=== PATIENT | male | born 1930 | race Caucasian/White ===

== ENCOUNTER 2017-01-03 13:05 | Emergency (ER) | payer OTHER ==
[~2017-01-03] VITALS: Ht 162.6 cm; Wt 76.0 kg
[~2017-01-03 13:05] MED LIST: AMLO2.5T2 PO; ASPCH81X PO; BRL90 PO; FINA5TAB4 PO; FRRS300 PO; LEVO75TA PO; LPT40 PO; METO50TA7 PO; NITR0.4S UT; OMEP20TA PO
[2017-01-03 13:22] VITALS: BP 101/73; TEMP 36.8; Ht 162.6 cm; Wt 76.0 kg
[2017-01-03] MEDS ORDERED: CMD5 PO (13:55)
[2017-01-03] MEDS ORDERED: WARF5TAB7 PO (13:55)
[2017-01-03] MEDS ORDERED: OXYCODONE HCL IR 5 MG TAB (IMMEDIATE RELEASE) PO STA (14:20)
--- NOTE | 2017-01-03 14:35 | DIAGNOSTIC IMAGING REPORT ---
RIGHT HIP 2 VIEWS HISTORY: Right hip pain. COMPARISON: None. FINDINGS: No acute fracture or dislocation within the right hip. The visualized pelvic bones are intact. Severe cartilage space narrowing with [id number] articulation, subchondral sclerosis, and marginal osteophytes within the right hip. This is consistent with severe osteoarthritis. There is slight flattening of the superior femoral head likely due to long-standing degenerative change. Vascular calcifications are noted. No radiopaque foreign bodies. IMPRESSION: Severe osteoarthritis of the right hip. No fracture or dislocation. Electronically signed by: Chase Cottrell M.D. 01/03/2017 2:33 PM Dictated Date/Time: 01/03/2017 2:32 PM
--- NOTE | 2017-01-03 14:56 | EMERGENCY ROOM VISIT NOTE ---
ED Visit Note First contact with patient: 13:48 Staff note: I have reviewed the Patients chart and have discussed this case with my PA. I generally agree with the ED note and findings.
[2017-01-03] MEDS ORDERED: OXYC1TAB3 PO (14:58)
[2017-01-03 15:07] VITALS: PULSE 81; O2SAT 95
--- NOTE | 2017-01-03 16:24 | EMERGENCY ROOM VISIT NOTE ---
History First contact with patient: 13:48 Chief Complaint: HIP PAIN Stated Complaint: PAIN IN RIGHT HIP History of Present Illness The patient is a 86 year old male who presents to the Emergency Room with complaints of increasing right hip pain for the past 3 days. The patient denies any recent injury to the hip. He does report a history of osteoarthritis , status post left primary hip [place] [address] Sorensen. He denies any pain extending into the back or thigh. His pain is worsened with weightbearing. He rates his discomfort a 6 out of 10. Review of Systems 10 system review was performed and was negative except for pertinent positives and negatives as indicated in history of present illness Past Medical/Surgical History Medical Problems: (1) Anemia (2) Benign hypertension (3) Chronic kidney disease stage 3 (4) Coronary artery disease (5) Deep venous thrombosis (6) Dyslipidemia (7) Heart failure (8) History of - cerebrovascular accident (9) Hypothyroidism (10) Old myocardial infarction (11) Post percutaneous transluminal coronary angioplasty (12) STEMI (ST elevation myocardial infarction) (13) Vitamin D deficiency Family History Omitted secondary to advanced age Social History Smoking Status: Former Smoker Alcohol Use: none Marital Status: Housing Status: lives with significant other Occupation Status: retired Current/Historical Medications Scheduled Amlodipine Besylate (Norvasc), 2.5 MG PO DAILY Aspirin (Aspirin Chewable), 81 MG PO DAILY Atorvastatin (Atorvastatin Calcium), 1 TAB PO DAILY Ferrous Sulfate (Ferrous Sulfate), 325 MG PO DAILY Finasteride (Proscar), 5 MG PO DAILY Levothyroxine Sodium (Synthroid), 75 MCG PO DAILY Metoprolol Succ (Toprol Xl) (Toprol-Xl), 1 TAB PO DAILY Omeprazole (Omeprazole), 20 MG PO DAILY Warfarin Sod (Coumadin), 1.5 TAB PO 2XWK Warfarin Sod (Jantoven), 1 TAB PO 5XWK Scheduled PRN Nitroglycerin (Nitrostat), 0.4 MG UT UD PRN for Chest Pain Oxycodone Ir (Roxicodone Ir), 1-2 TAB PO Q4H PRN for Pain Allergies Coded Allergies: Clopidogrel (Verified Allergy, Mild, RASH, 04/11/14) Sulfa Antibiotics (Verified Allergy, Mild, RASH, 10/09/15) Sulfamethoxazole (Verified Allergy, Mild, RASH, 04/11/14) Trimethoprim (Verified Allergy, Mild, RASH, 04/11/14) Niacin (Verified Allergy, Unknown, UNKNOWN, 06/14/13) Physical Exam Vital Signs Date Time Temp Pulse Resp B/P Pulse Ox O2 Delivery O2 Flow Rate FiO2 01/03/17 15:07 81 18 95 Room Air 01/03/17 13:22 36.8 87 20 101/73 94 Room Air Physical Exam CONSTITUTIONAL: Healthy and well nourished. Alert and oriented X 3 with positive affect. Patient appears in mild discomfort from pain. HEENT: Normocephalic, atraumatic. Pupils equal, round and reactive. NECK: Full active range of motion without discomfort. RESPIRATORY: Clear to auscultation bilaterally with no wheezing, crackles, rhonchi or stridor. CARDIOVASCULAR: Regular rate and rhythm with no murmurs, rubs or gallops. GASTROINTESTINAL: Bowel sounds present in all quadrants. Soft and nontender to palpation. MUSCULOSKELETAL: Examination of the right hip shows extremely limited range of motion with logroll. He has worsening pain with internal rotation. Focal tenderness to palpation over the greater trochanteric region, SI joint or sciatic notch. Negative straight leg raise. Ankle plantar/dorsiflexion strength is 5 out of 5 and symmetric bilaterally. Pedal pulses are intact. INTEGUMENTARY: No rash or other significant dermatologic conditions noted. NEUROLOGIC: Right lower extremity is sensory intact. Medical Decision & Procedures ER Provider Diagnostic Interpretation: My interpretation of right hip x-ray shows severe osteoarthritis. No fracture or dislocation noted. Radiologist report is as follows: RIGHT HIP 2 VIEWS HISTORY: Right hip pain. COMPARISON: None. FINDINGS: No acute fracture or dislocation within the right hip. The visualized pelvic bones are intact. Severe cartilage space narrowing with [id number] articulation, subchondral sclerosis, and marginal osteophytes within the right hip. This is consistent with severe osteoarthritis. There is slight flattening of the superior femoral head likely due to long-standing degenerative change. Vascular calcifications are noted. No radiopaque foreign bodies. IMPRESSION: Severe osteoarthritis of the right hip. No fracture or dislocation. Medications Administered Medications (Trade) Dose Ordered Sig/Natalie Route Start Time Stop Time Status Last Admin Dose Admin Oxycodone HCl (Roxicodone Immediate Rel Tab) 5 mg NOW STAT PO 01/03/17 14:20 01/03/17 14:21 DC 01/03/17 14:31 5 MG ED Course Patient history and physical exam were performed. Nurse's notes were reviewed. Vital signs were reviewed and normal. The patient initially refused any analgesics. After returning from x-ray, he then requested something for pain, and was administered OxyIR 5 mg. X-rays of the right hip confirms severe osteoarthritic changes. X-rays were reviewed with the patient. The patient was encouraged to alternate ibuprofen and Tylenol as needed for pain. The patient was provided a prescription for OxyIR as needed for worse pain. Patient was educated regarding drowsy side effects of this medication, as well as increased risk for constipation. He was encouraged to follow-up with his PCP and/or Dr. Sorensen for further reevaluation and management. The patient was happy with plan of care, voiced understanding of all discharge instructions , and rated his pain a 4 out of 10 at the time of discharge. The patient was also seen and examined by Dr. Dooley, ED attending physician, who agrees with workup and plan of care. Medical Decision Impression Primary Impression: Osteoarthritis of right hip Departure Information Dispostion Home / Self-Care Prescriptions Oxycodone Ir (Roxicodone Ir) 5 Mg Tab 1-2 TAB PO Q4H Y for Pain, #24 TAB For Initial Treatment Prov: Sedrick Gomez PA 01/03/17 Referrals Marcelo Soernsen M.D. Forms HOME CARE DOCUMENTATION FORM, IMPORTANT VISIT INFORMATION Patient Instructions Osteoarthritis Common Sites, My [facility] Additional Instructions Limit activities until symptoms improve. Tylenol 1009 g every 6-8 hours. OxyIR if needed for worse pain. Remember that OxyIR can make you drowsy and constipated. Follow-up with your family doctor or Dr. Sorensen for further reevaluation and management. Problem Qualifiers Primary Impression: Osteoarthritis of right hip Osteoarthritis type: primary Qualified Codes: M16.11 - Unilateral primary osteoarthritis, right hip
== END 2017-01-03 15:08 | disposition home or self-care (01) ==
LOC: C.EDB 13:07 → C.EDD 15:08
DX: M16.11 Unilateral primary osteoarthritis, right hip (principal); Z96.642 Presence of left artificial hip joint; D64.9 Anemia, unspecified; I12.9 Hypertensive chronic kidney disease with stage 1 through stage 4 chronic kidney disease, or unspecified chronic kidney disease; N18.3 Chronic kidney disease, stage 3 (moderate); I25.10 Atherosclerotic heart disease of native coronary artery without angina pectoris; Z86.718 Personal history of other venous thrombosis and embolism; E78.5 Hyperlipidemia, unspecified; Z86.73 Personal history of transient ischemic attack (TIA), and cerebral infarction without residual deficits; E03.9 Hypothyroidism, unspecified; I25.2 Old myocardial infarction; Z98.61 Coronary angioplasty status; Z87.891 Personal history of nicotine dependence; Z79.82 Long term (current) use of aspirin; Z79.899 Other long term (current) drug therapy; Z79.01 Long term (current) use of anticoagulants

== ENCOUNTER 2017-08-08 08:40 | Emergency (ER) | payer OTHER ==
[~2017-08-08] VITALS: Ht 162.6 cm; Wt 75.0 kg
[~2017-08-08 08:40] MED LIST changes: -BRL90 PO; +CMD5 PO; +WARF5TAB7 PO
[2017-08-08 08:45] VITALS: TEMP 37; Ht 162.6 cm; Wt 75.0 kg
[2017-08-08] MEDS ORDERED: CALC0.2510 PO (09:22)
[2017-08-08] MEDS ORDERED: TRAM-10 PO (09:22)
[2017-08-08] MEDS ORDERED: WARF5TAB90 PO ×2 (09:22)
[2017-08-08] MEDS ORDERED: TAMS0.4C38 PO (09:22)
[2017-08-08] MEDS ORDERED: KPH PO (09:22)
--- NOTE | 2017-08-08 09:34 | EMERGENCY ROOM VISIT NOTE ---
History Report prepared by Juwan: Angela Jones Under the Supervision of: Dr. Berny Aparicio M.D. First contact with patient: 09:12 Chief Complaint: URINARY SYMPTOMS Stated Complaint: LOOSE STOOLS, NAUSEA X 2 WEEKS Nursing Triage Summary: Pt states "I can't empty my urine very well" x 2 weeks. Pt states pt has been incontinent of stool as well. Urology appt on Friday. History of Present Illness The patient is an 87 year old male who presents to the Emergency Room with complaints of persistent urinary retention over the past two to three weeks. The patient describes his pain as a 7/10 in severity. He states that he is having dysuria and pain in his groin. His states that 2 weeks ago he began losing control of his bowels and is currently having loose, green, and soft stool. The patient denies any numbness or weakness in legs, groin, or buttocks. He also denies any shortness of breath or back pain. The patient's states he had an CO in 1994 noting that he had a catheterization through his groin. The patient states that he has had chronic pain in his groin since then. The patient states that his primary care physician referred him to see a urologist, which he is due to see in the upcoming week. He denies any known prostate issues. The patient reports small dribbles when he urinates. He states that he is on Coumadin. The patient denies any fever, chest pain, shortness of breath, or back pain. Source of History: patient, spouse/significant other () Onset: two to three weeks Position: other (global) Quality: other (urinary retention) Timing: other (persistent) Associated Symptoms: No fevers, No chest pain, No SOB, No back pain Review of Systems See HPI for pertinent positives & negatives. A total of 10 systems reviewed and were otherwise negative. 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 (11) Post percutaneous transluminal coronary angioplasty (12) STEMI (ST elevation myocardial infarction) (13) Vitamin D deficiency Old medical records were reviewed. Nurse's notes were reviewed and I agree with. Family History Omitted secondary to advanced age Social History Smoking Status: Former Smoker Alcohol Use: none Marital Status: Housing Status: lives with significant other Occupation Status: retired Current/Historical Medications Scheduled Amlodipine Besylate (Norvasc), 2.5 MG PO DAILY Aspirin (Aspirin Chewable), 81 MG PO DAILY Atorvastatin (Atorvastatin Calcium), 1 TAB PO DAILY Calcitriol (Rocaltrol Cap), 0.25 MCG PO MWF Ferrous Sulfate (Ferrous Sulfate), 325 MG PO DAILY Finasteride (Proscar), 5 MG PO DAILY Levothyroxine Sodium (Synthroid), 75 MCG PO DAILY Metoprolol Succ (Toprol Xl) (Toprol-Xl), 1 TAB PO DAILY Omeprazole (Omeprazole), 20 MG PO DAILY Potassium Phosphate Monobasic (K-Phos), 1 TAB PO DAILY Tamsulosin Hcl (Flomax), 0.4 MG PO DAILY Warfarin Sodium (Coumadin), 5 MG PO 5XWK Warfarin Sodium (Coumadin), 7.5 MG PO 2XWK Scheduled PRN Nitroglycerin (Nitrostat), 0.4 MG UT UD PRN for Chest Pain Tramadol (Ultram), 50 MG PO BID PRN for Pain Allergies Coded Allergies: Clopidogrel (Verified Allergy, Mild, RASH, 08/08/17) Sulfa Antibiotics (Verified Allergy, Mild, RASH, 08/08/17) Sulfamethoxazole (Verified Allergy, Mild, RASH, 08/08/17) Trimethoprim (Verified Allergy, Mild, RASH, 08/08/17) Niacin (Verified Allergy, Unknown, UNKNOWN, 08/08/17) Physical Exam Vital Signs Date Time Temp Pulse Resp B/P (MAP) Pulse Ox O2 Delivery O2 Flow Rate FiO2 08/08/17 12:26 76 20 145/86 95 08/08/17 11:14 63 20 148/80 93 Room Air 08/08/17 08:45 37.0 83 17 158/91 92 Room Air Physical Exam General: Non-ill appearing older male in no acute distress. HEENT: Normal cephalic atraumatic. Pupils are equal round and reactive to light. Extraocular movements are intact. Oropharynx is pink with moist mucous membranes. No swelling of the mouth lips or tongue. Neck: Supple with a midline trachea. No meningeal signs or stiffness, no JVD or bruits. No Stridor. Chest: Clear to auscultation bilaterally. No wheezes or rhonchi. No increased work of breathing. Heart: regular rate and rhythm. Abdomen: Soft nontender, distended bladder with no tenderness to palpation without rebound guarding or rigidity. Rectal: Normal tone, brown stool, guaiac negative. Extremities: No cyanosis clubbing or edema. No calf tenderness or assymetry Spine/Back. Non tender to palpation. No CVA tenderness Skin: Good turgor without rashes. Neurologic exam: Cranial nerves two through 12 are intact. Motor and sensation are intact and symmetrical throughout. No numbness in buttocks. Medical Decision & Procedures Laboratory Results 08/08/17 09:41 Red Blood Count 4.98, Mean Corpuscular Volume 96.8, Mean Corpuscular Hemoglobin 32.3, Mean Corpuscular Hemoglobin Concent 33.4, Mean Platelet Volume 9.7, Neutrophils (%) (Auto) 76.6, Lymphocytes (%) (Auto) 10.1, Monocytes (%) (Auto) 11.0, Eosinophils (%) (Auto) 1.5, Basophils (%) (Auto) 0.4, Neutrophils # (Auto ) 7.04, Lymphocytes # (Auto) 0.93, Monocytes # (Auto) 1.01, Eosinophils # (Auto ) 0.14, Basophils # (Auto) 0.04 08/08/17 09:41 Test 08/08/17 09:41 08/08/17 09:48 White Blood Count 9.20 K/uL (4.8-10.8) Red Blood Count 4.98 M/uL (4.7-6.1) Hemoglobin 16.1 g/dL (14.0-18.0) Hematocrit 48.2 % (42-52) Mean Corpuscular Volume 96.8 fL (80-100) Mean Corpuscular Hemoglobin 32.3 pg (25-34) Mean Corpuscular Hemoglobin Concent 33.4 g/dl (32-36) Platelet Count 153 K/uL (130-400) Mean Platelet Volume 9.7 fL (7.4-10.4) Neutrophils (%) (Auto) 76.6 % Lymphocytes (%) (Auto) 10.1 % Monocytes (%) (Auto) 11.0 % Eosinophils (%) (Auto) 1.5 % Basophils (%) (Auto) 0.4 % Neutrophils # (Auto) 7.04 K/uL (1.4-6.5) Lymphocytes # (Auto) 0.93 K/uL (1.2-3.4) Monocytes # (Auto) 1.01 K/uL (0.11-0.59) Eosinophils # (Auto) 0.14 K/uL (0-0.5) Basophils # (Auto) 0.04 K/uL (0-0.2) RDW Standard Deviation 49.1 fL (36.4-46.3) RDW Coefficient of Variation 13.9 % (11.5-14.5) Immature Granulocyte % (Auto) 0.4 % Immature Granulocyte # (Auto) 0.04 K/uL (0.00-0.02) Prothrombin Time 36.2 SECONDS (9.0-12.0) Prothromb Time International Ratio 3.2 (0.9-1.1) Activated Partial Thromboplast Time 37.9 SECONDS (21.0-31.0) Partial Thromboplastin Ratio 1.5 Anion Gap 4.0 mmol/L (3-11) Est Creatinine Clear Calc Drug Dose 31.3 ml/min Estimated GFR () 44.9 Estimated GFR (Non- 38.7 BUN/Creatinine Ratio 16.1 (10-20) Calcium Level 9.0 mg/dl (8.5-10.1) Urine Color YELLOW Urine Appearance CLEAR (CLEAR) Urine pH 6.0 (4.5-7.5) Urine Specific [place] 1.014 (1.000-1.030) Urine Protein TRACE (NEG) Urine Glucose (UA) NEG (NEG) Urine Ketones NEG (NEG) Urine Occult Blood 3+ (NEG) Urine Nitrite NEG (NEG) Urine Bilirubin NEG (NEG) Urine Urobilinogen NEG (NEG) Urine Leukocyte Esterase TRACE (NEG) Urine WBC (Auto) 5-10 /hpf (0-5) Urine RBC (Auto) >30 /hpf (0-4) Urine Hyaline Casts (Auto) 1-5 /lpf (0-5) Urine Epithelial Cells (Auto) 20-30 /lpf (0-5) Urine Bacteria (Auto) NEG (NEG) Laboratory studies as stated above per my review. ED Course 0914: Past medical records reviewed. The patient was evaluated in room A4B, and a complete history and physical examination were performed. 1027: I reevaluated the patient and he is resting more comfortably since the catheter was placed. I additionally did a rectal exam at this time. See physical exam for further detail. 1138: I discussed the patients case with Dr. Beatty, Urology. She states that the patient should have the catheter kept in and then she will see the patient on Friday. 1143: I reevaluated the patient and he is doing well. I discussed all the exam findings with him and I discussed the treatment plan. He verbalized complete understanding and agreement. He is ready to go home. Medical Decision Differentials include, but are not limited to; urinary retention, prostate disorder, UTI, renal failure, spinal process This patient comes in as described above. he's had some ongoing urinary retention for several months and it has gotten worse today. He apparently does have prostate problems and has been on finasteride and Flomax. On exam, he has no neurologic deficits. he has normal rectal tone and no evidence to suggest cauda equina syndrome. His urinalysis does not suggest acute infection. He has not nothing to suggest acute renal insufficiency. he does have a creatinine of 1.7 which is about baseline. No acute electrolyte or metabolic abnormalities. Bladder scan showed greater than 500 mL a Sales catheter was easily placed the patient tolerated this well the urine was yellow but did have some blood-tinged component at times. No clots. His INR is 3.2. I did discuss the case with Dr. Beatty and she agrees with the plan to leave the Sales in. She does not wish to have an antibiotic. She will follow-up with him on Friday where he can keep his appointment. He should return of the weekend if any problems with catheter, fever or chills, any new problems concerns. They're happy with plan and discharged to home. Medication Reconcilliation Current Medication List: was personally reviewed by me Blood Pressure Screening Patient's blood pressure: Elevated blood pressure Blood pressure disposition: Referred to PCP Consults Time Called: 1041 Consulting Physician: Dr. Beatty, Urology Returned Call: [phone] I discussed the patients case with Dr. Beatty, Urology. She states that the patient should have the catheter kept in and then she will see the patient on Friday. Impression Primary Impression: Urinary retention Scribe Attestation The scribe's documentation has been prepared under my direction and personally reviewed by me in its entirety. I confirm that the note above accurately reflects all work, treatment, procedures, and medical decision making performed by me. Departure Information Dispostion Home / Self-Care Referrals No Doctor, Assigned (PCP) Forms HOME CARE DOCUMENTATION FORM, IMPORTANT VISIT INFORMATION Patient Instructions My [facility] Additional Instructions Rest. Drink plenty of fluids. Keep catheter in Return if fever, problems with catheter, any new problems or concerns Keep your appointment on Friday with Dr. Beatty Ensure that you are taking your Flomax and finasteride
[2017-08-08 09:56] LABS: BASO % 0.4 %; BASO ABS # 0.04 K/uL (0-0.2); COMPLETE YES; EOS % 1.5 %; HEMATOCRIT 48.2 % (42-52); IG% 0.4 %; LYMPH % 10.1 %; LYMPH ABS # 0.93 K/uL (1.2-3.4); MEAN CELL VOLUME 96.8 fL (80-100); MEAN CORPUSCULAR HEMOGLOBIN 32.3 pg (25-34); MEAN CORPUSCULAR HGB CONC 33.4 g/dl (32-36); MEAN PLATELET VOLUME 9.7 fL (7.4-10.4); NEUT % 76.6 %; PLATELET COUNT 153 K/uL (130-400); RED BLOOD COUNT 4.98 M/uL (4.7-6.1)
[2017-08-08 10:05] LABS: URINE APPEARANCE CLEAR (CLEAR); URINE BILIRUBIN NEG (NEG); URINE COLOR YELLOW; URINE EPITHELIAL CELL AUTO 20-30 /lpf (0-5); URINE NITRITE NEG (NEG); URINE SPECIFIC GRAVITY 1.014 (1.000-1.030); UROBILINOGEN NEG (NEG)
[2017-08-08 10:05] LABS: INR 3.2 (0.9-1.1); PARTIAL THROMBOPLASTIN RATIO 1.5; PROTHROMBIN TIME (PATIENT) 36.2 SECONDS (9.0-12.0)
[2017-08-08 10:09] LABS: MANUAL MICROSCOPIC REQUIRED? NO; REVIEW REQ? NO
[2017-08-08 10:17] LABS: BUN/CREATININE RATIO 16.1 (10-20); CREATININE 1.6 mg/dl (0.60-1.40); POTASSIUM 3.9 mmol/L (3.5-5.1)
[2017-08-08 12:26] VITALS: BP 145/86; PULSE 76; O2SAT 95
== END 2017-08-08 12:28 | disposition home or self-care (01) ==
LOC: C.EDB 08:41 → C.EDA 12:28
DX: R33.9 Retention of urine, unspecified (principal); I25.2 Old myocardial infarction; G89.29 Other chronic pain; Z79.01 Long term (current) use of anticoagulants; D64.9 Anemia, unspecified; I12.9 Hypertensive chronic kidney disease with stage 1 through stage 4 chronic kidney disease, or unspecified chronic kidney disease; N18.3 Chronic kidney disease, stage 3 (moderate); I25.10 Atherosclerotic heart disease of native coronary artery without angina pectoris; Z86.718 Personal history of other venous thrombosis and embolism; E78.5 Hyperlipidemia, unspecified; Z86.73 Personal history of transient ischemic attack (TIA), and cerebral infarction without residual deficits; E03.9 Hypothyroidism, unspecified; Z98.61 Coronary angioplasty status; Z87.891 Personal history of nicotine dependence; Z79.82 Long term (current) use of aspirin; Z79.899 Other long term (current) drug therapy

== ENCOUNTER 2017-08-09 23:11 | Emergency (ER) | payer OTHER ==
[~2017-08-09] VITALS: Ht 162.6 cm; Wt 72.7 kg
[~2017-08-09 23:11] MED LIST changes: +CALC0.2510 PO; -CMD5 PO; +KPH PO; +TAMS0.4C38 PO; +TRAM-10 PO; -WARF5TAB7 PO; +WARF5TAB90 PO
[2017-08-09 23:20] VITALS: TEMP 36.6; Ht 162.6 cm; Wt 72.7 kg
[2017-08-10 00:07] LABS: PROTHROMBIN TIME (PATIENT) 49.4 SECONDS (9.0-12.0)
[2017-08-10 00:09] LABS: INR 4.3 (0.9-1.1)
[2017-08-10 03:19] VITALS: BP 153/89; PULSE 87; O2SAT 92
--- NOTE | 2017-08-10 03:41 | EMERGENCY ROOM VISIT NOTE ---
History Report prepared by Juwan: Rose Mary Hodges Under the Supervision of: Dr. Macie Santiago D.O. First contact with patient: 23:24 Chief Complaint: URINARY SYMPTOMS Stated Complaint: BLOOD IN URINE Nursing Triage Summary: pt noticed blood in castellanos cath tonight History of Present Illness The patient is an 87 year old male who presents to the Emergency Room with complaints of persistent hematuria starting this evening. The patient was seen in the ED yesterday for 2-3 months of difficulty urinating. He had a catheter placed and he was discharged home. He was not having any blood until he was going to bed tonight. He feels well otherwise. He denies any abdominal pain, fever, nausea, vomiting, or chills. He is on Coumadin. He has a history of CAD, CVA, and blood clots. His INR yesterday was 3.2. His INR before yesterday was normal. He was not started on antibiotics yesterday. He has an appointment with urology in 3 days. Source of History: patient, family Onset: this evening Position: other (global) Quality: other (hematuria) Timing: other (persistent) Associated Symptoms: No fevers, No chills, No nausea, No vomiting, No abdominal pain Review of Systems See HPI for pertinent positives & negatives. A total of 10 systems reviewed and were otherwise negative. 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 (11) Post percutaneous transluminal coronary angioplasty (12) STEMI (ST elevation myocardial infarction) (13) Vitamin D deficiency Family History Omitted secondary to advanced age Social History Smoking Status: Never Smoker Alcohol Use: none Marital Status: Housing Status: lives with significant other Occupation Status: retired Current/Historical Medications Scheduled Amlodipine Besylate (Norvasc), 2.5 MG PO DAILY Aspirin (Aspirin Chewable), 81 MG PO DAILY Atorvastatin (Atorvastatin Calcium), 1 TAB PO DAILY Calcitriol (Rocaltrol Cap), 0.25 MCG PO MWF Ferrous Sulfate (Ferrous Sulfate), 325 MG PO DAILY Finasteride (Proscar), 5 MG PO DAILY Levothyroxine Sodium (Synthroid), 75 MCG PO DAILY Metoprolol Succ (Toprol Xl) (Toprol-Xl), 1 TAB PO DAILY Omeprazole (Omeprazole), 20 MG PO DAILY Potassium Phosphate Monobasic (K-Phos), 1 TAB PO DAILY Tamsulosin Hcl (Flomax), 0.4 MG PO DAILY Warfarin Sodium (Coumadin), 5 MG PO 5XWK Warfarin Sodium (Coumadin), 7.5 MG PO 2XWK Scheduled PRN Nitroglycerin (Nitrostat), 0.4 MG UT UD PRN for Chest Pain Tramadol (Ultram), 50 MG PO BID PRN for Pain Allergies Coded Allergies: Clopidogrel (Verified Allergy, Mild, RASH, 08/09/17) Sulfa Antibiotics (Verified Allergy, Mild, RASH, 08/09/17) Sulfamethoxazole (Verified Allergy, Mild, RASH, 08/09/17) Trimethoprim (Verified Allergy, Mild, RASH, 08/09/17) Niacin (Verified Allergy, Unknown, UNKNOWN, 08/09/17) Physical Exam Vital Signs Date Time Temp Pulse Resp B/P (MAP) Pulse Ox O2 Delivery O2 Flow Rate FiO2 08/10/17 03:19 87 18 153/89 92 Room Air 08/10/17 02:50 71 17 129/86 91 Room Air 08/10/17 01:21 68 18 137/78 93 Room Air 08/09/17 23:20 36.6 75 18 128/84 93 Room Air Physical Exam HEENT: Head - normocephalic and atraumatic Pupils are equal, round, and reactive to light. Extraocular eye muscles are intact, and sclera are anicteric. Nose - moist nasal mucosa without discharge. Mouth - moist buccal mucosa. Oropharynx is nonerythematous and there is no tonsillar exudate or edema noted. Neck: Supple; no JVD, nuchal rigidity, cervical lymphadenopathy. Heart: Regular rate and rhythm. There is a normal S1 and S2 with no murmurs, clicks, or gallops appreciated. Lungs: Clear to auscultation bilaterally with no wheezes, rales, or rhonchi. Abdomen: Soft, completely nontender, nondistended, with good bowel sounds. There are no palpable pulsatile masses or hepatosplenomegaly. There is no guarding, rigidity, or rebound noted. Extremities: No evidence of cyanosis, clubbing, or edema. There are easily palpable peripheral pulses. Skin: warm and dry with good turgor and no rashes. Medical Decision & Procedures Laboratory Results Test 08/09/17 23:45 Prothrombin Time 49.4 SECONDS (9.0-12.0) Prothromb Time International Ratio 4.3 (0.9-1.1) Laboratory results per my review. ED Course 2331: The patient was evaluated in room B2. A complete history and physical examination were performed. Nursing notes and previous electronic medical records were reviewed. Labs were drawn as above. 2337: Urine cultures from yesterday were reviewed. They show enterococcus with sensitivities to follow. Nursing staff have irrigated the patient's Castellanos catheter to the point that the urine was clear to pink tinged. 0127: I reevaluated the patient. His urine is pink tinged so far. He has been able to drink clear liquids without difficulty. 0209: I reevaluated the patient. He has not had any more urine out. 0310: I reevaluated the patient. His urine is now very light pink. The daylight charge nurse will call with the results of the urine sensitivities and call in antibiotics. I discussed findings and results with him. He verbalized agreement of the treatment plan. He was discharged home. Medical Decision The patient is an 87 year old male who presents to the ED with hematuria. Differential diagnosis includes supratherapeutic INR, cystitis. Labs: INR 4.3 This is an 87-year-old male patient with an indwelling Castellanos catheter from yesterday that now has hematuria. The urine was irrigated till it was clear and now pink tinged. The patient's INR has increased from 3.2-4.3. This most likely is contributing to the hematuria. However, the patient does have enterococcus in his urine and we are awaiting sensitivities. He is most likely suffering from a urinary tract infection and will require oral antibiotics. The charge nurse will follow-up with the patient later today with results of the urine culture and antibiotic selection. The patient has an appointment scheduled with urology on Friday which is 3 days from now. He was told to return to the emergency department if the bleeding became heavier in the urine. The patient was asked to avoid taking his Coumadin dose today or tomorrow and start back to usual dose on Friday. He will need to have the INR rechecked this week. Medication Reconcilliation Current Medication List: was personally reviewed by me Blood Pressure Screening Patient's blood pressure: Elevated blood pressure Blood pressure disposition: Elevated BP felt to be situational Impression Primary Impression: Hematuria Additional Impression: Supratherapeutic INR Scribe Attestation The scribe's documentation has been prepared under my direction and personally reviewed by me in its entirety. I confirm that the note above accurately reflects all work, treatment, procedures, and medical decision making performed by me. Departure Information Dispostion Home / Self-Care Referrals Venkat Gilman D.O. (PCP) Forms HOME CARE DOCUMENTATION FORM, IMPORTANT VISIT INFORMATION Patient Instructions My [facility] Additional Instructions No Coumadin on Friday Restart normal dose on Friday night Return to the ER if catheter becomes blocked or urine has a larger amount of blood. Otherwise, keep your appointment with Urology on . You will be contacted tomorrow about infection and taking an antibiotic. Problem Qualifiers
== END 2017-08-10 03:27 | disposition home or self-care (01) ==
LOC: C.EDB 23:12
DX: R31.9 Hematuria, unspecified (principal); R79.1 Abnormal coagulation profile; I12.9 Hypertensive chronic kidney disease with stage 1 through stage 4 chronic kidney disease, or unspecified chronic kidney disease; N18.3 Chronic kidney disease, stage 3 (moderate); I25.10 Atherosclerotic heart disease of native coronary artery without angina pectoris; E03.9 Hypothyroidism, unspecified; I25.2 Old myocardial infarction; Z86.718 Personal history of other venous thrombosis and embolism; Z79.01 Long term (current) use of anticoagulants; Z79.82 Long term (current) use of aspirin

== ENCOUNTER 2017-08-11 15:33 | Emergency (ER) | payer OTHER ==
[~2017-08-11] VITALS: Ht 162.6 cm; Wt 73.0 kg
[2017-08-11 15:35] VITALS: TEMP 37; Ht 162.6 cm; Wt 73.0 kg
--- NOTE | 2017-08-11 16:29 | EMERGENCY ROOM VISIT NOTE ---
History First contact with patient: 15:40 Chief Complaint: CATHETER REPLACEMENT Stated Complaint: BLOOD CLOT CATHETER History of Present Illness The patient is a 87 year old male who presents to the Emergency Room with complaints of hematuria in his catheter bag after a fall this morning Fall this morning as he was transitioning from bed to wheelchair. He "crumpled" to the ground and had to call a neighbor lady to help him into the wheelchair. He reports no pain, no LOC, no head trauma/ no headache/back pain, abdo pain A few hours after the fall, noticed his urine output in bag had darkened in color. and also notices a clot near where the catheter meets the bag. He does not report any discomfort with the catheter. Has not taken warfarin for 2 days after recent hospitalization Was in ED 3 days ago with decreased urine output; castellanos was placed at that visit. The following day, patient returned to ED due to large amount of blood in the bag. INR was found to be 4.3 at that visit, thus warfarin was held. Patient is due for follow up with Urology, dr. quispe, tomorrow. Review of Systems Constitutional: + weakness, No fever, No chills, No sweats, No weight loss, No fatigue, No problem reported ENT: + hearing loss, No unusual epistaxis, No nasal symptoms, No sore throat , No tinnitus, No dental problems, No trouble swallowing, No problem reported Respiratory: No cough, No sputum, No wheezing, No shortness of breath, No dyspnea on exertion, No dyspnea at rest, No hemoptysis, No problem reported Cardiovascular: No chest pain, No orthopnea, No PND, No edema, No claudication, No palpitations, No problem reported Abdomen: No pain, No nausea, No vomiting, No diarrhea, No constipation, No GI bleeding, No problem reported Genitourinary - Male: + hematuria Neurologic: + weakness, No memory loss, No paralysis, No numbness/tingling, No vertigo, No balance problems, No problem reported Past Medical/Surgical History Medical Problems: (1) Anemia (2) Benign hypertension (3) Chronic kidney disease stage 3 (4) Coronary artery disease (5) Deep venous thrombosis (6) Dyslipidemia (7) Heart failure (8) History of - cerebrovascular accident (9) Hypothyroidism (10) Old myocardial infarction (11) Post percutaneous transluminal coronary angioplasty (12) STEMI (ST elevation myocardial infarction) (13) Vitamin D deficiency Family History Omitted secondary to advanced age Social History Smoking Status: Former Smoker Alcohol Use: none Marital Status: Housing Status: lives with significant other Occupation Status: retired Current/Historical Medications Scheduled Amlodipine Besylate (Norvasc), 2.5 MG PO DAILY Aspirin (Aspirin Chewable), 81 MG PO DAILY Atorvastatin (Atorvastatin Calcium), 1 TAB PO DAILY Calcitriol (Rocaltrol Cap), 0.25 MCG PO MWF Ferrous Sulfate (Ferrous Sulfate), 325 MG PO DAILY Finasteride (Proscar), 5 MG PO DAILY Levothyroxine Sodium (Synthroid), 75 MCG PO DAILY Metoprolol Succ (Toprol Xl) (Toprol-Xl), 1 TAB PO DAILY Omeprazole (Omeprazole), 20 MG PO DAILY Potassium Phosphate Monobasic (K-Phos), 1 TAB PO DAILY Tamsulosin Hcl (Flomax), 0.4 MG PO DAILY Warfarin Sodium (Coumadin), 5 MG PO 5XWK Warfarin Sodium (Coumadin), 7.5 MG PO 2XWK Scheduled PRN Nitroglycerin (Nitrostat), 0.4 MG UT UD PRN for Chest Pain Tramadol (Ultram), 50 MG PO BID PRN for Pain Physical Exam Vital Signs Date Time Temp Pulse Resp B/P (MAP) Pulse Ox O2 Delivery O2 Flow Rate FiO2 08/11/17 17:43 76 18 138/87 90 Room Air 08/11/17 15:35 37.0 71 20 133/100 91 Room Air Physical Exam General Appearance: WD/WN, no apparent distress Head: normocephalic, atraumatic Eyes: normal inspection, PERRL ENT: + pertinent finding (hard of hearing) Neck: supple, no JVD Respiratory/Chest: chest non-tender, lungs clear, normal breath sounds, no respiratory distress, no accessory muscle use Cardiovascular: regular rate, rhythm, no edema, no gallop, no JVD, no murmur , normal peripheral pulses Abdomen / GI: normal bowel sounds, non tender, soft Genitourinary - Male: normal male genitalia, + pertinent finding (castellanos in situ, some streaks of blood and small clots within castellanos bag.) Back: normal inspection Extremities: normal inspection, no calf tenderness, no pedal edema, normal range of motion, non-tender, pelvis stable Neurologic/Psych: no motor/sensory deficits, alert, normal mood/affect, oriented x 3 Medical Decision & Procedures Laboratory Results Test 08/11/17 16:11 ED Course 1545: full history and physical obtained. 1600: ordered prp, CBC, PT/INR, and irrigation of castellanos catheter. Medical Decision Prior records/ancillary studies reviewed. Triage Nursing notes reviewed. Additional history obtained from the patient's . The patient's history was concerning for possible genitourinary bleeding. Differential diagnosis: Etiologies such as hematuria, cystitis, UTI, clot in castellanos catheter, as well as others were entertained. Physical exam: As above. The patients vital signs were stable. ER treatment provided: Flushing of castellanos catheter, replacement of castellanos catheter Diagnostics interpreted by me: The labs were still pending at this time; please refer to Dr. Barrera's note for assessment Impression Primary Impression: Complication of catheter Departure Information Referrals Venkat Gilman DTamikoOTamiko (PCP) Patient Instructions My [facility] Resident Tracking Resident Involvement: Resident Care Provided Care Provided: Adult ED Problem Qualifiers Primary Impression: Complication of catheter Encounter type: subsequent encounter Qualified Codes: T85.9XXD - Unspecified complication of internal prosthetic device, implant and graft, subsequent encounter
[2017-08-11 18:25] LABS: BASO % 0.3 %; BASO ABS # 0.03 K/uL (0-0.2); COMPLETE YES; EOS % 1.6 %; HEMATOCRIT 43.8 % (42-52); IG% 0.6 %; LYMPH % 10.3 %; LYMPH ABS # 1.11 K/uL (1.2-3.4); MEAN CELL VOLUME 95.8 fL (80-100); MEAN CORPUSCULAR HEMOGLOBIN 33.5 pg (25-34); MEAN CORPUSCULAR HGB CONC 34.9 g/dl (32-36); MEAN PLATELET VOLUME 10.2 fL (7.4-10.4); MONO % 14.5 %; NEUT % 72.7 %; PLATELET COUNT 142 K/uL (130-400); RED BLOOD COUNT 4.57 M/uL (4.7-6.1); WHITE BLOOD COUNT 10.81 K/uL (4.8-10.8)
--- NOTE | 2017-08-11 18:26 | DIAGNOSTIC IMAGING REPORT ---
CHEST ONE VIEW PORTABLE CLINICAL HISTORY: cough dyspnea COMPARISON STUDY: 118 1016 FINDINGS: The bones soft tissues and hemidiaphragms are normal. The cardiomediastinal silhouette is normal. The lungs are clear. The pulmonary vasculature is normal. IMPRESSION: Negative chest. The above report was generated using voice recognition software. It may contain grammatical, syntax or spelling errors. Electronically signed by: Mikey Mantilla M.D. 08/11/2017 6:25 PM Dictated Date/Time: 08/11/2017 6:24 PM
[2017-08-11 18:34] LABS: INR 2.7 (0.9-1.1)
[2017-08-11 18:42] LABS: BUN/CREATININE RATIO 18.1 (10-20); CALCIUM 8.8 mg/dl (8.5-10.1); CREATININE 1.78 mg/dl (0.60-1.40); POTASSIUM 4.5 mmol/L (3.5-5.1)
[2017-08-11 19:05] VITALS: BP 128/80; PULSE 74; O2SAT 93
--- NOTE | 2017-08-11 19:53 | EMERGENCY ROOM VISIT NOTE ---
History Report prepared by Juwan: Evelyn Salazar Under the Supervision of: Dr. Chester Barrera M.D. First contact with patient: 15:43 Chief Complaint: CATHETER REPLACEMENT Stated Complaint: BLOOD CLOT CATHETER History of Present Illness The patient is a 87 year old male who presents to the Emergency Room with complaints of a blood clot in his catheter happening shortly prior to arrival. The patient states that this is his third visit in the last 4 days, and that he had a Sales catheter placed on the . The patient states that he fell this morning but did not lose his consciousness. His states that she noticed darker urine where the Sales meets the bag. Pt denies LOC, headache, fevers, chills, diaphoresis, visual changes, neck pain, chest pain, breathing difficulties, nausea, vomiting, abdominal pain, back pain, melena, hematochezia , numbness, weakness, lymphadenopathy, rash, or other complaints. Source of History: patient, spouse/significant other ( ) Onset: shortly prior to arrival Position: other (bladder) Quality: other (blood in catheter) Timing: constant Associated Symptoms: No fevers Review of Systems See HPI for pertinent positives and negatives. A total of ten systems were reviewed and were otherwise negative. 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 (11) Post percutaneous transluminal coronary angioplasty (12) STEMI (ST elevation myocardial infarction) (13) Vitamin D deficiency Family History Omitted secondary to advanced age Social History Smoking Status: Former Smoker Alcohol Use: none Marital Status: Housing Status: lives with significant other Occupation Status: retired Current/Historical Medications Scheduled Amlodipine Besylate (Norvasc), 2.5 MG PO DAILY Aspirin (Aspirin Chewable), 81 MG PO DAILY Atorvastatin (Atorvastatin Calcium), 1 TAB PO DAILY Calcitriol (Rocaltrol Cap), 0.25 MCG PO MWF Ferrous Sulfate (Ferrous Sulfate), 325 MG PO DAILY Finasteride (Proscar), 5 MG PO DAILY Levothyroxine Sodium (Synthroid), 75 MCG PO DAILY Metoprolol Succ (Toprol Xl) (Toprol-Xl), 1 TAB PO DAILY Omeprazole (Omeprazole), 20 MG PO DAILY Potassium Phosphate Monobasic (K-Phos), 1 TAB PO DAILY Tamsulosin Hcl (Flomax), 0.4 MG PO DAILY Warfarin Sodium (Coumadin), 5 MG PO 5XWK Warfarin Sodium (Coumadin), 7.5 MG PO 2XWK Scheduled PRN Nitroglycerin (Nitrostat), 0.4 MG UT UD PRN for Chest Pain Tramadol (Ultram), 50 MG PO BID PRN for Pain Allergies Coded Allergies: Clopidogrel (Verified Allergy, Mild, RASH, 08/11/17) Sulfa Antibiotics (Verified Allergy, Mild, RASH, 08/11/17) Sulfamethoxazole (Verified Allergy, Mild, RASH, 08/11/17) Trimethoprim (Verified Allergy, Mild, RASH, 08/11/17) Niacin (Verified Allergy, Unknown, UNKNOWN, 08/11/17) Physical Exam Vital Signs Date Time Temp Pulse Resp B/P (MAP) Pulse Ox O2 Delivery O2 Flow Rate FiO2 08/11/17 19:05 74 18 128/80 93 Room Air 08/11/17 17:43 76 18 138/87 90 Room Air 08/11/17 15:35 37.0 71 20 133/100 91 Room Air Physical Exam GENERAL: Awake, alert, well-appearing, in no distress HENT: Normocephalic, atraumatic. Oropharynx unremarkable. EYES: Normal conjunctiva. Sclera non-icteric. NECK: Supple. No nuchal rigidity. FROM. No JVD. RESPIRATORY: Clear to auscultation. CARDIAC: Regular rate, normal rhythm. Extremities warm and well perfused. Pulses equal. ABDOMEN: Soft, non-distended. No tenderness to palpation. No rebound or guarding. No masses. RECTAL: Deferred. MUSCULOSKELETAL: Chest examination reveals no tenderness. The back is symmetrical on inspection without obvious abnormality. No joint edema. LOWER EXTREMITIES: Calves are equal size bilaterally and non-tender. Trace lower extremity edema. No discoloration. : Sales catheter in place. Blood-tinged urine in bag. NEURO: Normal sensorium. No sensory or motor deficits noted. SKIN: No rash or jaundice noted. Medical Decision & Procedures ER Provider Diagnostic Interpretation: Radiology results as stated below per my review and radiologist interpretation: CHEST ONE VIEW PORTABLE CLINICAL HISTORY: cough dyspnea COMPARISON STUDY: 118 1016 FINDINGS: The bones soft tissues and hemidiaphragms are normal. The cardiomediastinal silhouette is normal. The lungs are clear. The pulmonary vasculature is normal. IMPRESSION: Negative chest. The above report was generated using voice recognition software. It may contain grammatical, syntax or spelling errors. Electronically signed by: Mikey Mantilla M.D. 08/11/2017 6:25 PM Dictated Date/Time: 08/11/2017 6:24 PM Laboratory Results 08/11/17 17:56 Red Blood Count 4.57, Mean Corpuscular Volume 95.8, Mean Corpuscular Hemoglobin 33.5, Mean Corpuscular Hemoglobin Concent 34.9, Mean Platelet Volume 10.2, Neutrophils (%) (Auto) 72.7, Lymphocytes (%) (Auto) 10.3, Monocytes (%) (Auto) 14.5, Eosinophils (%) (Auto) 1.6, Basophils (%) (Auto) 0.3, Neutrophils # (Auto ) 7.87, Lymphocytes # (Auto) 1.11, Monocytes # (Auto) 1.57, Eosinophils # (Auto ) 0.17, Basophils # (Auto) 0.03 08/11/17 17:56 Test 08/11/17 17:56 White Blood Count 10.81 K/uL (4.8-10.8) Red Blood Count 4.57 M/uL (4.7-6.1) Hemoglobin 15.3 g/dL (14.0-18.0) Hematocrit 43.8 % (42-52) Mean Corpuscular Volume 95.8 fL (80-100) Mean Corpuscular Hemoglobin 33.5 pg (25-34) Mean Corpuscular Hemoglobin Concent 34.9 g/dl (32-36) Platelet Count 142 K/uL (130-400) Mean Platelet Volume 10.2 fL (7.4-10.4) Neutrophils (%) (Auto) 72.7 % Lymphocytes (%) (Auto) 10.3 % Monocytes (%) (Auto) 14.5 % Eosinophils (%) (Auto) 1.6 % Basophils (%) (Auto) 0.3 % Neutrophils # (Auto) 7.87 K/uL (1.4-6.5) Lymphocytes # (Auto) 1.11 K/uL (1.2-3.4) Monocytes # (Auto) 1.57 K/uL (0.11-0.59) Eosinophils # (Auto) 0.17 K/uL (0-0.5) Basophils # (Auto) 0.03 K/uL (0-0.2) RDW Standard Deviation 48.1 fL (36.4-46.3) RDW Coefficient of Variation 13.8 % (11.5-14.5) Immature Granulocyte % (Auto) 0.6 % Immature Granulocyte # (Auto) 0.06 K/uL (0.00-0.02) Prothrombin Time 30.0 SECONDS (9.0-12.0) Prothromb Time International Ratio 2.7 (0.9-1.1) Anion Gap 8.0 mmol/L (3-11) Est Creatinine Clear Calc Drug Dose 27.8 ml/min Estimated GFR () 39.4 Estimated GFR (Non- 34.0 BUN/Creatinine Ratio 18.1 (10-20) Calcium Level 8.8 mg/dl (8.5-10.1) Laboratory results reviewed by ma ED Course 161: The patient was evaluated in room B10. A complete history and physical exam was performed. 1929: I checked on the patient and he feels fine and would like to go home. 1934: I reevaluated the patient. Discussed results and discharge instructions: He verbalized understanding and agreement. The patient is ready for discharge. Medical Decision Triage Nursing notes reviewed. The patient's presentation and history were concerning for hematuria and Sales catheter placement. Etiologies such as UTI, catheter malfunction, cystitis, renal colic, infections , as well as others were entertained. The patient had some mild hematuria. He did not suffer any injury from his fall. His INR was checked and it was now at the upper end of therapeutic. He is on Augmentin. He is currently holding his Coumadin and I suspect that his INR may increase again and antibiotic use. This will need to be rechecked closely. The patient does have a follow-up with urology tomorrow. His CBC did show a slight leukocytosis but no significant anemia. His chest x-ray did not show anything significant either. The patient did have somewhat of a cough. He was reassessed and was doing very well. Nursing changed his Sales catheter and he was blowing clearly. No issues noted. Catheter care was outlined. He was given a large bag for use at night and a leg bag for during the day. If he has any problems at all he will be back to emergency department for reevaluation. His prior records were reviewed and he does have a villalpando sensitive enterococcus which should be easily treated with the Augmentin. The patient was seen and examined with Dr. Natasha King, resident physician. We discussed the case and treatments ordered, reviewed the results, and determine the disposition. Please refer to the resident's note for additional details. I have been directly involved with the management and disposition as well as independently evaluated the patient as documented in this note. By the evaluation outlined above other emergent etiologies such as those listed in the differential, as well as others, were deemed relatively unlikely. The patient was educated about the findings as listed above. All questions were answered and the patient was pleased with the treatment. Return instructions were outlined and the patient was discharged in stable condition. The patient was referred to urology for follow-up for a recheck of the current condition. Medication Reconcilliation Current Medication List: was personally reviewed by me Blood Pressure Screening Patient's blood pressure: Normal blood pressure Impression Primary Impression: Hematuria Additional Impressions: UTI (urinary tract infection) Complication of Sales catheter Scribe Attestation The scribe's documentation has been prepared under my direction and personally reviewed by me in its entirety. I confirm that the note above accurately reflects all work, treatment, procedures, and medical decision making performed by me. Departure Information Dispostion Home / Self-Care Referrals Venkat Gilman D.O. (PCP) Lauren Beatty MD Forms HOME CARE DOCUMENTATION FORM, IMPORTANT VISIT INFORMATION Patient Instructions My [facility] Additional Instructions Continue Augmentin. Acetaminophen(Tylenol) may be used for fever or pain. Use 1000mg every six hours as needed. Avoid using more than 3000mg in a 24 hour period. Continue current medications. Care for the catheter as discussed. Do not pull on the catheter. Use the leg bag during the day and the large bag at night when you are sleeping. Drain the bag frequently. Do not let it fill completely. Return to the emergency department for fevers, abdominal pain, catheter problems , or as needed. Followup with Dr. Beatty tomorrow as scheduled. Problem Qualifiers
== END 2017-08-11 19:35 | disposition home or self-care (01) ==
LOC: C.EDB 15:34
DX: T83.098A Other mechanical complication of other urinary catheter, initial encounter (principal); Y84.6 Urinary catheterization as the cause of abnormal reaction of the patient, or of later complication, without mention of misadventure at the time of the procedure; D64.9 Anemia, unspecified; I12.9 Hypertensive chronic kidney disease with stage 1 through stage 4 chronic kidney disease, or unspecified chronic kidney disease; N18.3 Chronic kidney disease, stage 3 (moderate); I25.10 Atherosclerotic heart disease of native coronary artery without angina pectoris; Z86.718 Personal history of other venous thrombosis and embolism; E78.5 Hyperlipidemia, unspecified; Z86.73 Personal history of transient ischemic attack (TIA), and cerebral infarction without residual deficits; E03.9 Hypothyroidism, unspecified; I25.2 Old myocardial infarction; Z95.5 Presence of coronary angioplasty implant and graft; E55.9 Vitamin D deficiency, unspecified; Z87.891 Personal history of nicotine dependence; Z79.82 Long term (current) use of aspirin; Z79.899 Other long term (current) drug therapy; Z79.01 Long term (current) use of anticoagulants

== ENCOUNTER 2017-10-09 13:38 | Observation (INO) | payer OTHER ==
[~2017-10-09] VITALS: Ht 162.6 cm; Wt 70.7 kg
--- NOTE | 2017-10-09 14:19 | DIAGNOSTIC IMAGING REPORT ---
CHEST ONE VIEW PORTABLE CLINICAL HISTORY: Cough and low O2 sats cough. Dyspnea. COMPARISON STUDY: 08/11/2017 FINDINGS: Mild stable cardia megaly. Minimal atelectasis left base. Lungs otherwise appear clear. IMPRESSION: Mild cardia megaly. Minimal atelectasis left base. The above report was generated using voice recognition software. It may contain grammatical, syntax or spelling errors. Electronically signed by: Mikey Mantilla M.D. 10/09/2017 2:18 PM Dictated Date/Time: 10/09/2017 2:17 PM
[2017-10-09] MEDS ORDERED: ALBUT/IPRATROP 3MG/0.5MG NEB 3 ML VIAL INH ONE (14:27)
--- NOTE | 2017-10-09 14:27 | EMERGENCY ROOM VISIT NOTE ---
History First contact with patient: 13:57 Chief Complaint: COUGH Stated Complaint: COUGH/LOW SPO 2 Nursing Triage Summary: Pt presents via ALS litter from [facility] for eval of prod cough of white/yellow sputum x 1 week and hypoxia with a sat of 90% RA. Pt has an indwelling castellanos that he states was placed approx 1 mo ago. Pt also reports sore throat. Denies cp, fever/chills or body aches. History of Present Illness 87M with a PMHX MIs x 5 s/p multiple stents, hypothyroidism, BPH 2/2 prostate cancer with indwelling castellanos, HLD, HTN who was sent from PCP's office ([facility] ) for Pneumonia seen on X-ray and O2 saturations hovering around 90%. Patient and are the chief historians. Per patient he has been coughing for 3 days, it's a wet productive cough with yellow sputum. No hematemesis. He does not currently smoke. Nobody smokes in the home. Patient served in the but has never been diagnosed with TB. Nobody else in the home is sick. He denies having any fevers, nigh sweats, chills. He has never been diagnosed with asthma. He does not use any inhalers. He does have a 10 pack year smoking history from age [age] (~50years ago). Patient does not have oxygen at home and has never needed oxygen at home. No ear pain, no throat pain, the only other issue he has today is that his castellanos is almost full and he has chronic bilateral heel pain that predates his cough by months if not years. No calf pain. Patient is resting comfortably at bedside. Review of Systems See HPI for pertinent positives and negatives. A total of ten systems were reviewed and were otherwise negative. Past Medical/Surgical History Medical Problems: (1) Anemia (2) Benign hypertension (3) Chronic kidney disease stage 3 (4) Coronary artery disease (5) Deep venous thrombosis (6) Dyslipidemia (7) Heart failure (8) History of - cerebrovascular accident (9) Hypothyroidism (10) Old myocardial infarction (11) Post percutaneous transluminal coronary angioplasty (12) STEMI (ST elevation myocardial infarction) (13) Vitamin D deficiency Family History Omitted secondary to advanced age Social History Smoking Status: Former Smoker Alcohol Use: none Marital Status: Housing Status: lives with significant other Occupation Status: retired Current/Historical Medications Scheduled Amlodipine Besylate (Norvasc), 2.5 MG PO DAILY Aspirin (Aspirin Chewable), 81 MG PO DAILY Atorvastatin (Lipitor), 1 TAB PO DAILY Calcitriol (Rocaltrol Cap), 0.25 MCG PO MWF Ferrous Sulfate (Ferrous Sulfate), 325 MG PO DAILY Finasteride (Proscar), 5 MG PO DAILY Levothyroxine Sodium (Synthroid), 75 MCG PO DAILY Metoprolol Succ (Toprol Xl) (Toprol-Xl), 1 TAB PO DAILY Omeprazole (Omeprazole), 20 MG PO DAILY Potassium Phosphate Monobasic (K-Phos), 1 TAB PO DAILY Tamsulosin Hcl (Flomax), 0.4 MG PO DAILY Warfarin Sodium (Coumadin), 5 MG PO 5XWK Warfarin Sodium (Coumadin), 7.5 MG PO 2XWK Scheduled PRN Nitroglycerin (Nitrostat), 0.4 MG UT UD PRN for Chest Pain Tramadol (Ultram), 50 MG PO BID PRN for Pain Physical Exam Vital Signs Date Time Temp Pulse Resp B/P (MAP) Pulse Ox O2 Delivery O2 Flow Rate FiO2 10/09/17 15:42 36.8 81 18 141/77 92 Nasal Cannula 2.0 10/09/17 13:56 95 10/09/17 13:50 90 Room Air 10/09/17 13:50 94 Nasal Cannula 2.0 10/09/17 13:50 37.1 100 20 169/92 90 Room Air 10/09/17 13:50 94 Nasal Cannula 2.0 Physical Exam Gen: No acute distress. Pt is wearing oxygen. Pt is intermittent wet cough. HEENT: Head - normocephalic and atraumatic. Pupils are equal, round, and reactive to light. Extraocular eye muscles are intact and sclera are anicteric. Ears - bilaterally patent canals with noninjected tympanic membranes and no evidence of hemotympanum. Nose - moist nasal mucosa without discharge. Mouth - moist buccal mucosa. Oropharynx is nonerythematous and there is no tonsillar exudate or edema noted. Neck: Supple; no JVD, nuchal rigidity, cervical lymphadenopathy, or auscultated bruits. Heart: Regular rate and rhythm. There is a normal S1 and S2 with no murmurs, clicks, or gallops appreciated. Lungs: Course lung sounds in all echols, expiratory wheezing bilaterally posteriorly. No calf pain bilaterally. Chest non tender to palpation. Abdomen: Soft, completely nontender, nondistended, with good bowel sounds. There are no palpable pulsatile masses or hepatosplenomegaly. There is no guarding, rigidity, or rebound noted. Indwelling castellanos cathetor in place. Extremities: No evidence of cyanosis, clubbing, or edema. There are easily palpable peripheral pulses. Neuro:The patient is awake and alert, oriented to day, time, and place. Muscle strength is 5/5 in all 4 extremities. The patient has equal residential treatment counselor strength and equal pedal push and pull. There are no cerebellar signs. Medical Decision & Procedures Laboratory Results 10/09/17 14:50 10/09/17 14:50 Test 10/09/17 14:50 10/09/17 15:00 Red Blood Count 4.34 M/uL (4.7-6.1) Mean Corpuscular Volume 96.5 fL (80-100) Mean Corpuscular Hemoglobin 32.3 pg (25-34) Mean Corpuscular Hemoglobin Concent 33.4 g/dl (32-36) RDW Standard Deviation 50.8 fL (36.4-46.3) RDW Coefficient of Variation 14.3 % (11.5-14.5) Mean Platelet Volume 10.2 fL (7.4-10.4) Activated Partial Thromboplast Time 39.0 SECONDS (21.0-31.0) Partial Thromboplastin Ratio 1.5 Anion Gap 6.0 mmol/L (3-11) Est Creatinine Clear Calc Drug Dose 36.7 ml/min Estimated GFR () 47.7 Estimated GFR (Non- 41.2 BUN/Creatinine Ratio 18.4 (10-20) Calcium Level 9.2 mg/dl (8.5-10.1) Magnesium Level 1.9 mg/dl (1.8-2.4) Total Bilirubin 0.5 mg/dl (0.2-1) Aspartate Amino Transf (AST/SGOT) 32 U/L (15-37) Alanine Aminotransferase (ALT/SGPT) 28 U/L (12-78) Alkaline Phosphatase 104 U/L (45-117) Total Protein 7.8 gm/dl (6.4-8.2) Albumin 3.2 gm/dl (3.4-5.0) Globulin 4.6 gm/dl (2.5-4.0) Albumin/Globulin Ratio 0.7 (0.9-2) Lactic Acid Level 0.9 mmol/L (0.4-2.0) Medications Administered Medications (Trade) Dose Ordered Sig/Natalie Route Start Time Stop Time Status Last Admin Dose Admin Cefepime HCl 1000 mg/Dextrose 111 ml @ 200 mls/hr ONE IV 10/09/17 14:30 10/16/17 14:29 10/09/17 15:49 200 MLS/HR Albuterol/ Ipratropium (Duoneb) 3 ml ONE STAT INH 10/09/17 15:21 10/09/17 15:26 DC 10/09/17 15:39 3 ML Medical Decision The patient's care and disposition was discussed with Dr. Ellis, Attending ED Physician. This is a 87F with Cough. Differential diagnosis include pneumonia, bronchitis , PE, VT, CHF, pleuritis, atelectasis, infectious etiology among others were considered. Triage Nursing notes were reviewed. ED Course included an extensive history and physical exam, labs, Xray. 2:00 - X-ray Ordered 2:10 - Saw and spoke to patient and at bedside. 2:15 - Discussed with Attending. 2:28 - Orders (Labs, Imaging, Duonebs, Abx - Cefepime 1g) Placed 4:18 - Ordered Solumedrol IV. 4:22 - Talked with Marco Dupree (sp?) for admission. Xray - Possible pneumonia on the LLL CBC, INR, BMP, Mg, Lactate significant for a WBC of 11,000 and an INR of 1.5. Creatinine is at baseline of 1.5. Flu Swab - Pending Trops - Neg EKG - sinus with rate of 85bpm with frequent PVCs, normal axis. Patient has a new oxygen requirement and significant wheezing and rales on exam. We are admitting to the [facility] for further evaluation and treatment of pneumonia. The pt was informed about the findings as listed above. All questions were answered. Impression Primary Impression: Upper respiratory infection Departure Information Dispostion Admitted as an inpatient Condition FAIR Referrals Venkat Gilman D.O. (PCP) Patient Instructions My [facility] Resident Involvement: Resident Care Provided Care Provided: Adult ED
[2017-10-09] MEDS ORDERED: CEFEPIME IV 1,000 MG in DEXTROSE 5% 100ML 100 ML IV SCH (14:30)
--- NOTE | 2017-10-09 15:06 | EMERGENCY ROOM VISIT NOTE ---
History Report prepared by Juwan: Jama Meyers Under the Supervision of: Dr. Tomas Ellis M.D. First contact with patient: 13:56 Chief Complaint: COUGH Stated Complaint: COUGH/LOW SPO 2 Nursing Triage Summary: Pt presents via ALS litter from [facility] for eval of prod cough of white/yellow sputum x 1 week and hypoxia with a sat of 90% RA. Pt has an indwelling castellanos that he states was placed approx 1 mo ago. Pt also reports sore throat. Denies cp, fever/chills or body aches. History of Present Illness The patient is a 87 year old male who presents to the Emergency Room with complaints of a persistent yellow productive cough for the past 3 days. The patient was seen at his PCP, and he was diagnosed with a possible pneumonia on X -ray, and he was hypoxic at 85%. The patient reports that he is not usually on oxygen at home. He denies any fever, chest pain, sore throat, vomiting, diarrhea , and ear pain. He is currently complaining of being short of breath which is improved on oxygen, and he notes that he is constipated. The patient notes that his grand daughter was sick with pneumonia, and he was around her two weeks ago. The patient states that he has a history of pneumonia. He states that he does not normally use an inhaler or nebulizer at home. Source of History: patient Onset: three days ago Position: other (global) Quality: other (cough) Timing: other (persistent) Associated Symptoms: No fevers, No sorethroat, No chest pain, No vomiting, No diarrhea Review of Systems See HPI for pertinent positives & negatives. A total of 10 systems reviewed and were otherwise negative. 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 (11) Post percutaneous transluminal coronary angioplasty (12) STEMI (ST elevation myocardial infarction) (13) Vitamin D deficiency Family History Omitted secondary to advanced age Social History Smoking Status: Former Smoker Alcohol Use: none Marital Status: Housing Status: lives with significant other Occupation Status: retired Current/Historical Medications Scheduled Amlodipine Besylate (Norvasc), 2.5 MG PO DAILY Aspirin (Aspirin Chewable), 81 MG PO DAILY Atorvastatin (Lipitor), 1 TAB PO DAILY Calcitriol (Rocaltrol Cap), 0.25 MCG PO MWF Ferrous Sulfate (Ferrous Sulfate), 325 MG PO DAILY Finasteride (Proscar), 5 MG PO DAILY Levothyroxine Sodium (Synthroid), 1 TAB PO DAILY Metoprolol Succ (Toprol Xl) (Toprol-Xl), 1 TAB PO DAILY Omeprazole (Omeprazole), 20 MG PO DAILY Potassium Phosphate Monobasic (K-Phos), 1 TAB PO DAILY Tamsulosin Hcl (Flomax), 0.4 MG PO DAILY Warfarin Sodium (Coumadin), 5 MG PO 5XWK Warfarin Sodium (Coumadin), 7.5 MG PO 2XWK Scheduled PRN Nitroglycerin (Nitrostat), 0.4 MG UT UD PRN for Chest Pain Tramadol (Ultram), 50 MG PO BID PRN for Pain Allergies Coded Allergies: Clopidogrel (Verified Allergy, Mild, RASH, 10/09/17) Sulfa Antibiotics (Verified Allergy, Mild, RASH, 10/09/17) Sulfamethoxazole (Verified Allergy, Mild, RASH, 10/09/17) Trimethoprim (Verified Allergy, Mild, RASH, 10/09/17) Niacin (Verified Allergy, Unknown, UNKNOWN, 10/09/17) Physical Exam Vital Signs Date Time Temp Pulse Resp B/P (MAP) Pulse Ox O2 Delivery O2 Flow Rate FiO2 10/09/17 16:47 37.7 85 18 132/72 92 Room Air 10/09/17 15:42 36.8 81 18 141/77 92 Nasal Cannula 2.0 10/09/17 13:56 95 10/09/17 13:50 90 Room Air 10/09/17 13:50 94 Nasal Cannula 2.0 10/09/17 13:50 37.1 100 20 169/92 90 Room Air 10/09/17 13:50 94 Nasal Cannula 2.0 Physical Exam GENERAL: Patient is in no acute distress. HEENT: No acute trauma, normocephalic atraumatic, mucous membranes moist, no nasal congestion, no scleral icterus. NECK: No stridor, no adenopathy, no meningismus, trachea is midline. LUNGS: Wheezing bilaterally. Occasional scattered crackles. Breath sounds equal. Breath sounds diminished bilaterally. Moist cough noted. HEART: Slightly irregular. No murmur. Regular rate. ABDOMEN: Soft, nontender, bowel sounds positive, no hernias, no peritonitis. EXTREMITIES: No cyanosis or edema, full range of motion of all the joints without pain or difficulty, no signs for acute trauma. NEUROLOGIC: Oriented x 3, no acute motor or sensory deficits, no focal weakness. SKIN: No rash, no jaundice, no diaphoresis. Medical Decision & Procedures ER Provider Diagnostic Interpretation: Radiology results as stated below per my review and radiologist interpretation: CHEST ONE VIEW PORTABLE CLINICAL HISTORY: Cough and low O2 sats cough. Dyspnea. COMPARISON STUDY: 08/11/2017 FINDINGS: Mild stable cardia megaly. Minimal atelectasis left base. Lungs otherwise appear clear. IMPRESSION: Mild cardia megaly. Minimal atelectasis left base. The above report was generated using voice recognition software. It may contain grammatical, syntax or spelling errors. Electronically signed by: Mikey Mantilla M.D. 10/09/2017 2:18 PM Dictated Date/Time: 10/09/2017 2:17 PM Laboratory Results 10/09/17 14:50 10/09/17 14:50 Test 10/09/17 14:50 10/09/17 15:00 Red Blood Count 4.34 M/uL (4.7-6.1) Mean Corpuscular Volume 96.5 fL (80-100) Mean Corpuscular Hemoglobin 32.3 pg (25-34) Mean Corpuscular Hemoglobin Concent 33.4 g/dl (32-36) RDW Standard Deviation 50.8 fL (36.4-46.3) RDW Coefficient of Variation 14.3 % (11.5-14.5) Mean Platelet Volume 10.2 fL (7.4-10.4) Activated Partial Thromboplast Time 39.0 SECONDS (21.0-31.0) Partial Thromboplastin Ratio 1.5 Anion Gap 6.0 mmol/L (3-11) Est Creatinine Clear Calc Drug Dose 36.7 ml/min Estimated GFR () 47.7 Estimated GFR (Non- 41.2 BUN/Creatinine Ratio 18.4 (10-20) Calcium Level 9.2 mg/dl (8.5-10.1) Magnesium Level 1.9 mg/dl (1.8-2.4) Total Bilirubin 0.5 mg/dl (0.2-1) Aspartate Amino Transf (AST/SGOT) 32 U/L (15-37) Alanine Aminotransferase (ALT/SGPT) 28 U/L (12-78) Alkaline Phosphatase 104 U/L (45-117) Total Protein 7.8 gm/dl (6.4-8.2) Albumin 3.2 gm/dl (3.4-5.0) Globulin 4.6 gm/dl (2.5-4.0) Albumin/Globulin Ratio 0.7 (0.9-2) Lactic Acid Level 0.9 mmol/L (0.4-2.0) Laboratory results reviewed by me. Medications Administered Medications (Trade) Dose Ordered Sig/Natalie Route Start Time Stop Time Status Last Admin Dose Admin Cefepime HCl 1000 mg/Dextrose 111 ml @ 200 mls/hr ONE IV 10/09/17 14:30 10/16/17 14:29 10/09/17 15:49 200 MLS/HR Albuterol/ Ipratropium (Duoneb) 3 ml ONE STAT INH 10/09/17 15:21 10/09/17 15:26 DC 10/09/17 15:39 3 ML Methylprednisolone Sodium Succinate 60 mg/Syringe 0.96 ml @ 1.5 mls/min ONE ONCE IV 10/09/17 16:30 10/09/17 16:31 DC 10/09/17 16:47 1.5 MLS/MIN ECG Indication: SOB/dyspnea, other (cough) Rate (beats per minute): 85 Rhythm: sinus rhythm Findings: PVC, ST depression (Lateral), T-wave inversion (Lateral) Comparison ECG Date: 10/09/15 Change: Lateral T wave inversions are more pronounced and PVC's are now present ED Course 1356: The patient was evaluated by the resident. 1430: Cefepime HCl 1000mg/ Dextrose 111ml @ 200mls/hr IV 1450: The patient was evaluated in room A9. A complete history and physical exam was performed. 1521: DuoNeb 3ml INH 1619: Discussed the patient's case with Lois Lara. The patient will be evaluated for further management. 1630: Methylprednisone Sodium Succinate 60mg 0.96ml @ 1.5mls/min IV Medical Decision Differential diagnoses considered include influenza or flu like illness, pneumonia, bronchitis, anemia, electrolyte imbalance, dysrhythmia, and PE. There is a mild leukocytosis, this is consistent with infection. No concerning anemia. Renal panel testing shows some renal insufficiency, this is baseline for the patient. No hepatitis. INR is elevated but subtherapeutic for someone using Coumadin. EKG shows a sinus rhythm, no acute ischemia. Cardiac enzyme testing times one is not consistent with acute cardiac injury. Chest x-ray does show some atelectasis versus a small infiltrate. No CHF or pneumothorax. Blood cultures are pending. Lactic acid level is not elevated making sepsis less likely. Influenza testing is pending. The patient was given a DuoNeb, IV cefepime and IV Solu-Medrol. He is currently resting comfortably. The patient has an acute bronchitis if not an early pneumonia. This has led to some bronchospasm and hypoxia. Given the hypoxia and his presentation, admission/observation is warranted. I spoke to the patient and the case maker. The on-call hospitalist was consulted. Medication Reconcilliation Current Medication List: was personally reviewed by me Blood Pressure Screening Patient's blood pressure: Elevated blood pressure Monitored by the hospitalist. Consults Time Called: 1615 Consulting Physician: Lois Lara Returned Call: [phone] Discussed the patient's case with Lois Lara. The patient will be evaluated for further management. Impression Primary Impression: Hypoxia Additional Impression: Pneumonia Scribe Attestation The scribe's documentation has been prepared under my direction and personally reviewed by me in its entirety. I confirm that the note above accurately reflects all work, treatment, procedures, and medical decision making performed by me. Departure Information Dispostion Being Evaluated By Hospitalist Referrals Venkat Gilman D.O. (PCP) Patient Instructions My [facility] Problem Qualifiers
[2017-10-09] MEDS ORDERED: ALBUT/IPRATROP 3MG/0.5MG NEB 3 ML VIAL INH STA (15:21)
[2017-10-09 15:24] LABS: HEMATOCRIT 41.9 % (42-52); MEAN CELL VOLUME 96.5 fL (80-100); MEAN CORPUSCULAR HEMOGLOBIN 32.3 pg (25-34); MEAN CORPUSCULAR HGB CONC 33.4 g/dl (32-36); MEAN PLATELET VOLUME 10.2 fL (7.4-10.4); PLATELET COUNT 136 K/uL (130-400); RED CELL DISTRIBUTION WIDTH CV 14.3 % (11.5-14.5); RED CELL DISTRIBUTION WIDTH SD 50.8 fL (36.4-46.3); WHITE BLOOD COUNT 11.04 K/uL (4.8-10.8)
[2017-10-09 15:46] LABS: ALBUMIN 3.2 gm/dl (3.4-5.0); CALCIUM 9.2 mg/dl (8.5-10.1); CREATININE 1.52 mg/dl (0.60-1.40); POTASSIUM 4.4 mmol/L (3.5-5.1)
[2017-10-09 15:49] LABS: TOTAL PROTEIN 7.8 gm/dl (6.4-8.2)
[2017-10-09] MEDS ORDERED: ALBUT/IPRATROP 3MG/0.5MG NEB 3 ML VIAL INH SCH (16:00)
[2017-10-09] MEDS ORDERED: METHYLPREDNISOLONE IV 60 MG in SYRINGE 0 ML IV ONE (16:30)
[2017-10-09] MEDS ORDERED: LEVO88TA PO ×2 (17:29)
[2017-10-09] MEDS ORDERED: NITROGLYCERIN 0.4 MG SL PER TAB CHARGE UT PRN (17:45)
[2017-10-09] MEDS ORDERED: TRAMADOL HCL 50 MG TAB PO PRN (17:45)
[2017-10-09] MEDS ORDERED: ACETAMINOPHEN 325 MG TAB PO PRN (17:45)
[2017-10-09] MEDS ORDERED: ALUMINUM/MAGNESIUM/SIMETH (MAALOX MAX) 30 ML UDC PO PRN (17:45)
--- NOTE | 2017-10-09 18:17 | History and Physical ---
History & Physical Date & Time of Service: Oct 09, 2017 at 17:51 Chief Complaint: Cough/Low Spo 2 Primary Care Physician: Venkat Gilman D.O. History of Present Illness Source: patient, family, clinic records, hospital records This is an 87 year old male with a PMH of CAD s/p stent x7, b/l carotid artery endarterectomy, hx. 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 of CVA with residual R sided weakness - presents with cough , sputum production. Denies shortness of breath, chest pain, denies fevers/ chills. Was seen in the office today due to the worsening cough; sent to the ER to r/o pneumonia and further work-up. On admission, cough persisted; but again, denied most other symptoms. Currently on oxygen for symptomatic relief, but saturating well on O2. Baseline status: - indwelling catheter - uses wheelchair, transitions from wheelchair to sofa, etc. - mild underlying dementia/memory issues as per - performs most of his ADLs on his own - well nutritional status Past Medical/Surgical History Medical Problems: (1) Anemia Status: Chronic (2) Benign hypertension Status: Chronic (3) Chronic kidney disease stage 3 Status: Chronic (4) Coronary artery disease Status: Chronic (5) Deep venous thrombosis Status: Resolved (6) Dyslipidemia Status: Chronic (7) Heart failure Status: Chronic (8) History of - cerebrovascular accident Status: Resolved (9) Hypothyroidism Status: Chronic (10) Old myocardial infarction Status: Resolved (11) Post percutaneous transluminal coronary angioplasty Status: Resolved (12) Vitamin D deficiency Status: Chronic Family History Omitted secondary to advanced age Social History Smoking Status: Former Smoker Marital Status: Housing status: lives with family Occupational Status: retired Immunizations History of Influenza Vaccine: Unknown Influenza Vaccine Date: Jun 07, 2014 History of Tetanus Vaccine?: Yes Tetanus Immunization Date: January 26, 2013 History of Pneumococcal: Unknown Pneumococcal Date: Apr 11, 2015 History of Hepatitis B Vaccine: No Multi-Drug Resistant Organisms History of MDRO: No Allergies Coded Allergies: Clopidogrel (Verified Allergy, Mild, RASH, 10/09/17) Sulfa Antibiotics (Verified Allergy, Mild, RASH, 10/09/17) Sulfamethoxazole (Verified Allergy, Mild, RASH, 10/09/17) Trimethoprim (Verified Allergy, Mild, RASH, 10/09/17) Niacin (Verified Allergy, Unknown, UNKNOWN, 10/09/17) Home Medications Scheduled Amlodipine Besylate (Norvasc), 2.5 MG PO DAILY Aspirin (Aspirin Chewable), 81 MG PO DAILY Atorvastatin (Lipitor), 1 TAB PO DAILY Calcitriol (Rocaltrol Cap), 0.25 MCG PO MWF Ferrous Sulfate (Ferrous Sulfate), 325 MG PO DAILY Finasteride (Proscar), 5 MG PO DAILY Levothyroxine Sodium (Synthroid), 1 TAB PO DAILY Metoprolol Succ (Toprol Xl) (Toprol-Xl), 1 TAB PO DAILY Omeprazole (Omeprazole), 20 MG PO DAILY Potassium Phosphate Monobasic (K-Phos), 1 TAB PO DAILY Tamsulosin Hcl (Flomax), 0.4 MG PO DAILY Warfarin Sodium (Coumadin), 5 MG PO 5XWK Warfarin Sodium (Coumadin), 7.5 MG PO 2XWK Scheduled PRN Nitroglycerin (Nitrostat), 0.4 MG UT UD PRN for Chest Pain Tramadol (Ultram), 50 MG PO BID PRN for Pain Review of Systems Constitutional: No fever, No chills, No weakness, No fatigue Respiratory: + cough, + sputum, + wheezing, No shortness of breath, No dyspnea on exertion, No dyspnea at rest, No hemoptysis Cardiovascular: No chest pain, No orthopnea, No PND, No edema, No claudication , No palpitations Abdomen: No pain, No nausea, No vomiting, No diarrhea, No constipation Musculoskeletal: No joint pain, No muscle pain, No swelling Genitourinary - Male: + urinary retention, + problem reported, No hematuria Neurologic: + memory loss, + balance problems, No paralysis, No weakness, No numbness/tingling, No vertigo Psychiatric: No depression symptoms, No anxiety, No insomnia Endocrine: No fatigue, No excessive urination Hematologic / Lymphatic: No abnormal bleeding/bruising Integumentary: No rash Allergic / Immunologic: No environmental allergies, No seasonal allergies Physical Exam Vital Signs Date Time Temp Pulse Resp B/P (MAP) Pulse Ox O2 Delivery O2 Flow Rate FiO2 10/09/17 16:47 37.7 85 18 132/72 92 Room Air 10/09/17 15:42 36.8 81 18 141/77 92 Nasal Cannula 2.0 10/09/17 13:56 95 10/09/17 13:50 90 Room Air 10/09/17 13:50 94 Nasal Cannula 2.0 10/09/17 13:50 37.1 100 20 169/92 90 Room Air 10/09/17 13:50 94 Nasal Cannula 2.0 General Appearance: no apparent distress Head: normocephalic, atraumatic Eyes: normal inspection ENT: hearing grossly normal Neck: supple, + pertinent finding (post-surgical scars noted b/l) Respiratory/Chest: no respiratory distress, no accessory muscle use, + decreased breath sounds, + wheezing (end expiratory wheezing diffusely) Cardiovascular: regular rate, rhythm, no edema, no murmur Abdomen/GI: normal bowel sounds, non tender, soft, + hernia (ventral hernia, reducible, non-tender) Genitourinary - Male: + pertinent finding (indwelling catheter, bag attaached to R LE) Extremities/Musculoskelatal: normal inspection, no calf tenderness, normal capillary refill, no pedal edema, normal range of motion Neurologic/Psych: dredge hand II-XII nml as tested, no motor/sensory deficits, alert, normal mood/affect, oriented x 3 Lymphatic: no adenopathy Diagnostics Laboratory Results Results Past 24 Hours Test 10/09/17 14:50 10/09/17 15:00 10/09/17 17:06 10/09/17 17:32 Range/Units White Blood Count 11.04 4.8-10.8 K/uL Red Blood Count 4.34 4.7-6.1 M/uL Hemoglobin 14.0 14.0-18.0 g/dL Hematocrit 41.9 42-52 % Mean Corpuscular Volume 96.5 80-100 fL Mean Corpuscular Hemoglobin 32.3 25-34 pg Mean Corpuscular Hemoglobin Concent 33.4 32-36 g/dl RDW Standard Deviation 50.8 36.4-46.3 fL RDW Coefficient of Variation 14.3 11.5-14.5 % Platelet Count 136 130-400 K/uL Mean Platelet Volume 10.2 7.4-10.4 fL Activated Partial Thromboplast Time 39.0 21.0-31.0 SECONDS Partial Thromboplastin Ratio 1.5 Sodium Level 140 136-145 mmol/L Potassium Level 4.4 3.5-5.1 mmol/L Chloride Level 105 98-107 mmol/L Carbon Dioxide Level 28 21-32 mmol/L Anion Gap 6.0 3-11 mmol/L Blood Urea Nitrogen 28 7-18 mg/dl Creatinine 1.52 0.60-1.40 mg/dl Est Creatinine Clear Calc Drug Dose 36.7 ml/min Estimated GFR () 47.7 Estimated GFR (Non- 41.2 BUN/Creatinine Ratio 18.4 10-20 Random Glucose 98 70-99 mg/dl Calcium Level 9.2 8.5-10.1 mg/dl Magnesium Level 1.9 1.8-2.4 mg/dl Total Bilirubin 0.5 0.2-1 mg/dl Aspartate Amino Transf (AST/SGOT) 32 15-37 U/L Alanine Aminotransferase (ALT/SGPT) 28 12-78 U/L Alkaline Phosphatase 104 45-117 U/L Total Protein 7.8 6.4-8.2 gm/dl Albumin 3.2 3.4-5.0 gm/dl Globulin 4.6 2.5-4.0 gm/dl Albumin/Globulin Ratio 0.7 0.9-2 Lactic Acid Level 0.9 0.4-2.0 mmol/L Microbiology Results 10/09/17 Blood Culture, Received Pending 10/09/17 Blood Culture, Received Pending Diagnostic Radiology CHEST ONE VIEW PORTABLE CLINICAL HISTORY: Cough and low O2 sats cough. Dyspnea. COMPARISON STUDY: 08/11/2017 FINDINGS: Mild stable cardia megaly. Minimal atelectasis left base. Lungs otherwise appear clear. IMPRESSION: Mild cardia megaly. Minimal atelectasis left base. EKG Sinus rhythm with frequent Premature ventricular complexes ST & T wave abnormality, consider lateral ischemia Prolonged QT Impression Assessment and Plan This is an 87 year old male with a PMH of CAD s/p stent x7, b/l carotid artery endarterectomy, hx. 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 of CVA with residual R sided weakness - presents with cough , sputum production. Complicated Bronchitis patient with a bad cough, sputum production CXR does not appear to show a pneumonia no significant white count, afebrile, normal lactic acid +wheezing diffusely will start Solu-medrol 40mg q12 added Azithromycin check procalcitonin Tessalon Perles for cough Chest PT will observe overnight and discharge home if feeling better check rapid flu Chronic Systolic CHF check an updated echo and BNP continue current cardiac regimen CAD has had multiple stents, up to 7 continue aspirin, continue b-preeti, statin Chronic Indwelling Catheter accidentally pulled on catheter earlier this week and then reinserted the cath will check UA/urine culture Hx. of R LE DVT on Coumadin check an INR takes 5mg daily, except 7.5mg on Friday and Friday Hypothyroidism takes Synthroid 88mcg DVT ppx Coumadin DNR VTE Prophylaxis VTE Risk Assessment Done? Y/N: Yes Risk Level: High
[2017-10-09 18:22] LABS: INR 3.7 (0.9-1.1)
[2017-10-09] MEDS ORDERED: AZITHROMYCIN 250 MG TAB PO ONE (18:40)
[2017-10-09 20:00] VITALS: O2SAT 92
[2017-10-09 20:01] VITALS: BP 126/78; PULSE 64; TEMP 37; BMI 22.4
[2017-10-09] MEDS ORDERED: IV FLUIDS COMPLETED PRN (20:30)
[2017-10-09] MEDS: LEVALBUTEROL 0.63MG/3 ML NEB INH SCH (21:00)
[2017-10-09] MEDS: BENZONATATE 100MG CAP PO SCH (21:00)
[2017-10-09 23:10] VITALS: BP 134/72; PULSE 84; TEMP 36.7; O2SAT 94
[2017-10-10] VITALS (9 sets, daily range): BP systolic 92–147; BP diastolic 58–80; PULSE 73–82; TEMP 36.4–36.8; O2SAT 90–94; Ht 162.6 cm; Wt 70.7 kg
[2017-10-10] MEDS: LEVALBUTEROL 0.63MG/3 ML NEB INH SCH ×4 (01:45→20:52)
[2017-10-10 01:53] LABS: INFLUENZA A PCR Neg for Influ A (NEG); INFLUENZA B PCR Neg for Influ B (NEG)
[2017-10-10] MEDS: METHYLPREDNISOLONE IV 40 MG in SYRINGE 0 ML IV SCH ×2 (04:06→15:29)
[2017-10-10] MEDS: LEVOTHYROXINE 88 MCG TAB PO SCH (04:09)
[2017-10-10 07:41] LABS: HEMOGLOBIN 14.1 g/dL (14.0-18.0); MEAN CELL VOLUME 95.6 fL (80-100); MEAN CORPUSCULAR HEMOGLOBIN 32.9 pg (25-34); MEAN CORPUSCULAR HGB CONC 34.4 g/dl (32-36); MEAN PLATELET VOLUME 9.7 fL (7.4-10.4); PLATELET COUNT 131 K/uL (130-400); RED CELL DISTRIBUTION WIDTH SD 48.6 fL (36.4-46.3); WHITE BLOOD COUNT 10.09 K/uL (4.8-10.8)
[2017-10-10] MEDS: PANTOprazole SOD 40 MG TAB PO SCH (07:59)
[2017-10-10] MEDS: CALCITRIOL 0.25 MCG CAP PO SCH (08:00)
[2017-10-10] MEDS: FERROUS SULFATE 325 MG TAB PO SCH (08:00)
[2017-10-10] MEDS: AMLODIPINE BESYLATE 5 MG TAB PO SCH (08:00)
[2017-10-10] MEDS: METOPROLOL SUCC 50MG EXT REL TAB PO SCH (08:00)
[2017-10-10] MEDS: ATORVASTATIN 40 MG TAB PO SCH (08:00)
[2017-10-10] MEDS: TAMSULOSIN HCL 0.4 MG CAP PO SCH (08:00)
[2017-10-10] MEDS: FINASTERIDE 5 MG TAB PO SCH (08:00)
[2017-10-10] MEDS: ASPIRIN 81 MG ECTAB PO SCH (08:00)
[2017-10-10] MEDS: BENZONATATE 100MG CAP PO SCH ×3 (08:01→20:53)
[2017-10-10 08:09] LABS: CALCIUM 8.9 mg/dl (8.5-10.1); CREATININE 1.72 mg/dl (0.60-1.40); PHOSPHORUS 2.9 mg/dl (2.5-4.9); POTASSIUM 4.4 mmol/L (3.5-5.1)
--- NOTE | 2017-10-10 08:46 | ECHOCARDIOGRAM REPORT ---
*NOTICE TO RECEIVING REPUBLICAN AGENCY This information is strictly Confidential and protected under [place] law. [place] law prohibits you from making any further disclosure of this information unless further disclosure is expressly permitted by the written consent of the person to whom it pertains or is authorized by law. A general authorization for the release of medical or other information is not sufficient for this purpose. Hospital accepts no responsibility if the information is made available to any other person, INCLUDING THE PATIENT. Interpretation Summary * Name: JEANNE BENNETT Study Date: 10/10/2017 06:29 AM BP: 147/76 mmHg * Patient Location: .[id number]\S\2 HR: 80 * : 1930 (M/d/yyyy) Gender: Male Height: 70 in * Age: 87 yrs Ethnicity: CA Weight: 181 lb * Ordering Physician: Marva Martinez * Referring Physician: Jazmin GOMEZ * Performed By: Dasha Cabrera RDCS * * Reason For Study: CHF * BSA: 2.0 m2 * -- Conclusions -- * No change compared to previous study of 06/15/13. * Normal LV chamber size and wall thickness. * Mildly reduced LV systolic function, EF 45-50% * There is moderate to severe inferior wall hypokinesis. * There is moderate posterior wall hypokinesis. * Grade I diastolic dysfunction. * Aortic valve sclerosis mild, without significant aortic valvular stenosis. * Mild mitral regurgitation * Mild tricuspid regurgitation. * Mild left atrial enlargement. Procedure Details * A complete two-dimensional transthoracic echocardiogram was performed (2D, M-mode, Doppler and color flow Doppler). Left Ventricle * The left ventricle is normal in size. * There is moderate concentric left ventricular hypertrophy. * Ejection Fraction = 40-45%. * Left ventricular systolic function is mildly reduced. * There is moderate to severe inferior wall hypokinesis. * There is moderate posterior wall hypokinesis. Right Ventricle * The right ventricular cavity size is normal (basal dimension <4.2 cm in right ventricular apical 4-chamber view). * The right ventricular systolic function is normal as assessed by tricuspid annular plane systolic excursion (TAPSE) (normal >1.5 cm). Atria * The left atrium is mildly dilated. * Right atrial size is normal. * No ASD detected; PFO is not assessed. Mitral Valve * The mitral valve anatomy is normal. * There is no mitral valve stenosis. * There is mild mitral regurgitation. Tricuspid Valve * The tricuspid valve anatomy is normal. * There is no tricuspid stenosis. * There is mild tricuspid regurgitation. Aortic Valve * The aortic valve is trileaflet. * Aortic valve sclerosis mild, without significant aortic valvular stenosis. * There is no significant aortic regurgitation. Pulmonic Valve * The pulmonary valve is not well seen, but the Doppler examination is normal without significant regurgitation or stenosis. Great Vessels * The aortic root is normal size. Pericardium/Pleural * There is no pericardial effusion. Left Ventricular Diastolic Function * Grade I diastolic dysfunction, (abnormal relaxation pattern). MMode 2D Measurements and Calculations IVSd 0.84 cm IVSs 1.7 cm LVIDd 5.7 cm LVIDs 4.5 cm LVPWd 1.0 cm LVPWs 1.5 cm IVS/LVPW 0.81 FS 20.6 % EDV(Teich) 160.0 ml ESV(Teich) 93.7 ml EF(Teich) 41.4 % EDV(cubed) 185.1 ml ESV(cubed) 92.8 ml EF(cubed) 49.9 % % IVS thick 99.4 % % LVPW thick 44.8 % LV mass(C)d 210.0 grams LV mass(C)dI 105.0 grams/m\S\2 LV mass(C)s 306.5 grams LV mass(C)sI 153.2 grams/m\S\2 SV(Teich) 66.2 ml SI(Teich) 33.1 ml/m\S\2 SV(cubed) 92.3 ml SI(cubed) 46.1 ml/m\S\2 Ao root diam 3.4 cm Ao root area 8.8 cm\S\2 LA dimension 3.1 cm LA/Ao 0.93 LVAd ap4 34.7 cm\S\2 LVLd ap4 8.3 cm EDV(MOD-sp4) 120.4 ml EDV(sp4-el) 122.8 ml LVAs ap4 23.2 cm\S\2 LVLs ap4 6.7 cm ESV(MOD-sp4) 69.6 ml ESV(sp4-el) 68.0 ml EF(MOD-sp4) 42.2 % EF(sp4-el) 44.6 % LVAd ap2 32.4 cm\S\2 LVLd ap2 8.9 cm EDV(MOD-sp2) 101.1 ml EDV(sp2-el) 99.4 ml LVAs ap2 21.9 cm\S\2 LVLs ap2 7.8 cm ESV(MOD-sp2) 54.0 ml ESV(sp2-el) 52.0 ml EF(MOD-sp2) 46.6 % EF(sp2-el) 47.7 % LVLd %diff 6.7 % EDV(MOD-bp) 113.5 ml LVLs %diff 14.4 % ESV(MOD-bp) 64.3 ml EF(MOD-bp) 43.4 % SV(MOD-sp4) 50.9 ml SI(MOD-sp4) 25.4 ml/m\S\2 SV(MOD-sp2) 47.1 ml SI(MOD-sp2) 23.5 ml/m\S\2 SV(MOD-bp) 49.3 ml SI(MOD-bp) 24.6 ml/m\S\2 SV(sp4-el) 54.7 ml SI(sp4-el) 27.4 ml/m\S\2 SV(sp2-el) 47.4 ml SI(sp2-el) 23.7 ml/m\S\2 Doppler Measurements and Calculations MV E max beverley 82.0 cm/sec MV A max beverley 118.6 cm/sec MV E/A 0.69 MV dec time 0.24 sec Ao V2 max 131.6 cm/sec Ao max PG 6.9 mmHg Ao max PG (full) 5.7 mmHg LV V1 max PG 1.2 mmHg LV V1 max 55.1 cm/sec TR max bevreley 329.8 cm/sec
[2017-10-10] MEDS ORDERED: AZITHROMYCIN 250 MG TAB PO SCH (09:00)
[2017-10-10] MEDS ORDERED: WARFARIN SOD 7.5 MG TAB PO SCH (16:00)
--- NOTE | 2017-10-10 18:46 | Progress Note ---
Subjective Date of Service: Oct 10, 2017. Subjective Pt evaluation today including: conversation w/ patient, physical exam, lab review, review of studies, review of inpatient medication list Saw/examined the patient in room 262 He is off of oxygen and feeling better +cough persists no chest pain/palpitations Problem List Medical Problems: (1) Acute SC, inferoposterior wall Status: Acute (2) Complication of catheter Status: Acute (3) Complication of Sales catheter Status: Acute (4) Heart block Status: Acute (5) Hematuria Status: Acute (6) Hematuria Status: Acute (7) Hypoxia Status: Acute (8) Osteoarthritis of right hip Status: Acute (9) Pneumonia Status: Acute (10) Supratherapeutic INR Status: Acute (11) Upper respiratory infection Status: Acute (12) Urinary retention Status: Acute (13) UTI (urinary tract infection) Status: Acute Review of Systems Respiratory: + cough, + sputum, No wheezing, No shortness of breath, No dyspnea on exertion, No dyspnea at rest, No hemoptysis Cardiac: No chest pain Medications Current Inpatient Medications Medications (Trade) Dose Ordered Sig/Natalie Route Start Time Stop Time Status Last Admin Dose Admin Methylprednisolone Sodium Succinate 40 mg/Syringe 0.64 ml @ 1.5 mls/min Q12@0400,1600 IV 10/10/17 04:00 11/09/17 03:59 10/10/17 15:29 1.5 MLS/MIN Benzonatate (Tessalon Perles Cap) 100 mg TID PO 10/09/17 21:00 11/08/17 20:59 10/10/17 13:44 100 MG Levalbuterol (Xopenex 0.63 Mg/ 3 Ml Neb) 0.63 mg Q6R INH 10/09/17 21:00 11/08/17 20:59 10/10/17 14:29 0.63 MG Amlodipine Besylate (Norvasc Tab) 2.5 mg DAILY PO 10/10/17 09:00 11/09/17 08:59 10/10/17 08:00 2.5 MG Aspirin (Ecotrin Tab) 81 mg DAILY PO 10/10/17 09:00 11/09/17 08:59 10/10/17 08:00 81 MG Atorvastatin Calcium (Lipitor Tab) 40 mg DAILY PO 10/10/17 09:00 11/09/17 08:59 10/10/17 08:00 40 MG Calcitriol (Rocaltrol Cap) 0.25 mcg DAILY PO 10/10/17 09:00 11/09/17 08:59 10/10/17 08:00 0.25 MCG Ferrous Sulfate (Feosol Tab) 325 mg DAILY PO 10/10/17 09:00 11/09/17 08:59 10/10/17 08:00 325 MG Finasteride (Proscar Tab) 5 mg DAILY PO 10/10/17 09:00 11/09/17 08:59 10/10/17 08:00 5 MG Levothyroxine Sodium (Synthroid Tab) 88 mcg DAILYBB PO 10/10/17 06:30 11/09/17 06:29 10/10/17 04:09 88 MCG Metoprolol Succinate (Toprol Xl Tab) 50 mg DAILY PO 10/10/17 09:00 11/09/17 08:59 10/10/17 08:00 50 MG Nitroglycerin (Nitrostat Tab) 0.4 mg UD PRN UT 10/09/17 17:45 11/08/17 17:44 Tamsulosin HCl (Flomax Cap) 0.4 mg DAILY PO 10/10/17 09:00 11/09/17 08:59 10/10/17 08:00 0.4 MG Tramadol HCl (Ultram Tab) 50 mg BID PRN PO 10/09/17 17:45 11/08/17 17:44 Pantoprazole Sodium (Protonix Tab) 40 mg QAM PO 10/10/17 09:00 11/09/17 08:59 10/10/17 07:59 40 MG Acetaminophen (Tylenol Tab) 650 mg Q4H PRN PO 10/09/17 17:45 11/08/17 17:44 Al Hydrox/Mg Hydrox/Simethicone (Maalox Max Susp) 15 ml Q4H PRN PO 10/09/17 17:45 11/08/17 17:44 Miscellaneous (Iv Fluids Completed) 1 ea PRN PRN N/A 10/09/17 20:30 10/09/18 20:29 Doxycycline Hyclate (Vibramycin Cap) 100 mg BID PO 10/10/17 21:00 10/20/17 20:59 Objective Vital Signs Date Time Temp Pulse Resp B/P (MAP) Pulse Ox O2 Delivery O2 Flow Rate FiO2 10/10/17 16:00 Room Air 10/10/17 15:52 36.8 81 16 92/58 (69) 93 Room Air 10/10/17 14:29 79 16 91 Room Air 2.0 10/10/17 10:14 94 Room Air 10/10/17 08:00 Nasal Cannula 2.0 10/10/17 07:29 36.5 80 18 147/76 (99) 91 Nasal Cannula 2.0 10/10/17 07:25 74 16 91 Room Air 2.0 10/10/17 01:46 73 16 93 Room Air 2.0 10/10/17 00:25 92 Nasal Cannula 2.0 10/09/17 23:10 36.7 84 16 134/72 (92) 94 Nasal Cannula 2.0 10/09/17 20:01 37.0 64 20 126/78 Nasal Cannula 2.0 10/09/17 20:00 92 Nasal Cannula 2.0 Physical Exam General Appearance: no apparent distress Respiratory/Chest: no respiratory distress, no accessory muscle use, + rhonchi Cardiovascular: regular rate, rhythm, no edema, no murmur Laboratory Results Last 24 Hours Test 10/09/17 20:00 10/09/17 23:03 10/10/17 00:05 10/10/17 07:29 Urine Color DK YELLOW Urine Appearance TURBID Urine pH 5.0 Urine Specific Caroline 1.023 Urine Protein 2+ Urine Glucose (UA) NEG Urine Ketones TRACE Urine Occult Blood 3+ Urine Nitrite POS Urine Bilirubin NEG Urine Urobilinogen NEG Urine Leukocyte Esterase MODERATE Urine WBC (Auto) >30 /hpf Urine RBC (Auto) >30 /hpf Urine Hyaline Casts (Auto) 0 /lpf Urine Epithelial Cells (Auto) 20-30 /lpf Urine Bacteria (Auto) 4+ Urine Crystals AMORPHOUS SEDIMENT Urine Pathogenic Casts /lpf Urine Yeast (Auto) Troponin I 0.031 ng/ml 0.021 ng/ml Influenza Type A (RT-PCR) Neg for Influ A Influenza Type B (RT-PCR) Neg for Influ B White Blood Count 10.09 K/uL Red Blood Count 4.29 M/uL Hemoglobin 14.1 g/dL Hematocrit 41.0 % Mean Corpuscular Volume 95.6 fL Mean Corpuscular Hemoglobin 32.9 pg Mean Corpuscular Hemoglobin Concent 34.4 g/dl RDW Standard Deviation 48.6 fL RDW Coefficient of Variation 14.0 % Platelet Count 131 K/uL Mean Platelet Volume 9.7 fL Sodium Level 139 mmol/L Potassium Level 4.4 mmol/L Chloride Level 104 mmol/L Carbon Dioxide Level 26 mmol/L Anion Gap 9.0 mmol/L Blood Urea Nitrogen 31 mg/dl Creatinine 1.72 mg/dl Est Creatinine Clear Calc Drug Dose 31.4 ml/min Estimated GFR () 41.1 Estimated GFR (Non- 35.5 BUN/Creatinine Ratio 18.1 Random Glucose 164 mg/dl Calcium Level 8.9 mg/dl Phosphorus Level 2.9 mg/dl Magnesium Level 1.9 mg/dl Assessment and Plan This is an 87 year old male with a PMH of CAD s/p stent x7, b/l carotid artery endarterectomy, hx. 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 of CVA with residual R sided weakness - presents with cough , sputum production. Complicated Bronchitis 10/10 patient feeling better weaned off of O2 will continue solu-medrol for tonight tessalon perles for cough will add doxycycline 10/09 patient with a bad cough, sputum production CXR does not appear to show a pneumonia no significant white count, afebrile, normal lactic acid +wheezing diffusely will start Solu-medrol 40mg q12 added Azithromycin check procalcitonin Tessalon Perles for cough Chest PT will observe overnight and discharge home if feeling better check rapid flu UTI in the setting of Chronic Indwelling Catheter added doxycycline urine culture pending Chronic Systolic CHF check an updated echo and BNP continue current cardiac regimen CAD has had multiple stents, up to 7 continue aspirin, continue b-preeti, statin Hx. of R LE DVT on Coumadin check an INR takes 5mg daily, except 7.5mg on Friday and Friday Hypothyroidism takes Synthroid 88mcg DVT ppx Coumadin DNR
[2017-10-10] MEDS: DOXYCYCLINE HYCLATE 100 MG CAP PO SCH (20:53)
[2017-10-11] VITALS (7 sets, daily range): BP systolic 139; BP diastolic 79; PULSE 82–105; TEMP 37; O2SAT 90–96
[2017-10-11] MEDS ORDERED: GUAIFENESIN SUGAR FREE 100 MG/5 ML UDC PO PRN (00:30)
[2017-10-11] MEDS: LEVALBUTEROL 0.63MG/3 ML NEB INH SCH ×3 (01:47→14:09)
[2017-10-11] MEDS: METHYLPREDNISOLONE IV 40 MG in SYRINGE 0 ML IV SCH (04:19)
[2017-10-11] MEDS: LEVOTHYROXINE 88 MCG TAB PO SCH (06:14)
[2017-10-11] MEDS: TAMSULOSIN HCL 0.4 MG CAP PO SCH (08:37)
[2017-10-11] MEDS: FERROUS SULFATE 325 MG TAB PO SCH (08:37)
[2017-10-11] MEDS: ASPIRIN 81 MG ECTAB PO SCH (08:37)
[2017-10-11] MEDS: ATORVASTATIN 40 MG TAB PO SCH (08:38)
[2017-10-11] MEDS: AMLODIPINE BESYLATE 5 MG TAB PO SCH (08:45)
[2017-10-11] MEDS: FINASTERIDE 5 MG TAB PO SCH (08:50)
[2017-10-11] MEDS: PANTOprazole SOD 40 MG TAB PO SCH (08:50)
[2017-10-11] MEDS: CALCITRIOL 0.25 MCG CAP PO SCH (08:50)
[2017-10-11] MEDS: BENZONATATE 100MG CAP PO SCH ×2 (08:51→14:17)
[2017-10-11] MEDS: METOPROLOL SUCC 50MG EXT REL TAB PO SCH (08:51)
[2017-10-11] MEDS: DOXYCYCLINE HYCLATE 100 MG CAP PO SCH (08:51)
--- NOTE | 2017-10-11 12:39 | Progress Note ---
Subjective Date of Service: Oct 11, 2017. Subjective Pt evaluation today including: conversation w/ patient, physical exam, lab review, review of studies, review of inpatient medication list Saw/examined the patient in room 262 He has a cough, occasional coughing fits he is off of oxygen and saturating well Denies shortness of breath or chest pain Denies fevers/chills Problem List Medical Problems: (1) Acute ID, inferoposterior wall Status: Acute (2) Complication of catheter Status: Acute (3) Complication of Sales catheter Status: Acute (4) Heart block Status: Acute (5) Hematuria Status: Acute (6) Hematuria Status: Acute (7) Hypoxia Status: Acute (8) Osteoarthritis of right hip Status: Acute (9) Pneumonia Status: Acute (10) Supratherapeutic INR Status: Acute (11) Upper respiratory infection Status: Acute (12) Urinary retention Status: Acute (13) UTI (urinary tract infection) Status: Acute Review of Systems Constitutional: No fever, No chills Respiratory: + cough, + sputum, No wheezing, No shortness of breath, No dyspnea on exertion, No dyspnea at rest, No hemoptysis Cardiac: No chest pain, No edema, No palpitations Medications Current Inpatient Medications Medications (Trade) Dose Ordered Sig/Natalie Route Start Time Stop Time Status Last Admin Dose Admin Methylprednisolone Sodium Succinate 40 mg/Syringe 0.64 ml @ 1.5 mls/min Q12@0400,1600 IV 10/10/17 04:00 11/09/17 03:59 10/11/17 04:19 1.5 MLS/MIN Benzonatate (Tessalon Perles Cap) 100 mg TID PO 10/09/17 21:00 11/08/17 20:59 10/11/17 08:51 100 MG Levalbuterol (Xopenex 0.63 Mg/ 3 Ml Neb) 0.63 mg Q6R INH 10/09/17 21:00 11/08/17 20:59 10/11/17 07:18 0.63 MG Amlodipine Besylate (Norvasc Tab) 2.5 mg DAILY PO 10/10/17 09:00 11/09/17 08:59 10/11/17 08:45 2.5 MG Aspirin (Ecotrin Tab) 81 mg DAILY PO 10/10/17 09:00 11/09/17 08:59 10/11/17 08:37 81 MG Atorvastatin Calcium (Lipitor Tab) 40 mg DAILY PO 10/10/17 09:00 11/09/17 08:59 10/11/17 08:38 40 MG Calcitriol (Rocaltrol Cap) 0.25 mcg DAILY PO 10/10/17 09:00 11/09/17 08:59 10/11/17 08:50 0.25 MCG Ferrous Sulfate (Feosol Tab) 325 mg DAILY PO 10/10/17 09:00 11/09/17 08:59 10/11/17 08:37 325 MG Finasteride (Proscar Tab) 5 mg DAILY PO 10/10/17 09:00 11/09/17 08:59 10/11/17 08:50 5 MG Levothyroxine Sodium (Synthroid Tab) 88 mcg DAILYBB PO 10/10/17 06:30 11/09/17 06:29 10/11/17 06:14 88 MCG Metoprolol Succinate (Toprol Xl Tab) 50 mg DAILY PO 10/10/17 09:00 11/09/17 08:59 10/11/17 08:51 50 MG Nitroglycerin (Nitrostat Tab) 0.4 mg UD PRN UT 10/09/17 17:45 11/08/17 17:44 Tamsulosin HCl (Flomax Cap) 0.4 mg DAILY PO 10/10/17 09:00 11/09/17 08:59 10/11/17 08:37 0.4 MG Tramadol HCl (Ultram Tab) 50 mg BID PRN PO 10/09/17 17:45 11/08/17 17:44 Pantoprazole Sodium (Protonix Tab) 40 mg QAM PO 10/10/17 09:00 11/09/17 08:59 10/11/17 08:50 40 MG Acetaminophen (Tylenol Tab) 650 mg Q4H PRN PO 10/09/17 17:45 11/08/17 17:44 Al Hydrox/Mg Hydrox/Simethicone (Maalox Max Susp) 15 ml Q4H PRN PO 10/09/17 17:45 11/08/17 17:44 Miscellaneous (Iv Fluids Completed) 1 ea PRN PRN N/A 10/09/17 20:30 10/09/18 20:29 Doxycycline Hyclate (Vibramycin Cap) 100 mg BID PO 10/10/17 21:00 10/20/17 20:59 10/11/17 08:51 100 MG Guaifenesin (Robitussin Sugar Free Syrup) 100 mg Q6H PRN PO 10/11/17 00:30 11/10/17 00:29 10/11/17 01:08 100 MG Objective Vital Signs Date Time Temp Pulse Resp B/P (MAP) Pulse Ox O2 Delivery O2 Flow Rate FiO2 10/11/17 08:00 92 Room Air 10/11/17 07:38 37.0 105 20 139/79 (99) 92 Nasal Cannula 2.0 10/11/17 07:18 88 16 94 Nasal Cannula 2.0 10/11/17 01:48 88 16 93 Nasal Cannula 2.0 10/11/17 00:00 90 Nasal Cannula 2.0 10/10/17 23:22 36.4 78 20 119/80 (93) 92 Room Air 10/10/17 20:55 82 16 90 Room Air 10/10/17 19:59 Room Air 10/10/17 16:00 Room Air 10/10/17 15:52 36.8 81 16 92/58 (69) 93 Room Air 10/10/17 14:29 79 16 91 Room Air 2.0 Physical Exam General Appearance: no apparent distress Respiratory/Chest: no respiratory distress, no accessory muscle use, + decreased breath sounds Cardiovascular: regular rate, rhythm, no murmur Extremities: normal inspection, + pertinent finding (trace edema b/l LE) Neurologic/Psychiatric: no motor/sensory deficits, alert, normal mood/affect Assessment and Plan This is an 87 year old male with a PMH of CAD s/p stent x7, b/l carotid artery endarterectomy, hx. 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 of CVA with residual R sided weakness - presents with cough , sputum production. Complicated Bronchitis 10/11 doing well today can stop IV Solu-medrol switch to prednisone 40mg x 3 days Hycodan syrup PRN for cough unlikely infectious - but will add doxycycline to cover for UTI as well as possible bacterial bronchitis 10/10 patient feeling better weaned off of O2 will continue solu-medrol for tonight tessalon perles for cough will add doxycycline 10/09 patient with a bad cough, sputum production CXR does not appear to show a pneumonia no significant white count, afebrile, normal lactic acid +wheezing diffusely will start Solu-medrol 40mg q12 added Azithromycin check procalcitonin Tessalon Perles for cough Chest PT will observe overnight and discharge home if feeling better check rapid flu UTI in the setting of Chronic Indwelling Catheter added doxycycline urine culture pending Chronic Systolic CHF echo - mildly reduced LVEF continue current cardiac regimen CAD has had multiple stents, up to 7 continue aspirin, continue b-preeti, statin Hx. of R LE DVT on Coumadin check an INR takes 5mg daily, except 7.5mg on Friday and Friday Hypothyroidism takes Synthroid 88mcg DVT ppx Coumadin DNR
[2017-10-11] MEDS ORDERED: PRED20TA PO ×2 (12:48)
[2017-10-11] MEDS ORDERED: DXY100 PO ×2 (12:48)
[2017-10-11] MEDS ORDERED: HYDR5SYP11 PO ×2 (12:48)
[2017-10-11] MEDS ORDERED: XPNINS INH ×2 (12:48)
[2017-10-11] MEDS ORDERED: NEBMAC ×2 (12:48)
--- NOTE | 2017-10-11 13:01 | Discharge Instructions ---
Discharge Instructions Date of Service Oct 11, 2017. Admission Reason for Admission: Hypoxia, Upper Respiratory Infection Discharge Discharge Diagnosis / Problem: Bronchitis, Urinary Tract Infection Discharge Goals Goal(s): Decrease discomfort, Improve function, Diagnostic testing, Therapeutic intervention Activity Recommendations Activity Limitations: resume your previous activity . Instructions / Follow-Up Instructions / Follow-Up Please follow-up with Dr. Gilman on October 15 at 11:05AM * You will be discharged with three days of prednisone (steroids) * You will be discharged with doxycycline (antibiotic) - take this for twice a day for one week for the urinary tract infection * You will be discharged with Hycodan (syrup for cough) - only take this as needed if you have severe cough * I will prescribe a nebulizer machine and medication for the nebulizer - use this up to 4 times daily if you get short of breath * Have your INR rechecked next week at the Coumadin clinic Current Hospital Diet Patient's current hospital diet: AHA Diet (Heart Healthy) Discharge Diet Recommended Diet: AHA Diet (Heart Healthy) Pending Studies Studies pending at discharge: no Medical Emergencies . Who to Call and When: Medical Emergencies: If at any time you feel your situation is an emergency, please call 911 immediately. . Non-Emergent Contact Non-Emergency issues call your: Primary Care Provider . . "Provider Documentation" section prepared by Marva Martinez. . VTE Core Measure Inpt VTE Proph given/why not?: Warfarin (Coumadin)
--- NOTE | 2017-10-11 13:03 | Discharge Summary ---
Discharge Summary Date of Service Oct 11, 2017. Discharge Summary Admission Date: Oct 09, 2017 at 17:55 Discharge Date: Oct 11, 2017 Discharge Disposition: Home with services Principal Diagnosis: Acute, Complicated Bronchitis Urinary Tract Infection - Chronic Indwelling Catheter Chronic Systolic CHF CAD Long-term anticoagulation R LE DVT Medication Reconciliation New Medications: Hydrocodone W/ Homatropine (Hycodan 5/1.5MG 5 Ml) 1 Syp Syp 5 ML PO Q6H PRN for Cough for 9 Days, #180 ML Nebulizer Machine (Home Use) (Nebulizer Machine (Home Use) ) Mis EA N/A UD, #1 Prednisone (Prednisone) 20 Mg Tab 1 TAB PO DAILY for 3 Days, #3 TAB Doxycycline Hyclate (Doxycycline Hyclate) 100 Mg Cap 100 MG PO BID for 7 Days, #14 CAP Levalbuterol (Levalbuterol HCl) 0.63 Mg/3 Ml Nebu 0.63 MG INH Q6R for 30 Days, #360 ML Continued Medications: Amlodipine Besylate (Norvasc) 2.5 Mg Tab 2.5 MG PO DAILY, TAB Aspirin (Aspirin Chewable) 81 Mg Chew 81 MG PO DAILY, TAB Atorvastatin (Lipitor) 40 Mg Tab 1 TAB PO DAILY Calcitriol (Rocaltrol Cap) 0.25 Mcg Cap 0.25 MCG PO MWF, CAP Ferrous Sulfate (Ferrous Sulfate) 325 Mg Tab 325 MG PO DAILY Finasteride (Proscar) 5 Mg Tab 5 MG PO DAILY, TAB Levothyroxine Sodium (Synthroid) 88 Mcg Tab 1 TAB PO DAILY for 30 Days, #30 TAB 5 Refills Metoprolol Succ (Toprol Xl) (Toprol-Xl) 50 Mg Tabcr 1 TAB PO DAILY, TAB Nitroglycerin (Nitrostat) 0.4 Mg Sub 0.4 MG UT UD PRN for Chest Pain, BTL PLACE ONE TABLET UNDER THE TONGUE EVERY 5 MINUTES IF NEEDED FOR CHEST PAIN. MAXIMUM OF 3 DOSES. Omeprazole (Omeprazole) 20 Mg Tab 20 MG PO DAILY Potassium Phosphate Monobasic (K-Phos) 500 Mg Tab 1 TAB PO DAILY Tamsulosin Hcl (Flomax) 0.4 Mg Cap 0.4 MG PO DAILY, CAP Tramadol (Ultram) 50 Mg Tab 50 MG PO BID PRN for Pain, TAB Warfarin Sodium (Coumadin) 5 Mg Tab 5 MG PO 5XWK, TAB Warfarin Sodium (Coumadin) 5 Mg Tab 7.5 MG PO 2XWK, TAB Admission Information HPI (per Admitting provider): This is an 87 year old male with a PMH of CAD s/p stent x7, b/l carotid artery endarterectomy, hx. 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 of CVA with residual R sided weakness - presents with cough , sputum production. Denies shortness of breath, chest pain, denies fevers/ chills. Was seen in the office today due to the worsening cough; sent to the ER to r/o pneumonia and further work-up. On admission, cough persisted; but again, denied most other symptoms. Currently on oxygen for symptomatic relief, but saturating well on O2. Baseline status: - indwelling catheter - uses wheelchair, transitions from wheelchair to sofa, etc. - mild underlying dementia/memory issues as per - performs most of his ADLs on his own - well nutritional status Physical Exam (per Admitting): General Appearance: no apparent distress Head: normocephalic, atraumatic Eyes: normal inspection ENT: hearing grossly normal Neck: supple, + pertinent finding (post-surgical scars noted b/l) Respiratory/Chest: no respiratory distress, no accessory muscle use, + decreased breath sounds, + wheezing (end expiratory wheezing diffusely) Cardiovascular: regular rate, rhythm, no edema, no murmur Abdomen/GI: normal bowel sounds, non tender, soft, + hernia (ventral hernia , reducible, non-tender) Genitourinary - Male: + pertinent finding (indwelling catheter, bag attaached to R LE) Extremities/Musculoskelatal: normal inspection, no calf tenderness, normal capillary refill, no pedal edema, normal range of motion 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 of CVA with residual R sided weakness - presents with cough , sputum production. Complicated Bronchitis 10/11 doing well today can stop IV Solu-medrol switch to prednisone 40mg x 3 days Hycodan syrup PRN for cough unlikely infectious - but will add doxycycline to cover for UTI as well as possible bacterial bronchitis 10/10 patient feeling better weaned off of O2 will continue solu-medrol for tonight tessalon perles for cough will add doxycycline 10/09 patient with a bad cough, sputum production CXR does not appear to show a pneumonia no significant white count, afebrile, normal lactic acid +wheezing diffusely will start Solu-medrol 40mg q12 added Azithromycin check procalcitonin Tessalon Perles for cough Chest PT will observe overnight and discharge home if feeling better check rapid flu UTI in the setting of Chronic Indwelling Catheter added doxycycline urine culture pending Chronic Systolic CHF echo - mildly reduced LVEF continue current cardiac regimen CAD has had multiple stents, up to 7 continue aspirin, continue b-preeti, statin Hx. of R LE DVT on Coumadin check an INR takes 5mg daily, except 7.5mg on Friday and Friday Hypothyroidism takes Synthroid 88mcg DVT ppx Coumadin DNR Total time spent on discharge = 40 minutes This includes examination of the patient, discharge planning, medication reconciliation, and communication with other providers. Discharge Instructions Please follow-up with Dr. Gilman on October 15 at 11:05AM * You will be discharged with three days of prednisone (steroids) * You will be discharged with doxycycline (antibiotic) - take this for twice a day for one week for the urinary tract infection * You will be discharged with Hycodan (syrup for cough) - only take this as needed if you have severe cough * I will prescribe a nebulizer machine and medication for the nebulizer - use this up to 4 times daily if you get short of breath * Have your INR rechecked next week at the Coumadin clinic
[2017-10-11] MEDS ORDERED: WARFARIN SOD 5 MG TAB PO SCH (16:00)
== END 2017-10-11 15:00 | disposition home health service (06) ==
LOC: C.EDA 13:38 → EDBD 13:38 → C.MS2W 17:55 → EDBEDREQ 17:58
PROVIDERS: ADMIT Family Medicine; ATTEND Family Medicine
DX: J20.9 Acute bronchitis, unspecified (principal); N39.0 Urinary tract infection, site not specified; I50.22 Chronic systolic (congestive) heart failure; M16.11 Unilateral primary osteoarthritis, right hip; I25.10 Atherosclerotic heart disease of native coronary artery without angina pectoris; I11.0 Hypertensive heart disease with heart failure; E03.9 Hypothyroidism, unspecified; N18.3 Chronic kidney disease, stage 3 (moderate); I25.2 Old myocardial infarction; Z85.46 Personal history of malignant neoplasm of prostate; Z86.73 Personal history of transient ischemic attack (TIA), and cerebral infarction without residual deficits; Z86.718 Personal history of other venous thrombosis and embolism; Z79.899 Other long term (current) drug therapy; Z79.01 Long term (current) use of anticoagulants; Z79.82 Long term (current) use of aspirin

== ENCOUNTER 2017-10-11 17:56 | Emergency (ER) | payer OTHER ==
[~2017-10-11] VITALS: Ht 162.6 cm; Wt 70.0 kg
[~2017-10-11 17:56] MED LIST changes: +DXY100 PO; +HYDR5SYP11 PO; +LEVO88TA PO; +NEBMAC; +PRED20TA PO; +XPNINS INH
[2017-10-11 18:16] VITALS: TEMP 36.8; Ht 162.6 cm; Wt 70.0 kg
--- NOTE | 2017-10-11 18:38 | EMERGENCY ROOM VISIT NOTE ---
History Report prepared by Juwan: Angela Jones Under the Supervision of: Dr. Lisha Hernandez M.D. First contact with patient: 18:19 Chief Complaint: CATHETER REPLACEMENT Stated Complaint: LEAKY CATHETER History of Present Illness The patient is a 87 year old male who presents to the Emergency Room with complaints of a persistent leaking catheter that began about a week ago. The patients states that the patient had the catheter inserted because he was unable to urinate, secondary to his prostate cancer. She notes that he was recently seen in the Emergency Department for bronchitis and a bladder infection. She states that a few nights ago, the patient woke up with blood coming from his penis, noting he is currently taking Coumadin. The patient denies any abdominal pain. The patient is currently taking doxycycline for a urinary tract infection. Source of History: patient, spouse/significant other () Onset: about a week ago Position: other (penis) Timing: other (persistent) Review of Systems See HPI for pertinent positives & negatives. A total of 10 systems reviewed and were otherwise negative. 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 (11) Post percutaneous transluminal coronary angioplasty (12) STEMI (ST elevation myocardial infarction) (13) Vitamin D deficiency Family History Omitted secondary to advanced age Social History Smoking Status: Unknown if Ever Smoked Alcohol Use: none Marital Status: Housing Status: lives with significant other Occupation Status: retired Current/Historical Medications Scheduled Amlodipine Besylate (Norvasc), 2.5 MG PO DAILY Aspirin (Aspirin Chewable), 81 MG PO DAILY Atorvastatin (Lipitor), 1 TAB PO DAILY Calcitriol (Rocaltrol Cap), 0.25 MCG PO MWF Doxycycline Hyclate (Doxycycline Hyclate), 100 MG PO BID Ferrous Sulfate (Ferrous Sulfate), 325 MG PO DAILY Finasteride (Proscar), 5 MG PO DAILY Levalbuterol (Levalbuterol HCl), 0.63 MG INH Q6R Levothyroxine Sodium (Synthroid), 1 TAB PO DAILY Metoprolol Succ (Toprol Xl) (Toprol-Xl), 1 TAB PO DAILY Omeprazole (Omeprazole), 20 MG PO DAILY Potassium Phosphate Monobasic (K-Phos), 1 TAB PO DAILY Prednisone (Prednisone), 1 TAB PO DAILY Tamsulosin Hcl (Flomax), 0.4 MG PO DAILY Warfarin Sodium (Coumadin), 5 MG PO 5XWK Warfarin Sodium (Coumadin), 7.5 MG PO 2XWK Scheduled PRN Hydrocodone W/ Homatropine (Hycodan 5/1.5MG 5 Ml), 5 ML PO Q6H PRN for Cough Nitroglycerin (Nitrostat), 0.4 MG UT UD PRN for Chest Pain Tramadol (Ultram), 50 MG PO BID PRN for Pain Durable Medical Equipment Nebulizer Machine (Home Use) (Nebulizer Machine (Home Use) ), EA N/A UD Allergies Coded Allergies: Clopidogrel (Verified Allergy, Mild, RASH, 10/09/17) Sulfa Antibiotics (Verified Allergy, Mild, RASH, 10/09/17) Sulfamethoxazole (Verified Allergy, Mild, RASH, 10/09/17) Trimethoprim (Verified Allergy, Mild, RASH, 10/09/17) Niacin (Verified Allergy, Unknown, UNKNOWN, 10/09/17) Physical Exam Vital Signs Date Time Temp Pulse Resp B/P (MAP) Pulse Ox O2 Delivery O2 Flow Rate FiO2 10/11/17 19:15 104 20 143/86 91 Room Air 10/11/17 18:16 36.8 71 20 150/87 99 Room Air Physical Exam Vital signs reviewed. General: Elderly, well-appearing, in no significant distress. Abdomen: Soft, nontender, nondistended, positive bowel sounds. Genitourinary: Circumcised, Castellanos catheter in place, no urine in bag Musculoskeletal: Atraumatic, no peripheral edema. Neurologic: Patient awake alert and oriented x 3 Skin: Warm, dry, no rash Medical Decision & Procedures Medications Administered Medications (Trade) Dose Ordered Sig/Natalie Route Start Time Stop Time Status Last Admin Dose Admin Levalbuterol (Xopenex Hfa Inhaler) 2 puffs NOW STAT INH 10/11/17 20:02 10/11/17 20:03 DC 10/11/17 20:15 2 PUFFS ED Course 181: Past medical records reviewed. The patient was evaluated in room D3. A complete history and physical examination was performed. 1937: Upon reevaluation, the patient appeared to have improvement of his symptoms. I discussed findings with him. The patient verbalized agreement of the treatment plan. He was discharged home. Medical Decision This patient was evaluated and appeared to be in no significant distress. Patient's Castellanos catheter was irrigated without success. Castellanos catheter was replaced by nursing staff without difficulty. Patient had significant relief of his discomfort. The patient is concerned because he was discharged several hours ago and advised to use a nebulizer of Xopenex every 6 hours. It is the weekend and he is not able to obtain the nebulizer machine. He was given a Xopenex inhaler to be used until he is able to obtain the nebulizer machine. He 'll follow-up with his PCP and neurologist as scheduled and return to the ER for worsening of symptoms or any medical concerns. Medication Reconcilliation Current Medication List: was personally reviewed by me Blood Pressure Screening Patient's blood pressure: Normal blood pressure Impression Primary Impression: Obstructed Castellanos catheter Scribe Attestation The scribe's documentation has been prepared under my direction and personally reviewed by me in its entirety. I confirm that the note above accurately reflects all work, treatment, procedures, and medical decision making performed by me. Departure Information Dispostion Home / Self-Care Referrals Venkat Gilman D.O. (PCP) Forms HOME CARE DOCUMENTATION FORM, IMPORTANT VISIT INFORMATION Patient Instructions My [facility] Additional Instructions Diagnosis: Castellanos catheter obstruction Continue castellanos catheter care as directed. Follow up with Dr Beatty as scheduled in 2 weeks. Drink plenty of water. Return to the ED for worsening of symptoms or any medical concerns.
[2017-10-11 19:15] VITALS: BP 143/86; PULSE 104; O2SAT 91
[2017-10-11] MEDS ORDERED: LEValbuterol HFA 15GM INHALER INH STA (20:02)
== END 2017-10-11 19:40 | disposition home or self-care (01) ==
LOC: C.EDB 17:57 → C.EDD 19:40
DX: T83.098A Other mechanical complication of other urinary catheter, initial encounter (principal); Y84.6 Urinary catheterization as the cause of abnormal reaction of the patient, or of later complication, without mention of misadventure at the time of the procedure; N39.0 Urinary tract infection, site not specified; E03.9 Hypothyroidism, unspecified; N18.3 Chronic kidney disease, stage 3 (moderate); I25.2 Old myocardial infarction; Z85.46 Personal history of malignant neoplasm of prostate; Z86.73 Personal history of transient ischemic attack (TIA), and cerebral infarction without residual deficits; Z79.899 Other long term (current) drug therapy; Z79.01 Long term (current) use of anticoagulants; Z79.82 Long term (current) use of aspirin

== ENCOUNTER 2019-02-15 09:48 | Inpatient (IN) ==
--- OUTSIDE RECORDS SUMMARY | 2019-02-15 09:51 | External Medical Summary | Continuity of Care Document ---
:1930 Author Name Mac Linda Address Unavailable Unavailable , Care Team Providers Name Role Phone Gini Laureano M.D. Unavailable [email or web address], [email or web address] Unavailable Unavailable Problems Active medical history not documented Allergies and Adverse Reactions Allergy history not documented Medications Medications not documented Procedures Procedures not documented Immunizations Immunizations not documented Plan of Treatment Planned Observations Planned Goals not documented Results No Known Results Results not documented
[2019-02-15 10:22] LABS: Basophils # (auto) 0.03 K/uL (0-0.2); Basophils % (auto) 0.4 %; Eosinophils % (auto) 1.4 %; Hematocrit (blood only) 35.5 % (42-52); Hemoglobin 11.6 g/dL (14.0-18.0); Immature Granulocytes # (auto) 0.02 K/uL (0.00-0.02); Immature Granulocytes % (auto) 0.3 %; Lymphocytes # (auto) 0.99 K/uL (1.2-3.4); Lymphocytes % (auto) 13.7 %; Mean Corpuscular Hgb Conc 32.7 g/dL (32-36); Mean Corpuscular Volume 95.4 fL (80-100); Mean Platelet Volume 9.8 fL (7.4-10.4); Monocytes # (auto) 1.07 K/uL (0.11-0.59); Monocytes % (auto) 14.8 %; Neutrophils # (auto) 5.02 K/uL (1.4-6.5); Neutrophils % (auto) 69.4 %; Platelet Count 181 K/uL (130-400); RDW Coefficient of Variation 15.2 % (11.5-14.5); RDW Standard Deviation 52.9 fL (36.4-46.3); Red Blood Count 3.72 M/uL (4.7-6.1); White Blood Count 7.23 K/uL (4.8-10.8)
--- NOTE | 2019-02-15 10:27 | XRay Report ---
XR chest 1V portable CLINICAL HISTORY: Chest Pain dyspnea COMPARISON STUDY: 10/09/2017 FINDINGS: Increase in cardiac size. Increased pulmonary vasculature. Trace pleural fluid both lung ba ses. IMPRESSION: Congestive heart failure The above report was generated using voice recognition software. It may contain grammatical, syntax or spelling errors. Electronically signed by: Mikey Mantilla M.D. 02/15/2019 10:26 AM
[2019-02-15 10:41] LABS: Prothrombin Time 41.5 Seconds (9.0-12.0)
[2019-02-15] MEDS ORDERED: ALBUT/IPRATROP 3MG/0.5MG NEB 3 ML VIAL NEB STA (10:46)
[2019-02-15] MEDS ORDERED: DEXAMETHASONE **PF** INJ 10 MG/ML VIAL IV ONE (10:46)
[2019-02-15 10:47] LABS: Alanine Aminotransferase 15 U/L (12-78); Albumin Level 2.9 gm/dl (3.4-5.0); Aspartate Aminotransferase 19 U/L (15-37); BUN Creatinine Ratio 15.5 (10-20); Blood Urea Nitrogen 28 mg/dl (7-18); Calcium 8.8 mg/dl (8.5-10.1); Carbon Dioxide 24 mmol/L (21-32); Chloride 99 mmol/L (98-107); Est GFR (African American) 38.1; Est GFR (Non-African American) 32.9; Glucose 185 mg/dl (70-99); Magnesium 1.8 mg/dl (1.8-2.4); Potassium 4.1 mmol/L (3.5-5.1); Sodium 133 mmol/L (136-145)
[2019-02-15 10:53] LABS: Albumin Globulin Ratio 0.5 (0.9-2); Alkaline Phosphatase 87 U/L (45-117); Bilirubin,Total 0.6 mg/dl (0.2-1); Globulin 5.5 gm/dl (2.5-4.0); NT Pro B Type Natriuretic Pept 14367 pg/ml (0-1800); Phosphorus 3.2 mg/dl (2.5-4.9); Total Protein 8.4 gm/dl (6.4-8.2); Troponin I 0.019 ng/ml (0-0.045)
[2019-02-15 11:13] LABS: INR 4.5 (0.9-1.1)
[2019-02-15 11:16] LABS: Base Excess VBG -4.5 mEq/L; Oxygen Saturation VBG 60.6 %; pH VBG 7.33 (7.36-7.41)
--- NOTE | 2019-02-15 12:01 | Emergency Department Note ---
Entered by Giselle Rosario acting as a scribe for History of Present Illness General Chief complaint: Respiratory Problems Stated complaint: DIFFICULTY BREATHING- DX W/PNEUMONIA Time Seen by Provider: 02/15/19 10:13 Source: patient Mode of arrival: ambulatory Limitations: no limitations History of Present Illness Onset (ago): day(s) 4 Location: chest Pain Consistency: + other (worsening) Quality: + other (pneumonia) Associated symptoms: + shortness of breath; no fever/chills and no nausea/ vomiting The patient is an 88 year old male with a history of stroke, blood clots, pneum onia, STEMI, carotid endarterectomy, and head injury who presents to the ED with complaints of worsening respiratory problems that onset 4 days ago. The patient states that he was diagnosed with pneumonia 4 days ago and was prescribed doxycycline. The patient complains of shortness of breath. The patient denies chest pain, fever, chills, nausea, and vomiting. He states that he is not on oxygen at home. Home Medications Home Medications Medication Instructions Recorded Confirmed Type amlodipine 2.5 mg PO DAILY 02/15/19 02/15/19 History aspirin [Aspirin Low Dose] 81 mg PO DAILY 02/15/19 02/15/19 History atorvastatin 40 mg PO DAILY 02/15/19 02/15/19 History calcitriol 0.25 mcg PO 3XWK 02/15/19 02/15/19 History doxycycline hyclate 100 mg PO BID 02/15/19 02/15/19 History ferrous sulfate 325 mg PO DAILY 02/15/19 02/15/19 History finasteride 5 mg PO DAILY 02/15/19 02/15/19 History levothyroxine 88 mcg PO DAILY 02/15/19 02/15/19 History metoprolol succinate 50 mg PO DAILY 02/15/19 02/15/19 History nitroglycerin 0.4 mg SUBLINGUAL DIRECTED 02/15/19 02/15/19 History omeprazole 20 mg PO DAILY 02/15/19 02/15/19 History tramadol 50 mg PO BID 02/15/19 02/15/19 History warfarin 5 mg PO PM 02/15/19 02/15/19 History warfarin 7.5 mg PO .MON AND FRI 02/15/19 02/15/19 History Allergies Allergy/AdvReac Type Severity Reaction Status Date / Time clopidogrel Allergy Intermediate RASH Verified 02/15/19 14:44 Sulfa (Sulfonamide Allergy Intermediate RASH Verified 02/15/19 14:46 Antibiotics) sulfamethoxazole Allergy Intermediate RASH Verified 02/15/19 14:46 trimethoprim Allergy Mild RASH Verified 02/15/19 10:43 niacin Allergy Unknown UNKNOWN Verified 02/15/19 10:43 Past Med/Surg History Medical History History of stroke Hx of blood clots Head injury (Acute) Osteoarthritis of right hip (Acute) STEMI (ST elevation myocardial infarction) Scalp laceration (Acute) No pertinent family history Surgical History S/P carotid endarterectomy (Acute 08/25/13) Family History Other No pertinent family history Social History Preferred Language: Slovak Communication Ability: Effective Visual Impairment: No Limitations Hearing Ability: Normal Keypuncher Required: No Beliefs That Will Affect Care: None Current Living Situation: Spouse Other Information That Helps Us Care for You: No Feels Safe at Home: Yes Safety Concerns: Feels Safe At This Time Smoking Status: Former smoker Do You Dip or Chew Tobacco: No Second Hand Exposure: No Tobacco Cessation Education Requested by Patient: No Hx Alcohol Use: No Hx Substance Use: No Review of Systems See HPI for pertinent positives & negatives. and A total of 10 systems reviewed and were otherwise negative Physical Exam Vital Signs Vital Signs - 24 hr 02/15/19 09:53 02/15/19 10:02 02/15/19 10:04 Temperature 36.4 C L Temperature Source Oral Sepsis Recent Fever Within 48 Hours No Sepsis New/Unexplained Change in Mental Status No Sepsis Action Taken by Nursing No Action Required Pulse Rate 75 101 H 97 H Pulse Rate from SpO2 Sensor 100 H 97 H Respiratory Rate 22 22 32 H Respiratory Effort / Characteristics Respiratory Depth Normal Respiratory Pattern Blood Pressure 152/78 H 163/111 H Blood Pressure Mean 102 128 Pulse Oximetry 95 85 L 91 Oxygen Delivery Method Room Air Oxygen Flow Rate 2 02/15/19 10:05 02/15/19 10:30 02/15/19 10:35 Temperature Temperature Source Sepsis Recent Fever Within 48 Hours Sepsis New/Unexplained Change in Mental Status Sepsis Action Taken by Nursing Pulse Rate 87 Pulse Rate from SpO2 Sensor 89 Respiratory Rate 19 Respiratory Effort / Characteristics Non-Labored Spontaneous Respiratory Depth Respiratory Pattern Regular Blood Pressure Blood Pressure Mean Pulse Oximetry 95 95 Oxygen Delivery Method Room Air Nasal Cannula Nasal Cannula Oxygen Flow Rate 4 4 02/15/19 10:45 02/15/19 11:00 02/15/19 11:01 Temperature Temperature Source Sepsis Recent Fever Within 48 Hours Sepsis New/Unexplained Change in Mental Status Sepsis Action Taken by Nursing Pulse Rate 89 87 89 Pulse Rate from SpO2 Sensor 93 H 81 96 H Respiratory Rate 38 H 19 27 H Respiratory Effort / Characteristics Respiratory Depth Respiratory Pattern Blood Pressure 155/95 H 141/102 H Blood Pressure Mean 115 115 Pulse Oximetry 93 95 Oxygen Delivery Method Nasal Cannula Nasal Cannula Oxygen Flow Rate 4 4 02/15/19 11:30 02/15/19 11:31 02/15/19 11:32 Temperature Temperature Source Sepsis Recent Fever Within 48 Hours Sepsis New/Unexplained Change in Mental Status Sepsis Action Taken by Nursing Pulse Rate 90 81 80 Pulse Rate from SpO2 Sensor 94 H 85 83 Respiratory Rate 17 17 17 Respiratory Effort / Characteristics Respiratory Depth Respiratory Pattern Blood Pressure 134/91 Blood Pressure Mean 105 Pulse Oximetry 95 95 Oxygen Delivery Method Nasal Cannula Nasal Cannula Oxygen Flow Rate 4 4 02/15/19 12:00 02/15/19 12:01 02/15/19 12:30 Temperature Temperature Source Sepsis Recent Fever Within 48 Hours Sepsis New/Unexplained Change in Mental Status Sepsis Action Taken by Nursing Pulse Rate 83 85 85 Pulse Rate from SpO2 Sensor 84 86 85 Respiratory Rate 19 18 18 Respiratory Effort / Characteristics Respiratory Depth Respiratory Pattern Blood Pressure 135/91 Blood Pressure Mean 105 Pulse Oximetry 95 95 Oxygen Delivery Method Oxygen Flow Rate 02/15/19 12:31 02/15/19 12:32 02/15/19 12:58 Temperature Temperature Source Sepsis Recent Fever Within 48 Hours Sepsis New/Unexplained Change in Mental Status Sepsis Action Taken by Nursing Pulse Rate 86 85 Pulse Rate from SpO2 Sensor 89 88 Respiratory Rate 21 18 Respiratory Effort / Characteristics Non-Labored Spontaneous SOB on Exertion Respiratory Depth Normal Respiratory Pattern Regular Blood Pressure 147/92 H Blood Pressure Mean 110 Pulse Oximetry 95 94 Oxygen Delivery Method Nasal Cannula Oxygen Flow Rate 4 02/15/19 13:00 02/15/19 13:01 Temperature Temperature Source Sepsis Recent Fever Within 48 Hours Sepsis New/Unexplained Change in Mental Status Sepsis Action Taken by Nursing Pulse Rate 86 88 Pulse Rate from SpO2 Sensor 89 93 H Respiratory Rate 20 22 Respiratory Effort / Characteristics Respiratory Depth Respiratory Pattern Blood Pressure 137/110 H Blood Pressure Mean 119 Pulse Oximetry 94 94 Oxygen Delivery Method Oxygen Flow Rate GENERAL: Awake, alert, fatigued-appearing, in no distress HENT: Normocephalic, atraumatic. Oropharynx unremarkable. EYES: Normal conjunctiva. Sclera non-icteric. NECK: Supple. No nuchal rigidity. FROM. Mild JVD. RESPIRATORY: Mildly dyspneic. Scattered wheezes and rhonchi. CARDIAC: Regular rate, normal rhythm. Extremities warm and well perfused. Pulses equal. ABDOMEN: Soft, non-distended. No tenderness to palpation. No rebound or guarding . No masses. RECTAL: Deferred. MUSCULOSKELETAL: Chest examination reveals no tenderness. The back is symmetrical on inspection without obvious abnormality. There is no CVA tenderness to palpation. No joint edema. LOWER EXTREMITIES: Calves are equal size bilaterally and non-tender. No edema. No discoloration. NEURO: Normal sensorium. No sensory or motor deficits noted. SKIN: No rash or jaundice noted. Course 1033: Past medical records reviewed. The patient was evaluated in room C09. A complete history and physical examination was performed. 1226: I reviewed the patient's case with Dr. Diallo Lara. He will evaluate the patient for further management. Consultations Consultation #1: 1226: I reviewed the patient's case with Dr. Diallo Lara. He will evaluate the patient for further management. Administered Medications Discontinued Medications Albuterol (Duoneb) 3 ml NEB NOW STA Stop: 02/15/19 10:47 Last Admin: 02/15/19 11:01 Dose: 3 ml Documented by: [id number] Dexamethasone Sodium Phosphate (Decadron Pf) 10 mg IV NOW ONE Stop: 02/15/19 10:47 Last Admin: 02/15/19 11:01 Dose: 10 mg Documented by: [id number] Furosemide (Lasix) Confirm Administered Dose 40 mg IV .STK-MED ONE Stop: 02/15/19 12:28 Last Admin: 02/15/19 12:28 Dose: 20 mg Documented by: [id number] Furosemide (Lasix) Confirm Administered Dose 40 mg IV .STK-MED ONE Stop: 02/15/19 13:32 Last Admin: 02/15/19 13:32 Dose: 20 mg Documented by: [id number] Furosemide 20 mg/ Syringe 2 mls @ 4 mls/min IV NOW STA Stop: 02/15/19 12:23 Last Admin: 02/15/19 12:28 Dose: Not Given Documented by: [id number] Furosemide 20 mg/ Syringe 2 mls @ 4 mls/min IV ONE STA Stop: 02/15/19 13:17 Last Admin: 02/15/19 13:32 Dose: Not Given Documented by: [id number] Perflutren Lipid Microsphere (Definity) 2 ml IV ONCE ONE Stop: 02/15/19 15:33 Last Admin: 02/15/19 15:33 Dose: 2 ml Documented by: [id number] Medical Decision Making Differential Diagnosis Differential diagnoses Pneumonia, bronchitis, COPD/Asthma exacerbation, pneumothorax, pulmonary embolism, congestive heart failure, acute coronary syndrome as well as other etiologies were entertained. Medical Records Attestation: I reviewed the patient's medical records. Home Medications Current Medication List: was personally reviewed by me Laboratory Data Attestation: I reviewed the patient's lab results. Result diagrams: 02/15/19 10:13 02/15/19 10:13 Lab Results 02/15/19 02/15/19 02/15/19 Range/Units 10:13 10:13 10:13 WBC 7.23 (4.8-10.8) K/uL RBC 3.72 L (4.7-6.1) M/uL Hgb 11.6 L (14.0-18.0) g/dL Hct 35.5 L (42-52) % MCV 95.4 (80-100) fL MCH 31.2 (25-34) pg MCHC 32.7 (32-36) g/dL RDW Std Deviation 52.9 H (36.4-46.3) fL RDW Coeff of Tyrel 15.2 H (11.5-14.5) % Plt Count 181 (130-400) K/uL MPV 9.8 (7.4-10.4) fL Immature Gran % (Auto) 0.3 % Neut % (Auto) 69.4 % Lymph % (Auto) 13.7 % Falls % (Auto) 14.8 % Eos % (Auto) 1.4 % Baso % (Auto) 0.4 % Immature Gran # (Auto) 0.02 (0.00-0.02) K/uL Neut # (Auto) 5.02 (1.4-6.5) K/uL Lymph # (Auto) 0.99 L (1.2-3.4) K/uL Falls # (Auto) 1.07 H (0.11-0.59) K/uL Eos # (Auto) 0.10 (0-0.5) K/uL Baso # (Auto) 0.03 (0-0.2) K/uL PT 41.5 H (9.0-12.0) Seconds INR 4.5 H (0.9-1.1) VBG pH (7.36-7.41) VBG pCO2 (38-50) mmHg VBG pO2 mmHg VBG HCO3 mmol/L VBG O2 Saturation % VBG Base Excess mEq/L Barometric Pressure mm/Hg Sodium 133 L (136-145) mmol/L Potassium 4.1 (3.5-5.1) mmol/L Chloride 99 (98-107) mmol/L Carbon Dioxide 24 (21-32) mmol/L Anion Gap 10.0 (3-11) BUN 28 H (7-18) mg/dl Creatinine 1.82 H (0.6-1.4) mg/dl Est Cr Clr Drug Dosing Not Reportable Est GFR ( Amer) 38.1 Est GFR (Non-Af Amer) 32.9 BUN/Creatinine Ratio 15.5 (10-20) Glucose 185 H (70-99) mg/dl Calcium 8.8 (8.5-10.1) mg/dl Phosphorus 3.2 (2.5-4.9) mg/dl Magnesium 1.8 (1.8-2.4) mg/dl Total Bilirubin 0.6 (0.2-1) mg/dl AST 19 (15-37) U/L ALT 15 (12-78) U/L Alkaline Phosphatase 87 (45-117) U/L Troponin I 0.019 (0-0.045) ng/ml NT-Pro-B Natriuret Pep 78393 H (0-1800) pg/ml Total Protein 8.4 H (6.4-8.2) gm/dl Albumin 2.9 L (3.4-5.0) gm/dl Globulin 5.5 H (2.5-4.0) gm/dl Albumin/Globulin Ratio 0.5 L (0.9-2) Lipase 110 (73-393) U/L 02/15/19 Range/Units 10:58 WBC (4.8-10.8) K/uL RBC (4.7-6.1) M/uL Hgb (14.0-18.0) g/dL Hct (42-52) % MCV (80-100) fL MCH (25-34) pg MCHC (32-36) g/dL RDW Std Deviation (36.4-46.3) fL RDW Coeff of Tyrel (11.5-14.5) % Plt Count (130-400) K/uL MPV (7.4-10.4) fL Immature Gran % (Auto) % Neut % (Auto) % Lymph % (Auto) % Falls % (Auto) % Eos % (Auto) % Baso % (Auto) % Immature Gran # (Auto) (0.00-0.02) K/uL Neut # (Auto) (1.4-6.5) K/uL Lymph # (Auto) (1.2-3.4) K/uL Falls # (Auto) (0.11-0.59) K/uL Eos # (Auto) (0-0.5) K/uL Baso # (Auto) (0-0.2) K/uL PT (9.0-12.0) Seconds INR (0.9-1.1) VBG pH 7.33 L (7.36-7.41) VBG pCO2 42 (38-50) mmHg VBG pO2 34 mmHg VBG HCO3 21 mmol/L VBG O2 Saturation 60.6 % VBG Base Excess -4.5 mEq/L Barometric Pressure 732.2 mm/Hg Sodium (136-145) mmol/L Potassium (3.5-5.1) mmol/L Chloride (98-107) mmol/L Carbon Dioxide (21-32) mmol/L Anion Gap (3-11) BUN (7-18) mg/dl Creatinine (0.6-1.4) mg/dl Est Cr Clr Drug Dosing Est GFR ( Amer) Est GFR (Non-Af Amer) BUN/Creatinine Ratio (10-20) Glucose (70-99) mg/dl Calcium (8.5-10.1) mg/dl Phosphorus (2.5-4.9) mg/dl Magnesium (1.8-2.4) mg/dl Total Bilirubin (0.2-1) mg/dl AST (15-37) U/L ALT (12-78) U/L Alkaline Phosphatase (45-117) U/L Troponin I (0-0.045) ng/ml NT-Pro-B Natriuret Pep (0-1800) pg/ml Total Protein (6.4-8.2) gm/dl Albumin (3.4-5.0) gm/dl Globulin (2.5-4.0) gm/dl Albumin/Globulin Ratio (0.9-2) Lipase (73-393) U/L Imaging Data Radiologist's Impression: Radiology results as stated below per my review and the radiologist's interpretation: XR chest 1V portable CLINICAL HISTORY: Chest Pain dyspnea COMPARISON STUDY: 10/09/2017 FINDINGS: Increase in cardiac size. Increased pulmonary vasculature. Trace pleural fluid both lung bases. IMPRESSION: Congestive heart failure The above report was generated using voice recognition software. It may contain grammatical, syntax or spelling errors. Electronically signed by: Mikey Mantilla M.D. 02/15/2019 10:26 AM Dictated: 02/15/19 1026 Transcribed: 02/15/19 1026 ECG Data Attestation: I personally reviewed and interpreted this ECG as follows: Indication: SOB/dyspnea Rate (beats per minute): 93 Rhythm: other (atrial ectopic rhythm) Findings: + LBBB; no acute ischemic change (no overt acute ischemia) Blood Pressure Blood Pressure Findings: Normal blood pressure MDM Narrative The patient is a pleasant 88 y/o gentleman with a pmhx of CAD s/p stent x7, CHF with EF 40-45% (09/2017), b/l carotid artery endarterectomy, hx. 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 of CVA with residual R sided weakness who presents to the emergency department with worsening cough, congestion, sob after being started on doxycycline by pcp for pna per HPI. On arrival the patient is fatigued and mild dyspneic appearing but in NAD, AFVSS. EKG demonstrates likely atrial ectop ic rhythm with LBBB (EKG in [facility] EMR shows incomplete LBBB on 08/04/2018). CXR with venous congestion and trace pleural effusions. WBC and platelets wnl. H/H 11.6/35.5 without recent values for comparison. Troponin 0.019 wnl. BNP 14K without prior values for comparison. Limited bedside echo demonstrates minimally variable IVF with respirations suggesting volume overload, EF appears more in th e severe range with MAPSE < 6mm. Lungs with mild bilateral pleural effusions as well as scattered B-lines. Patient ordered for 20mg IV lasix. Case d/w Dr. Landrum, [facility] hospitalist, who will evaluate the patient for admission. Impression & Plan CHF exacerbation, Hypoxia Discharge Plan Visit Data *Final* Discharge Date/Time: 02/15/19 13:45 Chief Complaint: Respiratory Problems Stated Complaint: DIFFICULTY BREATHING- DX W/PNEUMONIA ED Provider: Alhaji Albrecht Discharge Problem: CHF exacerbation, Hypoxia Patient Disposition: Admitted As Inpatient Discharge Instructions Interventions: ED Discharge Assessment Last Done: 02/15/19 13:45 Discharge Problem: CHF exacerbation Qualifiers: Heart failure type: unspecified Qualified Code(s): I50.9 - Heart failure, unspecified The scribe's documentation has been prepared under my direction and personally reviewed by me in its entirety. I confirm that the note above accurately reflects all work, treatment, procedures, and medical decision making performed by me.
[2019-02-15] MEDS ORDERED: FUROSEMIDE 20 MG in SYRINGE 0 ML IV STA ×2 (12:22→13:16)
[2019-02-15] MEDS ORDERED: FUROSEMIDE 40 MG/4 ML VIAL IV ONE ×2 (12:27→13:31)
[2019-02-15] MEDS ORDERED: POLYETHYLENE (MIRALAX) 17 GM PACK PO PRN (14:18)
[2019-02-15] MEDS ORDERED: NITROGLYCERIN SL 0.4 MG/TAB TAB SL PRN (14:18)
[2019-02-15] MEDS ORDERED: NITROGLYCERIN SL 0.4 MG/TAB TAB SL SCH (14:18)
[2019-02-15] MEDS ORDERED: ACETAMINOPHEN 325 MG TAB PO PRN (14:18)
[2019-02-15] MEDS ORDERED: ONDANSETRON INJ 2 MG/ML 2 ML VIAL IV PRN (14:18)
[2019-02-15] MEDS ORDERED: PERFLUTREN LIPID MICROSPHERE (DEFINITY) IV ONE (15:32)
[2019-02-15] MEDS ORDERED: METOPROLOL TARTRATE 1 MG/ML VIAL IV PRN (16:51)
[2019-02-15] MEDS ORDERED: Nursing to Pharmacy Communication ONE (19:12)
[2019-02-15] MEDS: LEVOTHYROXINE SODIUM 88 MCG TABLET PO SCH (21:02)
[2019-02-15] MEDS: FUROSEMIDE 40 MG in SYRINGE 0 ML IV SCH (21:02)
[2019-02-15] MEDS: DOXYCYCLINE HYCLATE 100 MG CAP PO SCH (21:02)
[2019-02-15] MEDS: ATORVASTATIN 40 MG TAB PO SCH (21:03)
--- NOTE | 2019-02-15 21:48 | History and Physical Report ---
DATE OF ADMISSION: 02/15/2019 CHIEF COMPLAINT: Shortness of breath. HISTORY OF PRESENT ILLNESS: This 88-year-old male with past medical history significant for CVA with right-sided weakness, can walk only short distance,mostly wheelchair bound, lives with his and daughter, history of hypothyroidism, hyperlipidemia, hyperparathyroidism, CAD, paroxysmal atrial fibrillation, CHF systolic and diastolic with EF of 45%, hypertension, history of retinal vein occlusion with macular edema of the left eye, chronic kidney disease stage III, prostate cancer with metastasis to bone and urinary retention with chronic Sales since t last 1 year and gets Lupron shots every month with change of Sales, hemiplegia following CVA, senile cataracts, anemia, CAD status post stent, status post carotid endarterectomy,, history of DVTs, blind in right eye, presents with shortness of breath. The patient's says that he is having cough for some time now, but last he started wheezing. The took him to the PCP. When chest x-ray was done which showed possible left lung base infiltrate not excluded, so the patient was started on doxycycline, but symptoms did not improve, got progressive worse. Today morning he complained that he could not breathe and was brought to the ER. In the ER he was hypoxic at 85% on room air. He was staturating fine on oxygen 4 liters .Was given a dose of IV Lasix 20 mg in the Er. Currently he is doing okay. Denies any chest pain, no nausea, no vomiting. He has constipation and he takes stool softener and gets diarrhea. Denies any headache, vision is okay from the left eye. No earaches, no sore throat, no difficulty swallowing, but he did not eat much today. Cough with whitish phlegm and bowel movements with some black stools but on iron pills. His urinary Sales catheter bag fills daily but today not much. He has swelling in his legs but as the days goes it reduces. He is not taking any water pills. Currently resting comfortably and hemodynamically stable. ALLERGIES: SULFA ANTIBIOTICS, NIACIN, PLAVIX. PAST MEDICAL HISTORY: As mentioned above. PAST SURGICAL HISTORY: Bladder irrigation, colonoscopy, coronary angiography with stent placement, EGDs, injection of the eyes, cataract surgery, repair of inguinal hernia, right carotid endarterectomy and left carotid endarterectomy, total hip replacement and prosthesis. MEDICATIONS: The patient is on doxycycline 100 mg p.o. b.i.d.;omeprazole 1 capsule 20 mg daily; nitroglycerin 0.4 mg sublingual p.r.n.; Proscar 5 mg p.o. daily; atorvastatin 40 mg p.o. daily; Coumadin 7.5 mg Mondays and Fridays and 5 mg all other days; amlodipine 2.5 mg p.o. daily; Toprol-XL 50 mg p.o. daily; levothyroxine 88 mcg p.o. daily; tramadol 50 mg; calcitriol 0.5 mg 1 cap some 3 times weekly Friday, Wednesdays and Fridays;tramadol 50 mg p.o. b.i.d. p.r.n.; ferrous sulfate 325 mg p.o. b.i.d.; aspirin 81 mg p.o. daily. FAMILY HISTORY: Significant for brother had lung cancer, heart disorder, hypertension. Father had heart attack and skin cancer. Mother has pacemaker. SOCIAL HISTORY: and lives with his . Quit smoking in 1959. No alcohol use or drug use. REVIEW OF SYMPTOMS: As per HPI. Rest of review of symptoms negative. PHYSICAL EXAMINATION: GENERAL: The patient is old and frail, not in acute distress. VITAL SIGNS: Temperature 36.4, pulse 86, respiratory rate 21, blood pressure 147/92, oxygen 80% room air currently 93% on 4 liters. HEENT: No pallor, no icterus, blind in right eye, left eye reactive to light. NECK: No JVD, no neck masses, no carotid bruits. CARDIOVASCULAR: S1, S2 heard, regular rhythm. No murmur, no gallop. RESPIRATORY SYSTEM: Normal AP diameter. No accessory muscle use. Bilateral wheezing heard with some crackles. ABDOMEN: Soft, bowel sounds present. Nontender. No distention. CENTRAL NERVOUS SYSTEM: Cranial nerves II through XII intact. RIght-Sided weakness present. EXTREMITIES: Lower extremity edema seen. LABORATORIES: WBC 7.3, hemoglobin 11.6, hematocrit 35.5, platelets 181. Sodium 133, potassium 4.1, chloride 99, bicarbonate 24, BUN 28, creatinine 1.8, serum glucose 185, calcium 8.8, phosphorus 3.2, magnesium 1.8, total bilirubin 0.6, AST 19, ALT 15, alkaline phosphatase 87. Troponin I 0.019. BNP of 14,000. Lipase 110. Chest x-ray: Congestive heart failure. EKG: Sinus rhythm with frequent PVCs, PACs with a rate of 93, incomplete left bundle branch block. ASSESSMENT AND PLAN: This is a 88-year-old male who presents with sob and found to have CHF, 1. Congestive heart failure, probably systolic and diastolic congestive heart failure. Previous EKG showed ejection fraction of 45%, echocardiogram in the Emergency Room showed reduced ejection fraction . Will follow full echocardiogram. Received IV Lasix 20 mg in the Emergency Room will give extra 20mg now. We will place him on IV Lasix,40 b.i.d. Will Daily weights, I's and O's. Closely monitor in tele floor. Cardiology consult The patient seems noncompliant with salt intake, needs counselling 2. History of coronary artery disease status post stent, currently stable. Continue home medication of Toprol-XL, statin, aspirin. 3. History of paroxysmal atrial fibrillation, rate controlled on Toprol-XL and Coumadin. INR is supratherapeutic at 4.5. We will hold Coumadin. Follow PT/INR. 4. History of cerebrovascular accident with right-sided weakness, mostly wheelchair bound. Continue his Coumadin and aspirin and statin. PT and OT when stable. 5. History of prostate cancer with urinary retention. Follow up with Urology. Gets Lupron shot every month on chronic Sales catheter and Proscar, which we will continue. 6. History of hyperlipidemia, on statin, which we will continue. 7. History of hypertension, on Toprol-XL and amlodipine. We will monitor blood pressure and getting Lasix. 8. History of iron deficiency anemia, on ferrous sulfate. 9. History of chronic kidney disease, stage III. baseline cr 1.7 . will follow labs. 10. Hypothyroidism. Continue Synthroid. 11. History of bilateral carotid endarterectomy, statin and aspirin. 12.History of deep venous thrombosis, on Coumadin and INR supratherapeutic. 13. hyperglycemia. Follow hba1c levels. 14. Deep venous thrombosis prophylaxis: INR 4.7. Close monitor on tele floor. Disposition. Admit to tele floor. pt/ot prior to discharge. social service to help with discharge planning. Code status Level 1 full code as per my discussion with the patient's family for now. MTDD
[2019-02-16 05:35] LABS: Basophils # (auto) 0.01 K/uL (0-0.2); Basophils % (auto) 0.1 %; Immature Granulocytes # (auto) 0.02 K/uL (0.00-0.02); Immature Granulocytes % (auto) 0.3 %; Lymphocytes # (auto) 0.94 K/uL (1.2-3.4); Lymphocytes % (auto) 11.9 %; Mean Corpuscular Hgb Conc 35.3 g/dL (32-36); Mean Corpuscular Volume 91.9 fL (80-100); Mean Platelet Volume 9.1 fL (7.4-10.4); Monocytes # (auto) 0.96 K/uL (0.11-0.59); Monocytes % (auto) 12.2 %; Neutrophils # (auto) 5.94 K/uL (1.4-6.5); Neutrophils % (auto) 75.5 %; Platelet Count 185 K/uL (130-400); RDW Coefficient of Variation 14.7 % (11.5-14.5); RDW Standard Deviation 49.6 fL (36.4-46.3); White Blood Count 7.87 K/uL (4.8-10.8)
[2019-02-16 05:53] LABS: Prothrombin Time 38.2 Seconds (9.0-12.0)
[2019-02-16 05:57] LABS: INR 4.1 (0.9-1.1)
[2019-02-16 06:14] LABS: BUN Creatinine Ratio 19.3 (10-20); Calcium 8.6 mg/dl (8.5-10.1); Creatinine Clr Calc Pharmacy 28.1 ml/min; Est GFR (African American) 38.4; Est GFR (Non-African American) 33.1; Magnesium 1.9 mg/dl (1.8-2.4); Potassium 3.9 mmol/L (3.5-5.1)
[2019-02-16 06:22] LABS: Estimated Average Glucose 134 mg/dl; Hemoglobin A1C 6.3 % (4.5-5.6)
[2019-02-16] MEDS ORDERED: LEVOTHYROXINE SODIUM 88 MCG TABLET PO SCH (06:30)
[2019-02-16] MEDS: DOXYCYCLINE HYCLATE 100 MG CAP PO SCH ×2 (08:55→21:14)
[2019-02-16] MEDS: FUROSEMIDE 40 MG in SYRINGE 0 ML IV SCH ×2 (08:56→21:14)
[2019-02-16] MEDS: FINASTERIDE 5 MG TAB PO SCH (08:56)
[2019-02-16] MEDS: METOPROLOL SUCC 50MG EXT REL TAB PO SCH (08:56)
[2019-02-16] MEDS: FERROUS SULFATE 325 MG TAB PO SCH (08:56)
[2019-02-16] MEDS: ASPIRIN 81 MG ECTAB PO SCH (08:56)
[2019-02-16] MEDS: AMLODIPINE BESYLATE 5 MG TAB PO SCH (08:56)
[2019-02-16] MEDS: PANTOprazole 40 MG TAB PO SCH (08:56)
[2019-02-16] MEDS ORDERED: ATORVASTATIN 40 MG TAB PO SCH (09:00)
[2019-02-16] MEDS ORDERED: AMLODIPINE BESYLATE 5 MG TAB PO SCH (09:00)
--- NOTE | 2019-02-16 10:03 | Cardiology Consultation ---
Date of Consultation February 16, 2019 Assessment & Plan (1) CHF exacerbation: Patient's symptoms and clinical exam have improved with diuretics. I would continue them through today. (2) Ischemic cardiomyopathy: The most recent echocardiogram indicates an estimated left ventricular ejection fraction of around 25%. He has a left bundle branch block on his EKG. (3) PAF (paroxysmal atrial fibrillation): The patient is currently in a sinus mechanism. 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 Patient is receiving hormone treatment. History of Present Illness Attending Physician: Devonte Lynn MD History of Present Illness This is an 88-year-old male patient who has an extensive and long history of arteriosclerotic vascular disease and ischemic cardiomyopathy. He is also being treated for metastatic prostate cancer. Patient states that over the past 1 to 2 weeks he has had progressive shortness of breath and eventually came to the emergency department where he was diagnosed with congestive heart failure. He has been given diuretics overnight with a marked improvement in his symptoms. He denies chest pain. He was originally seen approximately a week ago by his primary care physician who obtained a chest x-ray that suggested infiltrates. Patient was started on oral antibiotics but when he did not improve he returned. Allergies Allergy/AdvReac Type Severity Reaction Status Date / Time clopidogrel Allergy Intermediate RASH Verified 02/15/19 14:44 Sulfa (Sulfonamide Allergy Intermediate RASH Verified 02/15/19 14:46 Antibiotics) sulfamethoxazole Allergy Intermediate RASH Verified 02/15/19 14:46 trimethoprim Allergy Mild RASH Verified 02/15/19 10:43 niacin Allergy Unknown UNKNOWN Verified 02/15/19 10:43 Home Medications Home Medications Medication Instructions Recorded Confirmed Type amlodipine 2.5 mg PO DAILY 02/15/19 02/15/19 History aspirin [Aspirin Low Dose] 81 mg PO DAILY 02/15/19 02/15/19 History atorvastatin 40 mg PO DAILY 02/15/19 02/15/19 History calcitriol 0.25 mcg PO 3XWK 02/15/19 02/15/19 History doxycycline hyclate 100 mg PO BID 02/15/19 02/15/19 History ferrous sulfate 325 mg PO DAILY 02/15/19 02/15/19 History finasteride 5 mg PO DAILY 02/15/19 02/15/19 History levothyroxine 88 mcg PO DAILY 02/15/19 02/15/19 History metoprolol succinate 50 mg PO DAILY 02/15/19 02/15/19 History nitroglycerin 0.4 mg SUBLINGUAL DIRECTED 02/15/19 02/15/19 History omeprazole 20 mg PO DAILY 02/15/19 02/15/19 History tramadol 50 mg PO BID 02/15/19 02/15/19 History warfarin 5 mg PO PM 02/15/19 02/15/19 History warfarin 7.5 mg PO .MON AND Fri02/15/19 02/15/19 History Patient History Medical History History of stroke Hx of blood clots Head injury (Acute) Osteoarthritis of right hip (Acute) STEMI (ST elevation myocardial infarction) Scalp laceration (Acute) No pertinent family history Surgical History S/P carotid endarterectomy (Acute 08/25/13) Family History Other No pertinent family history Social History Preferred Language: Bel[place]ian Communication Ability: Effective Visual Impairment: No Limitations Hearing Ability: Normal 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 Physical Exam Physical Exam: General: no acute distress and stated age Head: normocephalic, no masses, lesions, tenderness or abnormalities Eyes: conjunctiva are pink and non-injected, sclera clear Neck: supple, no adenopathy, no bruits, normal jugular venous pulse, no hepatojugular reflux Chest: normal shape and normal respiratory effort Lungs: clear to auscultation and percussion Cardiac Exam: - regular rate & rhythm, no murmurs gallops or rubs - normal S1, normal S2 Pulses: 2(+) throughout Abdomen: abdomen soft, non-tender, no abnormal masses and no hepatosplenomegaly Musculoskeletal: no gait disturbance, no joint inflammation, no deforming arthritis Extremities: no edema and no cyanosis Neuro: grossly normal exam Results & Data Vital Signs (Past 12 Hours) Vital Signs Temp Pulse Resp BP Pulse Ox 02/16/19 07:06 36.5 C 89 26 H 174/97 H 94 02/16/19 03:39 36.5 C 88 16 153/103 H 98 02/15/19 23:19 36.6 C 79 16 160/82 H 94 Laboratory Results Laboratory Results - last 24 hr 02/15/19 02/15/19 02/15/19 10:13 10:13 10:13 WBC 7.23 RBC 3.72 L Hgb 11.6 L Hct 35.5 L MCV 95.4 MCH 31.2 MCHC 32.7 RDW Std Deviation 52.9 H RDW Coeff of Tyrel 15.2 H Plt Count 181 MPV 9.8 Immature Gran % (Auto) 0.3 Neut % (Auto) 69.4 Lymph % (Auto) 13.7 [facility] % (Auto) 14.8 Eos % (Auto) 1.4 Baso % (Auto) 0.4 Immature Gran # (Auto) 0.02 Neut # (Auto) 5.02 Lymph # (Auto) 0.[address] [place] # (Auto) 1.07 H Eos # (Auto) 0.10 Baso # (Auto) 0.03 PT 41.5 H INR 4.5 H VBG pH VBG pCO2 VBG pO2 VBG HCO3 VBG O2 Saturation VBG Base Excess Barometric Pressure Sodium 133 L Potassium 4.1 Chloride 99 Carbon Dioxide 24 Anion Gap 10.0 BUN 28 H Creatinine 1.82 H Est Cr Clr Drug Dosing Not Reportable Est GFR ( Amer) 38.1 Est GFR (Non-Af Amer) 32.9 BUN/Creatinine Ratio 15.5 Glucose 185 H Estimat Average Glucose Hemoglobin A1c Calcium 8.8 Phosphorus 3.2 Magnesium 1.8 Total Bilirubin 0.6 AST 19 ALT 15 Alkaline Phosphatase 87 Troponin I 0.019 NT-Pro-B Natriuret Pep 51695 H Total Protein 8.4 H Albumin 2.9 L Globulin 5.5 H Albumin/Globulin Ratio 0.5 L Lipase 110 02/15/19 02/15/19 02/15/19 10:58 15:59 22:29 WBC RBC Hgb Hct MCV MCH MCHC RDW Std Deviation RDW Coeff of Tyrel Plt Count MPV Immature Gran % (Auto) Neut % (Auto) Lymph % (Auto) [facility] % (Auto) Eos % (Auto) Baso % (Auto) Immature Gran # (Auto) Neut # (Auto) Lymph # (Auto) [facility] [place] # (Auto) Eos # (Auto) Baso # (Auto) PT INR VBG pH 7.33 L VBG pCO2 42 VBG pO2 34 VBG HCO3 21 VBG O2 Saturation 60.6 VBG Base Excess -4.5 Barometric Pressure 732.2 Sodium Potassium Chloride Carbon Dioxide Anion Gap BUN Creatinine Est Cr Clr Drug Dosing Est GFR ( Amer) Est GFR (Non-Af Amer) BUN/Creatinine Ratio Glucose Estimat Average Glucose Hemoglobin A1c Calcium Phosphorus Magnesium Total Bilirubin AST ALT Alkaline Phosphatase Troponin I 0.019 0.025 NT-Pro-B Natriuret Pep Total Protein Albumin Globulin Albumin/Globulin Ratio Lipase 02/16/19 02/16/19 02/16/19 05:15 05:15 05:15 WBC 7.87 RBC 3.70 L Hgb 12.0 L Hct 34.0 L MCV 91.9 MCH 32.4 MCHC 35.3 RDW Std Deviation 49.6 H RDW Coeff of Tyrel 14.7 H Plt Count 185 MPV 9.1 Immature Gran % (Auto) 0.3 Neut % (Auto) 75.5 Lymph % (Auto) 11.9 [facility] % (Auto) 12.2 Eos % (Auto) 0.0 Baso % (Auto) 0.1 Immature Gran # (Auto) 0.02 Neut # (Auto) 5.94 Lymph # (Auto) 0.[address] [place] # (Auto) 0.96 H Eos # (Auto) 0.00 Baso # (Auto) 0.01 PT 38.2 H INR 4.1 H VBG pH VBG pCO2 VBG pO2 VBG HCO3 VBG O2 Saturation VBG Base Excess Barometric Pressure Sodium Potassium Chloride Carbon Dioxide Anion Gap BUN Creatinine Est Cr Clr Drug Dosing Est GFR ( Amer) Est GFR (Non-Af Amer) BUN/Creatinine Ratio Glucose Estimat Average Glucose 134 Hemoglobin A1c 6.3 H Calcium Phosphorus Magnesium Total Bilirubin AST ALT Alkaline Phosphatase Troponin I NT-Pro-B Natriuret Pep Total Protein Albumin Globulin Albumin/Globulin Ratio Lipase 02/16/19 05:15 WBC RBC Hgb Hct MCV MCH MCHC RDW Std Deviation RDW Coeff of Tyrel Plt Count MPV Immature Gran % (Auto) Neut % (Auto) Lymph % (Auto) [facility] [place] [facility] % (Auto) Eos % (Auto) Baso % (Auto) Immature Gran # (Auto) Neut # (Auto) Lymph # (Auto) [facility] [place] [facility] # (Auto) Eos # (Auto) Baso # (Auto) PT INR VBG pH VBG pCO2 VBG pO2 VBG HCO3 VBG O2 Saturation VBG Base Excess Barometric Pressure Sodium 133 L Potassium 3.9 Chloride 97 L Carbon Dioxide 29 Anion Gap 7.0 BUN 35 H Creatinine 1.81 H Est Cr Clr Drug Dosing 28.1 Est GFR ( Amer) 38.4 Est GFR (Non-Af Amer) 33.1 BUN/Creatinine Ratio 19.3 Glucose 128 H Estimat Average Glucose Hemoglobin A1c Calcium 8.6 Phosphorus Magnesium 1.9 Total Bilirubin AST ALT Alkaline Phosphatase Troponin I NT-Pro-B Natriuret Pep Total Protein Albumin Globulin Albumin/Globulin Ratio Lipase Medications Administered Current Inpatient Medications Acetaminophen (Tylenol) 650 mg PO Q4H PRN PRN Reason: Pain or Fever Stop: 03/17/19 14:17 Amlodipine Besylate (Norvasc) 5 mg PO DAILY [facility] Stop: 03/18/19 08:59 Last Admin: 02/16/19 08:56 Dose: 5 mg Documented by: Aspirin (Ecotrin Ectab) 81 mg PO DAILY [facility] Stop: 03/18/19 08:59 Last Admin: 02/16/19 08:56 Dose: 81 mg Documented by: Atorvastatin Calcium (Lipitor) 40 mg PO HS [facility] Stop: 03/18/19 08:59 Last Admin: 02/15/19 21:03 Dose: 40 mg Documented by: Calcitriol (Racaltrol) 0.25 mcg PO MoWeFr@0900 [facility] Stop: 03/19/19 08:59 Doxycycline Hyclate (Vibramycin) 100 mg PO BID [facility] Stop: 02/22/19 20:59 Last Admin: 02/16/19 08:55 Dose: 100 mg Documented by: Ferrous Sulfate (Feosol) 325 mg PO DAILY [facility] Stop: 03/18/19 08:59 Last Admin: 02/16/19 08:56 Dose: 325 mg Documented by: Finasteride (Proscar) 5 mg PO DAILY [facility] Stop: 03/18/19 08:59 Last Admin: 02/16/19 08:56 Dose: 5 mg Documented by: Furosemide 40 mg/ Syringe 4 mls @ 4 mls/min IV BID [facility] Stop: 03/17/19 20:59 Last Admin: 02/16/19 08:56 Dose: 4 mls/min Documented by: Levothyroxine Sodium (Synthroid) 88 mcg PO HS [facility] Stop: 03/18/19 06:29 Last Admin: 02/15/19 21:02 Dose: 88 mcg Documented by: Metoprolol Succinate (Toprol Xl) 50 mg PO DAILY [facility] Stop: 03/18/19 08:59 Last Admin: 02/16/19 08:56 Dose: 50 mg Documented by: Metoprolol Tartrate (Lopressor) 2.5 mg IV Q6 PRN PRN Reason: Hypertension Stop: 03/17/19 17:59 Last Admin: 02/15/19 18:13 Dose: 2.5 mg Documented by: Nitroglycerin (Nitrostat) 0.4 mg SL UD PRN PRN Reason: Chest Pain Stop: 03/17/19 14:17 Ondansetron HCl (Zofran) 4 mg IV Q6H PRN PRN Reason: Nausea Stop: 03/17/19 14:17 Pantoprazole Sodium (Protonix) 40 mg PO DAILY [facility]; Protocol Stop: 03/18/19 08:59 Last Admin: 02/16/19 08:56 Dose: 40 mg Documented by: Polyethylene Glycol (Miralax Powder Packet) 17 gm PO DAILY PRN PRN Reason: Constipation Stop: 03/17/19 14:17 (1) CHF exacerbation Heart failure type: unspecified Qualified Code(s): I50.9 - Heart failure, unspecified
--- NOTE | 2019-02-16 17:39 | Hospitalist Progress Note ---
Date of Service February 16, 2019 Assessment & Plan (1) CHF exacerbation: Patient is an 88 Yr male who presents with SOB and was found to have CHF Exacerbation Acute Chronic Systolic CHF Exacerbation LBBB Severe Mitral Regurgitation Pulmonary HTN EF: 25-30% Continue IV Lasix Monitor I/Os, daily weight, electrolytes Appreciate Cardiology Input Supplemental Oxygen PRN H/O CAD S/p stent Continue Aspirin, Metoprolol, statin No MARTIN/ARBs due to CKD H/O P.Afib Currently in Sinus Continue Metoprolol INR supratherapeutic: 4.1 Coumadin held Monitor INR H/O CVA Right sided weakness Mostly Wheelchair bound Continue Aspirin, statin H/O Prostate cancer Chronic urinary retention Follows with Urology On Lupron every month Chronic Sales catheter Continue Proscar Hyperlipidemia Continue statin HTN: Continue amlodipine, Metoprolol Iron deficiency anemia on ferrous sulfate CKD III: Baseline Cr 1.7 Monitor renal function while on IV diuretics Avoid nephro toxic agents as able Hypothyroidism Continue levothyroxine PAD H/O B/L carotid endarterectomy On statin, aspirin H/O DVT: On Coumadin Prediabetes: Hb A1C:6.3 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 DVT Px: Supratherapeutic INR Coumadin on hold Code Status: Full Code Disposition: PT/OT prior to discharge Subjective Patient is seen and examined at bedside States SOB is much improved today Denies any chest pain, nausea, dizziness, abdominal pain Offers no other complaints Discussed with cardiology today No family at bedside Review of Systems Review of Systems: All systems reviewed & are unremarkable except as noted in HPI & below Physical Exam Physical Exam: Physical Exam: Vitals signs as noted above General Appearance:Moderately built and nourished, no apparent distress Head: normocephalic, Atraumatic, +decreased Hearing Eyes: normal inspection, EOMI, +R eye blindness Neck: supple, Trachea midline Respiratory/Chest: Normal breath sounds, CTA Cardiovascular: Irregularly irregular, , + murmur Abdomen/GI:Soft, Non tender, Bowel sounds present Extremities/Musculoskelatal:normal inspection, no edema Neurologic/Psych:AAOX3, grossly no focal neurological deficits Skin: normal color, warm Results & Data Vital Signs (Past 12 Hours) Vital Signs Temp Pulse Pulse Pulse Resp BP BP 02/16/19 16:00 78 02/16/19 15:10 36.4 C L 79 18 122/74 02/16/19 12:36 36.5 C 90 18 124/82 02/16/19 11:10 36.5 C 90 20 124/82 02/16/19 08:00 68 02/16/19 07:06 36.5 C 89 26 H 174/97 H Pulse Ox 02/16/19 16:00 02/16/19 15:10 98 02/16/19 12:36 94 02/16/19 11:10 94 02/16/19 08:00 02/16/19 07:06 94 Laboratory Results Short CBC 02/16/19 Range/Units 05:15 WBC 7.87 (4.8-10.8) K/uL Hgb 12.0 L (14.0-18.0) g/dL Hct 34.0 L (42-52) % Plt Count 185 (130-400) K/uL BMP 02/16/19 05:15 Sodium 133 L Potassium 3.9 Chloride 97 L Carbon Dioxide 29 BUN 35 H Creatinine 1.81 H Glucose 128 H Calcium 8.6 Cardiac Enzymes 02/15/19 Range/Units 22:29 Troponin I 0.025 (0-0.045) ng/ml (1) CHF exacerbation Heart failure type: unspecified Qualified Code(s): I50.9 - Heart failure, unspecified
[2019-02-16] MEDS: ATORVASTATIN 40 MG TAB PO SCH (21:14)
[2019-02-16] MEDS: LEVOTHYROXINE SODIUM 88 MCG TABLET PO SCH (21:14)
[2019-02-17 06:59] LABS: Hematocrit (blood only) 34.9 % (42-52); Hemoglobin 12.2 g/dL (14.0-18.0); Mean Corpuscular Volume 91.4 fL (80-100); Mean Platelet Volume 9.5 fL (7.4-10.4); Platelet Count 195 K/uL (130-400); Red Blood Count 3.82 M/uL (4.7-6.1); White Blood Count 8.95 K/uL (4.8-10.8)
[2019-02-17 07:11] LABS: INR 3.4 (0.9-1.1); Prothrombin Time 31.6 Seconds (9.0-12.0)
[2019-02-17 07:31] LABS: BUN Creatinine Ratio 21.2 (10-20); Calcium 9.3 mg/dl (8.5-10.1); Creatinine Clr Calc Pharmacy 26.7 ml/min; Est GFR (African American) 36.4; Est GFR (Non-African American) 31.4; Potassium 3.5 mmol/L (3.5-5.1)
[2019-02-17] MEDS: METOPROLOL SUCC 50MG EXT REL TAB PO SCH (08:06)
[2019-02-17] MEDS: FINASTERIDE 5 MG TAB PO SCH (08:06)
[2019-02-17] MEDS: PANTOprazole 40 MG TAB PO SCH (08:06)
[2019-02-17] MEDS: AMLODIPINE BESYLATE 5 MG TAB PO SCH (08:06)
[2019-02-17] MEDS: ASPIRIN 81 MG ECTAB PO SCH (08:06)
[2019-02-17] MEDS: CALCITRIOL 0.25 MCG CAPSULE PO SCH (08:07)
[2019-02-17] MEDS: FERROUS SULFATE 325 MG TAB PO SCH (08:07)
[2019-02-17] MEDS: FUROSEMIDE 40 MG in SYRINGE 0 ML IV SCH (08:07)
[2019-02-17] MEDS: DOXYCYCLINE HYCLATE 100 MG CAP PO SCH ×2 (08:07→20:47)
--- NOTE | 2019-02-17 09:37 | Cardiology Progress Note ---
Date of Service February 17, 2019 Assessment & Plan (1) CHF exacerbation: CHF is now improved and I believe that we may decrease his diuretics. He would benefit from some physical therapy and movement. (2) Ischemic cardiomyopathy: Patient's most recent estimated left ventricular ejection fraction is around 25%. This is a chronic condition which the patient has had for many years. (3) PAF (paroxysmal atrial fibrillation): Currently in sinus rhythm. 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 Subjective The patient had an uneventful night. He is breathing better but does still have a cough that is productive. No fever or chills. Review of Systems Review of Systems: All systems reviewed & are unremarkable except as noted in HPI & below No additional information Physical Exam Physical Exam: General: no acute distress and stated age Head: normocephalic, no masses, lesions, tenderness or abnormalities Eyes: conjunctiva are pink and non-injected, sclera clear Neck: supple, no adenopathy, no bruits, normal jugular venous pulse, no hepatojugular reflux Chest: normal shape and normal respiratory effort Lungs: clear to auscultation and percussion Cardiac Exam: - regular rate & rhythm, no murmurs gallops or rubs - normal S1, normal S2 Pulses: 2(+) throughout Abdomen: abdomen soft, non-tender, no abnormal masses and no hepatosplenomegaly Musculoskeletal: no gait disturbance, no joint inflammation, no deforming arthritis Extremities: no edema and no cyanosis Neuro: grossly normal exam Results & Data Vital Signs (Past 12 Hours) Vital Signs Temp Pulse Resp BP Pulse Ox 02/17/19 07:06 36.7 C 84 18 130/93 97 02/17/19 03:35 36.9 C 79 16 144/69 H 98 02/16/19 23:59 36.5 C 76 16 133/84 96 Laboratory Results Laboratory Results - last 24 hr 02/17/19 02/17/19 02/17/19 06:32 06:32 06:32 WBC 8.95 RBC 3.82 L Hgb 12.2 L Hct 34.9 L MCV 91.4 MCH 31.9 MCHC 35.0 RDW Std Deviation 50.0 H RDW Coeff of Tyrel 15.0 H Plt Count 195 MPV 9.5 PT 31.6 H INR 3.4 H Sodium 138 Potassium 3.5 Chloride 99 Carbon Dioxide 31 Anion Gap 7.0 BUN 40 H Creatinine 1.89 H Est Cr Clr Drug Dosing 26.7 Est GFR ( Amer) 36.4 Est GFR (Non-Af Amer) 31.4 BUN/Creatinine Ratio 21.2 H Glucose 93 Calcium 9.3 Medications Administered Current Inpatient Medications Acetaminophen (Tylenol) 650 mg PO Q4H PRN PRN Reason: Pain or Fever Stop: 03/17/19 14:17 Amlodipine Besylate (Norvasc) 5 mg PO DAILY [facility] Stop: 03/18/19 08:59 Last Admin: 02/17/19 08:06 Dose: 5 mg Documented by: Aspirin (Ecotrin Ectab) 81 mg PO DAILY [facility] Stop: 03/18/19 08:59 Last Admin: 02/17/19 08:06 Dose: 81 mg Documented by: Atorvastatin Calcium (Lipitor) 40 mg PO HS [facility] Stop: 03/18/19 08:59 Last Admin: 02/16/19 21:14 Dose: 40 mg Documented by: Calcitriol (Racaltrol) 0.25 mcg PO MoWeFr@0900 [facility] Stop: 03/19/19 08:59 Last Admin: 02/17/19 08:07 Dose: 0.25 mcg Documented by: Doxycycline Hyclate (Vibramycin) 100 mg PO BID [facility] Stop: 02/22/19 20:59 Last Admin: 02/17/19 08:07 Dose: 100 mg Documented by: Ferrous Sulfate (Feosol) 325 mg PO DAILY [facility] Stop: 03/18/19 08:59 Last Admin: 02/17/19 08:07 Dose: 325 mg Documented by: Finasteride (Proscar) 5 mg PO DAILY [facility] Stop: 03/18/19 08:59 Last Admin: 02/17/19 08:06 Dose: 5 mg Documented by: Furosemide (Lasix) 40 mg PO [id number] [facility] Stop: 03/19/19 16:59 Levothyroxine Sodium (Synthroid) 88 mcg PO HS [facility] Stop: 03/18/19 06:29 Last Admin: 02/16/19 21:14 Dose: 88 mcg Documented by: Metoprolol Succinate (Toprol Xl) 50 mg PO DAILY [facility] Stop: 03/18/19 08:59 Last Admin: 02/17/19 08:06 Dose: 50 mg Documented by: Metoprolol Tartrate (Lopressor) 2.5 mg IV Q6 PRN PRN Reason: Hypertension Stop: 03/17/19 17:59 Last Admin: 02/15/19 18:13 Dose: 2.5 mg Documented by: Nitroglycerin (Nitrostat) 0.4 mg SL UD PRN PRN Reason: Chest Pain Stop: 03/17/19 14:17 Ondansetron HCl (Zofran) 4 mg IV Q6H PRN PRN Reason: Nausea Stop: 03/17/19 14:17 Pantoprazole Sodium (Protonix) 40 mg PO DAILY [facility]; Protocol Stop: 03/18/19 08:59 Last Admin: 02/17/19 08:06 Dose: 40 mg Documented by: Polyethylene Glycol (Miralax Powder Packet) 17 gm PO DAILY PRN PRN Reason: Constipation Stop: 03/17/19 14:17 (1) CHF exacerbation Heart failure type: unspecified Qualified Code(s): I50.9 - Heart failure, unspecified
[2019-02-17] MEDS: DOCUSATE SODIUM 100 MG CAP PO SCH ×2 (12:43→20:47)
[2019-02-17] MEDS: FUROSEMIDE 40 MG TAB PO SCH (17:18)
--- NOTE | 2019-02-17 17:26 | Hospitalist Progress Note ---
Date of Service February 17, 2019 Assessment & Plan (1) CHF exacerbation: Patient is an 88 Yr male who presents with SOB and was found to have CHF Exacerbation Acute Chronic Systolic CHF Exacerbation LBBB Severe Mitral Regurgitation Pulmonary HTN EF: 25-30% Continue IV Lasix>>Transitioned to PO lasix 40mg BID Monitor I/Os, daily weight, electrolytes Appreciate Cardiology Input Supplemental Oxygen PRN H/O CAD S/p stent Continue Aspirin, Metoprolol, statin No MARTIN/ARBs due to CKD H/O P.Afib Currently in Sinus Continue Metoprolol INR supratherapeutic: 4.1>>3.4 Coumadin held Monitor INR H/O CVA Right sided weakness Mostly Wheelchair bound Continue Aspirin, statin H/O Prostate cancer Chronic urinary retention Follows with Urology On Lupron every month Chronic Sales catheter Continue Proscar Hyperlipidemia Continue statin HTN: Continue amlodipine, Metoprolol Iron deficiency anemia on ferrous sulfate CKD III: Baseline Cr 1.7 Monitor renal function while on IV diuretics Avoid nephro toxic agents as able Hypothyroidism Continue levothyroxine PAD H/O B/L carotid endarterectomy On statin, aspirin H/O DVT: On Coumadin Prediabetes: Hb A1C:6.3 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 DVT Px: Supratherapeutic INR Coumadin on hold Code Status: Full Code Disposition: PT/OT prior to discharge Subjective Patient is seen and examined at bedside Less dyspnea Has productive cough Denies any chest pain, nausea, dizziness, abdominal pain No other complaints Discussed with cardiology today No family at bedside Transitioned to PO diuretics Review of Systems Review of Systems: All systems reviewed & are unremarkable except as noted in HPI & below Physical Exam Physical Exam: Physical Exam: Vitals signs as noted above General Appearance:Moderately built and nourished, no apparent distress Head: normocephalic, Atraumatic, +decreased Hearing Eyes: normal inspection, EOMI, +R eye blindness Neck: supple, Trachea midline Respiratory/Chest: Normal breath sounds, CTA Cardiovascular: Irregularly irregular, , + murmur Abdomen/GI:Soft, Non tender, Bowel sounds present Extremities/Musculoskelatal:normal inspection, no edema Neurologic/Psych:AAOX3, grossly no focal neurological deficits Skin: normal color, warm Results & Data Vital Signs (Past 12 Hours) Vital Signs Temp Pulse Pulse Pulse Resp BP BP 02/17/19 14:57 36.5 C 55 L 19 108/71 05/29/19 13:58 02/17/19 10:41 36.5 C 80 19 117/70 02/17/19 08:00 78 02/17/19 07:06 36.7 C 84 18 130/93 Pulse Ox 02/17/19 14:57 96 02/17/19 13:58 93 02/17/19 10:41 96 02/17/19 08:00 02/17/19 07:06 97 Laboratory Results Short CBC 02/17/19 Range/Units 06:32 WBC 8.95 (4.8-10.8) K/uL Hgb 12.2 L (14.0-18.0) g/dL Hct 34.9 L (42-52) % Plt Count 195 (130-400) K/uL BMP 02/17/19 06:32 Sodium 138 Potassium 3.5 Chloride 99 Carbon Dioxide 31 BUN 40 H Creatinine 1.89 H Glucose 93 Calcium 9.3 (1) CHF exacerbation Heart failure type: unspecified Qualified Code(s): I50.9 - Heart failure, unspecified
[2019-02-17] MEDS: LEVOTHYROXINE SODIUM 88 MCG TABLET PO SCH (20:46)
[2019-02-17] MEDS: ATORVASTATIN 40 MG TAB PO SCH (20:47)
[2019-02-18 07:44] LABS: INR 2.1 (0.9-1.1); Prothrombin Time 20.2 Seconds (9.0-12.0)
[2019-02-18] MEDS: DOCUSATE SODIUM 100 MG CAP PO SCH ×2 (07:54→19:46)
[2019-02-18] MEDS: DOXYCYCLINE HYCLATE 100 MG CAP PO SCH ×2 (07:54→19:45)
[2019-02-18] MEDS: PANTOprazole 40 MG TAB PO SCH (07:54)
[2019-02-18] MEDS: METOPROLOL SUCC 50MG EXT REL TAB PO SCH (07:54)
[2019-02-18] MEDS: AMLODIPINE BESYLATE 5 MG TAB PO SCH (07:55)
[2019-02-18] MEDS: ASPIRIN 81 MG ECTAB PO SCH (07:55)
[2019-02-18] MEDS: FERROUS SULFATE 325 MG TAB PO SCH ×2 (07:55→14:32)
[2019-02-18] MEDS: FUROSEMIDE 40 MG TAB PO SCH (07:55)
[2019-02-18] MEDS: FINASTERIDE 5 MG TAB PO SCH (07:55)
[2019-02-18 08:01] LABS: Calcium 8.8 mg/dl (8.5-10.1); Est GFR (African American) 32.3; Est GFR (Non-African American) 27.8; Potassium 3.5 mmol/L (3.5-5.1)
--- NOTE | 2019-02-18 09:04 | Cardiology Progress Note ---
Date of Service February 18, 2019 Assessment & Plan (1) CHF exacerbation: I believe the patient is euvolemic and a dry weight. His creatinine is starting to rise. I will hold his diuretics this morning. Sales catheter will be discontinued today. (2) Ischemic cardiomyopathy: Patient's most recent estimated left ventricular ejection fraction is around 25%. This is a chronic condition which the patient has had for many years. (3) PAF (paroxysmal atrial fibrillation): Currently in sinus rhythm. 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 (5) Aspiration into airway: Believe the patient may be chronically aspirating and I have asked speech therapy to see him today. Subjective The patient is sitting in the chair comfortably. He states he still is coughing and having trouble coughing things up especially after he eats. I think this patient may be chronically aspirating and will need a speech eval. His creatinine has started to rise. I changed his diuretics over to oral medications yesterday but this morning I will hold them. I believe the patient is at his dry weight. Review of Systems Review of Systems: All systems reviewed & are unremarkable except as noted in HPI & below Nothing additional to add Physical Exam Physical Exam: General: no acute distress and stated age Head: normocephalic, no masses, lesions, tenderness or abnormalities Eyes: conjunctiva are pink and non-injected, sclera clear Neck: supple, no adenopathy, no bruits, normal jugular venous pulse, no hepatojugular reflux Chest: normal shape and normal respiratory effort Lungs: clear to auscultation and percussion Cardiac Exam: - regular rate & rhythm, no murmurs gallops or rubs - normal S1, normal S2 Pulses: 2(+) throughout Abdomen: abdomen soft, non-tender, no abnormal masses and no hepatosplenomegaly Musculoskeletal: no gait disturbance, no joint inflammation, no deforming arthritis Extremities: no edema and no cyanosis Neuro: grossly normal exam Results & Data Vital Signs (Past 12 Hours) Vital Signs Temp Pulse Pulse Pulse Resp BP BP 02/18/19 07:43 36.8 C 88 20 140/80 02/18/19 04:10 36.6 C 81 16 145/80 H 02/18/19 01:00 76 02/17/19 23:17 36.3 C L 76 18 129/78 Pulse Ox 02/18/19 07:43 93 02/18/19 04:10 99 02/18/19 01:00 02/17/19 23:17 100 Laboratory Results Laboratory Results - last 24 hr 02/18/19 02/18/19 07:12 07:12 PT 20.2 H INR 2.1 H Sodium 138 Potassium 3.5 Chloride 101 Carbon Dioxide 34 H Anion Gap 3.0 BUN 54 H Creatinine 2.09 H Est Cr Clr Drug Dosing 24.0 Est GFR ( Amer) 32.3 Est GFR (Non-Af Amer) 27.8 BUN/Creatinine Ratio 26.0 H Glucose 103 H Calcium 8.8 Medications Administered Current Inpatient Medications Acetaminophen (Tylenol) 650 mg PO Q4H PRN PRN Reason: Pain or Fever Stop: 03/17/19 14:17 Amlodipine Besylate (Norvasc) 5 mg PO DAILY [facility] Stop: 03/18/19 08:59 Last Admin: 02/18/19 07:55 Dose: 5 mg Documented by: Aspirin (Ecotrin Ectab) 81 mg PO DAILY [facility] Stop: 03/18/19 08:59 Last Admin: 02/18/19 07:55 Dose: 81 mg Documented by: Atorvastatin Calcium (Lipitor) 40 mg PO HS [facility] Stop: 03/18/19 08:59 Last Admin: 02/17/19 20:47 Dose: 40 mg Documented by: Calcitriol (Racaltrol) 0.25 mcg PO MoWeFr@0900 [facility] Stop: 03/19/19 08:59 Last Admin: 02/17/19 08:07 Dose: 0.25 mcg Documented by: Docusate Sodium (Colace) 100 mg PO BID [facility] Stop: 03/19/19 09:44 Last Admin: 02/18/19 07:54 Dose: 100 mg Documented by: Doxycycline Hyclate (Vibramycin) 100 mg PO BID [facility] Stop: 02/22/19 20:59 Last Admin: 02/18/19 07:54 Dose: 100 mg Documented by: Ferrous Sulfate (Feosol) 325 mg PO DAILY [facility] Stop: 03/18/19 08:59 Last Admin: 02/18/19 07:55 Dose: 325 mg Documented by: Finasteride (Proscar) 5 mg PO DAILY [facility] Stop: 03/18/19 08:59 Last Admin: 02/18/19 07:55 Dose: 5 mg Documented by: Furosemide (Lasix) 40 mg PO BID17 [facility] Stop: 03/19/19 16:59 Last Admin: 02/18/19 07:55 Dose: 40 mg Documented by: Levothyroxine Sodium (Synthroid) 88 mcg PO HS [facility] Stop: 03/18/19 06:29 Last Admin: 02/17/19 20:46 Dose: 88 mcg Documented by: Metoprolol Succinate (Toprol Xl) 50 mg PO DAILY [facility] Stop: 03/18/19 08:59 Last Admin: 02/18/19 07:54 Dose: 50 mg Documented by: Metoprolol Tartrate (Lopressor) 2.5 mg IV Q6 PRN PRN Reason: Hypertension Stop: 03/17/19 17:59 Last Admin: 02/15/19 18:13 Dose: 2.5 mg Documented by: Nitroglycerin (Nitrostat) 0.4 mg SL UD PRN PRN Reason: Chest Pain Stop: 03/17/19 14:17 Ondansetron HCl (Zofran) 4 mg IV Q6H PRN PRN Reason: Nausea Stop: 03/17/19 14:17 Pantoprazole Sodium (Protonix) 40 mg PO DAILY [facility]; Protocol Stop: 03/18/19 08:59 Last Admin: 02/18/19 07:54 Dose: 40 mg Documented by: Polyethylene Glycol (Miralax Powder Packet) 17 gm PO DAILY PRN PRN Reason: Constipation Stop: 03/17/19 14:17 (1) CHF exacerbation Heart failure type: unspecified Qualified Code(s): I50.9 - Heart failure, unspecified
[2019-02-18] MEDS ORDERED: MAGNESIUM HYDROXIDE SUSP 30 ML UDC PO SCH (10:00)
--- NOTE | 2019-02-18 16:27 | Hospitalist Progress Note ---
Date of Service February 18, 2019 Assessment & Plan (1) CHF exacerbation: Patient is an 88 Yr male who presents with SOB and was found to have CHF Exacerbation Acute Chronic Systolic CHF Exacerbation LBBB Severe Mitral Regurgitation Pulmonary HTN EF: 25-30% Continue IV Lasix>>Transitioned to PO lasix 40mg BID--Currently held due to DERRICK Monitor I/Os, daily weight, electrolytes Appreciate Cardiology Input Supplemental Oxygen PRN Saturating Low 90s on room air May need 2 step prior to discharge Constipation Continue home regimen Encourage to ambulate Possible Chronic Aspiration Speech therapy eval requested Aspiration precautions H/O CAD S/p stent Continue Aspirin, Metoprolol, statin No MARTIN/ARBs due to CKD H/O P.Afib Currently in Sinus Continue Metoprolol INR supratherapeutic: 4.1>>3.4>>2.1 Resume Coumadin at reduced dose Monitor INR H/O CVA Right sided weakness Mostly Wheelchair bound Continue Aspirin, statin H/O Prostate cancer Chronic urinary retention Follows with Urology On Lupron every month Chronic Sales catheter Continue Proscar Hyperlipidemia Continue statin HTN: Continue amlodipine, Metoprolol Iron deficiency anemia on ferrous sulfate DERRICK on CKD III: Baseline Cr 1.7>>>2.09 Diuretics held Monitor renal function Avoid nephro toxic agents as able Hypothyroidism Continue levothyroxine PAD H/O B/L carotid endarterectomy On statin, aspirin H/O DVT: On Coumadin Prediabetes: Hb A1C:6.3 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 Px: Coumadin Code Status: Full Code Disposition: PT/OT prior to discharge Subjective Patient is seen and examined at bedside Reports constipation Less cough Denies any chest pain, nausea, SOB, dizziness, abdominal pain No other complaints Family at bedside Diuretics held due to worsening renal function Review of Systems Review of Systems: All systems reviewed & are unremarkable except as noted in HPI & below Physical Exam Physical Exam: Physical Exam: Vitals signs as noted above General Appearance:Moderately built and nourished, no apparent distress Head: normocephalic, Atraumatic, +decreased Hearing Eyes: normal inspection, EOMI, +R eye blindness Neck: supple, Trachea midline Respiratory/Chest: Normal breath sounds, Right basal crackles Cardiovascular: Irregularly irregular, , + murmur Abdomen/GI:Soft, Non tender, Bowel sounds present Extremities/Musculoskelatal:normal inspection, no edema Neurologic/Psych:AAOX3, grossly no focal neurological deficits Skin: normal color, warm Results & Data Vital Signs (Past 12 Hours) Vital Signs Temp Pulse Pulse Resp BP Pulse Ox 02/18/19 15:43 36.8 C 55 L 20 114/66 93 02/18/19 11:28 36.4 C L 83 16 95/60 L 92 02/18/19 08:00 81 02/18/19 07:43 36.8 C 88 20 140/80 93 Laboratory Results BMP 02/18/19 07:12 Sodium 138 Potassium 3.5 Chloride 101 Carbon Dioxide 34 H BUN 54 H Creatinine 2.09 H Glucose 103 H Calcium 8.8 (1) CHF exacerbation Heart failure type: unspecified Qualified Code(s): I50.9 - Heart failure, unspecified
[2019-02-18] MEDS ORDERED: POLYETHYLENE (MIRALAX) 17 GM PACK PO ONE (17:00)
[2019-02-18] MEDS: WARFARIN SOD 4 MG TAB PO SCH (17:31)
[2019-02-18] MEDS: LEVOTHYROXINE SODIUM 88 MCG TABLET PO SCH (19:46)
[2019-02-18] MEDS: ATORVASTATIN 40 MG TAB PO SCH (19:46)
[2019-02-19 07:26] LABS: INR 1.7 (0.9-1.1); Prothrombin Time 17.1 Seconds (9.0-12.0)
[2019-02-19] MEDS: PANTOprazole 40 MG TAB PO SCH (07:49)
[2019-02-19] MEDS: METOPROLOL SUCC 50MG EXT REL TAB PO SCH (07:49)
[2019-02-19] MEDS: DOXYCYCLINE HYCLATE 100 MG CAP PO SCH ×2 (07:49→20:31)
[2019-02-19] MEDS: DOCUSATE SODIUM 100 MG CAP PO SCH ×2 (07:49→20:32)
[2019-02-19] MEDS: FINASTERIDE 5 MG TAB PO SCH (07:50)
[2019-02-19] MEDS: CALCITRIOL 0.25 MCG CAPSULE PO SCH (07:51)
[2019-02-19] MEDS: AMLODIPINE BESYLATE 5 MG TAB PO SCH (07:51)
[2019-02-19] MEDS: ASPIRIN 81 MG ECTAB PO SCH (07:52)
[2019-02-19 07:53] LABS: BUN Creatinine Ratio 24.5 (10-20); Creatinine Clr Calc Pharmacy 24.7 ml/min; Est GFR (African American) 33.2; Est GFR (Non-African American) 28.7
--- NOTE | 2019-02-19 09:13 | Cardiology Progress Note ---
Date of Service February 19, 2019 Assessment & Plan (1) CHF exacerbation: The patient's creatinine has leveled off. He will need to be returned home with a daily diuretic. I will restart Lasix 40 mg daily beginning tomorrow February 20. (2) Ischemic cardiomyopathy: Patient's most recent estimated left ventricular ejection fraction is around 25%. This is a chronic condition which the patient has had for many years. (3) PAF (paroxysmal atrial fibrillation): Currently in sinus rhythm. 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 (5) Aspiration into airway: Speech therapy working with the patient. Subjective Patient with uneventful night. His daughter was in the room today and all questions were answered. He is being seen by speech therapy for recommendations regarding chronic aspiration. It should be noted that he has had a chronic Sales in place for approximately 2 years due to obstruction from prostatic carcinoma. Review of Systems Review of Systems: All systems reviewed & are unremarkable except as noted in HPI & below Nothing additional. Physical Exam Physical Exam: General: no acute distress and stated age Head: normocephalic, no masses, lesions, tenderness or abnormalities Eyes: conjunctiva are pink and non-injected, sclera clear Neck: supple, no adenopathy, no bruits, normal jugular venous pulse, no hepatojugular reflux Chest: normal shape and normal respiratory effort Lungs: clear to auscultation and percussion Cardiac Exam: - regular rate & rhythm, no murmurs gallops or rubs - normal S1, normal S2 Pulses: 2(+) throughout Abdomen: abdomen soft, non-tender, no abnormal masses and no hepatosplenomegaly Musculoskeletal: no gait disturbance, no joint inflammation, no deforming arthritis Extremities: no edema and no cyanosis Neuro: grossly normal exam Results & Data Vital Signs (Past 12 Hours) Vital Signs Temp Pulse Pulse Resp BP Pulse Ox 02/19/19 08:04 36.9 C 87 20 137/80 95 02/19/19 04:54 36.7 C 92 H 22 155/73 H 93 02/18/19 23:37 75 02/18/19 23:20 36.5 C 84 17 130/73 92 Laboratory Results Laboratory Results - last 24 hr 02/19/19 02/19/19 07:01 07:01 PT 17.1 H INR 1.7 H Sodium 139 Potassium 4.0 Chloride 102 Carbon Dioxide 32 Anion Gap 5.0 BUN 50 H Creatinine 2.04 H Est Cr Clr Drug Dosing 24.7 Est GFR ( Amer) 33.2 Est GFR (Non-Af Amer) 28.7 BUN/Creatinine Ratio 24.5 H Glucose 101 H Calcium 9.0 Medications Administered Current Inpatient Medications Acetaminophen (Tylenol) 650 mg PO Q4H PRN PRN Reason: Pain or Fever Stop: 03/17/19 14:17 Amlodipine Besylate (Norvasc) 5 mg PO DAILY [facility] Stop: 03/18/19 08:59 Last Admin: 02/19/19 07:51 Dose: 5 mg Documented by: Aspirin (Ecotrin Ectab) 81 mg PO DAILY [facility] Stop: 03/18/19 08:59 Last Admin: 02/19/19 07:52 Dose: 81 mg Documented by: Atorvastatin Calcium (Lipitor) 40 mg PO [facility] Stop: 03/18/19 08:59 Last Admin: 02/18/19 19:46 Dose: 40 mg Documented by: Calcitriol (Racaltrol) 0.25 mcg PO MoWeFr@0900 [facility] Stop: 03/19/19 08:59 Last Admin: 02/19/19 07:51 Dose: 0.25 mcg Documented by: Docusate Sodium (Colace) 100 mg PO BID [facility] Stop: 03/19/19 09:44 Last Admin: 02/19/19 07:49 Dose: 100 mg Documented by: Doxycycline Hyclate (Vibramycin) 100 mg PO BID [facility] Stop: 02/22/19 20:59 Last Admin: 02/19/19 07:49 Dose: 100 mg Documented by: Ferrous Sulfate (Feosol) 325 mg PO DAILY@1200 [facility]; Protocol Stop: 03/18/19 08:59 Last Admin: 02/18/19 14:32 Dose: 325 mg Documented by: Finasteride (Proscar) 5 mg PO DAILY [facility] Stop: 03/18/19 08:59 Last Admin: 02/19/19 07:50 Dose: 5 mg Documented by: Furosemide (Lasix) 40 mg PO QAM [facility] Stop: 03/22/19 08:59 Levothyroxine Sodium (Synthroid) 88 mcg PO [facility] Stop: 03/18/19 06:29 Last Admin: 02/18/19 19:46 Dose: 88 mcg Documented by: Metoprolol Succinate (Toprol Xl) 50 mg PO DAILY [facility] Stop: 03/18/19 08:59 Last Admin: 02/19/19 07:49 Dose: 50 mg Documented by: Metoprolol Tartrate (Lopressor) 2.5 mg IV Q6 PRN PRN Reason: Hypertension Stop: 03/17/19 17:59 Last Admin: 02/15/19 18:13 Dose: 2.5 mg Documented by: Nitroglycerin (Nitrostat) 0.4 mg SL UD PRN PRN Reason: Chest Pain Stop: 03/17/19 14:17 Ondansetron HCl (Zofran) 4 mg IV Q6H PRN PRN Reason: Nausea Stop: 03/17/19 14:17 Pantoprazole Sodium (Protonix) 40 mg PO DAILY [facility]; Protocol Stop: 03/18/19 08:59 Last Admin: 02/19/19 07:49 Dose: 40 mg Documented by: Polyethylene Glycol (Miralax Powder Packet) 17 gm PO DAILY PRN PRN Reason: Constipation Stop: 03/17/19 14:17 Warfarin Sodium (Coumadin) 4 mg PO DAILY@1600 [facility] Stop: 03/20/19 15:59 Last Admin: 02/18/19 17:31 Dose: 4 mg Documented by: (1) CHF exacerbation Heart failure type: unspecified Qualified Code(s): I50.9 - Heart failure, unspecified
--- NOTE | 2019-02-19 11:33 | Hospitalist Progress Note ---
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 Echo 02/16 demonstrated LVEF 25-30%. Received IV diuretics with improvement, but creatinine elmer and diuretics held. No MARTIN or ARB due to renal disease. Continue metoprolol succinate. (2) Coronary artery disease: No anginal symptoms. Continue aspirin, metoprolol, amlodipine, statin. (3) PAF (paroxysmal atrial fibrillation): Currently in NSR with PVC's. Continue metoprolol and warfarin. (4) Cerebrovascular disease: Continue aspirin and statin. (5) Hypertension: Continue metoprolol and warfarin. (6) Prostate cancer: Management per Urology. 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 Chronic Sales cath. (8) DVT prophylaxis: Receiving warfarin. (9) Discharge planning issues: Anticipated discharge to home. Internal Medicine follow-up with Dr. Gilamn. Subjective Recheck for CHF and other problems. Patient seen in their room around 11:00. visiting. Feels better. Less SOB. Still feels weak. No chest pain. Telemetry data reviewed- NSR with PAC's and PVC's. Review of Systems: Constitutional- no fever. Cardiac- as noted above. Pulmonary- no cough or SOB. GI- no nausea, vomiting, diarrhea, melena. - chronic Sales cath. Otherwise, as noted above. Physical Exam Constitutional: no acute distress Respiratory: no respiratory distress Auscultation: lungs clear to auscultation bilaterally Cardiovascular: Rate/Rhythm: regular rate and regular rhythm (with ectopy) Heart Sounds: no gallop Vessels: no JVD Extremities: + edema (trace pretibial); no calf tenderness Gastrointestinal (Abdomen): Inspection/Auscultation: normal bowel sounds Percussion/Palpation: abdomen soft; abdomen nontender Skin: no rashes, warm and dry Psychiatric: Orientation: alert Genitourinary: + bladder abnormality (Sales cath) Results & Data Vital Signs (Past 12 Hours) Vital Signs Temp Pulse Pulse Resp BP Pulse Ox 02/19/19 11:01 36.8 C 79 18 102/52 L 98 02/19/19 08:04 36.9 C 87 20 137/80 95 02/19/19 08:00 86 02/19/19 04:54 36.7 C 92 H 22 155/73 H 93 02/18/19 23:37 75 Laboratory Results BMP 02/19/19 07:01 Sodium 139 Potassium 4.0 Chloride 102 Carbon Dioxide 32 BUN 50 H Creatinine 2.04 H Glucose 101 H Calcium 9.0 (1) CHF exacerbation Heart failure type: unspecified Qualified Code(s): I50.9 - Heart failure, unspecified
[2019-02-19] MEDS: FERROUS SULFATE 325 MG TAB PO SCH (12:18)
[2019-02-19] MEDS: WARFARIN SOD 4 MG TAB PO SCH (15:56)
[2019-02-19] MEDS: ATORVASTATIN 40 MG TAB PO SCH (20:32)
[2019-02-19] MEDS: LEVOTHYROXINE SODIUM 88 MCG TABLET PO SCH (20:32)
[2019-02-20 07:41] LABS: INR 1.8 (0.9-1.1); Prothrombin Time 17.9 Seconds (9.0-12.0)
[2019-02-20] MEDS: DOCUSATE SODIUM 100 MG CAP PO SCH (07:55)
[2019-02-20] MEDS: METOPROLOL SUCC 50MG EXT REL TAB PO SCH (07:55)
[2019-02-20] MEDS: PANTOprazole 40 MG TAB PO SCH (07:55)
[2019-02-20] MEDS: AMLODIPINE BESYLATE 5 MG TAB PO SCH (07:56)
[2019-02-20] MEDS: DOXYCYCLINE HYCLATE 100 MG CAP PO SCH (07:56)
[2019-02-20] MEDS: FINASTERIDE 5 MG TAB PO SCH (07:56)
[2019-02-20] MEDS: ASPIRIN 81 MG ECTAB PO SCH (07:57)
[2019-02-20 08:12] LABS: BUN Creatinine Ratio 25.3 (10-20); Calcium 9.2 mg/dl (8.5-10.1); Creatinine Clr Calc Pharmacy 26.7 ml/min; Est GFR (African American) 36.7; Est GFR (Non-African American) 31.6; Potassium 3.8 mmol/L (3.5-5.1)
[2019-02-20] MEDS ORDERED: FUROSEMIDE 40 MG TAB PO SCH (09:00)
--- NOTE | 2019-02-20 09:55 | Cardiology Progress Note ---
Date of Service February 20, 2019 Assessment & Plan (1) Ischemic cardiomyopathy: Patient is currently optimally medically managed. Diuretics restarted today. I believe the patient could be discharged to outpatient follow-up per the hospitalist. (2) PAF (paroxysmal atrial fibrillation): (3) Aspiration into airway: Family has been instructed on diet changes for chronic aspiration. Subjective Tolerating diet and not coughing after eating. No new cardiac complaints. Review of Systems Review of Systems: All systems reviewed & are unremarkable except as noted in HPI & below No additional information. Physical Exam Physical Exam: General: no acute distress and stated age Head: normocephalic, no masses, lesions, tenderness or abnormalities Eyes: conjunctiva are pink and non-injected, sclera clear Neck: supple, no adenopathy, no bruits, normal jugular venous pulse, no hepatojugular reflux Chest: normal shape and normal respiratory effort Lungs: clear to auscultation and percussion Cardiac Exam: - irregular rate & rhythm, no murmurs gallops or rubs - normal S1, normal S2 Pulses: 2(+) throughout Abdomen: abdomen soft, non-tender, no abnormal masses and no hepatosplenomegaly Musculoskeletal: no gait disturbance, no joint inflammation, no deforming arthritis Extremities: no edema and no cyanosis Neuro: grossly normal exam Results & Data Vital Signs (Past 12 Hours) Vital Signs Temp Pulse Pulse Resp BP Pulse Ox 02/20/19 07:54 36.6 C 90 20 149/99 H 97 02/20/19 04:11 36.8 C 86 18 139/79 95 02/20/19 00:13 36.5 C 79 82 18 128/81 95 Laboratory Results Laboratory Results - last 24 hr 02/20/19 02/20/19 07:06 07:06 PT 17.9 H INR 1.8 H Sodium 140 Potassium 3.8 Chloride 103 Carbon Dioxide 31 Anion Gap 6.0 BUN 48 H Creatinine 1.88 H Est Cr Clr Drug Dosing 26.7 Est GFR ( Amer) 36.7 Est GFR (Non-Af Amer) 31.6 BUN/Creatinine Ratio 25.3 H Glucose 101 H Calcium 9.2 Medications Administered Current Inpatient Medications Acetaminophen (Tylenol) 650 mg PO Q4H PRN PRN Reason: Pain or Fever Stop: 03/17/19 14:17 Amlodipine Besylate (Norvasc) 5 mg PO DAILY [facility] Stop: 03/18/19 08:59 Last Admin: 02/20/19 07:56 Dose: 5 mg Documented by: Aspirin (Ecotrin Ectab) 81 mg PO DAILY [facility] Stop: 03/18/19 08:59 Last Admin: 02/20/19 07:57 Dose: 81 mg Documented by: Atorvastatin Calcium (Lipitor) 40 mg PO [facility] Stop: 03/18/19 08:59 Last Admin: 02/19/19 20:32 Dose: 40 mg Documented by: Calcitriol (Racaltrol) 0.25 mcg PO MoWeFr@0900 [facility] Stop: 03/19/19 08:59 Last Admin: 02/19/19 07:51 Dose: 0.25 mcg Documented by: Docusate Sodium (Colace) 100 mg PO BID [facility] Stop: 03/19/19 09:44 Last Admin: 02/20/19 07:55 Dose: 100 mg Documented by: Doxycycline Hyclate (Vibramycin) 100 mg PO BID [facility] Stop: 02/22/19 20:59 Last Admin: 02/20/19 07:56 Dose: 100 mg Documented by: Ferrous Sulfate (Feosol) 325 mg PO DAILY@1200 [facility]; Protocol Stop: 03/18/19 08:59 Last Admin: 02/19/19 12:18 Dose: 325 mg Documented by: Finasteride (Proscar) 5 mg PO DAILY [facility] Stop: 03/18/19 08:59 Last Admin: 02/20/19 07:56 Dose: 5 mg Documented by: [facility] ([facility]) [facility]: 03/22/19 08:59 Last Admin: 02/19/19 10:39 Dose: 40 mg Documented by: Levothyroxine Sodium (Synthroid) 88 mcg PO [facility] Stop: 03/18/19 06:29 Last Admin: 02/19/19 20:32 Dose: 88 mcg Documented by: Metoprolol Succinate (Toprol Xl) 50 mg PO DAILY [facility] Stop: 03/18/19 08:59 Last Admin: 02/20/19 07:55 Dose: 50 mg Documented by: Metoprolol Tartrate (Lopressor) 2.5 mg IV Q6 PRN PRN Reason: Hypertension Stop: 03/17/19 17:59 Last Admin: 02/15/19 18:13 Dose: 2.5 mg Documented by: Nitroglycerin (Nitrostat) 0.4 mg SL UD PRN PRN Reason: Chest Pain Stop: 03/17/19 14:17 Ondansetron HCl (Zofran) 4 mg IV Q6H PRN PRN Reason: Nausea Stop: 03/17/19 14:17 Pantoprazole Sodium (Protonix) 40 mg PO DAILY [facility]; Protocol Stop: 03/18/19 08:59 Last Admin: 02/20/19 07:55 Dose: 40 mg Documented by: Polyethylene Glycol (Miralax Powder Packet) 17 gm PO DAILY PRN PRN Reason: Constipation Stop: 03/17/19 14:17 Warfarin Sodium (Coumadin) 4 mg PO DAILY@1600 [facility] Stop: 03/20/19 15:59 Last Admin: 02/19/19 15:56 Dose: 4 mg Documented by:
[2019-02-20] MEDS: FERROUS SULFATE 325 MG TAB PO SCH (11:27)
--- NOTE | 2019-02-20 12:24 | Hospitalist Progress Note ---
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 Echo 02/16 demonstrated LVEF 25-30%. Received IV diuretics with improvement, but creatinine elmer and diuretics held. No MARTIN or ARB due to renal disease. Continue metoprolol succinate. Discharged on furosemide 40 mg p.o. daily with potassium chloride 10 mEq twice daily. CHF instructions given. Recheck basic metabolic profile in clinic. Outpatient follow-up with CHF clinic. (2) Coronary artery disease: No anginal symptoms. Continue aspirin, metoprolol, amlodipine, statin. (3) PAF (paroxysmal atrial fibrillation): Currently in NSR with PVC's. Continue metoprolol and warfarin. Outpatient warfarin dose was recently decreased due to antibiotic therapy. INR was 4.5 on date of admission (02/15). Warfarin was held and then restarted at a dose of 4 mg daily on 02/19. He received 4 mg on 02/19 and 02/20. INR day of discharge 1.8. Discharge on 5 mg daily. Recheck INR in clinic at time of post-discharge visit. (4) Cerebrovascular disease: Continue aspirin and statin. (5) Hypertension: Continue metoprolol and warfarin. (6) Prostate cancer: Management per Urology. 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 Chronic Sales cath. (8) DVT prophylaxis: Receiving warfarin. (9) Discharge planning issues: Discharge to home. Internal Medicine follow-up with Dr. Gilman. Cardiology follow-up with Dr. Diego and CHF clinic. Subjective Recheck for CHF and other problems. Patient seen in their room around 13:00. and daughter visiting. Doing well. No chest pain or shortness of breath. Remains in normal sinus rhythm with PVC's. Review of Systems: Constitutional- no fever. Cardiac- as noted above. Pulmonary- no cough or SOB. GI- no nausea, vomiting, diarrhea, melena. - chronic Sales cath. Otherwise, as noted above. Physical Exam Constitutional: no acute distress Respiratory: no respiratory distress Auscultation: lungs clear to auscultation bilaterally Cardiovascular: Rate/Rhythm: regular rate and regular rhythm (with ectopy) Heart Sounds: no gallop Vessels: no JVD Extremities: + edema (trace pretibial); no calf tenderness Gastrointestinal (Abdomen): Inspection/Auscultation: normal bowel sounds Percussion/Palpation: abdomen soft; abdomen nontender Skin: no rashes, warm and dry Psychiatric: Orientation: alert Genitourinary: + bladder abnormality (Sales cath) Results & Data Vital Signs (Past 12 Hours) Vital Signs Temp Pulse Pulse Resp BP BP Pulse Ox 02/20/19 10:53 36.8 C 64 18 106/57 L 94 02/20/19 07:54 36.6 C 90 20 149/99 H 97 02/20/19 04:11 36.8 C 86 18 139/79 95 (1) CHF exacerbation Heart failure type: unspecified Qualified Code(s): I50.9 - Heart failure, unspecified
--- NOTE | 2019-02-21 11:07 | Discharge Summary ---
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 The patient's says that he is having cough for some time now, but last he started wheezing. The took him to the PCP. When chest x-ray was done which showed possible left lung base infiltrate not excluded, so the patient was started on doxycycline, but symptoms did not improve, got progressive worse. Today morning he complained that he could not breathe and was brought to the ER. In the ER he was hypoxic at 85% on room air. He was staturating fine on oxygen 4 liters .Was given a dose of IV Lasix 20 mg in the Er. Currently he is doing okay. Denies any chest pain, no nausea, no vomiting. He has constipation and he takes stool softener and gets diarrhea. Denies any headache, vision is okay from the left eye. No earaches, no sore throat, no difficulty swallowing, but he did not eat much today. Cough with whitish phlegm and bowel movements with some black stools but on iron pills. His urinary Sales catheter bag fills daily but today not much. He has swelling in his legs but as the days goes it reduces. He is not taking any water pills. Currently resting comfortably and hemodynamically stable. Admission Exam Per Admitting Provider GENERAL: The patient is old and frail, not in acute distress. VITAL SIGNS: Temperature 36.4, pulse 86, respiratory rate 21, blood pressure 147/92, oxygen 80% room air currently 93% on 4 liters. HEENT: No pallor, no icterus, blind in right eye, left eye reactive to light. NECK: No JVD, no neck masses, no carotid bruits. CARDIOVASCULAR: S1, S2 heard, regular rhythm. No murmur, no gallop. RESPIRATORY SYSTEM: Normal AP diameter. No accessory muscle use. Bilateral wheezing heard with some crackles. ABDOMEN: Soft, bowel sounds present. Nontender. No distention. CENTRAL NERVOUS SYSTEM: Cranial nerves II through XII intact. RIght-Sided weakness present. EXTREMITIES: Lower extremity edema seen. Principal Diagnosis acute on chronic left ventricular systolic and diastolic heart failure dysphagia Discharge Data Allergies Allergy/AdvReac Type Severity Reaction Status Date / Time clopidogrel Allergy Intermediate RASH Verified 02/15/19 14:44 Sulfa (Sulfonamide Allergy Intermediate RASH Verified 02/15/19 14:46 Antibiotics) sulfamethoxazole Allergy Intermediate RASH Verified 02/15/19 14:46 trimethoprim Allergy Mild RASH Verified 02/15/19 10:43 niacin Allergy Unknown UNKNOWN Verified 02/15/19 10:43 Consultations 02/15/19 12:23 ED Decision to Admit Stat 02/15/19 14:18 Consult Cardiology Routine Consult Case Management - Discharge Planning Routine Hospital Course (1) CHF exacerbation: Acute on chronic mixed left ventricular diastolic and systolic heart failure. Echo 02/16 demonstrated LVEF 25-30%. Received IV diuretics with improvement, but creatinine elmer and diuretics held. No MARTIN or ARB due to renal disease. Continue metoprolol succinate. Discharged on furosemide 40 mg p.o. daily with potassium chloride 10 mEq twice daily. CHF instructions given. Recheck basic metabolic profile in clinic. Outpatient follow-up with CHF clinic. (2) Coronary artery disease: No anginal symptoms. Continue aspirin, metoprolol, amlodipine, statin. (3) PAF (paroxysmal atrial fibrillation): Currently in NSR with PVC's. Continue metoprolol and warfarin. Outpatient warfarin dose was recently decreased due to antibiotic therapy. INR was 4.5 on date of admission (02/15). Warfarin was held and then restarted at a dose of 4 mg daily on 02/19. He received 4 mg on 02/18 and 02/19. INR day of discharge 1.8. Discharge on 5 mg daily. Recheck INR in clinic at time of post-discharge visit. (4) Cerebrovascular disease: Continue aspirin and statin. (5) Hypertension: Continue metoprolol and warfarin. (6) Prostate cancer: Management per Urology. 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 Chronic Sales cath. (8) Dysphagia: History of stroke with concerns about aspiration. Had outpatient video fluoroscopy done in November, but did not follow-up with DEVELOPMENT PROFESSIONAL as recommended. Seen by DEVELOPMENT PROFESSIONAL. Patient and family given instructions on diet and safe swallowing stategies. (9) DVT prophylaxis: Receiving warfarin. (10) Discharge planning issues: Discharge to home. Internal Medicine follow-up with Dr. Gilman. Cardiology follow-up with Dr. Diego and CHF clinic. Total Time Total Time Spent Total Time Spent (In Minutes): 45 Discharge Plan Discharge Items Patient Disposition: Home - Home Health Services Reason For Visit: trouble breathing Discharge Diagnosis: congestive heart failure (fluid in lungs) Condition: Good Discharge Goals: Improve disease control Activity: As commented below Activity Comment: light activity as tolerated Non-emergency contact: Primary Care Provider, Hospitalist and Casino Dealer Call non-emergency contact if: you have any medication questions and your symptoms worsen Follow-up/Referrals: Colin Diego DO [Casino Dealer] - (Office will contact you with next appointment.) Venkat Gilman DO [Primary Care Provider] - (02/24/2019 10:00 AM Pushpa Mosqueda MD (covering for Dr. Gilman) General Internal Medicine [facility]) Diet: Heart Healthy Diet Comment: as instructed by Speech Therapy Addtl Provider Instructions: Furosemide (Lasix) is a water pill to get rid of excess fluid. Take 1 pill daily in the morning. It can lower your potassium. Take potassium chloride, 1 pill twice a day. Continue warfarin (Coumadin) dose of 5 mg each evening until otherwise instructed. Please ask Dr. Han to check labwork when you see her on 02/22. (basic metabolic profile and INR) Seek medical attention if you have: * temperature above 101 * chest pain or trouble breathing * abdominal pain, nausea, vomiting * diarrhea, dark stools or bloody stools * any unanswered questions or concerns Call [phone] if symptoms are severe. Call if you have any questions or problems. My cell # is [phone]. You can also reach a [facility] hospitalist on duty at [facility] 24 hours a day by calling [phone]. INSTRUCTIONS FOR CONGESTIVE HEART FAILURE: Call 911 and go to the Emergency Room if: * You have tightness or pain in your chest that does not go away with rest or Nitroglycerin * You are very short of breath even with rest Call your doctor if any of the following symptoms or problems start or get worse: * Shortness of breath or difficulty breathing * Wake up at night short of breath * Chest pain * Cough * Swelling of your hands, fee, or legs * More fatigued or tired with your normal activity * Palpitations - sudden fast heart beats WEIGHT * Weigh yourself every morning after using the bathroom. * Use the same scale. * Wear the same amount of clothing. * Write your weight down on your chart. * Call your doctor if you gain more than 2-3 pounds in 1-2 days. MEDICATIONS * Use this discharge instruction sheet for instructions. * Take your medications at the time your doctor ordered. * Do not skip a dose of your medicines. * If you miss a dose of medicine, take as soon as possible, but DO NOT DOUBLE A DOSE. * Read your medicine information when you get home. * Know all of the side effects of your medicine. * Call your doctor's office if you have any side effects. * Be sure all of your doctors know what medicine and herbs you take (including cold, flu, and herbal medicine). * Pain Medicine: If you do not get relief from your pain, please call your doctor for help. Take the following with you to your follow-up doctor appointments: * Weight Chart * Medication List * List of questions Do not drink excessive alcohol, beer or wine. Prescriptions: New furosemide 40 mg tablet 40 mg PO DAILY Qty: 30 RF: 5 potassium chloride 10 mEq tablet extended release 10 meq PO BID Qty: 60 RF: 5 Continued atorvastatin 40 mg tablet 40 mg PO DAILY RF: 0 metoprolol succinate 50 mg Tablet Extended Release 24 Hr 50 mg PO DAILY RF: 0 amlodipine 2.5 mg Tablet 2.5 mg PO DAILY RF: 0 aspirin [Aspirin Low Dose] 81 mg Tablet,Delayed Release (Dr/Ec) 81 mg PO DAILY RF: 0 tramadol 50 mg Tablet 50 mg PO BID RF: 0 levothyroxine 88 mcg Tablet 88 mcg PO DAILY RF: 0 ferrous sulfate 325 mg (65 mg iron) Tablet 325 mg PO DAILY RF: 0 warfarin 5 mg tablet 5 mg PO PM RF: 0 nitroglycerin 0.4 mg Tablet, Sublingual 0.4 mg sublingual DIRECTED RF: 0 omeprazole 20 mg capsule,delayed release(DR/EC) 20 mg PO DAILY RF: 0 calcitriol 0.25 mcg capsule 0.25 mcg PO 3XWK RF: 0 finasteride 5 mg tablet 5 mg PO DAILY RF: 0 Discontinued doxycycline hyclate 100 mg capsule 100 mg PO BID RF: 0 Stand-Alone Forms: [facility]/Other Patient Handouts: Prediabetes Discharge Orders: Discharge Order (Routine); Ordered 02/20/19 Ordered By: Chester Mejia Admission Data Admit Date/Time: 02/15/19 13:16 Attending Provider: Chester Mejia Admit Provider: Dilan Landrum Primary Care Provider: Venkat Gilman Other Providers: Dilan Landrum ; Elvin Castañeda ; Mike Caba ; Ty Hoff ; Colin Diego ; Dion Rodriguez ; Mikey Recio ; Vicky Colby ; Bee Parker ; Devonte Lynn Service: Telemetry Other Interventions: Discharge Summary Assessment (RN) Last Done: 02/20/19 12:28 DC Date/Time DO NOT enter until pt leaves facility: 02/20/19 13:35
== END 2019-02-20 13:35 | disposition home health service (06) | DRG 291 ==
LOC: ED 09:48 → 2S 13:16 → SUATTDRO 13:16 → 2S 13:45

== ENCOUNTER 2019-11-12 09:07 | Inpatient (IN) ==
[2019-11-12] MEDS ORDERED: FUROSEMIDE 40 MG/4 ML VIAL IV STA ×2 (09:33→09:56)
[2019-11-12] MEDS ORDERED: LEVALBUTEROL HCL 1.25 MG/3 ML NEB NEB STA (09:56)
[2019-11-12 10:13] LABS: Basophils # (auto) 0.01 K/uL (0-0.2); Basophils % (auto) 0.1 %; Hematocrit (blood only) 37.8 % (42-52); Hemoglobin 12.7 g/dL (14.0-18.0); Immature Granulocytes # (auto) 0.04 K/uL (0.00-0.02); Immature Granulocytes % (auto) 0.2 %; Lymphocytes # (auto) 0.65 K/uL (1.2-3.4); Lymphocytes % (auto) 3.9 %; Mean Corpuscular Hemoglobin 32.3 pg (25-34); Mean Corpuscular Hgb Conc 33.6 g/dL (32-36); Mean Corpuscular Volume 96.2 fL (80-100); Monocytes # (auto) 1.48 K/uL (0.11-0.59); Neutrophils # (auto) 14.33 K/uL (1.4-6.5); Neutrophils % (auto) 86.8 %; Platelet Count 139 K/uL (130-400); RDW Coefficient of Variation 14.4 % (11.5-14.5); RDW Standard Deviation 50.3 fL (36.4-46.3); Red Blood Count 3.93 M/uL (4.7-6.1); White Blood Count 16.51 K/uL (4.8-10.8)
--- NOTE | 2019-11-12 10:29 | XRay Report ---
XR chest 1V portable CLINICAL HISTORY: 89 years-old Male presenting with Chest Pain. TECHNIQUE: Portable upright AP view of the chest was obtained. COMPARISON: 07/15/2019. FINDINGS: Atherosclerosis of the aortic arch. Cardiac silhouette enlarged. Extensive mid to basilar predominant opacities. Underlying right pleural effusion not excluded. No pneumothorax. Osseous structures jazlyn l. Upper abdomen normal. IMPRESSION: 1. Extensive mid to basilar predominant bilateral pulmonary infiltrates. This could represent modera te pulmonary edema or aspiration/aspiration pneumonitis. Underlying infection not excluded though les s likely. It would be unlikely for this appearance to be explained by atelectasis. 2. Possible right pleural effusion. 3. Cardiomegaly. ACT 112: Negative or not required by law. Electronically signed by: Michael Parikh M.D. 11/12/2019 10:28 AM
[2019-11-12 10:30] LABS: Alanine Aminotransferase 16 U/L (12-78); Albumin Level 2.7 gm/dl (3.4-5.0); Aspartate Aminotransferase 17 U/L (15-37); BUN Creatinine Ratio 24.2 (10-20); Blood Urea Nitrogen 41 mg/dl (7-18); Calcium 8.7 mg/dl (8.5-10.1); Carbon Dioxide 24 mmol/L (21-32); Chloride 108 mmol/L (98-107); Creatinine Clr Calc Pharmacy 28.5 ml/min; Est GFR (African American) 41.4; Est GFR (Non-African American) 35.7; Glucose 136 mg/dl (70-99); Lipase 44 U/L (73-393); Potassium 4.4 mmol/L (3.5-5.1); Sodium 139 mmol/L (136-145)
[2019-11-12 10:35] LABS: Albumin Globulin Ratio 0.6 (0.9-2); Alkaline Phosphatase 95 U/L (45-117); Bilirubin,Total 0.6 mg/dl (0.2-1); Creatine Kinase 52 U/L (39-308); Creatine Kinase MB < 1.0 ng/ml (0.5-3.6); Globulin 4.6 gm/dl (2.5-4.0); NT Pro B Type Natriuretic Pept 10327 pg/ml (0-1800); Total Protein 7.3 gm/dl (6.4-8.2); Troponin I 0.043 ng/ml (0-0.045)
[2019-11-12 10:37] LABS: Partial Thromboplastin Ratio 1.5; Partial Thromboplastin Time 41.6 Seconds (21.0-31.0); Prothrombin Time 50.5 Seconds (9.0-12.0)
[2019-11-12 10:42] LABS: INR 5.6 (0.9-1.1)
[2019-11-12] MEDS ORDERED: LEVOFLOXACIN/D5W 750 MG/150 ML BAG IV STA (10:44)
[2019-11-12] MEDS ORDERED: PIPERACILLIN/TAZOBACTAM 4.5 GM/120 ML BAG IV ONE (10:44)
[2019-11-12] MEDS ORDERED: PIPERACILL/TAZOBAC CONSULT ACTIVE PRN (10:44)
[2019-11-12 12:52] LABS: Influenza A virus by PCR Neg for Influ A (Neg); Influenza B virus by PCR Neg for Influ B (Neg)
--- NOTE | 2019-11-12 13:10 | History & Physical Report ---
Date of Service November 12, 2019 Assessment & Plan (1) Acute respiratory failure with hypoxia: -Admit to [facility] with telemetry -Patient presenting from home with reports of increasing cough, shortness of breath, generalized weakness. Was seen by PCP on 11/08 and placed on doxycycline and prednisone for a suspected bronchitis. Patient's had much difficulty getting him out of bed this morning, EMS was called and patient was brought to the ED for further evaluation. -In the ED, patient was found to be hypoxic on room air at 88%, saturating well on 6 L of oxygen via oxygen mask -CXR suggest pneumonia (? Aspiration) versus CHF -WBC 16.5K (noted patient was on a course of steroids as an outpatient), procalcitonin mildly elevated 0.89, proBNP 10,000 (previously 14,000) -In the ED, patient received Lasix 40 mg IV, nebulizer treatment, IV Levaquin, IV Zosyn -After arrival to floor, patient developed some increasing shortness of breath and tachycardia. EKG shows sinus tachycardia with PVCs. Patient had diuresed approximately 1.5 L, symptoms possibly due to overdiuresis. IV fluids were started and patient's heart rate subsequently improved. Lactic acid was checked and found to be mildly elevated at 2.3 - ? Due to hypoxia vs. possible sepsis -S/p IV Levaquin and Zosyn in the ED, will continue with IV Zosyn for now -Given wheezing on exam and no improvement with p.o. steroids as an outpatient, will start Solu-Medrol 40 mg every 12 hours -Pulmonary toilet with nebs, incentive spirometer, flutter valve -Speech consult for concerns of aspiration (2) Supratherapeutic INR: (3) PAF (paroxysmal atrial fibrillation): -Rate controlled on metoprolol, will continue -Anticoagulated on Coumadin, INR 5.6; no signs of bleeding, hold Coumadin (4) Ischemic cardiomyopathy: -Possible acute on chronic systolic CHF as above -Echo 03/2019: EF 20-24% -Typically managed on furosemide 20 mg daily -Diuresis as above -Patient has declined AICD placement -Cardiology consult, input appreciated (5) Coronary artery disease: -No reports of chest pain -Continue aspirin, statin, beta-preeti (6) Urinary retention: -With chronic Castellanos (7) History of stroke: -Continue aspirin and statin (8) CKD (chronic kidney disease), stage III: - baseline creat runs in the high ones - creat noted to be 1.6 today - continue to monitor, avoid nephrotoxic agents when able (9) DVT prophylaxis: -Anticoagulated on Coumadin with supratherapeutic INR History of Present Illness Chief Complaint: Shortness of breath, weakness Primary Care Provider: Venkat Gilman DO 89-year-old male who presents the ED for evaluation of shortness of breath and weakness. Patient was seen by his PCP on 11/08 for cough and shortness of breath. He was diagnosed with a complicated bronchitis and placed on doxycycline, prednisone, nebulizer treatments. Patient symptoms have been progressively getting worse despite these therapies. This morning, patient was very weak and was unable to get out of bed. He was also incontinent of diarrhea, which is not usual for him. Patient has had a moist, nonproductive cough with wheezing. Reports exertional shortness of breath. Does not wear oxygen at home. Patient does weigh himself on a routine basis and reports his weights have been stable. No worsening lower extremity edema. Patient did try to sleep up on some additional pillows last evening. Patient had 1 emesis in the ambulance in route to the ED however attributes this to motion sickness. Other episodes of nausea, vomiting, abdominal pain. No bright red bleeding per rectum or dark tarry stools. Patient denies chest pain palpitations. No reported fevers or chills. No lightheadedness, dizziness, diaphoresis, syncopal events. Patient has a chronic Castellanos catheter in place which is been draining clear yellow urine. In the ED, patient was found to be hypoxic on room air at 88%. He is currently saturating well on a 6 L oxygen mask. Labs show WBC 16.5K, proBNP 10,000 327, pro calcitonin 0.89. Influenza testing negative. C. difficile testing negative. CXR shows bibasilar infiltrates. Patient was given Lasix 40 mg IV, nebulizer treatment, IV Levaquin, IV Zosyn. Allergies Allergy/AdvReac Type Severity Reaction Status Date / Time clopidogrel Allergy Intermediate RASH Verified 11/12/19 11:26 Sulfa (Sulfonamide Allergy Intermediate RASH Verified 11/12/19 11:26 Antibiotics) sulfamethoxazole Allergy Intermediate RASH Verified 02/21/20 11:26 trimethoprim Allergy Mild RASH Verified 11/12/19 11:26 niacin Allergy Unknown UNKNOWN Verified 11/12/19 11:26 Home Medications Home Medications Medication Instructions Recorded Confirmed Type amlodipine 2.5 mg PO DAILY 02/15/19 11/12/19 History aspirin [Aspirin Low Dose] 81 mg PO QAM 02/15/19 11/12/19 History atorvastatin 40 mg PO DAILY 02/15/19 11/12/19 History calcitriol 0.25 mcg PO 3XWK 02/15/19 11/12/19 History ferrous sulfate 325 mg PO QAM 02/15/19 11/12/19 History finasteride 5 mg PO QAM 02/15/19 11/12/19 History levothyroxine 88 mcg PO DAILYBB 02/15/19 11/12/19 History metoprolol succinate 50 mg PO DAILY 02/15/19 11/12/19 History nitroglycerin 0.4 mg SUBLINGUAL DIRECTED PRN 02/15/19 11/12/19 History omeprazole 20 mg PO DAILY 02/15/19 11/12/19 History tramadol 50 mg PO BID PRN 02/15/19 11/12/19 History warfarin 5 mg PO PM 02/15/19 11/12/19 History cholecalciferol (vitamin D3) 1,000 unit PO DAILY 11/12/19 11/12/19 History [Vitamin D3] docusate sodium [Colace] 100 mg PO BID 11/12/19 11/12/19 History doxycycline hyclate 100 mg PO BID 11/12/19 11/12/19 History furosemide 20 mg PO DAILY 11/12/19 11/12/19 History ipratropium-albuterol 3 ml INHALATION QID PRN 11/12/19 11/12/19 History potassium chloride 10 meq PO QAM 11/12/19 11/12/19 History prednisone 40 mg PO DAILY 11/12/19 11/12/19 History senna 8.6 mg PO DAILY PRN 11/12/19 11/12/19 History Past Med/Surg History Medical History (Updated 11/12/19 @ 18:13 by LASHELL Lorenzo) Chronic anticoagulation CKD (chronic kidney disease), stage III Coronary artery disease (Chronic) per outpt cardio note: Long standing coronary artery disease with myocardial infarction times six, 1994, 1995, 1996, 2002, 2011, May 2013, and 09/2015 (BMS x2 to RCA). He is status post stenting to the LAD in 1994. Status post PTCA and stenting of the left anterior descending artery and circumflex followed by PTCA of the right coronary artery in 1998. June of 2003, RESTORATIVE COORDINATOR and stenting of the distal RCA. December 2011, stenting of the LAD. May of 2013, RCA stenting. A left carotid endarterectomy was performed August of 2013. Postop CVA reported. Hospitalization 09/[address]-elevation ND. S/p BMS to right coronary artery x2. 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 castellanos Surgical History (Updated 11/12/19 @ 13:03 by LASHELL Lorenzo) H/O inguinal hernia repair History of cataract surgery History of total left hip replacement S/P carotid endarterectomy (Resolved 08/25/13) BL Family History Other No pertinent family history Social History Preferred Language: Kazakh Communication Ability: Effective Visual Impairment: No Limitations Hearing Ability: Normal Industrial Analyst Required: No Beliefs That Will Affect Care: None Current Living Situation: Spouse Other Information That Helps Us Care for You: No Feels Safe at Home: Yes Safety Concerns: Feels Safe At This Time Smoking Status: Former smoker Second Hand Exposure: No ; Hx Alcohol Use: No Hx Substance Use: No Review of Systems Review of Systems: ROS per HPI, all other systems reviewed and negative Physical Exam Constitutional: WD/WN, vitals as above no acute distress Eyes: + anicteric sclerae; no conjunctival abnormality Right pupil opaque ENMT: external ear and nose normal, oropharynx normal Respiratory: normal respiratory effort; no respiratory distress Auscultation: + crackles (Bilateral, mid to lower lung echols) and + wheezes (Scattered, expiratory) Cardiovascular: Rate/Rhythm: regular rate and regular rhythm (Some ectopy noted) Vessels: normal peripheral pulses Extremities: no edema Gastrointestinal (Abdomen): normal bowel sounds, soft, nontender, no hepatosplenomegaly Musculoskeletal: Extremities: no cyanosis and no clubbing Right-sided weakness noted Skin: no rashes, warm and dry Neurologic: PERRL, EOMI, accommodation nl, no face palsy, no dysarthria Psychiatric: A+Ox3, euthymic affect Results & Data Vital Signs (Past 12 Hours) Vital Signs Temp Pulse Pulse Resp BP BP Pulse Ox 11/12/19 11:04 91 H 22 132/86 93 11/12/19 10:22 88 16 91 11/12/19 09:59 95 11/12/19 09:57 93 11/12/19 09:32 88 L 11/12/19 09:25 37.0 C 106 H 25 H 167/93 H 88 L Laboratory Results Short CBC 11/12/19 Range/Units 10:02 WBC 16.51 H (4.8-10.8) K/uL Hgb 12.7 L (14.0-18.0) g/dL Hct 37.8 L (42-52) % Plt Count 139 (130-400) K/uL BMP 11/12/19 10:02 Sodium 139 Potassium 4.4 Chloride 108 H Carbon Dioxide 24 BUN 41 H Creatinine 1.69 H Glucose 136 H Calcium 8.7 Cardiac Enzymes 11/12/19 Range/Units 10:02 Total Creatine Kinase 52 (39-308) U/L CK-MB (CK-2) < 1.0 (0.5-3.6) ng/ml Troponin I 0.043 (0-0.045) ng/ml Liver Function 11/12/19 Range/Units 10:02 Total Bilirubin 0.6 (0.2-1) mg/dl AST 17 (15-37) U/L ALT 16 (12-78) U/L Alkaline Phosphatase 95 (45-117) U/L Albumin 2.7 L (3.4-5.0) gm/dl Diagnostic Findings CXR IMPRESSION: 1. Extensive mid to basilar predominant bilateral pulmonary infiltrates. This could represent moderate pulmonary edema or aspiration/aspiration pneumonitis. Underlying infection not excluded though less likely. It would be unlikely for this appearance to be explained by atelectasis. 2. Possible right pleural effusion. 3. Cardiomegaly. Code Status & VTE Plan Code Status Patient is a DNR as per my discussion with him and his family who is the bedside. VTE Prophylaxis Plan VTE Prophylaxis will be ordered: No Supervising Physician Co-Signing Physician Notes I have seen and examined the patient and have discussed the case with the provider above. I agree with the assessment and plan as stated. 89 yo M presented with new onset hypoxia 2/2 pneumonia and/or CHF. his pump function is very low, it isn't hard to tip him into decompensation, and this may be what occurred. His heart rate is coming down with some IVF. Repeat CXR looks improved after diuresis. My physical exam findings are consistent with those above including coarse rhonchi throughout all lung echols. Active issues include (1) Hypoxia 2/2 pneumonia vs CHF, (2) acute systolic CHF exacerbation, (3) supratherapeutic INR, (4) PAF (currently in sinus rhythm). Agree with plan to hold diuresis for now and continue broad spectrum abx pending culture results and clinical improvement. DO Patricio
[2019-11-12] MEDS ORDERED: TRAMADOL HCL 50 MG TABLET PO PRN (14:48)
[2019-11-12] MEDS ORDERED: NITROGLYCERIN SL 0.4 MG/TAB TAB SL PRN (14:48)
[2019-11-12] MEDS ORDERED: ACETAMINOPHEN 325 MG TAB PO PRN (14:48)
[2019-11-12] MEDS: ALBUT/IPRATROP 3MG/0.5MG NEB 3 ML VIAL NEB SCH ×2 (15:10→15:13)
[2019-11-12] MEDS ORDERED: LACTATED RINGER'S 1,000 ML IV SCH (15:45)
--- NOTE | 2019-11-12 15:58 | XRay Report ---
XR chest 1V portable CLINICAL HISTORY: 89 years-old Male presenting with worsening hypoxia. TECHNIQUE: Portable upright AP view of the chest was obtained. COMPARISON: 11/12/2019 at 10:05 AM. FINDINGS: Atherosclerosis of the aortic arch. Cardiac silhouette enlarged. Significant interval decrease in bib asilar opacities. No large effusion or pneumothorax. Degenerative changes of the thoracic spine. View external leads overlie the upper abdomen. IMPRESSION: 1. Significant interval decrease in bibasilar infiltrates could suggest resolving pulmonary edema. S ome degree of bibasilar infiltrates remain. 2. Cardiomegaly. ACT 112: Negative or not required by law. Electronically signed by: Michael Parikh M.D. 11/12/2019 3:56 PM
[2019-11-12] MEDS: CALCITRIOL 0.25 MCG CAPSULE PO SCH (16:05)
[2019-11-12] MEDS: PIPERACILLIN/TAZOBACTAM 3.375 GM in DEXTROSE 5% 100 ML IV SCH (16:06)
[2019-11-12] MEDS: methylPREDNISolone 40 MG in SYRINGE 0 ML IV SCH (16:06)
[2019-11-12] MEDS ORDERED: XOPENEX/ATROVENT 0.63mg/0.5MG NEB COMBO NEB SCH (19:00)
[2019-11-12] MEDS: LEVALBUTEROL HCL 0.63 MG/3 ML NEB NEB SCH (19:47)
[2019-11-12] MEDS: IPRATROPIUM BROMIDE NEB SOLN 0.02% 2.5 ML VIAL INH SCH (19:47)
[2019-11-12] MEDS: GUAIFENESIN/DEXTROM SYRUP 200MG/20MG 10ML UDC PO PRN (20:39)
--- NOTE | 2019-11-12 22:03 | Electrocardiogram Report ---
Test Reason : Blood Pressure : / mmHG Vent. Rate : 107 BPM Atrial Rate : 107 BPM P-R Int : 202 ms QRS Dur : 144 ms QT Int : 364 ms P-R-T Axes : 060 -23 128 degrees QTc Int : 485 ms Sinus tachycardia with Premature ventricular complexes Left bundle branch block Abnormal ECG When compared with ECG of 15-JUL-2019 22:37, AK interval has decreased Confirmed by Munir De La Cruz ([id number]) on 11/12/2019 10:03:26 PM Referred By: Confirmed By:Munir De La Cruz
[2019-11-13] MEDS: PIPERACILLIN/TAZOBACTAM 3.375 GM in DEXTROSE 5% 100 ML IV SCH ×4 (00:17→23:18)
[2019-11-13] MEDS: LEVALBUTEROL HCL 0.63 MG/3 ML NEB NEB SCH ×4 (00:55→19:10)
[2019-11-13] MEDS: IPRATROPIUM BROMIDE NEB SOLN 0.02% 2.5 ML VIAL INH SCH ×4 (00:56→19:10)
[2019-11-13 01:08] LABS: Appearance Urine Clear (Clear); Bacteria Urine Automated 1+ (Negative); Bilirubin Urine Negative (Negative); Blood Urine 1+ (Negative); Color Urine Yellow; Epithelial Cell Urine Auto 0-5 /lpf (0-5); Glucose Urine UA Negative (Negative); Ketones Urine Negative (Negative); Leukocyte Esterase Urine 1+ (Negative); Nitrite Urine Positive (Negative); Protein Urine Negative (Negative); RBC Urine Automated 0-4 /hpf (0-4); Specific Gravity Urine 1.016 (1.000-1.030); Urobilinogen Urine Negative (Negative)
[2019-11-13] MEDS: methylPREDNISolone 40 MG in SYRINGE 0 ML IV SCH ×2 (03:32→17:33)
[2019-11-13] MEDS: LEVOTHYROXINE SODIUM 88 MCG TABLET PO SCH (06:01)
--- NOTE | 2019-11-13 07:26 | Emergency Department Note ---
Entered by Matilda Moreno acting as a scribe for History of Present Illness General Chief complaint: Weakness Time Seen by Provider: 11/12/19 09:32 Source: patient Mode of arrival: EMS Limitations: no limitations History of Present Illness Provider complaint: Shortness of breath Onset (ago): week(s) 1 Location: chest Severity: similar to prior episodes (CHF) Pain Consistency: + other (worsening) Quality: + other (shortness of breath) Associated symptoms: + other (Denies: abdominal pain); no chest pain The patient is an 89 year old male with a history of CHF, blood clots, stroke, hypertension, atrial fibrillation, prostate cancer, STEMI, and carotid endarterectomy who presents to the Emergency Room with complaints of worsening shortness of breath starting about a week ago. Per , the patient went to his PCP 4 days ago and was given a prescription of Doxycycline. Based on past experience, the patient reports that he feels like he has fluid in his lungs. He denies any chest pain and abdominal pain. Home Medications Home Medications Medication Instructions Recorded Confirmed Type amlodipine 2.5 mg PO DAILY 02/15/19 11/12/19 History aspirin [Aspirin Low Dose] 81 mg PO QAM 02/15/19 11/12/19 History atorvastatin 40 mg PO DAILY 02/15/19 11/12/19 History calcitriol 0.25 mcg PO 3XWK 02/15/19 11/12/19 History ferrous sulfate 325 mg PO QAM 02/15/19 11/12/19 History finasteride 5 mg PO QAM 02/15/19 11/12/19 History levothyroxine 88 mcg PO DAILYBB 02/15/19 11/12/19 History metoprolol succinate 50 mg PO DAILY 02/15/19 11/12/19 History nitroglycerin 0.4 mg SUBLINGUAL DIRECTED PRN 02/15/19 11/12/19 History omeprazole 20 mg PO DAILY 02/15/19 11/12/19 History tramadol 50 mg PO BID PRN 02/15/19 11/12/19 History warfarin 5 mg PO PM 02/15/19 11/12/19 History cholecalciferol (vitamin D3) 1,000 unit PO DAILY 11/12/19 11/12/19 History [Vitamin D3] docusate sodium [Colace] 100 mg PO BID 11/12/19 11/12/19 History doxycycline hyclate 100 mg PO BID 11/12/19 11/12/19 History furosemide 20 mg PO DAILY 11/12/19 11/12/19 History ipratropium-albuterol 3 ml INHALATION QID PRN 11/12/19 11/12/19 History potassium chloride 10 meq PO QAM 11/12/19 11/12/19 History prednisone 40 mg PO DAILY 11/12/19 11/12/19 History senna 8.6 mg PO DAILY PRN 11/12/19 11/12/19 History Allergies Allergy/AdvReac Type Severity Reaction Status Date / Time clopidogrel Allergy Intermediate RASH Verified 11/12/19 11:26 Sulfa (Sulfonamide Allergy Intermediate RASH Verified 11/12/19 11:26 Antibiotics) sulfamethoxazole Allergy Intermediate RASH Verified 11/12/19 11:26 trimethoprim Allergy Mild RASH Verified 11/12/19 11:26 niacin Allergy Unknown UNKNOWN Verified 11/12/19 11:26 Past Med/Surg History Medical History Chronic anticoagulation CKD (chronic kidney disease), stage III Coronary artery disease (Chronic) per outpt cardio note: Long standing coronary artery disease with myocardial infarction times six, 1994, 1995, 1996, 2002, 2011, May 2013, and 09/2015 (BMS x2 to RCA). He is status post stenting to the LAD in 1994. Status post PTCA and stenting of the left anterior descending artery and circumflex followed by PTCA of the right coronary artery in 1998. June of 2003, [employer] and stenting of the distal RCA. December 2011, stenting of the LAD. May of 2013, RCA stenting. A left carotid endarterectomy was performed August of 2013. Postop CVA reported. Hospitalization 09/[address]-elevation SC. S/p BMS to right coronary artery x2. 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 castellanos Surgical History H/O inguinal hernia repair History of cataract surgery History of total left hip replacement S/P carotid endarterectomy (Resolved 08/25/13) BL Family History Other No pertinent family history Social History Preferred Language: Setswana Communication Ability: Effective Visual Impairment: No Limitations Hearing Ability: Normal Hand Lacer Required: No Beliefs That Will Affect Care: None marital status: Current Living Situation: Spouse Other Information That Helps Us Care for You: No Feels Safe at Home: Yes Safety Concerns: Feels Safe At This Time Smoking Status: Former smoker Second Hand Exposure: No ; Hx Alcohol Use: No Hx Substance Use: No Review of Systems See HPI for pertinent positives & negatives. and A total of 10 systems reviewed and were otherwise negative Physical Exam Vital Signs Vital Signs - 24 hr 11/12/19 09:25 11/12/19 09:32 11/12/19 09:57 Temperature 37.0 C Temperature Source Oral Pulse Rate 106 H Pulse Rate [Left Finger] Respiratory Rate 25 H Respiratory Effort / Characteristics Spontaneous Respiratory Depth Normal Respiratory Pattern Regular Blood Pressure 167/93 H Blood Pressure [Right Arm] Blood Pressure Mean 117 Blood Pressure Mean [Right Arm] Blood Pressure Position Lying Blood Pressure Position [Right Arm] Pulse Oximetry 88 L 88 L 93 Oxygen Delivery Method Room Air Room Air Oxymask Oxygen Flow Rate 4 Sepsis Recent Fever Within 48 Hours No Sepsis New/Unexplained Change in Mental Status No Sepsis Action Taken by Nursing No Action Required 11/12/19 09:59 11/12/19 10:22 11/12/19 11:04 Temperature Temperature Source Pulse Rate Pulse Rate [Left Finger] 88 91 H Respiratory Rate 16 22 Respiratory Effort / Characteristics Non-Labored Spontaneous Non-Labored Spontaneous Respiratory Depth Normal Respiratory Pattern Regular Blood Pressure Blood Pressure [Right Arm] 132/86 Blood Pressure Mean Blood Pressure Mean [Right Arm] 101 Blood Pressure Position Blood Pressure Position [Right Arm] Lying Pulse Oximetry 95 91 93 Oxygen Delivery Method Oxymask Oxymask Oxymask Oxygen Flow Rate 4 5 6 Sepsis Recent Fever Within 48 Hours Sepsis New/Unexplained Change in Mental Status Sepsis Action Taken by Nursing GENERAL: Awake, alert, well-appearing, in no acute distress. Castellanos catheter in place. HENT: Normocephalic, atraumatic. Oropharynx unremarkable. EYES: Normal conjunctiva. Sclera non-icteric. NECK: Supple. No nuchal rigidity. FROM. No JVD. RESPIRATORY:Bilateral wheezing present. CARDIAC: Regular rate, normal rhythm. Extremities warm and well perfused. Pulses equal. ABDOMEN: Soft, non-distended. No tenderness to palpation. No rebound or guarding. No masses. RECTAL: Deferred. MUSCULOSKELETAL: Chest examination reveals no tenderness. The back is symmetrical on inspection without obvious abnormality. There is no CVA tenderness to palpation. No joint edema. LOWER EXTREMITIES: Calves are equal size bilaterally and non-tender. No edema. No discoloration. NEURO: Normal sensorium. No sensory or motor deficits noted. SKIN: No rash or jaundice noted. Course Course 0942: The patient was evaluated in room C10, and a complete history and physical examination were performed. 1126: I discussed the patient's case with Marco Parra PA-C. Dr. Patricio Lizarraga will evaluate the patient for further management. Consultations Consultation #1: I discussed the patient's case with Marco Parra PA-C. Dr. Patricio Lizarraga will evaluate the patient for further management. Time: 11:26 Administered Medications Amlodipine Besylate (Norvasc) 2.5 mg PO DAILY [facility] Stop: 12/13/19 08:59 Last Admin: 11/13/19 08:25 Dose: 2.5 mg Documented by: [id number] Aspirin (Ecotrin Ectab) [facility] [place] Stop: 12/13/19 08:59 Last Admin: 11/13/19 08:26 Dose: 81 mg Documented by: [id number] Atorvastatin Calcium (Lipitor) 40 mg PO DAILY [facility] Stop: 12/13/19 08:59 Last Admin: 11/13/19 08:26 Dose: 40 mg Documented by: [id number] Calcitriol (Rocaltrol) 0.25 mcg PO MoWeFr@0900 [facility] Stop: 12/12/19 15:29 Last Admin: 11/12/19 16:05 Dose: 0.25 mcg Documented by: [id number] Ferrous Sulfate (Feosol) 325 mg PO QAM [facility] Stop: 12/13/19 08:59 Last Admin: 11/13/19 08:26 Dose: 325 mg Documented by: [id number] Finasteride (Proscar) 5 mg PO QAM [facility] Stop: 12/13/19 08:59 Last Admin: 11/13/19 08:24 Dose: 5 mg Documented by: [id number] Guaifenesin/Dextromethorphan (Robitussin Cough-Chest Dm) 10 ml PO Q6H PRN PRN Reason: Cough Stop: 12/12/19 19:55 Last Admin: 11/12/19 20:39 Dose: 10 ml Documented by: [id number] Methylprednisolone 40 mg/ (Syringe) 0.64 mls @ 1.5 mls/min IV Q12H [facility] Stop: 12/12/19 15:59 Last Admin: 11/13/19 03:32 Dose: 1.5 mls/min Documented by: [id number] Admin: 11/12/19 16:06 Dose: 1.5 mls/min Documented by: [id number] Piperacillin Sod/Tazobactam (Sod 3.375 gm/ Dextrose) 115 mls @ 28.75 mls/hr IV Q8H [facility]; Protocol Stop: 11/19/19 15:59 Last Infusion: 11/13/19 12:30 Dose: 0 mls/hr Documented by: [id number] Admin: 11/13/19 08:23 Dose: 28.8 mls/hr Documented by: [id number] Infusion: 11/13/19 04:52 Dose: 0 mls/hr Documented by: [id number] Admin: 11/13/19 00:17 Dose: 28.8 mls/hr Documented by: [id number] Infusion: 11/12/19 20:06 Dose: 0 mls/hr Documented by: [id number] Admin: 11/12/19 16:06 Dose: 28.8 mls/hr Documented by: [id number] Ipratropium [place] (Atrovent 0.02% 0.5mg/2.5ml) 0.5 mg INH Q6R [facility] Stop: 12/12/19 18:59 Last Admin: 11/13/19 13:10 Dose: 0.5 mg Documented by: [id number] Admin: 11/13/19 07:34 Dose: 0.5 mg Documented by: [id number] Admin: 11/13/19 00:56 Dose: 0.5 mg Documented by: [id number] Admin: 11/12/19 19:47 Dose: 0.5 mg Documented by: [id number] Levalbuterol HCl (Xopenex 0.63 Mg/3 Ml Neb) 0.63 mg NEB Q6R [facility] Stop: 12/12/19 18:59 Last Admin: 11/13/19 13:10 Dose: 0.63 mg Documented by: [id number] Admin: 11/13/19 07:34 Dose: 0.63 mg Documented by: [id number] Admin: 11/13/19 00:55 Dose: 0.63 mg Documented by: [id number] Admin: 11/12/19 19:47 Dose: 0.63 mg Documented by: [id number] Levothyroxine Sodium (Synthroid) 88 mcg PO DAILYBB [facility] Stop: 12/13/19 06:29 Last Admin: 11/13/19 06:01 Dose: 88 mcg Documented by: [id number] Metoprolol Succinate (Toprol Xl) 50 mg PO DAILY [facility] Stop: 12/13/19 08:59 Last Admin: 11/13/19 08:25 Dose: 50 mg Documented by: [id number] Pantoprazole Sodium (Protonix) 40 mg PO DAILY [facility] Stop: 12/13/19 08:59 Last Admin: 11/13/19 08:24 Dose: 40 mg Documented by: [id number] Potassium Chloride (Klor-Con M10) 10 meq PO QAM [facility] Stop: 12/13/19 08:59 Last Admin: 11/13/19 08:25 Dose: 10 meq Documented by: [id number] Vitamin D (Vitamin D3) 1,000 units PO DAILY [facility] Stop: 12/13/19 08:59 Last Admin: 11/13/19 08:24 Dose: 1,000 units Documented by: [id number] Discontinued Medications Albuterol (Duoneb) 3 ml NEB QIDR [facility] Stop: 12/12/19 14:59 Last Admin: 11/12/19 15:13 Dose: Not Given Documented by: [id number] Furosemide (Lasix) 40 mg IV NOW STA Stop: 11/12/19 09:34 Last Admin: 11/12/19 10:31 Dose: Not Given Documented by: [id number] Furosemide (Lasix) 40 mg IV NOW STA Stop: 11/12/19 09:57 Last Admin: 11/12/19 10:09 Dose: 40 mg Documented by: [id number] Piperacillin Sod/Tazobactam Sod (Zosyn) 4.5 gm in 120 mls @ 240 mls/hr IV NOW ONE Stop: 11/12/19 11:13 Last Infusion: 11/12/19 12:32 Dose: 0 mls/hr Documented by: [id number] Admin: 11/12/19 11:57 Dose: 240 mls/hr Documented by: [id number] Levofloxacin/Dextrose (Levaquin/D5w) 750 mg in 150 mls @ 100 mls/hr IV NOW STA Stop: 11/12/19 12:13 Last Infusion: 11/12/19 14:50 Dose: 0 mls/hr Documented by: [id number] Admin: 11/12/19 12:39 Dose: 100 mls/hr Documented by: [id number] Lactated Ringer's (Lr) 1,000 mls @ 150 mls/hr IV .Q6H40M [facility] Stop: 12/12/19 15:44 Last Infusion: 11/12/19 18:38 Dose: 0 mls/hr Documented by: [id number] Admin: 11/12/19 16:05 Dose: 150 mls/hr Documented by: [id number] Levalbuterol HCl (Xopenex 1.25mg/3ml Neb) 1.25 mg NEB NOW STA Stop: 11/12/19 09:57 Last Admin: 11/12/19 10:21 Dose: 1.25 mg Documented by: [id number] Medical Decision Making Differential Diagnosis Differential diagnosis: Etiologies such as metabolic, infection, hypo/hyperglycemia, electrolyte a bnormalities, cardiac sources, intracerebral event, toxicologic, neurologic, as well as others were entertained. Medical Records Attestation: I reviewed the patient's medical records. Home Medications Current Medication List: was personally reviewed by me Laboratory Data Attestation: I reviewed the patient's lab results. Result diagrams: 11/13/19 08:17 11/13/19 08:17 Lab Results 11/12/19 11/12/19 11/12/19 Range/Units 10:02 10:02 10:02 WBC 16.51 H (4.8-10.8) K/uL RBC 3.93 L (4.7-6.1) M/uL Hgb 12.7 L (14.0-18.0) g/dL Hct 37.8 L (42-52) % MCV 96.2 (80-100) fL MCH 32.3 (25-34) pg MCHC 33.6 (32-36) g/dL RDW Std Deviation 50.3 H (36.4-46.3) fL RDW Coeff of Tyrel 14.4 (11.5-14.5) % Plt Count 139 (130-400) K/uL MPV 10.0 (7.4-10.4) fL Immature Gran % (Auto) 0.2 % Neut % (Auto) 86.8 % Lymph % (Auto) 3.9 % [place] % (Auto) 9.0 % Eos % (Auto) 0.0 % Baso % (Auto) 0.1 % Immature Gran # (Auto) 0.04 H (0.00-0.02) K/uL Neut # (Auto) 14.33 H (1.4-6.5) K/uL Lymph # (Auto) 0.65 L (1.2-3.4) K/uL [place] # (Auto) 1.48 H (0.11-0.59) K/uL Eos # (Auto) 0.00 (0-0.5) K/uL Baso # (Auto) 0.01 (0-0.2) K/uL PT 50.5 H (9.0-12.0) Seconds INR 5.6 H* (0.9-1.1) APTT 41.6 H (21.0-31.0) Seconds PTT Ratio 1.5 Sodium 139 (136-145) mmol/L Potassium 4.4 (3.5-5.1) mmol/L Chloride 108 H (98-107) mmol/L Carbon Dioxide 24 (21-32) mmol/L Anion Gap 7.0 (3-11) BUN 41 H (7-18) mg/dl Creatinine 1.69 H (0.6-1.4) mg/dl Est Cr Clr Drug Dosing 28.5 ml/min Est GFR ( Amer) 41.4 Est GFR (Non-Af Amer) 35.7 BUN/Creatinine Ratio 24.2 H (10-20) Glucose 136 H (70-99) mg/dl Calcium 8.7 (8.5-10.1) mg/dl Total Bilirubin 0.6 (0.2-1) mg/dl AST 17 (15-37) U/L ALT 16 (12-78) U/L Alkaline Phosphatase 95 (45-117) U/L Total Creatine Kinase 52 (39-308) U/L CK-MB (CK-2) < 1.0 (0.5-3.6) ng/ml CK/CKMB % Calc TNP Troponin I 0.043 (0-0.045) ng/ml NT-Pro-B Natriuret Pep 99742 H (0-1800) pg/ml Total Protein 7.3 (6.4-8.2) gm/dl Albumin 2.7 L (3.4-5.0) gm/dl Globulin 4.6 H (2.5-4.0) gm/dl Albumin/Globulin Ratio 0.6 L (0.9-2) Lipase 44 L (73-393) U/L Procalcitonin (0-0.5) ng/ml Stl C. diff Tox B Gene (Neg) 11/12/19 11/12/19 Range/Units 11:06 11:41 WBC (4.8-10.8) K/uL RBC (4.7-6.1) M/uL Hgb (14.0-18.0) g/dL Hct (42-52) % MCV (80-100) fL MCH (25-34) pg MCHC (32-36) g/dL RDW Std Deviation (36.4-46.3) fL RDW Coeff of Tyrel (11.5-14.5) % Plt Count (130-400) K/uL MPV (7.4-10.4) fL Immature Gran % (Auto) % Neut % (Auto) % Lymph % (Auto) % [place] % (Auto) % Eos % (Auto) % Baso % (Auto) % Immature Gran # (Auto) (0.00-0.02) K/uL Neut # (Auto) (1.4-6.5) K/uL Lymph # (Auto) (1.2-3.4) K/uL [place] # (Auto) (0.11-0.59) K/uL Eos # (Auto) (0-0.5) K/uL Baso # (Auto) (0-0.2) K/uL PT (9.0-12.0) Seconds INR (0.9-1.1) APTT (21.0-31.0) Seconds PTT Ratio Sodium (136-145) mmol/L Potassium (3.5-5.1) mmol/L Chloride (98-107) mmol/L Carbon Dioxide (21-32) mmol/L Anion Gap (3-11) BUN (7-18) mg/dl Creatinine (0.6-1.4) mg/dl Est Cr Clr Drug Dosing ml/min Est GFR ( Amer) Est GFR (Non-Af Amer) BUN/Creatinine Ratio (10-20) Glucose (70-99) mg/dl Calcium (8.5-10.1) mg/dl Total Bilirubin (0.2-1) mg/dl AST (15-37) U/L ALT (12-78) U/L Alkaline Phosphatase (45-117) U/L Total Creatine Kinase (39-308) U/L CK-MB (CK-2) (0.5-3.6) ng/ml CK/CKMB % Calc Troponin I (0-0.045) ng/ml NT-Pro-B Natriuret Pep (0-1800) pg/ml Total Protein (6.4-8.2) gm/dl Albumin (3.4-5.0) gm/dl Globulin (2.5-4.0) gm/dl Albumin/Globulin Ratio (0.9-2) Lipase (73-393) U/L Procalcitonin 0.89 H (0-0.5) ng/ml Stl C. diff Tox B Gene Negative Cdiff Gene (Neg) Imaging Data Radiologist's Impression: Radiology results as stated below per my review and the radiologist's interpretation: XR chest 1V portable CLINICAL HISTORY: 89 years-old Male presenting with Chest Pain. TECHNIQUE: Portable upright AP view of the chest was obtained. COMPARISON: 07/15/2019. FINDINGS: Atherosclerosis of the aortic arch. Cardiac silhouette enlarged. Extensive mid to basilar predominant opacities. Underlying right pleural effusion not excluded. No pneumothorax. Osseous structures normal. Upper abdomen normal. IMPRESSION: 1. Extensive mid to basilar predominant bilateral pulmonary infiltrates. This could represent moderate pulmonary edema or aspiration/aspiration pneumonitis. Underlying infection not excluded though less likely. It would be unlikely for this appearance to be explained by atelectasis. 2. Possible right pleural effusion. 3. Cardiomegaly. ACT 112: Negative or not required by law. Electronically signed by: Michael Parikh M.D. 11/12/2019 10:28 AM ECG Data Attestation: I personally reviewed and interpreted this ECG as follows: Indication: + SOB/dyspnea Rate (beats per minute): 107 Rhythm: + sinus tachycardia ECG Intervals/blocks: + Left bundle branch block ECG ST segments: no ST depression and no ST elevation ECG Findings: + Other (premature supraventricular beats, QT-c is 485) Comparison ECG Date: from (07/15/19) Change: no significant change Blood Pressure Blood Pressure Findings: Elevated blood pressure Blood Pressure Disposition: further management by hospitalist MDM Narrative This is an 89-year-old male who presents emergency department for being started on prednisone as well as doxycycline. The patient was pancultured and started on broad-spectrum antibiotics including Zosyn and Levaquin. He does have an elevation his white blood cell count. His chest x-ray is concerning for what appears to be a pneumonitis. Because of this I did discuss case the hospitalist service who did agree to meet the patient. Patient and are in agreement with treatment plan. Impression & Plan Hypoxia, Pneumonitis Discharge Plan Visit Data *Final* Discharge Date/Time: 11/12/19 12:48 Chief Complaint: Weakness ED Provider: Atif Pantoja Discharge Problem: Hypoxia, Pneumonitis Patient Disposition: Admitted As Inpatient Discharge Instructions Interventions: ED Discharge Assessment Last Done: 11/12/19 12:48 The scribe's documentation has been prepared under my direction and personally reviewed by me in its entirety. I confirm that the note above accurately reflects all work, treatment, procedures, and medical decision making performed by me.
[2019-11-13] MEDS: CHOLECALCIFEROL 1,000 UNITS 25 MCG TAB PO SCH (08:24)
[2019-11-13] MEDS: PANTOprazole 40 MG TAB PO SCH (08:24)
[2019-11-13] MEDS: FINASTERIDE 5 MG TAB PO SCH (08:24)
[2019-11-13] MEDS: AMLODIPINE BESYLATE 5 MG TAB PO SCH (08:25)
[2019-11-13] MEDS: POTASSIUM CHLORIDE 10 MEQ TABCR PO SCH (08:25)
[2019-11-13] MEDS: METOPROLOL SUCC 50MG EXT REL TAB PO SCH (08:25)
[2019-11-13] MEDS: FERROUS SULFATE 325 MG TAB PO SCH (08:26)
[2019-11-13] MEDS: ATORVASTATIN 40 MG TAB PO SCH (08:26)
[2019-11-13] MEDS: ASPIRIN 81 MG ECTAB PO SCH (08:26)
[2019-11-13 08:29] LABS: Hematocrit (blood only) 38.6 % (42-52); Hemoglobin 12.9 g/dL (14.0-18.0); Mean Corpuscular Hemoglobin 32.3 pg (25-34); Mean Corpuscular Hgb Conc 33.4 g/dL (32-36); Mean Corpuscular Volume 96.7 fL (80-100); Mean Platelet Volume 10.3 fL (7.4-10.4); Platelet Count 146 K/uL (130-400); RDW Coefficient of Variation 14.3 % (11.5-14.5); RDW Standard Deviation 50.6 fL (36.4-46.3); Red Blood Count 3.99 M/uL (4.7-6.1); White Blood Count 13.24 K/uL (4.8-10.8)
[2019-11-13 08:48] LABS: Prothrombin Time 40.3 Seconds (9.0-12.0)
[2019-11-13 08:57] LABS: BUN Creatinine Ratio 21.8 (10-20); Calcium 9.7 mg/dl (8.5-10.1); Creatinine Clr Calc Pharmacy 21.2 ml/min; Est GFR (African American) 28.8; Est GFR (Non-African American) 24.9; Potassium 3.8 mmol/L (3.5-5.1)
[2019-11-13 09:13] LABS: INR 4.4 (0.9-1.1)
--- NOTE | 2019-11-13 12:58 | Cardiology Consultation ---
Date of Consultation November 13, 2019 Assessment & Plan (1) Acute respiratory failure with hypoxia: Patient is extremely complex 89-year-old male presents after failed treatment of outpatient respiratory infectious process complicated by acute on chronic congestive heart failure. Patient responded to treatment with antibiotics IV as well as single dose of IV furosemide. Currently examines as euvolemic though was still rhonchorous sounds in the left lung base. During acute illness evaluation patient had transient atrial fibrillation/flutter with rapid response with spontaneous conversion to sinus rhythm this morning. Recommendations. No further IV diuretics. With likely resumption of usual oral diuretic in a.m. treat underlying pulmonary issues as already begun. Continue outpatient medications including anticoagulation with warfarin (2) PAF (paroxysmal atrial fibrillation): Patient had transient atrial fib flutter last evening with conversion to sinus rhythm this morning underlying conduction pathology present. Would maintain telemetry (3) Ischemic cardiomyopathy: History of Present Illness Requesting Physician: Dr. Guallpa Attending Physician: Tasha Guallpa MD History of Present Illness Patient is a complex 89-year-old male with underlying medical issues as outlined in outpatient notes 1. 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 Multiple prior myocardial infarction 1994, 1995, 1996, 1998, 2002, December 2011, May 2013, September 2015 2. Patient is status post angioplasty without stenting to the left anterior descending coronary artery in 1994. 3. Status post PTCA and stenting to the left anterior descending coronary artery and left circumflex coronary artery followed by PTCA and stenting of the right coronary artery. 4. Status post PTCA and stenting of the distal RCA stenosis. 5. Status post PCI of the LAD just distal to the prior stenting and PCI fo the LCX with mild in-stent stenosis of the RCA observed at that time, December 2011. 6. December 2011 course complicated by GI bleeding and subsequent hypercoagulable event with DVT and PE. 7. Status post PCI of the RCA with two bare metal stents in September 2015. 2. Paroxysmal atrial fibrillation 3. Chronic Coumadin anticoagulation secondary to history of CVA, PAF, and DVT 4. Asymptomatic PVC's. 5. Nonspecific interventricular conduction block 6. Three prior CVAs per documentation 7. Carotid artery stenosis status post right carotid endarterectomy in 2006 than left carotid endarterectomy in 2012 complicated by CVA, residual right- sided weakness. 8. Chronic kidney disease, stable IV. 9. JEFFREY-inhibitor intolerance. Per documentation, patient is not a candidate for Jeffrey inhibitor, Arb, Entresto, or Aldactone due to significant renal dysfunction. 10. Labile hypertension 11. Hyperlipidemia. 12. Hypothyroidism. 13. Ischemic cardiomyopathy EF 20-25% with chronic systolic heart failure Patient presents this admission noting having failed outpatient therapy for worsening cough and bronchitic complaints with wheeze. Notes some slight increase in lower extremity remedy edema but no acute worsening orthopnea. No chest pains no tachypalpitations no syncope. He presented having observed by to have declining mentation and evidence of acute hypoxic respiratory failure at home on ER presentation. Initial chest x-ray revealed combination of mixed pulmonary edema and infiltrate. Patient was treated with IV diuretics and antibiotic therapies. With improvement during acute episode patient's rhythm demonstrated paroxysmal atrial fibrillation flutter with elevated ventricular response rate now return to sinus rhythm. Patient notes no bleeding difficulties. No melena hematochezia dysuria hematuria. This morning still has significant cough and moderate wheeze. No worsening lower extremity edema. No nausea Allergies Allergy/AdvReac Type Severity Reaction Status Date / Time clopidogrel Allergy Intermediate RASH Verified 11/12/19 11:26 Sulfa (Sulfonamide Allergy Intermediate RASH Verified 11/12/19 11:26 Antibiotics) sulfamethoxazole Allergy Intermediate RASH Verified 11/12/19 11:26 trimethoprim Allergy Mild RASH Verified 11/12/19 11:26 niacin Allergy Unknown UNKNOWN Verified 11/12/19 11:26 Home Medications Home Medications Medication Instructions Recorded Confirmed Type amlodipine 2.5 mg PO DAILY 02/15/19 11/12/19 History aspirin [Aspirin Low Dose] 81 mg PO QAM 02/15/19 11/12/19 History atorvastatin 40 mg PO DAILY 02/15/19 11/12/19 History calcitriol 0.25 mcg PO 3XWK 02/15/19 11/12/19 History ferrous sulfate 325 mg PO QAM 02/15/19 11/12/19 History finasteride 5 mg PO QAM 02/15/19 11/12/19 History levothyroxine 88 mcg PO DAILYBB 02/15/19 11/12/19 History metoprolol succinate 50 mg PO DAILY 02/15/19 11/12/19 History nitroglycerin 0.4 mg SUBLINGUAL DIRECTED PRN 02/15/19 11/12/19 History omeprazole 20 mg PO DAILY 02/15/19 11/12/19 History tramadol 50 mg PO BID PRN 02/15/19 11/12/19 History warfarin 5 mg PO PM 02/15/19 11/12/19 History cholecalciferol (vitamin D3) 1,000 unit PO DAILY 11/12/19 11/12/19 History [Vitamin D3] docusate sodium [Colace] 100 mg PO BID 11/12/19 11/12/19 History doxycycline hyclate 100 mg PO BID 11/12/19 11/12/19 History furosemide 20 mg PO DAILY 11/12/19 11/12/19 History ipratropium-albuterol 3 ml INHALATION QID PRN 11/12/19 11/12/19 History potassium chloride 10 meq PO QAM 11/12/19 11/12/19 History prednisone 40 mg PO DAILY 11/12/19 11/12/19 History senna 8.6 mg PO DAILY PRN 11/12/19 11/12/19 History Patient History Medical History Chronic anticoagulation CKD (chronic kidney disease), stage III Coronary artery disease (Chronic) per outpt cardio note: Long standing coronary artery disease with myocardial infarction times six, 1994, 1995, 1996, 2002, 2011, May 2013, and 09/2015 (BMS x2 to RCA). He is status post stenting to the LAD in 1994. Status post PTCA and stenting of the left anterior descending artery and circumflex followed by PTCA of the right coronary artery in 1998. June of 2003, [employer] and stenting of the distal RCA. December 2011, stenting of the LAD. May of 2013, RCA stenting. A left carotid endarterectomy was performed August of 2013. Postop CVA reported. Hospitalization 09/[address]-elevation HI. S/p BMS to right coronary artery x2. 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 castellanos Surgical History H/O inguinal hernia repair History of cataract surgery History of total left hip replacement S/P carotid endarterectomy (Resolved 08/25/13) BL Family History Other No pertinent family history Social History Preferred Language: Sami Communication Ability: Effective Visual Impairment: No Limitations Hearing Ability: Normal Robotic Technician Required: No Beliefs That Will Affect Care: None marital status: Current Living Situation: Spouse Other Information That Helps Us Care for You: No Feels Safe at Home: Yes Safety Concerns: Feels Safe At This Time Smoking Status: Former smoker Second Hand Exposure: No ; Hx Alcohol Use: No Hx Substance Use: No Results & Data ([facility]) Vital Signs (Past 12 Hours) Vital Signs Temp Pulse Pulse Resp BP Pulse Ox 11/13/19 11:55 36.3 C L 73 16 132/69 90 11/13/19 07:42 36.3 C L 71 16 119/72 93 11/13/19 07:34 66 18 92 11/13/19 07:24 70 11/13/19 04:22 36.6 C 16 136/53 L 93 11/13/19 00:57 77 11/13/19 00:56 72 18 92 Laboratory Results Laboratory Results - last 24 hr 11/12/19 11/12/19 11/13/19 15:58 17:58 00:25 WBC RBC Hgb Hct MCV MCH MCHC RDW Std Deviation RDW Coeff of Tyrel Plt Count MPV PT INR Sodium Potassium Chloride Carbon Dioxide Anion Gap BUN Creatinine Est Cr Clr Drug Dosing Est GFR ( Amer) Est GFR (Non-Af Amer) BUN/Creatinine Ratio Glucose Lactate 2.3 H* 2.3 H* Calcium NT-Pro-B Natriuret Pep Procalcitonin Urine Color Yellow Urine Appearance Clear Urine pH 5.0 Ur Specific [place] 1.016 Urine Protein Negative Urine Glucose (UA) Negative Urine Ketones Negative Urine Blood 1+ H Urine Nitrite Positive A Urine Bilirubin Negative Urine Urobilinogen Negative Ur Leukocyte Esterase 1+ H Urine WBC (Auto) 10-30 H Urine RBC (Auto) 0-4 U Hyaline Cast (Auto) 1-5 U Epithel Cells (Auto) 0-5 Urine Bacteria (Auto) 1+ H Urine Yeast Not Reportable 11/13/19 11/13/19 11/13/19 08:17 08:17 08:17 WBC 13.24 H RBC 3.99 L Hgb 12.9 L Hct 38.6 L MCV 96.7 MCH 32.3 MCHC 33.4 RDW Std Deviation 50.6 H RDW Coeff of Tyrel 14.3 Plt Count 146 MPV 10.3 PT 40.3 H INR 4.4 H Sodium 136 Potassium 3.8 Chloride 102 Carbon Dioxide 27 Anion Gap 8.0 BUN 50 H Creatinine 2.28 H D Est Cr Clr Drug Dosing 21.2 Est GFR ( Amer) 28.8 Est GFR (Non-Af Amer) 24.9 BUN/Creatinine Ratio 21.8 H Glucose 150 H Lactate Calcium 9.7 NT-Pro-B Natriuret Pep 73923 H Procalcitonin Urine Color Urine Appearance Urine pH Ur Specific [place] Urine Protein Urine Glucose (UA) Urine Ketones Urine Blood Urine Nitrite Urine Bilirubin Urine Urobilinogen Ur Leukocyte Esterase Urine WBC (Auto) Urine RBC (Auto) U Hyaline Cast (Auto) U Epithel Cells (Auto) Urine Bacteria (Auto) Urine Yeast 11/13/19 08:17 WBC RBC Hgb Hct MCV MCH MCHC RDW Std Deviation RDW Coeff of Tyrel Plt Count MPV PT INR Sodium Potassium Chloride Carbon Dioxide Anion Gap BUN Creatinine Est Cr Clr Drug Dosing Est GFR ( Amer) Est GFR (Non-Af Amer) BUN/Creatinine Ratio Glucose Lactate Calcium NT-Pro-B Natriuret Pep Procalcitonin 4.18 H Urine Color Urine Appearance Urine pH Ur Specific [place] Urine Protein Urine Glucose (UA) Urine Ketones Urine Blood Urine Nitrite Urine Bilirubin Urine Urobilinogen Ur Leukocyte Esterase Urine WBC (Auto) Urine RBC (Auto) U Hyaline Cast (Auto) U Epithel Cells (Auto) Urine Bacteria (Auto) Urine Yeast
--- NOTE | 2019-11-13 13:33 | Hospitalist Progress Note ---
Date of Service November 13, 2019 Assessment & Plan (1) Acute respiratory failure with hypoxia: -Patient presenting from home with reports of increasing cough, shortness of breath, generalized weakness. -Failed outpatient treatment of acute bronchitis with prednisone and doxycycline -Noted to be very hypoxic in the emergency room at presentation -CXR suggestive of bibasilar infiltrate complicated by CHF -Received 1 dose of Lasix in the emergency room -Has been on IV Levaquin and Zosyn in the ED and intravenous Zosyn has been continued -Has been on nebulized bronchodilator and intravenous Solu-Medrol -Pulmonary toilet with nebs, incentive spirometer, flutter valve -Speech consult for concerns of aspiration -Clinically better as of this morning (2) Supratherapeutic INR: INR elevated at 5.6 on admission On 11/13/2019 rest come down to 4.4 Will monitor (3) PAF (paroxysmal atrial fibrillation): -Rate controlled on metoprolol, will continue -Went into RVR this morning with rate of 127 -We will continue current medications (4) Ischemic cardiomyopathy: -Possible acute on chronic systolic CHF as above -Echo 03/2019: EF 20-24% -Patient has declined AICD placement -Cardiology consult, input appreciated -Received 1 dose of intravenous Lasix on admission -Seems to be in euvolemic state now -We will hold off any IV diuretics -Will start his usual oral diuretics from tomorrow (5) Coronary artery disease: -No reports of chest pain -Continue aspirin, statin, beta-preeti (6) Urinary retention: -With chronic Sales (7) History of stroke: -Continue aspirin and statin (8) CKD (chronic kidney disease), stage III: - baseline creat runs in the high ones - creat noted to be 1.6 today -Creatinine went up to 2.28 as of 11/13/2019 -We will monitor in the hospital and will hold diuretics for now (9) DVT prophylaxis: -Anticoagulated on Coumadin Admission and Anticipated Discharge Date Admission Date: November 12, 2019 Subjective 11/13/2019 The patient was seen and examined in medical telemetry unit He was admitted with acute respiratory failure with hypoxemia secondary to cough, increasing shortness of breath and generalized weakness Has been feeling a little bit better this morning Denies any chest pain and/or palpitation Denies any other significant symptoms Review of Systems Review of Systems: All systems reviewed and are unremarkable except as noted below Respiratory: + cough, + chest congestion, + dyspnea, + dyspnea on exertion and + wheezing Cardiovascular: + dyspnea; no chest pain and no palpitations Physical Exam Physical Exam: Sitting on a chair with moderate shortness of breath at rest Constitutional: + acute distress (Shortness of breath), + ill appearing and + thin Eyes: PERRL, conjunctivae normal, anicteric sclerae ENMT: external ear and nose normal, oropharynx normal Neck: trachea midline, no thyromegaly Respiratory: + respiratory distress, + labored breathing and + uses accessory muscles Auscultation: + diminished lung sounds, + crackles and + wheezes Cardiovascular: Rate/Rhythm: regular rate and regular rhythm Extremities: no edema Gastrointestinal (Abdomen): Inspection/Auscultation: abdomen normal to inspection and normal bowel sounds Percussion/Palpation: abdomen soft; abdomen nontender Musculoskeletal: No acute arthritis in any joints Neurologic: Alert, awake and oriented x3 Lymphatic: no cervical or axillary lymphadenopathy Results & Data ([facility]) Vital Signs (Past 12 Hours) Vital Signs Temp Pulse Pulse Resp BP Pulse Ox 11/13/19 13:16 65 18 92 11/13/19 11:55 36.3 C L 73 16 132/69 90 11/13/19 07:42 36.3 C L 71 16 119/72 93 11/13/19 07:34 66 18 92 11/13/19 07:24 70 11/13/19 04:22 36.6 C 16 136/53 L 93 Laboratory Results Short CBC 11/13/19 Range/Units 08:17 WBC 13.24 H (4.8-10.8) K/uL Hgb 12.9 L (14.0-18.0) g/dL Hct 38.6 L (42-52) % Plt Count 146 (130-400) K/uL BMP 11/13/19 08:17 Sodium 136 Potassium 3.8 Chloride 102 Carbon Dioxide 27 BUN 50 H Creatinine 2.28 H D Glucose 150 H Calcium 9.7 Urine 11/13/19 Range/Units 00:25 Urine Color Yellow Urine Appearance Clear (Clear) Urine pH 5.0 (4.5-7.5) Ur Specific [place] 1.016 (1.000-1.030) Urine Protein Negative (Negative) Urine Glucose (UA) Negative (Negative) Medications Administered Current Inpatient Medications Acetaminophen (Tylenol) 650 mg PO Q4H PRN PRN Reason: Pain or Fever Stop: 12/12/19 14:47 Amlodipine Besylate (Norvasc) 2.5 mg PO DAILY [facility] Stop: 12/13/19 08:59 Last Admin: 11/13/19 08:25 Dose: 2.5 mg Documented by: Aspirin (Ecotrin Ectab) 81 mg PO QAM [facility] Stop: 12/13/19 08:59 Last Admin: 11/13/19 08:26 Dose: 81 mg Documented by: Atorvastatin Calcium (Lipitor) 40 mg PO DAILY [facility] Stop: 12/13/19 08:59 Last Admin: 11/13/19 08:26 Dose: 40 mg Documented by: Calcitriol (Rocaltrol) 0.25 mcg PO MoWeFr@0900 [facility] Stop: 12/12/19 15:29 Last Admin: 11/12/19 16:05 Dose: 0.25 mcg Documented by: Ferrous Sulfate (Feosol) [facility] [place] Stop: 12/13/19 08:59 Last Admin: 11/13/19 08:26 Dose: 325 mg Documented by: Finasteride (Proscar) 5 [facility] [place] Stop: 12/13/19 08:59 Last Admin: 11/13/19 08:24 Dose: 5 mg Documented by: Guaifenesin/Dextromethorphan (Robitussin Cough-Chest Dm) 10 ml PO Q6H PRN PRN Reason: Cough Stop: 12/12/19 19:55 Last Admin: 11/12/19 20:39 Dose: 10 ml Documented by: Methylprednisolone 40 mg/ (Syringe) 0.64 mls @ 1.5 mls/min IV Q12H [facility] Stop: 12/12/19 15:59 Last Admin: 11/13/19 03:32 Dose: 1.5 mls/min Documented by: Piperacillin Sod/Tazobactam (Sod 3.375 gm/ Dextrose) 115 mls @ 28.75 mls/hr IV Q8H [facility]; Protocol Stop: 11/19/19 15:59 Last Infusion: 11/13/19 12:30 Dose: Infused Documented by: Ipratropium Daniels (Atrovent 0.02% 0.5mg/2.5ml) 0.5 mg INH Q6R [facility] Stop: 12/12/19 18:59 Last Admin: 11/13/19 13:10 Dose: 0.5 mg Documented by: Levalbuterol HCl (Xopenex 0.63 Mg/3 Ml Neb) 0.63 mg NEB Q6R [facility] Stop: 12/12/19 18:59 Last Admin: 11/13/19 13:10 Dose: 0.63 mg Documented by: Levothyroxine Sodium (Synthroid) 88 mcg PO DAILYBB [facility] Stop: 12/13/19 06:29 Last Admin: 11/13/19 06:01 Dose: 88 mcg Documented by: Metoprolol Succinate (Toprol Xl) 50 mg PO DAILY [facility] Stop: 12/13/19 08:59 Last Admin: 11/13/19 08:25 Dose: 50 mg Documented by: Miscellaneous Information (Consult) 1 ea N/A UD PRN PRN Reason: Consult Stop: 12/12/19 10:43 Nitroglycerin (Nitrostat) 0.4 mg UD PRN PRN Reason: Chest Pain Stop: 12/12/19 14:47 Pantoprazole Sodium (Protonix) 40 mg PO DAILY [facility] Stop: 12/13/19 08:59 Last Admin: 11/13/19 08:24 Dose: 40 mg Documented by: Potassium Chloride (Klor-Con M10) 10 meq PO QAM [facility] Stop: 12/13/19 08:59 Last Admin: 11/13/19 08:25 Dose: 10 meq Documented by: Tramadol HCl (Ultram) 50 mg PO BID PRN PRN Reason: Pain Stop: 12/12/19 14:47 Vitamin D (Vitamin D3) 1,000 units PO DAILY [facility] Stop: 12/13/19 08:59 Last Admin: 11/13/19 08:24 Dose: 1,000 units Documented by:
--- NOTE | 2019-11-13 18:14 | Electrocardiogram Report ---
Test Reason : Blood Pressure : / mmHG Vent. Rate : 075 BPM Atrial Rate : 075 BPM P-R Int : 190 ms QRS Dur : 134 ms QT Int : 418 ms P-R-T Axes : 034 -18 163 degrees QTc Int : 466 ms Sinus rhythm with frequent Premature ventricular complexes Left bundle branch block Abnormal ECG When compared with ECG of 12-NOV-2019 15:13, Vent. rate has decreased BY 52 BPM T wave inversion more evident in Anterolateral leads Confirmed by Len Pearce ([id number]) on 11/13/2019 6:14:19 PM Referred By: REFERRED SELF Confirmed By:Seng Pearce
[2019-11-13] MEDS: GUAIFENESIN/DEXTROM SYRUP 200MG/20MG 10ML UDC PO PRN (23:19)
[2019-11-14] MEDS: IPRATROPIUM BROMIDE NEB SOLN 0.02% 2.5 ML VIAL INH SCH ×4 (00:52→19:46)
[2019-11-14] MEDS: LEVALBUTEROL HCL 0.63 MG/3 ML NEB NEB SCH ×4 (00:52→19:46)
[2019-11-14] MEDS: methylPREDNISolone 40 MG in SYRINGE 0 ML IV SCH (03:30)
[2019-11-14] MEDS: LEVOTHYROXINE SODIUM 88 MCG TABLET PO SCH (05:32)
[2019-11-14 06:47] LABS: Basophils # (auto) 0.01 K/uL (0-0.2); Basophils % (auto) 0.1 %; Hematocrit (blood only) 33.6 % (42-52); Hemoglobin 11.1 g/dL (14.0-18.0); Immature Granulocytes # (auto) 0.05 K/uL (0.00-0.02); Immature Granulocytes % (auto) 0.5 %; Lymphocytes # (auto) 0.41 K/uL (1.2-3.4); Lymphocytes % (auto) 3.8 %; Mean Corpuscular Hemoglobin 31.4 pg (25-34); Mean Corpuscular Volume 94.9 fL (80-100); Mean Platelet Volume 10.5 fL (7.4-10.4); Monocytes # (auto) 0.71 K/uL (0.11-0.59); Monocytes % (auto) 6.6 %; Neutrophils # (auto) 9.65 K/uL (1.4-6.5); Platelet Count 146 K/uL (130-400); RDW Coefficient of Variation 14.2 % (11.5-14.5); Red Blood Count 3.54 M/uL (4.7-6.1); White Blood Count 10.83 K/uL (4.8-10.8)
[2019-11-14 07:17] LABS: BUN Creatinine Ratio 26.8 (10-20); Calcium 8.4 mg/dl (8.5-10.1); Creatinine Clr Calc Pharmacy 20.7 ml/min; Est GFR (African American) 31.7; Est GFR (Non-African American) 27.3; Phosphorus 4.2 mg/dl (2.5-4.9); Potassium 4.1 mmol/L (3.5-5.1)
[2019-11-14] MEDS: AMLODIPINE BESYLATE 5 MG TAB PO SCH (08:11)
[2019-11-14] MEDS: METOPROLOL SUCC 50MG EXT REL TAB PO SCH (08:11)
[2019-11-14] MEDS: FINASTERIDE 5 MG TAB PO SCH (08:12)
[2019-11-14] MEDS: ATORVASTATIN 40 MG TAB PO SCH (08:12)
[2019-11-14] MEDS: CHOLECALCIFEROL 1,000 UNITS 25 MCG TAB PO SCH (08:13)
[2019-11-14] MEDS: PANTOprazole 40 MG TAB PO SCH (08:13)
[2019-11-14] MEDS: POTASSIUM CHLORIDE 10 MEQ TABCR PO SCH (08:14)
[2019-11-14] MEDS: FERROUS SULFATE 325 MG TAB PO SCH (08:14)
[2019-11-14] MEDS: ASPIRIN 81 MG ECTAB PO SCH (08:14)
[2019-11-14] MEDS: PIPERACILLIN/TAZOBACTAM 3.375 GM in DEXTROSE 5% 100 ML IV SCH ×3 (08:18→23:11)
--- NOTE | 2019-11-14 11:54 | Cardiology Progress Note ---
Date of Service November 14, 2019 Assessment & Plan (1) Acute respiratory failure with hypoxia: Patient is extremely complex 89-year-old male presents after failed treatment of outpatient respiratory infectious process complicated by acute on chronic congestive heart failure. Patient responded to treatment with antibiotics IV as well as single dose of IV furosemide. Currently examines as euvolemic though was still rhonchorous sounds in the left lung base. During acute illness evaluation patient had transient atrial fibrillation/flutter with rapid response with spontaneous conversion to sinus rhythm this morning. Recommendations. No further IV diuretics. With lresumption of usual oral diuretic in a.m. treat underlying pulmonary issues as already begun. Continue outpatient medications including anticoagulation with warfarin (2) PAF (paroxysmal atrial fibrillation): Patient had transient atrial fib flutter evening of admission with conversion to sinus rhythm underlying conduction pathology present. Would maintain telemetry Will increase beta-preeti while in hospital Toprol-XL 50 mg a.m. 25 mg p.m. (3) Ischemic cardiomyopathy: Subjective Patient was seen, examined, chart and medications as well as telemetry reviewed. Feels improved this morning still with loose rhonchorous cough. Minimal sputum production. No worsening edema Physical Exam Constitutional: WD/WN, vitals as above Eyes: PERRL, conjunctivae normal, anicteric sclerae ENMT: external ear and nose normal, oropharynx normal Neck: trachea midline, no thyromegaly Respiratory: normal respiratory effort, lungs clear to auscultation Cardiovascular: Rate/Rhythm: regular rate and regular rhythm Heart Sounds: normal S1 and normal S2; no gallop and no murmur Palpation: normal PMI Vessels: normal carotid upstroke and radial pulses present; no JVD and no c arotid bruit Extremities: no edema Gastrointestinal (Abdomen): normal bowel sounds, soft, nontender, no hepatosplenomegaly Musculoskeletal: no cyanosis or clubbing, extremities motor strength 5/5 Skin: no rashes, warm and dry Neurologic: PERRL, EOMI, accommodation nl, no face palsy, no dysarthria Psychiatric: A+Ox3, euthymic affect Results & Data Vital Signs (Past 12 Hours) Vital Signs Temp Pulse Resp BP Pulse Ox 11/14/19 07:35 36.6 C 91 H 20 134/76 98 11/14/19 07:29 71 18 95 11/14/19 04:28 36.4 C L 77 20 147/79 H 95 11/14/19 00:53 63 18 94 11/14/19 00:18 36.3 C L 71 17 121/75 96 Laboratory Results Laboratory Results - last 24 hr 11/14/19 11/14/19 06:23 06:23 WBC 10.83 H RBC 3.54 L Hgb 11.1 L Hct 33.6 L MCV 94.9 MCH 31.4 MCHC 33.0 RDW Std Deviation 49.0 H RDW Coeff of Tyrel 14.2 Plt Count 146 MPV 10.5 H Immature Gran % (Auto) 0.5 Neut % (Auto) 89.0 Lymph % (Auto) 3.8 Parker % (Auto) 6.6 Eos % (Auto) 0.0 Baso % (Auto) 0.1 Immature Gran # (Auto) 0.05 H Neut # (Auto) 9.65 H Lymph # (Auto) 0.41 L [place] # (Auto) 0.71 H Eos # (Auto) 0.00 Baso # (Auto) 0.01 Sodium 136 Potassium 4.1 Chloride 102 Carbon Dioxide 29 Anion Gap 5.0 BUN 57 H Creatinine 2.11 H Est Cr Clr Drug Dosing 20.7 Est GFR ( Amer) 31.7 Est GFR (Non-Af Amer) 27.3 BUN/Creatinine Ratio 26.8 H Glucose 153 H Calcium 8.4 L Phosphorus 4.2 Magnesium 2.0
--- NOTE | 2019-11-14 12:59 | Hospitalist Progress Note ---
Date of Service November 14, 2019 Assessment & Plan (1) Acute respiratory failure with hypoxia: -Patient presenting from home with reports of increasing cough, shortness of breath, generalized weakness. -Failed outpatient treatment of acute bronchitis with prednisone and doxycycline -Noted to be very hypoxic in the emergency room at presentation -CXR suggestive of bibasilar infiltrate complicated by CHF -Received 1 dose of Lasix in the emergency room -Has been on IV Levaquin and Zosyn in the ED and intravenous Zosyn has been continued -Has been on nebulized bronchodilator and intravenous Solu-Medrol -Pulmonary toilet with nebs, incentive spirometer, flutter valve -Speech consult for concerns of aspiration -Clinically much better today -Cough and shortness of breath and congestion have diminished -We will continue current medications (2) Supratherapeutic INR: INR elevated at 5.6 on admission On 11/13/2019 rest come down to 4.4 Will monitor-creatinine is 4.4 on 11/13 We will check it tomorrow (3) PAF (paroxysmal atrial fibrillation): -Rate controlled on metoprolol, will continue -Went into RVR this morning with rate of 127 -We will continue current medications (4) Ischemic cardiomyopathy: -Possible acute on chronic systolic CHF as above -Echo 03/2019: EF 20-24% -Patient has declined AICD placement -Cardiology consult, input appreciated -Received 1 dose of intravenous Lasix on admission -Seems to be in euvolemic state now -We will hold off any IV diuretics -Will start his usual oral diuretics from tomorrow 11/15/2019 (5) Coronary artery disease: -No reports of chest pain -Continue aspirin, statin, beta-preeti (6) Urinary retention: -With chronic Sales (7) History of stroke: -Continue aspirin and statin (8) CKD (chronic kidney disease), stage III: - baseline creat runs in the high ones - creat noted to be 1.6 today -Creatinine went up to 2.28 as of 11/13/2019 -We will monitor in the hospital and will hold diuretics for now -Creatinine has been improving and at 2.1 on on 11/14/2019 (9) DVT prophylaxis: -Anticoagulated on Coumadin Admission and Anticipated Discharge Date Admission Date: November 12, 2019 Subjective 11/13/2019 The patient was seen and examined in medical telemetry unit He was admitted with acute respiratory failure with hypoxemia secondary to cough, increasing shortness of breath and generalized weakness Has been feeling a little bit better this morning Denies any chest pain and/or palpitation Denies any other significant symptoms 11/14/2019 The patient was seen and examined in medical telemetry unit He is out of bed on a chair without any acute symptoms Still has cough and congestion but has been feeling a lot better No fever, chills . Review of Systems Review of Systems: All systems reviewed and are unremarkable except as noted below Respiratory: + cough, + chest congestion, + dyspnea, + dyspnea on exertion and + wheezing Cardiovascular: + dyspnea; no chest pain and no palpitations Physical Exam Physical Exam: Sitting on a chair with moderate shortness of breath at rest Constitutional: + thin; no acute distress and not ill appearing Eyes: PERRL, conjunctivae normal, anicteric sclerae ENMT: external ear and nose normal, oropharynx normal Neck: trachea midline, no thyromegaly Respiratory: normal respiratory effort Auscultation: + diminished lung sounds, + crackles and + wheezes Cardiovascular: Rate/Rhythm: regular rate and regular rhythm Extremities: no edema Gastrointestinal (Abdomen): Inspection/Auscultation: abdomen normal to inspection and normal bowel sounds Percussion/Palpation: abdomen soft; abdomen nontender Musculoskeletal: No acute arthritis involving any joints Neurologic: Alert, awake and oriented x3. Generally weak Lymphatic: no cervical or axillary lymphadenopathy Results & Data ([facility]) Vital Signs (Past 12 Hours) Vital Signs Temp Pulse Resp BP Pulse Ox 11/14/19 11:57 36.8 C 60 18 118/68 94 11/14/19 07:35 36.6 C 91 H 20 134/76 98 11/14/19 07:29 71 18 95 11/14/19 04:28 36.4 C L 77 20 147/79 H 95 Laboratory Results Short CBC 11/14/19 Range/Units 06:23 WBC 10.83 H (4.8-10.8) K/uL Hgb 11.1 L (14.0-18.0) g/dL Hct 33.6 L (42-52) % Plt Count 146 (130-400) K/uL BMP 11/14/19 06:23 Sodium 136 Potassium 4.1 Chloride 102 Carbon Dioxide 29 BUN 57 H Creatinine 2.11 H Glucose 153 H Calcium 8.4 L Medications Administered Current Inpatient Medications Acetaminophen (Tylenol) 650 mg PO Q4H PRN PRN Reason: Pain or Fever Stop: 12/12/19 14:47 Amlodipine Besylate (Norvasc) 2.5 mg PO DAILY [facility] Stop: 12/13/19 08:59 Last Admin: 11/14/19 08:11 Dose: 2.5 mg Documented by: Aspirin (Ecotrin Ectab) 81 mg PO QAM [facility] Stop: 12/13/19 08:59 Last Admin: 11/14/19 08:14 Dose: 81 mg Documented by: Atorvastatin Calcium (Lipitor) 40 mg PO DAILY [facility] Stop: 12/13/19 08:59 Last Admin: 11/14/19 08:12 Dose: 40 mg Documented by: Calcitriol (Rocaltrol) 0.25 mcg PO MoWeFr@0900 [facility] Stop: 12/12/19 15:29 Last Admin: 11/12/19 16:05 Dose: 0.25 mcg Documented by: Ferrous Sulfate (Feosol) 325 mg PO QAM [facility] Stop: 12/13/19 08:59 Last Admin: 11/14/19 08:14 Dose: 325 mg Documented by: [facility]asteride (Pro[facility]) [facility] [place] Stop: 12/13/19 08:59 Last Admin: 11/14/19 08:12 Dose: 5 mg Documented by: Furosemide (Lasix) 20 mg PO QAM [facility] Stop: 12/15/19 08:59 Guaifenesin/Dextromethorphan (Robitussin Cough-Chest Dm) 10 ml PO Q6H PRN PRN Reason: Cough Stop: 12/12/19 19:55 Last Admin: 11/13/19 23:19 Dose: 10 ml Documented by: Methylprednisolone 40 mg/ (Syringe) 0.64 mls @ 1.5 mls/min IV Q12H [facility] Stop: 12/12/19 15:59 Last Admin: 11/14/19 03:30 Dose: 1.5 mls/min Documented by: Piperacillin Sod/Tazobactam (Sod 3.375 gm/ Dextrose) 115 mls @ 28.75 mls/hr IV Q8H [facility]; Protocol Stop: 11/19/19 15:59 Last Infusion: 11/14/19 12:25 Dose: Infused Documented by: Ipratropium [place] (Atrovent 0.02% 0.5mg/2.5ml) 0.5 mg INH Q6R [facility] Stop: 12/12/19 18:59 Last Admin: 11/14/19 07:29 Dose: 0.5 mg Documented by: Levalbuterol HCl (Xopenex 0.63 Mg/3 Ml Neb) 0.63 mg NEB Q6R [facility] Stop: 12/12/19 18:59 Last Admin: 11/14/19 07:29 Dose: 0.63 mg Documented by: Levothyroxine Sodium (Synthroid) 88 mcg PO DAILYBB [facility] Stop: 12/13/19 06:29 Last Admin: 11/14/19 05:32 Dose: 88 mcg Documented by: Metoprolol Succinate (Toprol Xl) 50 mg PO DAILY [facility] Stop: 12/13/19 08:59 Last Admin: 11/14/19 08:11 Dose: 50 mg Documented by: Metoprolol Succinate (Toprol Xl) 25 mg PO QPM [facility] Stop: 12/14/19 20:59 Miscellaneous Information (Consult) 1 ea N/A UD PRN PRN Reason: Consult Stop: 12/12/19 10:43 Nitroglycerin (Nitrostat) 0.4 mg SL UD PRN PRN Reason: Chest Pain Stop: 12/12/19 14:47 Pantoprazole Sodium (Protonix) 40 mg PO DAILY [facility] Stop: 12/13/19 08:59 Last Admin: 11/14/19 08:13 Dose: 40 mg Documented by: Potassium Chloride (Klor-Con M10) 10 meq PO QAM [facility] Stop: 12/13/19 08:59 Last Admin: 11/14/19 08:14 Dose: 10 meq Documented by: Tramadol HCl (Ultram) 50 mg PO BID PRN PRN Reason: Pain Stop: 12/12/19 14:47 Vitamin D (Vitamin D3) 1,000 units PO DAILY [facility] Stop: 12/13/19 08:59 Last Admin: 11/14/19 08:13 Dose: 1,000 units Documented by:
--- NOTE | 2019-11-14 16:50 | Electrocardiogram Report ---
Test Reason : Blood Pressure : / mmHG Vent. Rate : 075 BPM Atrial Rate : 075 BPM P-R Int : 198 ms QRS Dur : 148 ms QT Int : 436 ms P-R-T Axes : 063 -24 154 degrees QTc Int : 486 ms Sinus rhythm with frequent Premature ventricular complexes Left bundle branch block Abnormal ECG When compared with ECG of 13-NOV-2019 07:48, Nonspecific T wave abnormality has replaced inverted T waves in Anterior leads Confirmed by Len Pearce ([id number]) on 11/14/2019 4:49:56 PM Referred By: REFERRED SELF Confirmed By:Seng Paerce
[2019-11-14] MEDS ORDERED: METOPROLOL SUCC 25MG EXT REL TAB PO SCH (21:00)
[2019-11-15] MEDS: IPRATROPIUM BROMIDE NEB SOLN 0.02% 2.5 ML VIAL INH SCH ×3 (01:00→13:01)
[2019-11-15] MEDS: LEVALBUTEROL HCL 0.63 MG/3 ML NEB NEB SCH ×3 (01:00→13:01)
[2019-11-15] MEDS: LEVOTHYROXINE SODIUM 88 MCG TABLET PO SCH (05:44)
[2019-11-15 07:04] LABS: INR 2.9 (0.9-1.1); Prothrombin Time 27.2 Seconds (9.0-12.0)
[2019-11-15 07:26] LABS: BUN Creatinine Ratio 27.5 (10-20); Calcium 8.7 mg/dl (8.5-10.1); Creatinine Clr Calc Pharmacy 20.3 ml/min; Est GFR (Non-African American) 26.7
[2019-11-15 07:36] LABS: Phosphorus 3.6 mg/dl (2.5-4.9)
[2019-11-15] MEDS ORDERED: FUROSEMIDE 20 MG TAB PO SCH (09:00)
[2019-11-15] MEDS ORDERED: predniSONE 20 MG TAB PO SCH (09:00)
[2019-11-15] MEDS: FINASTERIDE 5 MG TAB PO SCH (09:16)
[2019-11-15] MEDS: METOPROLOL SUCC 50MG EXT REL TAB PO SCH (09:16)
[2019-11-15] MEDS: FERROUS SULFATE 325 MG TAB PO SCH (09:17)
[2019-11-15] MEDS: AMLODIPINE BESYLATE 5 MG TAB PO SCH (09:17)
[2019-11-15] MEDS: POTASSIUM CHLORIDE 10 MEQ TABCR PO SCH (09:18)
[2019-11-15] MEDS: ATORVASTATIN 40 MG TAB PO SCH (09:19)
[2019-11-15] MEDS: GUAIFENESIN/DEXTROM SYRUP 200MG/20MG 10ML UDC PO PRN (09:19)
[2019-11-15] MEDS: CALCITRIOL 0.25 MCG CAPSULE PO SCH (09:20)
[2019-11-15] MEDS: ASPIRIN 81 MG ECTAB PO SCH (09:20)
[2019-11-15] MEDS: PANTOprazole 40 MG TAB PO SCH (09:21)
[2019-11-15] MEDS: CHOLECALCIFEROL 1,000 UNITS 25 MCG TAB PO SCH (09:21)
[2019-11-15] MEDS: PIPERACILLIN/TAZOBACTAM 3.375 GM in DEXTROSE 5% 100 ML IV SCH (09:25)
--- NOTE | 2019-11-15 11:48 | Hospitalist Progress Note ---
Date of Service November 15, 2019 Assessment & Plan (1) Acute respiratory failure with hypoxia: -Patient presenting from home with reports of increasing cough, shortness of breath, generalized weakness. -Failed outpatient treatment of acute bronchitis with prednisone and doxycycline -Noted to be very hypoxic in the emergency room at presentation -CXR suggestive of bibasilar infiltrate complicated by CHF -Received 1 dose of Lasix in the emergency room -Has been on IV Levaquin and Zosyn in the ED and intravenous Zosyn has been continued -Has been on nebulized bronchodilator and intravenous Solu-Medrol -Pulmonary toilet with nebs, incentive spirometer, flutter valve -Speech consult for concerns of aspiration -A lot better today and denies any shortness of breath at rest -Cough has been minimal and wheezing is almost gone -We will get PT and OT evaluation and to do steps O2 saturation before discharge today (2) Supratherapeutic INR: INR elevated at 5.6 on admission On 11/13/2019 rest come down to 4.4 Will monitor-creatinine is 4.4 on 11/13 INR has been 2.9 as of 11/15/2019 (3) PAF (paroxysmal atrial fibrillation): -Rate controlled on metoprolol, will continue -Went into RVR this morning with rate of 127 -We will continue current medications -Heart rate remains controlled (4) Ischemic cardiomyopathy: -Possible acute on chronic systolic CHF as above -Echo 03/2019: EF 20-24% -Patient has declined AICD placement -Cardiology consult, input appreciated -Received 1 dose of intravenous Lasix on admission -Seems to be in euvolemic state now -We will hold off any IV diuretics -Will start his usual oral diuretics from tomorrow 11/15/2019 -No signs of fluid overload (5) Coronary artery disease: -No reports of chest pain -Continue aspirin, statin, beta-preeti (6) Urinary retention: -With chronic Sales (7) History of stroke: -Continue aspirin and statin (8) CKD (chronic kidney disease), stage III: - baseline creat runs in the high ones - creat noted to be 1.6 today -Creatinine went up to 2.28 as of 11/13/2019 -We will monitor in the hospital and will hold diuretics for now -Creatinine has been improving and at 2.1 on on 11/14/2019 -Creatinine remains stable at around 2.15 (9) DVT prophylaxis: -Anticoagulated on Coumadin Admission and Anticipated Discharge Date Admission Date: November 12, 2019 Subjective 11/13/2019 The patient was seen and examined in medical telemetry unit He was admitted with acute respiratory failure with hypoxemia secondary to cough, increasing shortness of breath and generalized weakness Has been feeling a little bit better this morning Denies any chest pain and/or palpitation Denies any other significant symptoms 11/14/2019 The patient was seen and examined in medical telemetry unit He is out of bed on a chair without any acute symptoms Still has cough and congestion but has been feeling a lot better No fever, chills . 11/15/2019 Patient was seen and examined in medical telemetry unit He has been feeling a lot better today and he is sitting on a chair without any acute shortness of breath Cough and wheezing have decreased a lot Denies any other symptoms Review of Systems Review of Systems: All systems reviewed and are unremarkable except as noted below Respiratory: + cough, + dyspnea on exertion and + wheezing Cardiovascular: + dyspnea; no chest pain and no palpitations Physical Exam Physical Exam: Sitting on a chair with moderate shortness of breath at rest Constitutional: + thin; no acute distress and not ill appearing Eyes: PERRL, conjunctivae normal, anicteric sclerae ENMT: external ear and nose normal, oropharynx normal Neck: trachea midline, no thyromegaly Respiratory: normal respiratory effort Auscultation: + diminished lung sounds, + crackles (Minimal bibasilar crackles) and + wheezes (Minimal wheezing) Cardiovascular: Rate/Rhythm: regular rate and regular rhythm Extremities: no edema Gastrointestinal (Abdomen): Inspection/Auscultation: abdomen normal to inspection and normal bowel sounds Percussion/Palpation: abdomen soft; abdomen nontender Musculoskeletal: No acute arthritis involving any joints Neurologic: Alert, awake and oriented x3 Lymphatic: no cervical or axillary lymphadenopathy Results & Data ([facility]) Vital Signs (Past 12 Hours) Vital Signs Temp Pulse Pulse Resp BP Pulse Ox 11/15/19 11:01 36.5 C 73 18 130/67 96 11/15/19 07:16 36.6 C 74 18 137/84 94 11/15/19 06:54 77 17 97 11/15/19 02:48 36.4 C L 77 19 109/70 98 11/15/19 01:00 72 18 96 11/14/19 23:55 68 Laboratory Results [facility] 11/15/19 06:44 Sodium 138 Potassium 4.0 Chloride 104 Carbon Dioxide 27 BUN 59 H Creatinine 2.15 H Glucose 105 H Calcium 8.7 Medications Administered Current Inpatient Medications Acetaminophen (Tylenol) 650 mg PO Q4H PRN PRN Reason: Pain or Fever Stop: 12/12/19 14:47 Amlodipine Besylate (Norvasc) 2.5 mg PO DAILY [facility] Stop: 12/13/19 08:59 Last Admin: 11/15/19 09:17 Dose: 2.5 mg Documented by: Aspirin (Ecotrin Ectab) [address] [facility] Stop: 12/13/19 08:59 Last Admin: 11/15/19 09:20 Dose: 81 mg Documented by: Atorvastatin Calcium (Lipitor) 40 mg PO DAILY [facility] Stop: 12/13/19 08:59 Last Admin: 11/15/19 09:19 Dose: 40 mg Documented by: Calcitriol (Rocaltrol) 0.25 mcg PO MoWeFr@0900 [facility] Stop: 12/12/19 15:29 Last Admin: 11/15/19 09:20 Dose: 0.25 mcg Documented by: Ferrous Sulfate (Feosol) [address] [facility] Stop: 12/13/19 08:59 Last Admin: 11/15/19 09:17 Dose: 325 mg Documented by: Finasteride (Proscar) [address] [facility] Stop: 12/13/19 08:59 Last Admin: 11/15/19 09:16 Dose: 5 mg Documented by: Furosemide (Lasix) [address] [facility] Stop: 12/15/19 08:59 Last Admin: 11/15/19 09:22 Dose: 20 mg Documented by: Guaifenesin/Dextromethorphan (Robitussin Cough-Chest Dm) 10 ml PO Q6H PRN PRN Reason: Cough Stop: 12/12/19 19:55 Last Admin: 11/15/19 09:19 Dose: 10 ml Documented by: Piperacillin Sod/Tazobactam (Sod 3.375 gm/ Dextrose) 115 mls @ 28.75 mls/hr IV Q8H [facility]; Protocol Stop: 11/19/19 15:59 Last Admin: 11/15/19 09:25 Dose: 28.8 mls/hr Documented by: Ipratropium [place] (Atrovent 0.02% 0.5mg/2.5ml) 0.5 mg INH Q6R [facility] Stop: 12/12/19 18:59 Last Admin: 11/15/19 06:54 Dose: 0.5 mg Documented by: Levalbuterol HCl (Xopenex 0.63 Mg/3 Ml Neb) 0.63 mg NEB Q6R [facility] Stop: 12/12/19 18:59 Last Admin: 11/15/19 06:54 Dose: 0.63 mg Documented by: Levothyroxine Sodium (Synthroid) 88 mcg PO DAILYBB [facility] Stop: 12/13/19 06:29 Last Admin: 11/15/19 05:44 Dose: 88 mcg Documented by: Metoprolol Succinate (Toprol Xl) 50 mg PO DAILY [facility] Stop: 12/13/19 08:59 Last Admin: 11/15/19 09:16 Dose: 50 mg Documented by: Metoprolol Succinate (Toprol Xl) 25 mg PO QPM [facility] Stop: 12/14/19 20:59 Last Admin: 11/14/19 20:29 Dose: 25 mg Documented by: Miscellaneous Information (Consult) 1 ea N/A UD PRN PRN Reason: Consult Stop: 12/12/19 10:43 Nitroglycerin (Nitrostat) 0.4 mg SL UD PRN PRN Reason: Chest Pain Stop: 12/12/19 14:47 Pantoprazole Sodium (Protonix) 40 mg PO DAILY [facility] Stop: 12/13/19 08:59 Last Admin: 11/15/19 09:21 Dose: 40 mg Documented by: Potassium Chloride (Klor-Con M10) 10 meq PO QAM [facility] Stop: 12/13/19 08:59 Last Admin: 11/15/19 09:18 Dose: 10 meq Documented by: Prednisone (Prednisone) 40 mg PO DAILY [facility] Stop: 12/15/19 08:59 Last Admin: 11/15/19 09:18 Dose: 40 mg Documented by: Tramadol HCl (Ultram) 50 mg PO BID PRN PRN Reason: Pain Stop: 12/12/19 14:47 Vitamin D (Vitamin D3) 1,000 units PO DAILY [facility] Stop: 12/13/19 08:59 Last Admin: 11/15/19 09:21 Dose: 1,000 units Documented by:
--- NOTE | 2019-11-15 15:59 | Cardiology Progress Note ---
Date of Service November 15, 2019 Assessment & Plan (1) Acute respiratory failure with hypoxia: Patient is extremely complex 89-year-old male presents after failed treatment of outpatient respiratory infectious process complicated by acute on chronic congestive heart failure. Patient responded to treatment with antibiotics IV as well as single dose of IV furosemide. Currently examines as euvolemic though was still rhonchorous sounds in the left lung base. During acute illness evaluation patient had transient atrial fibrillation/flutter with rapid response with spontaneous conversion to sinus rhythm this morning. Recommendations. No further IV diuretics. Back on usual oral diuretic in a.m. treat underlying pulmonary issues as already begun. Continue outpatient medications including anticoagulation with warfarin (2) PAF (paroxysmal atrial fibrillation): Patient had transient atrial fib flutter evening of admission with conversion to sinus rhythm underlying conduction pathology present. Would maintain telemetry Continue increased beta-preeti while in hospital Toprol-XL 50 mg a.m. 25 mg p.m. (3) Ischemic cardiomyopathy: Subjective Patient seen and examined, chart, medications, telemetry reviewed. Patient still with cough but improved less wheezing less shortness of breath. No dizziness or lightheadedness. Reasonable atrial tachycardia earlier this morning but no further atrial arrhythmias Review of Systems Review of Systems: All systems reviewed & are unremarkable except as noted in HPI & below Physical Exam Constitutional: WD/WN, vitals as above Eyes: PERRL, conjunctivae normal, anicteric sclerae ENMT: external ear and nose normal, oropharynx normal Neck: trachea midline, no thyromegaly Respiratory: Mild wheezy cough present Cardiovascular: Rate/Rhythm: regular rate and regular rhythm Heart Sounds: normal S1 and normal S2; no gallop and no murmur Palpation: normal PMI Vessels: normal carotid upstroke and radial pulses present; no JVD and no carotid bruit Extremities: no edema Gastrointestinal (Abdomen): normal bowel sounds, soft, nontender, no hepatosplenomegaly Musculoskeletal: no cyanosis or clubbing, extremities motor strength 5/5 Skin: no rashes, warm and dry Neurologic: PERRL, EOMI, accommodation nl, no face palsy, no dysarthria Psychiatric: A+Ox3, euthymic affect Results & Data Vital Signs (Past 12 Hours) Vital Signs Temp Pulse Pulse Pulse Pulse Pulse Pulse 11/15/19 15:51 36.9 C 81 64 11/15/19 14:46 36.9 C 81 11/15/19 13:20 58 L 82 84 67 11/15/19 13:03 67 11/15/19 11:01 36.5 C 73 11/15/19 07:16 36.6 C 74 11/15/19 06:54 77 Resp Resp Resp Resp BP BP Pulse Ox 11/15/19 15:51 18 119/70 121/72 94 11/15/19 14:46 18 119/70 94 11/15/19 13:20 18 18 18 11/15/19 13:03 18 86 L 11/15/19 11:01 18 130/67 96 11/15/19 07:16 18 137/84 94 11/15/19 06:54 17 97 Pulse Ox Pulse Ox Pulse Ox Pulse Ox 11/15/19 15:51 11/15/19 14:46 11/15/19 13:20 93 95 94 86 L 11/15/19 13:03 11/15/19 11:01 11/15/19 07:16 11/15/19 06:54
--- NOTE | 2019-11-16 08:24 | Discharge Summary ---
Date of Service November 16, 2019 Admission HPI Per Admitting Provider 89-year-old male who presents the ED for evaluation of shortness of breath and weakness. Patient was seen by his PCP on 11/08 for cough and shortness of breath. He was diagnosed with a complicated bronchitis and placed on doxycycline, prednisone, nebulizer treatments. Patient symptoms have been progressively getting worse despite these therapies. This morning, patient was very weak and was unable to get out of bed. He was also incontinent of diarrhea, which is not usual for him. Patient has had a moist, nonproductive cough with wheezing. Reports exertional shortness of breath. Does not wear oxygen at home. Patient does weigh himself on a routine basis and reports his weights have been stable. No worsening lower extremity edema. Patient did try to sleep up on some additional pillows last evening. Patient had 1 emesis in the ambulance in route to the ED however attributes this to motion sickness. Other episodes of nausea, vomiting, abdominal pain. No bright red bleeding per rectum or dark tarry stools. Patient denies chest pain palpitations. No reported fevers or chills. No lightheadedness, dizziness, diaphoresis, syncopal events. Patient has a chronic Sales catheter in place which is been draining clear yellow urine. In the ED, patient was found to be hypoxic on room air at 88%. He is currently saturating well on a 6 L oxygen mask. Labs show WBC 16.5K, proBNP 10,000 327, pro calcitonin 0.89. Influenza testing negative. C. difficile testing negative. CXR shows bibasilar infiltrates. Patient was given Lasix 40 mg IV, nebulizer treatment, IV Levaquin, IV Zosyn. Admission Exam Per Admitting Provider Constitutional: WD/WN, vitals as above no acute distress Eyes: + anicteric sclerae; no conjunctival abnormality Right pupil opaque ENMT: external ear and nose normal, oropharynx normal Respiratory: normal respiratory effort; no respiratory distress Auscultation: + crackles (Bilateral, mid to lower lung echols) and + wheezes (Scattered, expiratory) Cardiovascular: Rate/Rhythm: regular rate and regular rhythm (Some ectopy noted) Vessels: normal peripheral pulses Extremities: no edema Gastrointestinal (Abdomen): normal bowel sounds, soft, nontender, no hepatosplenomegaly Musculoskeletal: Extremities: no cyanosis and no clubbing Right-sided weakness noted Skin: no rashes, warm and dry Neurologic: PERRL, EOMI, accommodation nl, no face palsy, no dysarthria Psychiatric: A+Ox3, euthymic affect Principal Diagnosis Acute respiratory failure with hypoxia-improved, paroxysmal atrial fibrillation on Coumadin, ischemic cardiomyopathy, CKD, prostate cancer with Chronic Sales Catheter Discharge Exam Constitutional + thin; no acute distress and not ill appearing Eyes PERRL, conjunctivae normal, anicteric sclerae ENMT external ear and nose normal, oropharynx normal Neck trachea midline, no thyromegaly Respiratory normal respiratory effort Auscultation: + diminished lung sounds, + crackles (Minimal bibasilar crackles) and + wheezes (Minimal wheezing) Cardiovascular Rate/Rhythm: regular rate and regular rhythm Extremities: no edema Gastrointestinal (Abdomen) Inspection/Auscultation: abdomen normal to inspection and normal bowel sounds Percussion/Palpation: abdomen soft; abdomen nontender Lymphatic no cervical or axillary lymphadenopathy Discharge Data Allergies Allergy/AdvReac Type Severity Reaction Status Date / Time clopidogrel Allergy Intermediate RASH Verified 11/12/19 11:26 Sulfa (Sulfonamide Allergy Intermediate RASH Verified 11/12/19 11:26 Antibiotics) sulfamethoxazole Allergy Intermediate RASH Verified 11/12/19 11:26 trimethoprim Allergy Mild RASH Verified 11/12/19 11:26 niacin Allergy Unknown UNKNOWN Verified 11/12/19 11:26 Consultations 11/12/19 11:27 ED Decision to Admit Stat 11/12/19 14:48 Consult Case Management - Discharge Planning Routine 11/13/19 08:00 Consult Cardiology Routine Hospital Course (1) Acute respiratory failure with hypoxia: -Patient presenting from home with reports of increasing cough, shortness of breath, generalized weakness. -Failed outpatient treatment of acute bronchitis with prednisone and doxycycline -Noted to be very hypoxic in the emergency room at presentation -CXR suggestive of bibasilar infiltrate complicated by CHF -Received 1 dose of Lasix in the emergency room -Has been on IV Levaquin and Zosyn in the ED and intravenous Zosyn has been continued -Has been on nebulized bronchodilator and intravenous Solu-Medrol -Pulmonary toilet with nebs, incentive spirometer, flutter valve -Speech consult for concerns of aspiration -A lot better today and denies any shortness of breath at rest -Cough has been minimal and wheezing is almost gone -We will get PT and OT evaluation and to do steps O2 saturation before discharge today (2) Supratherapeutic INR: INR elevated at 5.6 on admission On 11/13/2019 rest come down to 4.4 Will monitor-creatinine is 4.4 on 11/13 INR has been 2.9 as of 11/15/2019 (3) PAF (paroxysmal atrial fibrillation): -Rate controlled on metoprolol, will continue -Went into RVR this morning with rate of 127 -We will continue current medications -Heart rate remains controlled (4) Ischemic cardiomyopathy: -Possible acute on chronic systolic CHF as above -Echo 03/2019: EF 20-24% -Patient has declined AICD placement -Cardiology consult, input appreciated -Received 1 dose of intravenous Lasix on admission -Seems to be in euvolemic state now -We will hold off any IV diuretics -Will start his usual oral diuretics from tomorrow 11/15/2019 -No signs of fluid overload (5) Coronary artery disease: -No reports of chest pain -Continue aspirin, statin, beta-preeti (6) Urinary retention: -With chronic Sales (7) History of stroke: -Continue aspirin and statin (8) CKD (chronic kidney disease), stage III: - baseline creat runs in the high ones - creat noted to be 1.6 today -Creatinine went up to 2.28 as of 11/13/2019 -We will monitor in the hospital and will hold diuretics for now -Creatinine has been improving and at 2.1 on on 11/14/2019 -Creatinine remains stable at around 2.15 (9) DVT prophylaxis: -Anticoagulated on Coumadin Total Time Total Time Spent Total Time Spent (In Minutes): 35 minutes Total Time Includes: Examination of the Patient, Discharge Planning, Medication Reconciliation and Communication With Other Providers Discharge Plan Discharge Items Patient Disposition: Home - Home Health Services Reason For Visit: HYPOXIA Discharge Diagnosis: Acute respiratory failure with hypoxia-improved, paroxysmal atrial fibrillation on Coumadin, ischemic cardiomyopathy, CKD, prostate cancer with Chronic Sales Catheter Condition on Discharge: Fair Activity: Resume your previous activity Activity Comment: Take extreme precaution to avoid fall. Use devices while ambulating Non-emergency contact: Primary Care Provider Call non-emergency contact if: you have any medication questions and your symptoms worsen Follow-up/Referrals: Venkat Gilman DO [Primary Care Provider] - 11/18/19 12:45 pm (Your appointment is with Dr Pushpa Mosqueda. If you need to change this appointment, please call [phone].) Diet: Heart Healthy and Low Sodium (2gm) Fluids: 1500ml (6 cups) Diet Texture: Dental soft (bite-sized) Diet Comment: Trach aspiration precaution; alternate solid and liquid, supervised meal, fully alert and upright, maintain oral hygiene, single bite/small sips/slow rate and no extra Addtl Attending Provider Instructions: Please take extreme precaution to avoid falls Use oxygen as prescribed Take precaution to prevent aspiration while eating Pending Studies at Discharge: No Stand-Alone Forms: My [facility] [employer], Smoking Cessation Medications and DC Order Prescriptions: New prednisone 20 mg Tablet 40 mg PO DAILY 3 Days Qty: 6 RF: 0 metoprolol succinate 25 mg Tablet Extended Release 24 Hr 25 mg PO QPM 30 Days Qty: 30 RF: 0 amoxicillin-pot clavulanate [Augmentin] 500-125 mg tablet 1 tab PO BID Qty: 10 RF: 0 Lactinex 1 million cell tablet,chewable 1 tab PO BID Qty: 20 RF: 0 warfarin 4 mg tablet 4 mg PO DAILY Qty: 30 RF: 0 Continued atorvastatin 40 mg tablet 40 mg PO DAILY RF: 0 amlodipine 2.5 mg Tablet 2.5 mg PO DAILY RF: 0 aspirin [Aspirin Low Dose] 81 mg Tablet,Delayed Release (Dr/Ec) 81 mg PO QAM RF: 0 tramadol 50 mg Tablet 50 mg PO BID PRN (Reason: Pain) RF: 0 levothyroxine 88 mcg Tablet 88 mcg PO DAILYBB RF: 0 ferrous sulfate 325 mg (65 mg iron) Tablet 325 mg PO QAM RF: 0 nitroglycerin 0.4 mg Tablet, Sublingual 0.4 mg sublingual DIRECTED PRN (Reason: Chest Pain) RF: 0 omeprazole 20 mg capsule,delayed release(DR/EC) 20 mg PO DAILY RF: 0 calcitriol 0.25 mcg capsule 0.25 mcg PO 3XWK RF: 0 finasteride 5 mg tablet 5 mg PO QAM RF: 0 docusate sodium [Colace] 100 mg Capsule 100 mg PO BID RF: 0 senna 8.6 mg Capsule 8.6 mg PO DAILY PRN (Reason: Constipation) RF: 0 furosemide 40 mg tablet 20 mg PO DAILY RF: 0 potassium chloride 10 mEq tablet extended release 10 meq PO QAM RF: 0 ipratropium-albuterol 0.5 mg-3 mg(2.5 mg base)/3 mL solution for nebulization 3 ml INHALATION QID PRN (Reason: Shortness Of Breath) RF: 0 cholecalciferol (vitamin D3) [Vitamin D3] 25 mcg (1,000 unit) Capsule 1,000 unit PO DAILY RF: 0 Changed metoprolol succinate 50 mg Tablet Extended Release 24 Hr 50 mg PO DAILYBB Qty: 0 RF: 0 Discontinued warfarin 5 mg tablet 5 mg PO PM RF: 0 doxycycline hyclate 100 mg capsule 100 mg PO BID RF: 0 prednisone 20 mg tablet 40 mg PO DAILY RF: 0 Discharge Orders: Discharge Order (Routine); Ordered 11/15/19 Ordered By: Tasha Guallpa Admission Data Admit Date/Time: 11/12/19 12:05 Attending Provider: Tasha Guallpa Admit Provider: Latasha Curry Primary Care Provider: Venkat Gilman Other Providers: Latasha Curry ; Ty Hoff ; [facility] Other Interventions: Discharge Summary Assessment (RN) Last Done: 11/15/19 15:51 DC Date/Time DO NOT enter until pt leaves facility: 11/15/19 17:12
== END 2019-11-15 17:12 | disposition home health service (06) | DRG 189 ==
LOC: ED 09:07 → 2N 12:05 → SUATTDRO 12:05 → 2N 12:48

== ENCOUNTER 2020-04-16 03:18 | Inpatient (IN) ==
--- NOTE | 2020-04-16 04:11 | Emergency Department Note ---
Impression & Plan Hypoxia, Acute UTI, Weakness, Vomiting ED Provider Note NAME: JEANNE BENNETT AGE: 89 SEX: M ARRIVES VIA: Ambulance INFORMANT: Patient, and the patient's daughter ED PROVIDER(S): Macie Santiago DO CHIEF COMPLAINT: Nausea and vomiting and shortness of breath PLAN: Disposition: Admission to the [facility] service Condition: Stable MEDICAL DECISION MAKING: This is an 89-year-old male patient with an extensive past medical history who presents to the emergency department with a 24-hour history of nausea and vomiting who developed increasing shortness of breath and fever overnight. EMS found the patient with an oxygen saturation of 77% on his usual 2 L of home O2. The patient is being considered a PUI for COVID and was tested. The patient has a chronic indwelling Sales catheter and there does appear to be a urinary tract infection. Chest x-ray was concerning for a possible right-sided pneumonia versus pneumonitis. He was treated with empiric IV Zosyn. Patient has significant generalized weakness. He had difficulty even sitting up for exam. I discussed the case with the [facility] and they will evaluate for further management Triage Nursing notes reviewed and agree them. Additional history obtained from the patient's and daughter in the waiting room Prior medical records reviewed Vital Signs: reviewed and remarkable for hypoxia Differential diagnosis: Sepsis, CHF, pneumonia, COVID-19, UTI ER treatment provided: IV Zosyn Supplemental O2 by oxygen mask Diagnostics interpreted by me: ECG: Normal sinus rhythm at a rate of 88 with a first-degree AV block, left bundle branch block and PVCs. There is no obvious ischemia. This is unchanged from an EKG from November 14, 2019. Cardiac Monitoring: Normal sinus rhythm at a rate of 96 Laboratory studies: See below Imaging studies: As per my interpretation Chest [id number] with bibasilar opacities with right being more full than the left concerning for pneumonitis versus pneumonia specifically on the right HPI: 89/M arrives for evaluation of nausea and vomiting with associated shortness of breath. The patient has a history of congestive heart failure. The patient developed some nausea and vomiting yesterday and awoke overnight with increasing shortness of breath and fever. Upon EMS arrival, the patient had an O2 saturation of 77% on his usual 2 L of oxygen. ROS: See above HPI for pertinent positives & negatives. A total of 10 systems reviewed and were otherwise negative. PAST MEDICAL HISTORY:See Below PAST SURGICAL HISTORY:See Below FAMILY HISTORY:See Below SOCIAL HISTORY:See Below HOME MEDICATIONS:See list ALLERGIES:See list VITALS:See Below PHYSICAL EXAMINATION: HEENT: Head - normocephalic and atraumatic Pupils are equal, round, and reactive to light. Extraocular eye muscles are intact, and sclera are anicteric. Nose - moist nasal mucosa without discharge. Mouth - moist buccal mucosa. Oropharynx is nonerythematous and there is no tonsillar exudate or edema noted. Neck: Supple; no JVD, nuchal rigidity, cervical lymphadenopathy, or auscultated bruits. Heart: Regular rate and rhythm. There is a normal S1 and S2 with no murmurs, clicks, or gallops appreciated. Lungs: Diminished breath sounds at both lung bases; rhonchi throughout Abdomen: Soft, completely nontender, nondistended, with good bowel sounds. There are no palpable pulsatile masses or hepatosplenomegaly. There is no guarding, rigidity, or rebound noted. Extremities: No evidence of cyanosis, clubbing, or edema. There are easily palpable peripheral pulses. Skin: warm and dry with good turgor and no rashes. ED COURSE: Times/Reassessments: [id number]: The patient was evaluated in room A10. I donned full PPE to take full COVID precautions as the patient presents with a fever and respiratory distress. The patient was hypoxic and was placed on an oxygen mask which brought his saturations up into the 90s. An order was placed for continuous cardiac monitoring. The patient remained in a sinus rhythm at a rate of 88. A twelve-lead EKG was obtained. A septic protocol was performed. A portable ch est x-ray was obtained. The patient was tested for COVID. A urine specimen was obtained from his indwelling Sales catheter. I spoke with the patient's daughter and who are in the waiting room. They were able to give additional history. I discussed the case with the [facility] service and they will evaluate for further management. I have personally spent greater than 45 minutes of critical care time in the direct management of this patient. This includes bedside care, interpretation of diagnostic studies, and testing, discussion with consultants, patient, and family members, and other required patient management activities. This 45 minutes is in excess of all separately billable procedures. Macie Santiago DO Past Med/Surg History Social History Smoking Status: Former smoker Second Hand Exposure: No; Do You Dip or Chew Tobacco: No; Tobacco Cessation Education Requested by Patient: No Hx Alcohol Use: No Hx Substance Use: No Preferred Language: Lao Communication Ability: Effective Visual Impairment: No Limitations Hearing Ability: Normal Cracking Unit Operator Required: No Beliefs That Will Affect Care: None marital status: Current Living Situation: Spouse current occupational status: retired Other Information That Helps Us Care for You: No Feels Safe at Home: Yes Safety Concerns: Feels Safe At This Time Allergies Allergies Allergy/AdvReac Type Severity Reaction Status Date / Time clopidogrel Allergy Intermediate RASH Verified 04/16/20 04:26 Sulfa (Sulfonamide Allergy Intermediate RASH Verified 04/16/20 04:26 Antibiotics) sulfamethoxazole Allergy Intermediate RASH Verified 04/16/20 04:26 trimethoprim Allergy Mild RASH Verified 04/16/20 04:26 niacin Allergy Unknown UNKNOWN Verified 04/16/20 04:26 Home Meds Home Medications Medication Instructions Recorded Confirmed amlodipine 2.5 mg PO DAILY 02/15/19 04/16/20 atorvastatin 40 mg PO DAILY 02/15/19 04/16/20 ferrous sulfate 325 mg PO QAM 02/15/19 04/16/20 finasteride 5 mg PO QAM 02/15/19 04/16/20 levothyroxine 88 mcg PO DAILYBB 02/15/19 04/16/20 nitroglycerin 0.4 mg SUBLINGUAL DIRECTED PRN 02/15/19 04/16/20 omeprazole 20 mg PO DAILY 02/15/19 04/16/20 cholecalciferol (vitamin D3) 1,000 unit PO DAILY 11/12/19 04/16/20 [Vitamin D3] docusate sodium [Colace] 100 mg PO BID 11/12/19 04/16/20 furosemide 40 mg PO DAILY 11/12/19 04/16/20 ipratropium-albuterol 3 ml INHALATION QID 11/12/19 04/16/20 potassium chloride 10 meq PO QAM 11/12/19 04/16/20 Lactobacillus acidoph-L.bulgar 1 tab PO DAILY 04/16/20 04/16/20 [Lactinex] aspirin 81 mg PO DAILY 04/16/20 04/16/20 metoprolol succinate 25 mg PO QPM 04/16/20 04/16/20 polyethylene glycol 3350 [Miralax] 8.5 g PO DAILY PRN 04/16/20 04/16/20 sennosides [senna] 8.6 mg PO DAILY PRN 04/16/20 04/16/20 tramadol 50 mg PO BID PRN 04/16/20 04/16/20 warfarin 5 mg PO QPM 04/16/20 04/16/20 Previous Rx's Medication Instructions Recorded metoprolol succinate 50 mg PO DAILYBB #0 tab 11/15/19 nystatin 100,000 unit/gram topical 1 appln TOP TID #60 gm 02/23/20 powder Results & Data (ED) Vital Signs Vital Signs - 24 hr 04/16/20 03:33 04/16/20 04:00 04/16/20 04:01 Temperature 37.8 C H Temperature Source Oral Pulse Rate 88 84 Pulse Rate [Apical] Pulse Rate from SpO2 Sensor 85 Pulse Rhythm [Apical] Pulse Strength [Apical] Respiratory Rate 18 23 18 Respiratory Effort / Characteristics Spontaneous Short of Breath Spontaneous Short of Breath Respiratory Depth Normal Respiratory Pattern Regular Blood Pressure 138/76 128/68 Blood Pressure [Right Arm] Blood Pressure Mean 96 74 Blood Pressure Mean [Right Arm] Blood Pressure Position [Right Arm] Pulse Oximetry 97 96 97 Oxygen Delivery Method Oxymask Oxymask Oxymask Oxygen Flow Rate 6 8 8 Sepsis Recent Fever Within 48 Hours Yes Sepsis New/Unexplained Change in Mental Status N/A Sepsis Action Taken by Nursing No Action Required 04/16/20 04:30 04/16/20 05:00 04/16/20 05:15 Temperature Temperature Source Pulse Rate 83 79 82 Pulse Rate [Apical] Pulse Rate from SpO2 Sensor 77 81 Pulse Rhythm [Apical] Pulse Strength [Apical] Respiratory Rate 20 20 20 Respiratory Effort / Characteristics Respiratory Depth Respiratory Pattern Blood Pressure 137/79 112/58 L 116/66 Blood Pressure [Right Arm] Blood Pressure Mean 88 75 81 Blood Pressure Mean [Right Arm] Blood Pressure Position [Right Arm] Pulse Oximetry 96 96 Oxygen Delivery Method Oxymask Oxymask Oxymask Oxygen Flow Rate 8 8 8 Sepsis Recent Fever Within 48 Hours Sepsis New/Unexplained Change in Mental Status Sepsis Action Taken by Nursing 04/16/20 05:20 04/16/20 05:30 04/16/20 05:31 Temperature Temperature Source Pulse Rate 83 87 Pulse Rate [Apical] 90 Pulse Rate from SpO2 Sensor 89 86 Pulse Rhythm [Apical] Regular Pulse Strength [Apical] Normal Respiratory Rate 18 18 20 Respiratory Effort / Characteristics Non-Labored Respiratory Depth Normal Respiratory Pattern Blood Pressure 122/77 Blood Pressure [Right Arm] 116/66 Blood Pressure Mean 82 Blood Pressure Mean [Right Arm] 82 Blood Pressure Position [Right Arm] Lying Pulse Oximetry 97 97 97 Oxygen Delivery Method Oxymask Oxygen Flow Rate 8 Sepsis Recent Fever Within 48 Hours Sepsis New/Unexplained Change in Mental Status Sepsis Action Taken by Nursing 04/16/20 05:45 04/16/20 05:46 04/16/20 06:00 Temperature Temperature Source Pulse Rate 76 78 81 Pulse Rate [Apical] Pulse Rate from SpO2 Sensor 78 80 79 Pulse Rhythm [Apical] Pulse Strength [Apical] Respiratory Rate 18 20 21 Respiratory Effort / Characteristics Respiratory Depth Respiratory Pattern Blood Pressure 126/62 119/59 L Blood Pressure [Right Arm] Blood Pressure Mean 79 74 Blood Pressure Mean [Right Arm] Blood Pressure Position [Right Arm] Pulse Oximetry 97 97 96 Oxygen Delivery Method Oxygen Flow Rate Sepsis Recent Fever Within 48 Hours Sepsis New/Unexplained Change in Mental Status Sepsis Action Taken by Nursing 04/16/20 06:01 04/16/20 06:15 04/16/20 06:16 Temperature Temperature Source Pulse Rate 80 82 84 Pulse Rate [Apical] Pulse Rate from SpO2 Sensor 84 86 86 Pulse Rhythm [Apical] Pulse Strength [Apical] Respiratory Rate 28 H 28 H 22 Respiratory Effort / Characteristics Respiratory Depth Respiratory Pattern Blood Pressure 136/71 Blood Pressure [Right Arm] Blood Pressure Mean 96 Blood Pressure Mean [Right Arm] Blood Pressure Position [Right Arm] Pulse Oximetry 97 96 96 Oxygen Delivery Method Oxygen Flow Rate Sepsis Recent Fever Within 48 Hours Sepsis New/Unexplained Change in Mental Status Sepsis Action Taken by Nursing 04/16/20 06:30 04/16/20 06:31 04/16/20 06:45 Temperature Temperature Source Pulse Rate 86 86 83 Pulse Rate [Apical] Pulse Rate from SpO2 Sensor 85 85 83 Pulse Rhythm [Apical] Pulse Strength [Apical] Respiratory Rate 22 22 20 Respiratory Effort / Characteristics Respiratory Depth Respiratory Pattern Blood Pressure 130/72 127/64 Blood Pressure [Right Arm] Blood Pressure Mean 86 88 Blood Pressure Mean [Right Arm] Blood Pressure Position [Right Arm] Pulse Oximetry 93 93 95 Oxygen Delivery Method Oxygen Flow Rate Sepsis Recent Fever Within 48 Hours Sepsis New/Unexplained Change in Mental Status Sepsis Action Taken by Nursing 04/16/20 06:46 04/16/20 07:01 04/16/20 07:16 Temperature Temperature Source Pulse Rate 80 84 81 Pulse Rate [Apical] Pulse Rate from SpO2 Sensor 82 84 83 Pulse Rhythm [Apical] Pulse Strength [Apical] Respiratory Rate 20 21 32 H Respiratory Effort / Characteristics Respiratory Depth Respiratory Pattern Blood Pressure 131/69 133/74 Blood Pressure [Right Arm] Blood Pressure Mean 73 107 Blood Pressure Mean [Right Arm] Blood Pressure Position [Right Arm] Pulse Oximetry 95 94 98 Oxygen Delivery Method Oxymask Oxymask Oxygen Flow Rate 8 8 Sepsis Recent Fever Within 48 Hours Sepsis New/Unexplained Change in Mental Status Sepsis Action Taken by Nursing 04/16/20 07:30 04/16/20 07:31 04/16/20 07:45 Temperature Temperature Source Pulse Rate 85 81 89 Pulse Rate [Apical] Pulse Rate from SpO2 Sensor 81 77 86 Pulse Rhythm [Apical] Pulse Strength [Apical] Respiratory Rate 19 22 21 Respiratory Effort / Characteristics Respiratory Depth Respiratory Pattern Blood Pressure 128/64 146/83 H Blood Pressure [Right Arm] Blood Pressure Mean 77 117 Blood Pressure Mean [Right Arm] Blood Pressure Position [Right Arm] Pulse Oximetry 96 96 98 Oxygen Delivery Method Oxymask Oxymask Oxymask Oxygen Flow Rate 8 8 8 Sepsis Recent Fever Within 48 Hours Sepsis New/Unexplained Change in Mental Status Sepsis Action Taken by Nursing 04/16/20 08:00 Temperature Temperature Source Pulse Rate 85 Pulse Rate [Apical] Pulse Rate from SpO2 Sensor 80 Pulse Rhythm [Apical] Pulse Strength [Apical] Respiratory Rate 18 Respiratory Effort / Characteristics Respiratory Depth Respiratory Pattern Blood Pressure 130/91 Blood Pressure [Right Arm] Blood Pressure Mean 112 Blood Pressure Mean [Right Arm] Blood Pressure Position [Right Arm] Pulse Oximetry 100 Oxygen Delivery Method Oxygen Flow Rate 8 Sepsis Recent Fever Within 48 Hours Sepsis New/Unexplained Change in Mental Status Sepsis Action Taken by Nursing Laboratory Data Result diagrams: 04/16/20 04:30 04/16/20 04:30 Lab Results 04/16/20 04/16/20 04/16/20 Range/Units 04:30 04:30 04:30 WBC 13.02 H (4.8-10.8) K/uL RBC 3.33 L (4.7-6.1) M/uL Hgb 10.4 L (14.0-18.0) g/dL Hct 31.9 L (42-52) % MCV 95.8 (80-100) fL MCH 31.2 (25-34) pg MCHC 32.6 (32-36) g/dL RDW Std Deviation 48.9 H (36.4-46.3) fL RDW Coeff of Tyrel 14.0 (11.5-14.5) % Plt Count 129 L (130-400) K/uL MPV 9.7 (7.4-10.4) fL Immature Gran % (Auto) 0.2 % Neut % (Auto) 88.4 % Lymph % (Auto) 5.1 % [place] % (Auto) 5.5 % Eos % (Auto) 0.6 % Baso % (Auto) 0.2 % Neut # (Auto) 11.53 H (1.4-6.5) K/uL Lymph # (Auto) 0.66 L (1.2-3.4) K/uL [place] # (Auto) 0.71 H (0.11-0.59) K/uL Eos # (Auto) 0.08 (0-0.5) K/uL Baso # (Auto) 0.02 (0-0.2) K/uL Immature Gran # (Auto) 0.02 (0.00-0.02) K/uL ESR (0-14) mm/hr PT 26.5 H (9.0-12.0) Seconds INR 2.6 H (0.9-1.1) APTT 33.6 H (21.0-31.0) Seconds PTT Ratio 1.2 Sodium 143 (136-145) mmol/L Potassium 3.8 (3.5-5.1) mmol/L Chloride 109 H (98-107) mmol/L Carbon Dioxide 29 (21-32) mmol/L Anion Gap 5.0 (3-11) BUN 34 H (7-18) mg/dl Creatinine 2.04 H (0.6-1.4) mg/dl Est Cr Clr Drug Dosing 23.9 ml/min Est GFR ( Amer) 33.0 Est GFR (Non-Af Amer) 28.5 BUN/Creatinine Ratio 16.5 (10-20) Glucose 141 H (70-99) mg/dl Lactate (0.4-2.0) mmol/L Calcium 8.4 L (8.5-10.1) mg/dl Magnesium 1.8 (1.8-2.4) mg/dl Total Bilirubin 0.5 (0.2-1) mg/dl AST 17 (15-37) U/L ALT 19 (12-78) U/L Alkaline Phosphatase 108 (45-117) U/L Total Creatine Kinase (39-308) U/L Troponin I (0-0.045) ng/ml C-Reactive Protein (0-0.29) mg/dl NT-Pro-B Natriuret Pep (0-1800) pg/ml Total Protein 7.6 (6.4-8.2) gm/dl Albumin 2.9 L (3.4-5.0) gm/dl Globulin 4.7 H (2.5-4.0) gm/dl Albumin/Globulin Ratio 0.6 L (0.9-2) Procalcitonin (0-0.5) ng/ml TSH (0.300-4.500) uIu/ml Urine Color Urine Appearance (Clear) Urine pH (4.5-7.5) Ur Specific [place] (1.000-1.030) Urine Protein (Negative) Urine Glucose (UA) (Negative) Urine Ketones (Negative) Urine Blood (Negative) Urine Nitrite (Negative) Urine Bilirubin (Negative) Urine Urobilinogen (Negative) Ur Leukocyte Esterase (Negative) Urine WBC (Auto) (0-5) /hpf Urine RBC (Auto) (0-4) /hpf U Hyaline Cast (Auto) (0-5) /lpf U Epithel Cells (Auto) (0-5) /lpf Urine Bacteria (Auto) (Negative) Granular Casts (0) /lpf Urine Yeast 04/16/20 04/16/20 04/16/20 Range/Units 04:30 04:30 04:30 WBC (4.8-10.8) K/uL RBC (4.7-6.1) M/uL Hgb (14.0-18.0) g/dL Hct (42-52) % MCV (80-100) fL MCH (25-34) pg MCHC (32-36) g/dL RDW Std Deviation (36.4-46.3) fL RDW Coeff of Tyrel (11.5-14.5) % Plt Count (130-400) K/uL MPV (7.4-10.4) fL Immature Gran % (Auto) % Neut % (Auto) % Lymph % (Auto) % [place] % (Auto) % Eos % (Auto) % Baso % (Auto) % Neut # (Auto) (1.4-6.5) K/uL Lymph # (Auto) (1.2-3.4) K/uL [place] # (Auto) (0.11-0.59) K/uL Eos # (Auto) (0-0.5) K/uL Baso # (Auto) (0-0.2) K/uL Immature Gran # (Auto) (0.00-0.02) K/uL ESR 28 H (0-14) mm/hr PT (9.0-12.0) Seconds INR (0.9-1.1) APTT (21.0-31.0) Seconds PTT Ratio Sodium (136-145) mmol/L Potassium (3.5-5.1) mmol/L Chloride (98-107) mmol/L Carbon Dioxide (21-32) mmol/L Anion Gap (3-11) BUN (7-18) mg/dl Creatinine (0.6-1.4) mg/dl Est Cr Clr Drug Dosing ml/min Est GFR ( Amer) Est GFR (Non-Af Amer) BUN/Creatinine Ratio (10-20) Glucose (70-99) mg/dl Lactate 1.6 (0.4-2.0) mmol/L Calcium (8.5-10.1) mg/dl Magnesium (1.8-2.4) mg/dl Total Bilirubin (0.2-1) mg/dl AST (15-37) U/L ALT (12-78) U/L Alkaline Phosphatase (45-117) U/L Total Creatine Kinase (39-308) U/L Troponin I 0.018 (0-0.045) ng/ml C-Reactive Protein 0.76 H (0-0.29) mg/dl NT-Pro-B Natriuret Pep 7446 H (0-1800) pg/ml Total Protein (6.4-8.2) gm/dl Albumin (3.4-5.0) gm/dl Globulin (2.5-4.0) gm/dl Albumin/Globulin Ratio (0.9-2) Procalcitonin (0-0.5) ng/ml TSH (0.300-4.500) uIu/ml Urine Color Urine Appearance (Clear) Urine pH (4.5-7.5) Ur Specific [place] (1.000-1.030) Urine Protein (Negative) Urine Glucose (UA) (Negative) Urine Ketones (Negative) Urine Blood (Negative) Urine Nitrite (Negative) Urine Bilirubin (Negative) Urine Urobilinogen (Negative) Ur Leukocyte Esterase (Negative) Urine WBC (Auto) (0-5) /hpf Urine RBC (Auto) (0-4) /hpf U Hyaline Cast (Auto) (0-5) /lpf U Epithel Cells (Auto) (0-5) /lpf Urine Bacteria (Auto) (Negative) Granular Casts (0) /lpf Urine Yeast 04/16/20 04/16/20 04/16/20 Range/Units 04:30 04:37 05:15 WBC (4.8-10.8) K/uL RBC (4.7-6.1) M/uL Hgb (14.0-18.0) g/dL Hct (42-52) % MCV (80-100) fL MCH (25-34) pg MCHC (32-36) g/dL RDW Std Deviation (36.4-46.3) fL RDW Coeff of Tyrel (11.5-14.5) % Plt Count (130-400) K/uL MPV (7.4-10.4) fL Immature Gran % (Auto) % Neut % (Auto) % Lymph % (Auto) % [place] % (Auto) % Eos % (Auto) % Baso % (Auto) % Neut # (Auto) (1.4-6.5) K/uL Lymph # (Auto) (1.2-3.4) K/uL [place] # (Auto) (0.11-0.59) K/uL Eos # (Auto) (0-0.5) K/uL Baso # (Auto) (0-0.2) K/uL Immature Gran # (Auto) (0.00-0.02) K/uL ESR (0-14) mm/hr PT (9.0-12.0) Seconds INR (0.9-1.1) APTT (21.0-31.0) Seconds PTT Ratio Sodium (136-145) mmol/L Potassium (3.5-5.1) mmol/L Chloride (98-107) mmol/L Carbon Dioxide (21-32) mmol/L Anion Gap (3-11) BUN (7-18) mg/dl Creatinine (0.6-1.4) mg/dl Est Cr Clr Drug Dosing ml/min Est GFR ( Amer) Est GFR (Non-Af Amer) BUN/Creatinine Ratio (10-20) Glucose (70-99) mg/dl Lactate (0.4-2.0) mmol/L Calcium (8.5-10.1) mg/dl Magnesium (1.8-2.4) mg/dl Total Bilirubin (0.2-1) mg/dl AST (15-37) U/L ALT (12-78) U/L Alkaline Phosphatase (45-117) U/L Total Creatine Kinase 79 (39-308) U/L Troponin I (0-0.045) ng/ml C-Reactive Protein (0-0.29) mg/dl NT-Pro-B Natriuret Pep (0-1800) pg/ml Total Protein (6.4-8.2) gm/dl Albumin (3.4-5.0) gm/dl Globulin (2.5-4.0) gm/dl Albumin/Globulin Ratio (0.9-2) Procalcitonin 2.90 H (0-0.5) ng/ml TSH 0.957 (0.300-4.500) uIu/ml Urine Color Yellow Urine Appearance Cloudy A (Clear) Urine pH 5.5 (4.5-7.5) Ur Specific [place] 1.013 (1.000-1.030) Urine Protein Trace H (Negative) Urine Glucose (UA) Negative (Negative) Urine Ketones Negative (Negative) Urine Blood 3+ H (Negative) Urine Nitrite Positive A (Negative) Urine Bilirubin Negative (Negative) Urine Urobilinogen Negative (Negative) Ur Leukocyte Esterase 3+ H (Negative) Urine WBC (Auto) >30 H (0-5) /hpf Urine RBC (Auto) >30 H (0-4) /hpf U Hyaline Cast (Auto) 5-10 H (0-5) /lpf U Epithel Cells (Auto) 5-10 H (0-5) /lpf Urine Bacteria (Auto) 4+ H (Negative) Granular Casts 1-5 H (0) /lpf Urine Yeast Not Reportable Administered Medications Albuterol (Duoneb) 3 ml NEB Q4R [facility] Stop: 05/16/20 10:59 Last Admin: 04/16/20 11:52 Dose: 3 ml Documented by: [id number] Amlodipine Besylate (Norvasc) 2.5 mg PO DAILY [facility] Stop: 05/16/20 08:59 Last Admin: 04/16/20 10:05 Dose: 2.5 mg Documented by: [id number] Aspirin (Ecotrin Ectab) 81 mg PO DAILY [facility] Stop: 05/16/20 08:59 Last Admin: 04/16/20 10:04 Dose: 81 mg Documented by: [id number] Atorvastatin Calcium (Lipitor) 40 mg PO DAILY [facility] Stop: 05/16/20 08:59 Last Admin: 04/16/20 10:04 Dose: 40 mg Documented by: [id number] Docusate Sodium (Colace) 100 mg PO BID [facility] Stop: 05/16/20 08:59 Last Admin: 04/16/20 10:04 Dose: 100 mg Documented by: [id number] Ferrous Sulfate (Feosol) 325 mg PO QAM [facility] Stop: 05/16/20 08:59 Last Admin: 04/16/20 10:04 Dose: 325 mg Documented by: [id number] Finasteride (Proscar) 5 mg PO QAM [facility] Stop: 05/16/20 08:59 Last Admin: 04/16/20 10:05 Dose: 5 mg Documented by: [id number] Piperacillin Sod/Tazobactam (Sod 3.375 gm/ Dextrose) 100 ml in 115 mls @ 230 mls/hr IV Q8H [facility]; Protocol Stop: 04/18/20 11:59 Last Infusion: 04/16/20 12:49 Dose: 0 mls/hr Documented by: [id number] Admin: 04/16/20 12:04 Dose: 230 mls/hr Documented by: [id number] Vitamin D (Vitamin D3) 1,000 units PO DAILY [facility] Stop: 05/16/20 08:59 Last Admin: 04/16/20 10:05 Dose: 1,000 units Documented by: [id number] Discontinued Medications Albuterol (Duoneb) 3 ml NEB NOW STA Stop: 04/16/20 07:11 Last Admin: 04/16/20 10:32 Dose: Not Given Documented by: [id number] Furosemide (Lasix) 40 mg IV NOW STA Stop: 04/16/20 07:17 Last Admin: 04/16/20 07:51 Dose: 40 mg Documented by: [id number] Piperacillin Sod/Tazobactam Sod (Zosyn) 4.5 gm in 120 mls @ 240 mls/hr IV NOW ONE Stop: 04/16/20 06:57 Last Infusion: 04/16/20 07:33 Dose: 0 mls/hr Documented by: [id number] Admin: 04/16/20 07:03 Dose: 240 mls/hr Documented by: [id number] Magnesium Sulfate/Dextrose (Magnesium Sulfate / D5w) 1 gm in 100 mls @ 50 mls/hr IV ONE ONE Stop: 04/16/20 09:15 Last Infusion: 04/16/20 10:27 Dose: 0 mls/hr Documented by: [id number] Admin: 04/16/20 07:51 Dose: 50 mls/hr Documented by: [id number] Miscellaneous Information (Consult) 1 ea N/A UD PRN PRN Reason: Consult Stop: 05/16/20 06:27 Last Admin: 04/16/20 07:03 Dose: 1 ea Documented by: [id number] Discharge Plan Visit Data *Final* Discharge Date/Time: 04/16/20 09:15 Chief Complaint: Shortness of Breath/Dyspnea Stated Complaint: SHORT OF BREATH/ NAUSEA/FEVER ED Provider: Macie Santiago Discharge Problem: Hypoxia, Acute UTI, Weakness, Vomiting Patient Disposition: Admitted As Inpatient Discharge Instructions Interventions: ED Discharge Assessment Last Done: 04/16/20 09:15 Discharge Problem: Vomiting Qualifiers: Vomiting type: unspecified Vomiting Intractability: non-intractable Nausea pre sence: with nausea Qualified Code(s): R11.2 - Nausea with vomiting, unspecified
[2020-04-16 04:41] LABS: Basophils # (auto) 0.02 K/uL (0-0.2); Basophils % (auto) 0.2 %; Eosinophils # (auto) 0.08 K/uL (0-0.5); Eosinophils % (auto) 0.6 %; Hematocrit (blood only) 31.9 % (42-52); Hemoglobin 10.4 g/dL (14.0-18.0); Immature Granulocytes # (auto) 0.02 K/uL (0.00-0.02); Immature Granulocytes % (auto) 0.2 %; Lymphocytes # (auto) 0.66 K/uL (1.2-3.4); Lymphocytes % (auto) 5.1 %; Mean Corpuscular Hemoglobin 31.2 pg (25-34); Mean Corpuscular Hgb Conc 32.6 g/dL (32-36); Mean Corpuscular Volume 95.8 fL (80-100); Mean Platelet Volume 9.7 fL (7.4-10.4); Monocytes # (auto) 0.71 K/uL (0.11-0.59); Monocytes % (auto) 5.5 %; Neutrophils # (auto) 11.53 K/uL (1.4-6.5); Neutrophils % (auto) 88.4 %; Platelet Count 129 K/uL (130-400); RDW Standard Deviation 48.9 fL (36.4-46.3); Red Blood Count 3.33 M/uL (4.7-6.1); White Blood Count 13.02 K/uL (4.8-10.8)
[2020-04-16 04:51] LABS: INR 2.6 (0.9-1.1); Partial Thromboplastin Ratio 1.2; Partial Thromboplastin Time 33.6 Seconds (21.0-31.0); Prothrombin Time 26.5 Seconds (9.0-12.0)
[2020-04-16 04:59] LABS: Albumin Level 2.9 gm/dl (3.4-5.0); BUN Creatinine Ratio 16.5 (10-20); Calcium 8.4 mg/dl (8.5-10.1); Creatinine Clr Calc Pharmacy 23.9 ml/min; Est GFR (Non-African American) 28.5; Magnesium 1.8 mg/dl (1.8-2.4); Potassium 3.8 mmol/L (3.5-5.1)
[2020-04-16 05:01] LABS: Albumin Globulin Ratio 0.6 (0.9-2); Bilirubin,Total 0.5 mg/dl (0.2-1); Globulin 4.7 gm/dl (2.5-4.0); Total Protein 7.6 gm/dl (6.4-8.2)
[2020-04-16 05:37] LABS: Appearance Urine Cloudy (Clear); Bacteria Urine Automated 4+ (Negative); Bilirubin Urine Negative (Negative); Blood Urine 3+ (Negative); Color Urine Yellow; Glucose Urine UA Negative (Negative); Ketones Urine Negative (Negative); Leukocyte Esterase Urine 3+ (Negative); Nitrite Urine Positive (Negative); Protein Urine Trace (Negative); RBC Urine Automated >30 /hpf (0-4); Specific Gravity Urine 1.013 (1.000-1.030); Urobilinogen Urine Negative (Negative); WBC Urine Automated >30 /hpf (0-5); pH Urine 5.5 (4.5-7.5)
[2020-04-16] MEDS ORDERED: PIPERACILL/TAZOBAC CONSULT ACTIVE PRN ×2 (06:28→07:11)
[2020-04-16] MEDS ORDERED: PIPERACILLIN/TAZOBACTAM 4.5 GM/120 ML BAG IV ONE (06:28)
[2020-04-16] MEDS ORDERED: ALBUT/IPRATROP 3MG/0.5MG NEB 3 ML VIAL NEB STA (07:10)
[2020-04-16] MEDS ORDERED: MAGNESIUM SULFATE / D5W 1 GM/100 ML BAG IV ONE (07:16)
[2020-04-16] MEDS ORDERED: FUROSEMIDE 40 MG/4 ML VIAL IV STA (07:16)
[2020-04-16 07:36] LABS: Troponin I 0.018 ng/ml (0-0.045)
[2020-04-16 07:45] LABS: C Reactive Protein 0.76 mg/dl (0-0.29)
[2020-04-16] MEDS ORDERED: ONDANSETRON INJ 2 MG/ML 2 ML VIAL IV PRN (08:02)
[2020-04-16] MEDS ORDERED: ACETAMINOPHEN 325 MG TAB PO PRN (08:02)
--- NOTE | 2020-04-16 08:11 | History & Physical Report ---
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 In the ER, started on oxymask oxygen from 6 to 8 liters/min in the ER, empirically given Zosyn by ED provider, and ordered COVID-19 testing Acute on chromic respiratory failure with hypoxia Ischemic cardiomyopathy, Possible acute on chronic systolic Congestive heart failure Generalized weakness -outpatient oxygen as 2.5 l/min via nasal cannula -started on oxymask oxygen from 6 to 8 liters/min in the ER -empirically given Zosyn by ED provider, continue as q 8 hours -procalcitonin is positive, the BNP is elevated as 7000 but was higher on last hospital admission when treated for CHF, questionable lung infiltrates on chest X ray without lobar consolidation or pleural effusion on my read -IV Lasix 40 mg x1 ordered by admitting hospitalist, continue to assess volume status, tentatively scheduled Lasix 40 mg daily oral starting on 04/17/2020. continue home dose amlodipine, atorvastatin, aspirin -the admission temperature of 37.8 C does not meet criteria for fever but there is elevated WBC 13K -COVID-19 testing was ordered by ED provider (which is a send out test and results will be pending), but I do not feel that this is high probability and should not preclude him from getting duoneb treatment which he takes more than 2 times a day at home as per his -Scheduled duonebs as QID for now -on airborne and contact precautions while COVID-19 screening test results return -generally wheelchair mobility at baseline, Allergmay benefit from PT/OT assessments history of prostate cancer in the past Urinary tract infection from chronic castellanos use -continue finasteride -chronic castellanos for 2 years (last changed castellanos within 2 weeks ago, usually is changed once every 4 weeks) -positive UA -on Zosyn empirically -follow urine culture to see if bacteria could be causing UTI or a colonization PAF (paroxysmal atrial fibrillation) Chronic anticoagulation with coumadin -admission EKG is sinus -on metoprolol -on Coumadin, INR is 2.6 on admission, continue home dose Coumadin, monitor INR 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 after carotid carotid endarterectomy in the past -on aspirin and coumadin and statin Hypothyroidism -on Levothyroxine -check TSH and creatinine kinase CKD (chronic kidney disease), stage III to stage IV -admission creatinine 2.04 is comparable to last hospital admission DVT prophylaxis: -Anticoagulated on Coumadin Family his family members Kat ([phone]) and daughter Rola ([phone]), daughter Hamida Code Status: DNR/DNI as affirmed by patient's Kat History of Present Illness This is an 89 year old male with history of myocardial infarctions in the past with coronary artery stents in the past, on Lasix at home, on coumadin for history of PAF, who has chronic respiratory failure with hypoxia and at home uses 2 to 2.5 liters/min oxygen continuously, who has 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 In the ER, started on oxymask oxygen from 6 to 8 liters/min in the ER, empirically given Zosyn by ED provider, and ordered COVID-19 testing Patient assessed patient at the bedside and he is poor historian. He reported that he had episode of vomiting, but his family members Kat ([phone]) and daughter Rola ([phone]) reports the symptoms as above. Patient on oxymask and did not appear to be acute respiratory distress. He could not sit up for the lung auscultation. He denies chest pain or abdomen pain. His only request was for medical doctor to help prop up his legs to help him feel more comfortable. There are not apparent ulcers of the feet. Allergy history: bactrim may lead to rash Primary Care Provider: Venkat Gilman DO Allergies Allergy/AdvReac Type Severity Reaction Status Date / Time clopidogrel Allergy Intermediate RASH Verified 04/16/20 04:26 Sulfa (Sulfonamide Allergy Intermediate RASH Verified 04/16/20 04:26 Antibiotics) sulfamethoxazole Allergy Intermediate RASH Verified 04/16/20 04:26 trimethoprim Allergy Mild RASH Verified 04/16/20 04:26 niacin Allergy Unknown UNKNOWN Verified 04/16/20 04:26 Home Medications Home Medications Medication Instructions Recorded Confirmed Type amlodipine 2.5 mg PO DAILY 02/15/19 04/16/20 History atorvastatin 40 mg PO DAILY 02/15/19 04/16/20 History ferrous sulfate 325 mg PO QAM 02/15/19 04/16/20 History finasteride 5 mg PO QAM 02/15/19 04/16/20 History levothyroxine 88 mcg PO DAILYBB 02/15/19 04/16/20 History nitroglycerin 0.4 mg SUBLINGUAL DIRECTED PRN 02/15/19 04/16/20 History omeprazole 20 mg PO DAILY 02/15/19 04/16/20 History cholecalciferol (vitamin D3) 1,000 unit PO DAILY 11/12/19 04/16/20 History [Vitamin D3] docusate sodium [Colace] 100 mg PO BID 11/12/19 04/16/20 History furosemide 40 mg PO DAILY 11/12/19 04/16/20 History ipratropium-albuterol 3 ml INHALATION QID 11/12/19 04/16/20 History potassium chloride 10 meq PO QAM 11/12/19 04/16/20 History metoprolol succinate 50 mg PO DAILYBB #0 tab 11/15/19 04/16/20 Rx nystatin 100,000 unit/gram topical 1 appln TOP TID #60 gm 02/23/20 04/16/20 Rx powder Lactobacillus acidoph-L.bulgar 1 tab PO DAILY 04/16/20 04/16/20 History [Lactinex] aspirin 81 mg PO DAILY 04/16/20 04/16/20 History metoprolol succinate 25 mg PO QPM 04/16/20 04/16/20 History polyethylene glycol 3350 [Miralax] 8.5 g PO DAILY PRN 04/16/20 04/16/20 History sennosides [senna] 8.6 mg PO DAILY PRN 04/16/20 04/16/20 History tramadol 50 mg PO BID PRN 04/16/20 04/16/20 History warfarin 5 mg PO QPM 04/16/20 04/16/20 History Past Med/Surg History Social History Smoking Status: Former smoker Second Hand Exposure: No; Hx Alcohol Use: No Hx Substance Use: No Preferred Language: Nepali Communication Ability: Effective Visual Impairment: No Limitations Hearing Ability: Normal Rock Climbing Instructor Required: No Beliefs That Will Affect Care: None marital status: Current Living Situation: Spouse current occupational status: retired Feels Safe at Home: Yes Review of Systems Review of Systems: All systems reviewed & are unremarkable except as noted in Subjective (with collaborative information from his family members as indicated in HPI) Physical Exam Constitutional: + frail appearing Eyes: PERRL, conjunctivae normal, anicteric sclerae EOM intact bilaterally ENMT: external ear and nose normal, oropharynx normal Neck: trachea midline, no thyromegaly normal visual inspection Respiratory: normal respiratory effort Cardiovascular: Rate/Rhythm: regular rate Gastrointestinal (Abdomen): normal bowel sounds, soft, nontender, no hepatosplenomegaly Musculoskeletal: Head/Neck/Chest: normocephalic and head atraumatic Neurologic: PERRL, EOMI, accommodation nl, no face palsy, no dysarthria Psychiatric: Orientation: alert and cooperative Genitourinary: + penis abnormality (presence of castellanos) Results & Data Results & Data ([facility]) Vital Signs (Past 12 Hours) Vital Signs Temp Pulse Pulse Resp BP BP Pulse Ox 04/16/20 07:01 84 21 131/69 94 04/16/20 06:46 80 20 95 04/16/20 06:45 83 20 127/64 95 04/16/20 06:31 86 22 93 04/16/20 06:30 86 22 130/72 93 04/16/20 06:16 84 22 96 04/16/20 06:15 82 28 H 136/71 96 04/16/20 06:01 80 28 H 97 04/16/20 06:00 81 21 119/59 L 96 04/16/20 05:46 78 20 97 04/16/20 05:45 76 18 126/62 97 04/16/20 05:31 87 20 97 04/16/20 05:30 83 18 122/77 97 04/16/20 05:20 90 18 116/66 97 04/16/20 05:15 82 20 116/66 96 04/16/20 05:00 79 20 112/58 L 96 04/16/20 04:30 83 20 137/79 04/16/20 04:01 18 97 04/16/20 04:00 84 23 128/68 96 04/16/20 03:33 37.8 C H 88 18 138/76 97
[2020-04-16 08:35] LABS: Thyroid Stimulating Hormone 0.957 uIu/ml (0.300-4.500)
--- NOTE | 2020-04-16 08:38 | XRay Report ---
XR chest 1V portable HISTORY: 89 years-old Male SEPSIS acute chest pain with sepsis COMPARISON: Chest radiograph 11/12/2019 TECHNIQUE: Portable AP view of the chest FINDINGS: Cardiac silhouette is enlarged, unchanged. Pulmonary vascular congestion with interstitial coarsening . Mild bibasilar opacities are redemonstrated. Mild blunting of the costophrenic angles. Degenerative changes of the shoulders and spine. IMPRESSION: 1. Cardiomegaly with pulmonary vascular congestion. 2. Mild bibasilar opacities suggest atelectasis or pneumonitis. 3. Trace pleural effusions. ACT 112: Negative or not required by law. The above report was generated using voice recognition software. It may contain grammatical, syntax o r spelling errors. Electronically signed by: Jesus Estrada M.D. 04/16/2020 8:37 AM
[2020-04-16] MEDS: FERROUS SULFATE 325 MG TAB PO SCH (10:04)
[2020-04-16] MEDS: ATORVASTATIN 40 MG TAB PO SCH (10:04)
[2020-04-16] MEDS: DOCUSATE SODIUM 100 MG CAP PO SCH ×2 (10:04→20:29)
[2020-04-16] MEDS: ASPIRIN 81 MG ECTAB PO SCH (10:04)
[2020-04-16] MEDS: CHOLECALCIFEROL 1,000 UNITS 25 MCG TAB PO SCH (10:05)
[2020-04-16] MEDS: AMLODIPINE BESYLATE 5 MG TAB PO SCH (10:05)
[2020-04-16] MEDS: FINASTERIDE 5 MG TAB PO SCH (10:05)
[2020-04-16] MEDS: ALBUT/IPRATROP 3MG/0.5MG NEB 3 ML VIAL NEB SCH ×4 (11:52→23:47)
[2020-04-16] MEDS: PIPERACILLIN/TAZOBACTAM 3.375 GM in DEXTROSE 5% 100 ML/100 ML BAG IV SCH ×2 (12:04→20:25)
[2020-04-16] MEDS: METOPROLOL SUCC 25MG EXT REL TAB PO SCH (20:29)
[2020-04-16] MEDS ORDERED: WARFARIN SOD 5 MG TAB PO SCH (21:00)
[2020-04-17] MEDS: ALBUT/IPRATROP 3MG/0.5MG NEB 3 ML VIAL NEB SCH ×5 (03:33→19:14)
[2020-04-17] MEDS: METOPROLOL SUCC 50MG EXT REL TAB PO SCH (05:10)
[2020-04-17] MEDS: PIPERACILLIN/TAZOBACTAM 3.375 GM in DEXTROSE 5% 100 ML/100 ML BAG IV SCH ×3 (05:10→20:01)
[2020-04-17] MEDS: LEVOTHYROXINE SODIUM 88 MCG TABLET PO SCH (05:10)
[2020-04-17 08:02] LABS: Basophils # (auto) 0.02 K/uL (0-0.2); Basophils % (auto) 0.2 %; Eosinophils # (auto) 0.16 K/uL (0-0.5); Eosinophils % (auto) 1.6 %; Hematocrit (blood only) 30.9 % (42-52); Immature Granulocytes # (auto) 0.02 K/uL (0.00-0.02); Immature Granulocytes % (auto) 0.2 %; Lymphocytes # (auto) 0.78 K/uL (1.2-3.4); Lymphocytes % (auto) 7.9 %; Mean Corpuscular Hemoglobin 30.8 pg (25-34); Mean Corpuscular Hgb Conc 32.4 g/dL (32-36); Mean Corpuscular Volume 95.1 fL (80-100); Mean Platelet Volume 9.6 fL (7.4-10.4); Monocytes # (auto) 1.42 K/uL (0.11-0.59); Monocytes % (auto) 14.4 %; Neutrophils # (auto) 7.43 K/uL (1.4-6.5); Neutrophils % (auto) 75.7 %; Platelet Count 122 K/uL (130-400); RDW Coefficient of Variation 13.9 % (11.5-14.5); RDW Standard Deviation 47.9 fL (36.4-46.3); Red Blood Count 3.25 M/uL (4.7-6.1); White Blood Count 9.83 K/uL (4.8-10.8)
[2020-04-17 08:12] LABS: INR 3.1 (0.9-1.1); Prothrombin Time 30.8 Seconds (9.0-12.0)
[2020-04-17 08:28] LABS: Albumin Level 2.7 gm/dl (3.4-5.0); BUN Creatinine Ratio 14.4 (10-20); Calcium 8.9 mg/dl (8.5-10.1); Creatinine Clr Calc Pharmacy 19.7 ml/min; Est GFR (African American) 29.9; Est GFR (Non-African American) 25.8; Magnesium 2.2 mg/dl (1.8-2.4); Potassium 3.3 mmol/L (3.5-5.1)
[2020-04-17 08:31] LABS: Albumin Globulin Ratio 0.6 (0.9-2); Bilirubin,Total 0.6 mg/dl (0.2-1); Globulin 4.8 gm/dl (2.5-4.0); Total Protein 7.5 gm/dl (6.4-8.2)
[2020-04-17] MEDS: DOCUSATE SODIUM 100 MG CAP PO SCH ×2 (08:57→20:02)
[2020-04-17] MEDS: ASPIRIN 81 MG ECTAB PO SCH (08:58)
[2020-04-17] MEDS: FERROUS SULFATE 325 MG TAB PO SCH (08:58)
[2020-04-17] MEDS: FUROSEMIDE 40 MG TAB PO SCH (08:59)
[2020-04-17] MEDS: CHOLECALCIFEROL 1,000 UNITS 25 MCG TAB PO SCH (08:59)
[2020-04-17] MEDS: ATORVASTATIN 40 MG TAB PO SCH (09:00)
[2020-04-17] MEDS: FINASTERIDE 5 MG TAB PO SCH (09:00)
[2020-04-17] MEDS: AMLODIPINE BESYLATE 5 MG TAB PO SCH (09:00)
--- NOTE | 2020-04-17 13:15 | Hospitalist Progress Note ---
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 In the ER, started on oxymask oxygen from 6 to 8 liters/min in the ER, empirically given Zosyn by ED provider, and ordered COVID-19 testing Acute on chromic respiratory failure with hypoxia Ischemic cardiomyopathy, Possible acute on chronic systolic Congestive heart failure Generalized weakness gram negative bacteremia -outpatient oxygen as 2.5 l/min via nasal cannula -started on oxymask oxygen from 6 to 8 liters/min in the ER -empirically given Zosyn by ED provider, continue as q 8 hours -procalcitonin is positive, the BNP is elevated as 7000 but was higher on last hospital admission when treated for CHF, mild congestive lung infiltrates on chest X ray without lobar consolidation and no significant pleural effusion on my read -IV Lasix 40 mg x1 ordered by admitting hospitalist, continue to assess volume status, tentatively scheduled Lasix 40 mg daily oral starting on 04/17/2020. continue home dose amlodipine, atorvastatin, aspirin -the admission temperature of 37.8 C does not meet criteria for fever but there is elevated admission WBC 13K, his admission blood cultures return on same day result as gram negative bacteremia, admission COVID-19 screening test results return as negative by 04/17/2020 -continue IV Zosyn for now while awaiting speciation and sensitivities. CXR ordered on 04/17/2020 while currently on oral Lasix 40 mg daily. patient on base line oxygen of 2 liters/min. continued scheduled duonebs. -when I updated his on 04/17/2020 about bacteremia, she reports now noting damaged oxygen tubing at home and wonders if this may be reason for initial shortness of breath on admission. have notified case management -generally wheelchair mobility at baseline. PT/OT evaluations while in the hospital history of prostate cancer in the past possible Urinary tract infection from chronic castellanos use -continue finasteride -chronic castellanos for 2 years (last changed castellanos within 2 weeks ago, usually is changed once every 4 weeks) -positive UA, urine culture More than three types of organisms present, all high counts. 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 serum potassium given on 04/17/2020 as serum potassium 3.3 DVT prophylaxis: -Anticoagulated by previous Coumadin Family his family members Ade who prefers to be called "Kat" ([phone]) and daughter Rola ([phone]), daughter Hamida Code Status: DNR/DNI as affirmed by patient's Kat Admission and Anticipated Discharge Date Admission Date: April 16, 2020 Subjective on 2liters/min nasal cannula. patient more energetic compared to yesterday. he was able to lean forward on his own power fro lung exam. no dizziness. no chest pain. no abdomen pain. no vomiting. no fevers when I updated his on 04/17/2020 about bacteremia, she reports now noting damaged oxygen tubing at home and wonders if this may be reason for initial shortness of breath on admission. have notified case management Review of Systems Review of Systems: All systems reviewed & are unremarkable except as noted in Subjective Physical Exam Constitutional: + frail appearing Eyes: PERRL, conjunctivae normal, anicteric sclerae EOM intact bilaterally ENMT: external ear and nose normal, oropharynx normal Neck: trachea midline, no thyromegaly normal visual inspection Respiratory: normal respiratory effort Cardiovascular: Rate/Rhythm: regular rate Gastrointestinal (Abdomen): normal bowel sounds, soft, nontender, no hepatosplenomegaly Musculoskeletal: Head/Neck/Chest: normocephalic and head atraumatic Neurologic: PERRL, EOMI, accommodation nl, no face palsy, no dysarthria Psychiatric: Orientation: alert and cooperative Genitourinary: + penis abnormality (presence of castellanos) Results & Data Results & Data ([facility]) Vital Signs (Past 12 Hours) Vital Signs Temp Pulse Pulse Pulse Resp BP BP 04/17/20 12:10 36.8 C 89 18 119/76 04/17/20 11:13 90 16 04/17/20 08:00 36.5 C 60 20 140/73 04/17/20 07:39 86 16 04/17/20 04:00 36.8 C 84 20 132/68 04/17/20 03:33 83 18 Pulse Ox 04/17/20 12:10 95 04/17/20 11:13 96 04/17/20 08:00 92 04/17/20 07:39 95 04/17/20 04:00 96 04/17/20 03:33 95
--- NOTE | 2020-04-17 13:29 | XRay Report ---
XR chest 1V portable HISTORY: 89 years-old Male follow up lung infiltrates follow-up study in a patient with bibasilar op acities COMPARISON: Chest radiograph 04/16/2020 TECHNIQUE: Portable AP view of the chest FINDINGS: Cardiac silhouette is enlarged. Resolution of the pulmonary vascular congestion with improved aeratio n of the lung bases. There is minimal left lung base opacities suggestive of atelectasis. Mild blunti ng of the costophrenic angles. No pneumothorax, large pleural effusion or overt pulmonary edema. Dege nerative changes of the shoulders and spine. Left shoulder rotator cuff calcific tendinosis. IMPRESSION: 1. Cardiomegaly without overt pulmonary edema. 2. Improved aeration of the bilateral lung bases. No airspace consolidation typical for pneumonia. ACT 112: Negative or not required by law. The above report was generated using voice recognition software. It may contain grammatical, syntax o r spelling errors. Electronically signed by: Jesus Estrada M.D. 04/17/2020 1:27 PM
--- NOTE | 2020-04-17 13:45 | Electrocardiogram Report ---
Test Reason : Blood Pressure : / mmHG Vent. Rate : 088 BPM Atrial Rate : 088 BPM P-R Int : 230 ms QRS Dur : 148 ms QT Int : 406 ms P-R-T Axes : 078 -23 122 degrees QTc Int : 491 ms Sinus rhythm with 1st degree A-V block with Premature supraventricular complexes and with occasional Premature ventricular complexes Left bundle branch block Abnormal ECG When compared with ECG of 14-NOV-2019 07:06, Premature supraventricular complexes are now Present OK interval has increased Confirmed by Ravindra Auguste ([id number]) on 04/17/2020 1:44:54 PM Referred By: REFERRED SELF Confirmed By:Ravindra Auguste
[2020-04-17] MEDS: POTASSIUM CHLORIDE / WTR 10 MEQ/100 ML PLCT IV SCH (14:53)
[2020-04-17] MEDS: METOPROLOL SUCC 25MG EXT REL TAB PO SCH (20:02)
[2020-04-18] MEDS: ALBUT/IPRATROP 3MG/0.5MG NEB 3 ML VIAL NEB SCH ×7 (00:11→22:56)
[2020-04-18] MEDS: PIPERACILLIN/TAZOBACTAM 3.375 GM in DEXTROSE 5% 100 ML/100 ML BAG IV SCH ×3 (03:27→19:52)
[2020-04-18] MEDS: LEVOTHYROXINE SODIUM 88 MCG TABLET PO SCH (05:58)
[2020-04-18] MEDS: METOPROLOL SUCC 50MG EXT REL TAB PO SCH (05:58)
[2020-04-18 06:45] LABS: Basophils # (auto) 0.03 K/uL (0-0.2); Basophils % (auto) 0.5 %; Eosinophils % (auto) 4.6 %; Hematocrit (blood only) 31.1 % (42-52); Immature Granulocytes # (auto) 0.01 K/uL (0.00-0.02); Immature Granulocytes % (auto) 0.2 %; Lymphocytes % (auto) 13.8 %; Mean Corpuscular Hemoglobin 30.7 pg (25-34); Mean Corpuscular Hgb Conc 32.2 g/dL (32-36); Mean Corpuscular Volume 95.4 fL (80-100); Mean Platelet Volume 9.5 fL (7.4-10.4); Monocytes # (auto) 1.36 K/uL (0.11-0.59); Monocytes % (auto) 20.8 %; Neutrophils # (auto) 3.94 K/uL (1.4-6.5); Neutrophils % (auto) 60.1 %; Platelet Count 118 K/uL (130-400); RDW Coefficient of Variation 13.7 % (11.5-14.5); RDW Standard Deviation 47.3 fL (36.4-46.3); Red Blood Count 3.26 M/uL (4.7-6.1); White Blood Count 6.54 K/uL (4.8-10.8)
[2020-04-18 06:56] LABS: INR 3.4 (0.9-1.1); Prothrombin Time 33.4 Seconds (9.0-12.0)
[2020-04-18 07:17] LABS: Albumin Level 2.7 gm/dl (3.4-5.0); BUN Creatinine Ratio 13.4 (10-20); Calcium 8.6 mg/dl (8.5-10.1); Creatinine Clr Calc Pharmacy 20.8 ml/min; Est GFR (African American) 31.8; Est GFR (Non-African American) 27.5; Potassium 3.3 mmol/L (3.5-5.1)
[2020-04-18 07:20] LABS: Albumin Globulin Ratio 0.6 (0.9-2); Bilirubin,Total 0.6 mg/dl (0.2-1); Globulin 4.5 gm/dl (2.5-4.0); Total Protein 7.2 gm/dl (6.4-8.2)
[2020-04-18] MEDS ORDERED: POTASSIUM CHLORIDE 20 MEQ TABCR PO STA (07:43)
[2020-04-18] MEDS: FUROSEMIDE 40 MG TAB PO SCH (08:14)
[2020-04-18] MEDS: FERROUS SULFATE 325 MG TAB PO SCH (08:14)
[2020-04-18] MEDS: ATORVASTATIN 40 MG TAB PO SCH (08:14)
[2020-04-18] MEDS: ASPIRIN 81 MG ECTAB PO SCH (08:14)
[2020-04-18] MEDS: CHOLECALCIFEROL 1,000 UNITS 25 MCG TAB PO SCH (08:15)
[2020-04-18] MEDS: AMLODIPINE BESYLATE 5 MG TAB PO SCH (08:15)
[2020-04-18] MEDS: FINASTERIDE 5 MG TAB PO SCH (08:15)
[2020-04-18] MEDS: DOCUSATE SODIUM 100 MG CAP PO SCH ×2 (08:16→19:56)
--- NOTE | 2020-04-18 08:46 | Hospitalist Progress Note ---
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 In the ER, started on oxymask oxygen from 6 to 8 liters/min in the ER, empirically given Zosyn by ED provider, and ordered COVID-19 testing" Acute on chromic respiratory failure with hypoxia Ischemic cardiomyopathy, Possible acute on chronic systolic Congestive heart failure Generalized weakness gram negative bacteremia (E.coli bacteremia) -outpatient oxygen as 2.5 l/min via nasal cannula -started on oxymask oxygen from 6 to 8 liters/min in the ER -empirically given Zosyn by ED provider, continue as q 8 hours -procalcitonin is positive, the BNP is elevated as 7000 but was higher on last hospital admission when treated for CHF, mild congestive lung infiltrates on chest X ray without lobar consolidation and no significant pleural effusion on my read -IV Lasix 40 mg x1 ordered by admitting hospitalist, continue to assess volume status, tentatively scheduled Lasix 40 mg daily oral starting on 04/17/2020. continue home dose amlodipine, atorvastatin, aspirin -the admission temperature of 37.8 C does not meet criteria for fever but there is elevated admission WBC 13K, his admission blood cultures return on same day result as gram negative bacteremia, admission COVID-19 screening test results return as negative by 04/17/2020 -continue IV Zosyn for now while awaiting speciation and sensitivities. CXR on 04/17/2020 with general resolution of pulmonary edema. continue Lasix as 40 mg oral daily. patient on baseline oxygen of 2 liters/min. continued scheduled duonebs. when I updated his on 04/17/2020 about bacteremia, she reports now noting damaged oxygen tubing at home and wonders if this may be reason for initial shortness of breath on admission. have notified case management -04/18/2020 the admission blood cultures so far returned as E.coli, sensitivities pending, continue IV Zosyn for now -generally wheelchair mobility at baseline. PT/OT evaluations while in the hospital history of prostate cancer in the past possible Urinary tract infection from chronic castellanos use -continue finasteride -chronic castellanos for 2 years (last changed castellanos within 2 weeks ago, usually is changed once every 4 weeks) -positive UA, urine culture More than three types of organisms present and all high counts. -given the bacteremia is gram negative bacilli, there is chance that this was from urinary tract source -continue antibiotics PAF (paroxysmal atrial fibrillation) Chronic anticoagulation with coumadin -admission EKG is sinus -on metoprolol -on Coumadin, INR is 2.6 on admission, continued home dose Coumadin but INR on 04/17/2020 is 3.1 and held coumadin. 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 serum potassium given on 04/17/2020 as serum potassium 3.3, again is 3.3 on 04/18/2020 and additional potassium given DVT prophylaxis: -Anticoagulated by previous Coumadin Family his family members Ade who prefers to be called "Kat" ([phone]) and daughter Rola ([phone]), daughter Hamida Code Status: DNR/DNI as affirmed by patient's Kat Admission and Anticipated Discharge Date Admission Date: April 16, 2020 Subjective breathing on nasal cannula. no acute distress. no chest pain. no dizziness. no headache. no vomiting. no abdomen pain. no distress Review of Systems Review of Systems: All systems reviewed & are unremarkable except as noted in Subjective Physical Exam Constitutional: + frail appearing Eyes: PERRL, conjunctivae normal, anicteric sclerae EOM intact bilaterally ENMT: external ear and nose normal, oropharynx normal Neck: trachea midline, no thyromegaly normal visual inspection Respiratory: normal respiratory effort Cardiovascular: Rate/Rhythm: regular rate Gastrointestinal (Abdomen): normal bowel sounds, soft, nontender, no hepatosplenomegaly Musculoskeletal: Head/Neck/Chest: normocephalic and head atraumatic Neurologic: PERRL, EOMI, accommodation nl, no face palsy, no dysarthria Psychiatric: Orientation: alert and cooperative Genitourinary: + penis abnormality (presence of castellanos) Results & Data Results & Data ([facility]) Vital Signs (Past 12 Hours) Vital Signs Temp Pulse Pulse Pulse Resp BP Pulse Ox 04/18/20 07:53 36.8 C 98 H 18 123/73 92 04/18/20 07:00 91 H 19 93 04/18/20 04:00 04/18/20 03:32 36.7 C 90 19 125/72 97 04/18/20 02:16 82 16 96 04/18/20 00:14 84 04/17/20 23:28 36.7 C 83 21 133/73 99 Pulse Ox 04/18/20 07:53 04/18/20 07:00 04/18/20 04:00 97 04/18/20 03:32 04/18/20 02:16 04/18/20 00:14 04/17/20 23:28
[2020-04-18] MEDS: METOPROLOL SUCC 25MG EXT REL TAB PO SCH (19:54)
[2020-04-19] MEDS: PIPERACILLIN/TAZOBACTAM 3.375 GM in DEXTROSE 5% 100 ML/100 ML BAG IV SCH (03:28)
[2020-04-19] MEDS: ALBUT/IPRATROP 3MG/0.5MG NEB 3 ML VIAL NEB SCH ×4 (03:34→19:17)
[2020-04-19] MEDS: LEVOTHYROXINE SODIUM 88 MCG TABLET PO SCH (05:59)
[2020-04-19] MEDS: METOPROLOL SUCC 50MG EXT REL TAB PO SCH (05:59)
[2020-04-19 06:49] LABS: INR 3.3 (0.9-1.1); Prothrombin Time 32.2 Seconds (9.0-12.0)
[2020-04-19 07:08] LABS: Basophils # (auto) 0.01 K/uL (0-0.2); Basophils % (auto) 0.2 %; Eosinophils # (auto) 0.37 K/uL (0-0.5); Hematocrit (blood only) 29.3 % (42-52); Hemoglobin 9.5 g/dL (14.0-18.0); Immature Granulocytes # (auto) 0.01 K/uL (0.00-0.02); Immature Granulocytes % (auto) 0.2 %; Lymphocytes % (auto) 16.2 %; Mean Corpuscular Hemoglobin 30.7 pg (25-34); Mean Corpuscular Hgb Conc 32.4 g/dL (32-36); Mean Corpuscular Volume 94.8 fL (80-100); Mean Platelet Volume 9.9 fL (7.4-10.4); Monocytes # (auto) 1.23 K/uL (0.11-0.59); Neutrophils # (auto) 3.54 K/uL (1.4-6.5); Neutrophils % (auto) 57.4 %; Platelet Count 131 K/uL (130-400); Red Blood Count 3.09 M/uL (4.7-6.1); White Blood Count 6.16 K/uL (4.8-10.8)
[2020-04-19 07:14] LABS: BUN Creatinine Ratio 12.1 (10-20); Calcium 8.7 mg/dl (8.5-10.1); Creatinine Clr Calc Pharmacy 19.5 ml/min; Est GFR (African American) 29.6; Est GFR (Non-African American) 25.6; Potassium 3.4 mmol/L (3.5-5.1)
[2020-04-19] MEDS: ASPIRIN 81 MG ECTAB PO SCH (08:43)
[2020-04-19] MEDS: FINASTERIDE 5 MG TAB PO SCH (08:44)
[2020-04-19] MEDS: FERROUS SULFATE 325 MG TAB PO SCH (08:44)
[2020-04-19] MEDS: AMLODIPINE BESYLATE 5 MG TAB PO SCH (08:44)
[2020-04-19] MEDS: ATORVASTATIN 40 MG TAB PO SCH (08:44)
[2020-04-19] MEDS: FUROSEMIDE 40 MG TAB PO SCH (08:44)
[2020-04-19] MEDS: CHOLECALCIFEROL 1,000 UNITS 25 MCG TAB PO SCH (08:45)
[2020-04-19] MEDS: DOCUSATE SODIUM 100 MG CAP PO SCH ×2 (08:46→19:45)
[2020-04-19] MEDS ORDERED: POTASSIUM CHLORIDE 20 MEQ TABCR PO STA (12:27)
[2020-04-19] MEDS ORDERED: ALUMINUM/MAGNESIUM SUSP 30 ML UDC PO STA (12:27)
[2020-04-19] MEDS: cefTRIAXone SODIUM 2,000 MG in DEXTROSE 5% 50 ML IV SCH (12:28)
--- NOTE | 2020-04-19 18:39 | Hospitalist Progress Note ---
Date of Service April 19, 2020 Assessment & Plan (1) Acute and chronic respiratory failure with hypoxia: Ischemic cardiomyopathy, Possible acute on chronic systolic Congestive heart failure Generalized weakness gram negative bacteremia (E.coli bacteremia) Present on admission with feeling cold, productive cough and weakness and hypoxia CXR on admission showed cardiomegaly with pulmonary vascular congestion. Mild bibasilar opacities suggest atelectasis or pneumonitis. Received IV Zosyn by ED provider procalcitonin is positive, the BNP is elevated as 7000 COVID 19 negative Blood cx positive for gram negative ecoli IV zosyn transition to IV rocephin today Continue Lasix PO Clinically improves history of prostate cancer in the past possible Urinary tract infection from chronic castellanos use -continue finasteride -chronic castellanos for 2 years (last changed castellanos within 2 weeks ago, usually is changed once every 4 weeks) -positive UA, urine culture More than three types of organisms present and all high counts. 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 serum potassium given on 04/17/2020 as serum potassium 3.3, again is 3.3 on 04/18/2020 and additional potassium given DVT prophylaxis: On Coumadin with INR 3.3 today Family his family members Ade who prefers to be called "Kat" ([phone]) and daughter Rola ([phone]), daughter Hamida Code Status: DNR/DNI as affirmed by patient's Kat Admission and Anticipated Discharge Date Admission Date: April 16, 2020 Subjective Pt was seen and examined Sitting in chair with no distress with at bedside Pt said that he feels much better is very concerned because pt is wheelchair bound and she has to do everything for him She said that she does not think that she would be able to care for him would like to speak to case management to discuss rehab option Denies any chest pain, palpitation, dizziness and SOB Physical Exam Physical Exam: General- No acute distress Head- atraumatic Eyes- PERRL, EOMI, ENT- oropharynx clear Neck- supple, no JVD Lungs- clear to auscultation Heart- regular rhythm; no murmur Abdomen- normal bowel sounds, soft, nontender Extremities- no calf tenderness Neuro- alert, oriented x 3; PERRL, EOMI; no facial palsy; no dysarthria Skin- warm & dry Results & Data Results & Data ([facility]) Vital Signs (Past 12 Hours) Vital Signs Temp Pulse Pulse Pulse Pulse Resp BP 04/19/20 15:27 36.9 C 92 H 20 117/72 04/19/20 11:30 91 H 17 04/19/20 11:12 36.8 C 91 H 18 115/64 04/19/20 08:00 84 04/19/20 07:22 36.5 C 87 18 119/74 04/19/20 07:10 87 19 Pulse Ox 04/19/20 15:27 98 04/19/20 11:30 96 04/19/20 11:12 96 04/19/20 08:00 04/19/20 07:22 96 04/19/20 07:10 96
[2020-04-19] MEDS ORDERED: WARFARIN SOD 3 MG TAB PO ONE (19:00)
[2020-04-19] MEDS: METOPROLOL SUCC 25MG EXT REL TAB PO SCH (19:46)
[2020-04-20] MEDS: LEVOTHYROXINE SODIUM 88 MCG TABLET PO SCH (06:35)
[2020-04-20] MEDS: METOPROLOL SUCC 50MG EXT REL TAB PO SCH (06:35)
[2020-04-20] MEDS: ALBUT/IPRATROP 3MG/0.5MG NEB 3 ML VIAL NEB SCH ×2 (07:12→13:15)
[2020-04-20 08:42] LABS: INR 2.7 (0.9-1.1); Prothrombin Time 26.6 Seconds (9.0-12.0)
[2020-04-20] MEDS: AMLODIPINE BESYLATE 5 MG TAB PO SCH (08:45)
[2020-04-20] MEDS: FINASTERIDE 5 MG TAB PO SCH (08:45)
[2020-04-20] MEDS: CHOLECALCIFEROL 1,000 UNITS 25 MCG TAB PO SCH (08:45)
[2020-04-20] MEDS: DOCUSATE SODIUM 100 MG CAP PO SCH (08:45)
[2020-04-20] MEDS: ATORVASTATIN 40 MG TAB PO SCH (08:45)
[2020-04-20] MEDS: FUROSEMIDE 40 MG TAB PO SCH (08:46)
[2020-04-20] MEDS: FERROUS SULFATE 325 MG TAB PO SCH (08:46)
[2020-04-20] MEDS: ASPIRIN 81 MG ECTAB PO SCH (08:46)
[2020-04-20 09:03] LABS: BUN Creatinine Ratio 13.2 (10-20); Calcium 9.3 mg/dl (8.5-10.1); Creatinine Clr Calc Pharmacy 22.2 ml/min; Est GFR (African American) 31.5; Est GFR (Non-African American) 27.2; Potassium 3.8 mmol/L (3.5-5.1)
[2020-04-20] MEDS: cefTRIAXone SODIUM 2,000 MG in DEXTROSE 5% 50 ML IV SCH (11:13)
[2020-04-20] MEDS ORDERED: WARFARIN SOD 3 MG TAB PO ONE (18:00)
--- NOTE | 2020-04-20 18:39 | Hospitalist Progress Note ---
Date of Service April 20, 2020 Assessment & Plan (1) Acute and chronic respiratory failure with hypoxia: Ischemic cardiomyopathy, Possible acute on chronic systolic Congestive heart failure Generalized weakness gram negative bacteremia (E.coli bacteremia) Present on admission with feeling cold, productive cough and weakness and hypoxia CXR on admission showed cardiomegaly with pulmonary vascular congestion. Mild bibasilar opacities suggest atelectasis or pneumonitis. Received IV Zosyn by ED provider procalcitonin is positive, the BNP is elevated as 7000 COVID 19 negative Blood cx positive for gram negative ecoli IV zosyn transition to IV rocephin today Continue Lasix PO Clinically improves history of prostate cancer in the past possible Urinary tract infection from chronic castellanos use -continue finasteride -chronic castellanos for 2 years (last changed castellanos within 2 weeks ago, usually is changed once every 4 weeks) -positive UA, urine culture More than three types of organisms present and all high counts. 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 after carotid carotid endarterectomy in the past -on aspirin and statin Hypothyroidism -on Levothyroxine CKD (chronic kidney disease), stage III to stage IV -admission creatinine 2.04 is comparable to last hospital admission Creatinine 2.1 Monitor BMP DVT prophylaxis: On Coumadin with INR 2.7 today Family his family members Ade who prefers to be called "Kat" ([phone]) and daughter Rola ([phone]), daughter Hamida Code Status: DNR/DNI as affirmed by patient's Kat Disposition Refused to go to rehab Discharge home today with home health Admission and Anticipated Discharge Date Admission Date: April 16, 2020 Subjective Pt was seen and examined Sitting in chair with no distress with at bedside Pt said that he feels fine He wants to go home I spoke to patient and at bedside about placement Advised them pt and that pt is not safe to go home due to risk of fall Pt refused to go to rehab Pt agreed to do home therapy Denies any chest pain, palpitation and SOB Physical Exam Physical Exam: General- No acute distress Head- atraumatic Eyes- PERRL, EOMI, ENT- oropharynx clear Neck- supple, no JVD Lungs- clear to auscultation Heart- regular rhythm; no murmur Abdomen- normal bowel sounds, soft, nontender Extremities- no calf tenderness Neuro- alert, oriented x 3; PERRL, EOMI; no facial palsy; no dysarthria Skin- warm & dry Results & Data Results & [facility] ([facility]) Vital Signs (Past 12 Hours) Vital Signs Temp Pulse Pulse Pulse Resp BP BP 04/20/20 17:56 36.7 C 86 87 76 18 116/74 111/59 L 04/20/20 15:21 36.7 C 76 18 111/59 L 04/20/20 13:15 86 17 04/20/20 11:43 36.5 C 83 18 132/95 04/20/20 07:34 36.9 C 102 H 18 133/76 04/20/20 07:12 89 18 Pulse Ox 04/20/20 17:56 97 04/20/20 15:21 97 04/20/20 13:15 97 04/20/20 11:43 98 04/20/20 07:34 97 04/20/20 07:12 95
--- NOTE | 2020-04-21 08:48 | Discharge Summary ---
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 In the ER, started on oxymask oxygen from 6 to 8 liters/min in the ER, empirically given Zosyn by ED provider, and ordered COVID-19 testing Patient assessed patient at the bedside and he is poor historian. He reported that he had episode of vomiting, but his family members Kat ([phone]) and daughter Rola ([phone]) reports the symptoms as above. Patient on oxymask and did not appear to be acute respiratory distress. He could not sit up for the lung auscultation. He denies chest pain or abdomen pain. His only request was for medical doctor to help prop up his legs to help him feel more comfortable. There are not apparent ulcers of the feet. Admission Exam Per Admitting Provider Constitutional: + frail appearing Eyes: PERRL, conjunctivae normal, anicteric sclerae EOM intact bilaterally ENMT: external ear and nose normal, oropharynx normal Neck: trachea midline, no thyromegaly normal visual inspection Respiratory: normal respiratory effort Cardiovascular: regular rate Gastrointestinal: normal bowel sounds, soft, nontender, no hepatosplenomegaly Musculoskeletal: normocephalic and head atraumatic Neurologic: PERRL, EOMI, accommodation nl, no face palsy, no dysarthria Psychiatric: Orientation: alert and cooperative Genitourinary: + penis abnormality (presence of castellanos) Principal Diagnosis Acute and chronic respiratory failure with hypoxia: Ischemic cardiomyopathy, Possible acute on chronic systolic Congestive heart failure Generalized weakness gram negative bacteremia (E.coli bacteremia) history of prostate cancer in the past PAF (paroxysmal atrial fibrillation) 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 after carotid carotid endarterectomy in the past CKD (chronic kidney disease), stage III to stage IV Discharge Exam General- No acute distress Head- atraumatic Eyes- PERRL, EOMI, ENT- oropharynx clear Neck- supple, no JVD Lungs- clear to auscultation Heart- regular rhythm; no murmur Abdomen- normal bowel sounds, soft, nontender Extremities- no calf tenderness Neuro- alert, oriented x 3; PERRL, EOMI; no facial palsy; no dysarthria Skin- warm & dry Discharge Data Allergies Allergy/AdvReac Type Severity Reaction Status Date / Time clopidogrel Allergy Intermediate RASH Verified 04/16/20 04:26 Sulfa (Sulfonamide Allergy Intermediate RASH Verified 04/16/20 04:26 Antibiotics) sulfamethoxazole Allergy Intermediate RASH Verified 04/16/20 04:26 trimethoprim Allergy Mild RASH Verified 04/16/20 04:26 niacin Allergy Unknown UNKNOWN Verified 04/16/20 04:26 Consultations 04/16/20 08:01 Consult Case Management - Discharge Planning Routine 04/16/20 08:19 ED Decision to Admit Stat Ordered Studies XR chest 1V portable HISTORY: 89 years-old Male SEPSIS acute chest pain with sepsis COMPARISON: Chest radiograph 11/12/2019 TECHNIQUE: Portable AP view of the chest FINDINGS: Cardiac silhouette is enlarged, unchanged. Pulmonary vascular congestion with interstitial coarsening. Mild bibasilar opacities are redemonstrated. Mild blunting of the costophrenic angles. Degenerative changes of the shoulders and spine. IMPRESSION: 1. Cardiomegaly with pulmonary vascular congestion. 2. Mild bibasilar opacities suggest atelectasis or pneumonitis. 3. Trace pleural effusions. ACT 112: Negative or not required by law. The above report was generated using voice recognition software. It may contain grammatical, syntax or spelling errors. Electronically signed by: Jesus Estrada M.D. 04/16/2020 8:37 AM Dictated: 04/16/20835 Transcribed: 04/16/20835 XR chest 1V portable HISTORY: 89 years-old Male follow up lung infiltrates follow-up study in a patient with bibasilar opacities COMPARISON: Chest radiograph 04/16/2020 TECHNIQUE: Portable AP view of the chest FINDINGS: Cardiac silhouette is enlarged. Resolution of the pulmonary vascular congestion with improved aeration of the lung bases. There is minimal left lung base opacities suggestive of atelectasis. Mild blunting of the costophrenic angles. No pneumothorax, large pleural effusion or overt pulmonary edema. Degenerative changes of the shoulders and spine. Left shoulder rotator cuff calcific tendinosis. IMPRESSION: 1. Cardiomegaly without overt pulmonary edema. 2. Improved aeration of the bilateral lung bases. No airspace consolidation typical for pneumonia. ACT 112: Negative or not required by law. The above report was generated using voice recognition software. It may contain grammatical, syntax or spelling errors. Electronically signed by: Jesus Estrada M.D. 04/17/2020 1:27 PM Dictated: 04/17/20 1325 Transcribed: 04/17/20 1325 Hospital Course (1) Acute and chronic respiratory failure with hypoxia: Ischemic cardiomyopathy, Possible acute on chronic systolic Congestive heart failure Generalized weakness gram negative bacteremia (E.coli bacteremia) Present on admission with feeling cold, productive cough and weakness and hypoxia CXR on admission showed cardiomegaly with pulmonary vascular congestion. Mild bibasilar opacities suggest atelectasis or pneumonitis. Received IV Zosyn by ED provider procalcitonin is positive, the BNP is elevated as 7000 COVID 19 negative Blood cx positive for gram negative ecoli IV zosyn transition to IV rocephin today Continue Lasix PO Clinically improves history of prostate cancer in the past possible Urinary tract infection from chronic castellanos use -continue finasteride -chronic castellanos for 2 years (last changed castellanos within 2 weeks ago, usually is changed once every 4 weeks) -positive UA, urine culture More than three types of organisms present and all high counts. 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 after carotid carotid endarterectomy in the past -on aspirin and statin Hypothyroidism -on Levothyroxine CKD (chronic kidney disease), stage III to stage IV -admission creatinine 2.04 is comparable to last hospital admission Creatinine 2.1 Monitor BMP DVT prophylaxis: On Coumadin with INR 2.7 today Family his family members Ade who prefers to be called "Kat" ([phone]) and daughter Rola ([phone]), daughter Hamida Code Status: DNR/DNI as affirmed by patient's Kat Disposition Refused to go to rehab Discharge home today with home health Total Time Total Time Spent Total Time Spent (In Minutes): 35 minutes Total Time Includes: Examination of the Patient, Discharge Planning, Medication Reconciliation, Communication With Other Providers and Other Discharge Plan Discharge Items Patient Disposition: Home - Home Health Services Reason For Visit: WEAKNESS, COUGH, POSSIBLE INFECTION Discharge Diagnosis: Acute and chronic respiratory failure with hypoxia: Ischemic cardiomyopathy, Possible acute on chronic systolic Congestive heart failure Generalized weakness gram negative bacteremia (E.coli bacteremia) history of prostate cancer in the past PAF (paroxysmal atrial fibrillation) 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 after carotid carotid endarterectomy in the past CKD (chronic kidney disease), stage III to stage IV Activity: Resume your previous activity Non-emergency contact: Primary Care Provider Call non-emergency contact if: you have any medication questions and your te mperature is above 101 Follow-up/Referrals: Venkat Gilman DO [Primary Care Provider] - Diet: Carb Consistent or DM2 and Heart Healthy Addtl Attending Provider Instructions: Refused to go to inpatient rehab Follow up with your primary care provider within 1 week Follow up with the coumadin clinic to monitor PT/INR Continue physical and occupational therapy Complete the course of the antibiotic Fall precaution Continue castellanos catheter on discharge (Castellanos changed on 04/20/20) Continue oxygen supplement Pending Studies at Discharge: No Stand-Alone Forms: [employer], Smoking Cessation Medications and DC Order Prescriptions: New cephalexin [Keflex] 250 mg capsule 250 mg PO BID 10 Days Qty: 20 RF: 0 Continued nystatin 100,000 unit/gram powder 1 appln TOP TID Qty: 60 RF: 11 atorvastatin 40 mg tablet 40 mg PO DAILY RF: 0 amlodipine 2.5 mg Tablet 2.5 mg PO DAILY RF: 0 levothyroxine 88 mcg Tablet 88 mcg PO DAILYBB RF: 0 ferrous sulfate 325 mg (65 mg iron) Tablet 325 mg PO QAM RF: 0 nitroglycerin 0.4 mg Tablet, Sublingual 0.4 mg sublingual DIRECTED PRN (Reason: Chest Pain) RF: 0 omeprazole 20 mg capsule,delayed release(DR/EC) 20 mg PO DAILY RF: 0 finasteride 5 mg tablet 5 mg PO QAM RF: 0 metoprolol succinate 50 mg tablet extended release 24 hr 25 mg PO QPM RF: 0 warfarin 5 mg tablet 5 mg PO QPM RF: 0 aspirin 81 mg Tablet,Chewable 81 mg PO DAILY RF: 0 Lactinex 1 million cell tablet,chewable 1 tab PO DAILY RF: 0 tramadol 50 mg Tablet 50 mg PO BID PRN (Reason: Pain, Severe) RF: 0 polyethylene glycol 3350 [Miralax] 17 gram/dose Powder 8.5 g PO DAILY PRN (Reason: Constipation) RF: 0 sennosides [senna] 8.6 mg Tablet 8.6 mg PO DAILY PRN (Reason: Constipation) RF: 0 docusate sodium [Colace] 100 mg Capsule 100 mg PO BID RF: 0 furosemide 40 mg tablet 40 mg PO DAILY RF: 0 potassium chloride 10 mEq tablet extended release 10 meq PO QAM RF: 0 ipratropium-albuterol 0.5 mg-3 mg(2.5 mg base)/3 mL solution for nebulization 3 ml INHALATION QID RF: 0 cholecalciferol (vitamin D3) [Vitamin D3] 25 mcg (1,000 unit) Capsule 1,000 unit PO DAILY RF: 0 metoprolol succinate 50 mg Tablet Extended Release 24 Hr 50 mg PO DAILYBB Qty: 0 RF: 0 Discharge Orders: Discharge Order (Routine); Ordered 04/20/20 Ordered By: Romeo Azevedo Admission Data Admit Date/Time: 04/16/20 08:12 Attending Provider: Romeo Azevedo Admit Provider: Landon Nicole Primary Care Provider: Venkat Gilman Other Providers: Landon Nicole ; [place] Other Interventions: Discharge Summary Assessment (RN) Last Done: 04/20/20 17:56 DC Date/Time DO NOT enter until pt leaves facility: 04/20/20 18:24
[2020-04-21] MEDS ORDERED: WARFARIN SOD 3 MG TAB PO SCH (16:00)
== END 2020-04-20 18:24 | disposition home health service (06) | DRG 698 ==
LOC: ED 03:18 → SUATTDRO 08:12 → 2E 08:12

== ENCOUNTER 2020-12-25 03:13 | Inpatient (IN) ==
[2020-12-25] MEDS ORDERED: FUROSEMIDE 40 MG/4 ML VIAL IV STA (03:27)
[2020-12-25 03:35] LABS: Basophils # (auto) 0.03 K/uL (0-0.2); Basophils % (auto) 0.2 %; Eosinophils # (auto) 0.35 K/uL (0-0.5); Eosinophils % (auto) 2.9 %; Hematocrit (blood only) 27.5 % (42-52); Hemoglobin 9.1 g/dL (14.0-18.0); Immature Granulocytes # (auto) 0.04 K/uL (0.00-0.02); Immature Granulocytes % (auto) 0.3 %; Lymphocytes # (auto) 2.35 K/uL (1.2-3.4); Lymphocytes % (auto) 19.5 %; Mean Corpuscular Hemoglobin 31.8 pg (25-34); Mean Corpuscular Hgb Conc 33.1 g/dL (32-36); Mean Corpuscular Volume 96.2 fL (80-100); Mean Platelet Volume 10.2 fL (7.4-10.4); Monocytes # (auto) 1.27 K/uL (0.11-0.59); Monocytes % (auto) 10.5 %; Neutrophils # (auto) 8.01 K/uL (1.4-6.5); Neutrophils % (auto) 66.6 %; Platelet Count 235 K/uL (130-400); RDW Coefficient of Variation 14.9 % (11.5-14.5); RDW Standard Deviation 52.5 fL (36.4-46.3); Red Blood Count 2.86 M/uL (4.7-6.1); White Blood Count 12.05 K/uL (4.8-10.8)
[2020-12-25 03:52] LABS: BUN Creatinine Ratio 20.1 (10-20); Creatinine Clr Calc Pharmacy 14.6 ml/min; Est GFR (African American) 19.4; Est GFR (Non-African American) 16.8; INR 3.7 (0.9-1.1); Magnesium 2.3 mg/dl (1.8-2.4); Potassium 4.4 mmol/L (3.5-5.1); Prothrombin Time 33.5 Seconds (9.0-12.0)
[2020-12-25] MEDS ORDERED: NITROGLYCERIN SL 0.4 MG/TAB TAB SL STA (03:56)
[2020-12-25] MEDS ORDERED: MoRPHine SULFATE 2 MG/ML CARP IV STA (03:56)
[2020-12-25 03:57] LABS: Albumin Globulin Ratio 0.6 (0.9-2); Bilirubin,Total 0.4 mg/dl (0.2-1); Globulin 5.3 gm/dl (2.5-4.0); Total Protein 8.3 gm/dl (6.4-8.2); Troponin I 0.034 ng/ml (0-0.045)
--- NOTE | 2020-12-25 03:58 | Emergency Department Note ---
History of Present Illness General Chief complaint: Respiratory Distress Stated complaint: respiratory distress Time Seen by Provider: 12/25/20 03:27 Source: patient Mode of arrival: EMS Limitations: clinical acuity History of Present Illness Provider complaint: Shortness of breath This is an 89-year-old male presents via EMS for significant shortness of breath. Patient was placed on CPAP by EMS due to his increased work of breathing. They states initially patient very tachypneic, hypoxic, mottled in appearance, with audible rales. Patient unable to provide much history but does nod that he is feeling better. Shakes his head when asked about chest pain, vomiting, fevers, abdominal pain, or leg swelling. Patient does acknowledge he has a history of heart problems. He nods that he does wear oxygen at home. EMS reports states symptoms acutely worsened 5 hours ago. Pt seen during a time of high acuity and national emergency pandemic while wearing PPE. Home Medications Medication Instructions Recorded Confirmed Type amlodipine 2.5 mg PO DAILY 02/15/19 09/26/20 History atorvastatin 40 mg PO DAILY 02/15/19 09/26/20 History ferrous sulfate 325 mg PO QAM 02/15/19 09/26/20 History finasteride 5 mg PO QAM 02/15/19 09/26/20 History levothyroxine 88 mcg PO DAILYBB 02/15/19 09/26/20 History nitroglycerin 0.4 mg SUBLINGUAL DIRECTED PRN 02/15/19 09/26/20 History omeprazole 20 mg PO DAILY 02/15/19 09/26/20 History cholecalciferol (vitamin D3) 1,000 unit PO DAILY 11/12/19 09/26/20 History [Vitamin D3] docusate sodium [Colace] 100 mg PO BID 11/12/19 09/26/20 History furosemide 40 mg PO DAILY 11/12/19 09/26/20 History ipratropium-albuterol 3 ml INHALATION QID 11/12/19 09/26/20 History potassium chloride 10 meq PO QAM 11/12/19 09/26/20 History metoprolol succinate 50 mg PO DAILYBB #0 tab 11/15/19 09/26/20 Rx nystatin 100,000 unit/gram topical 1 appln TOP TID #60 gm 02/23/20 09/26/20 Rx powder Lactinex 1 tab PO DAILY 04/16/20 09/26/20 History aspirin 81 mg PO DAILY 04/16/20 09/26/20 History metoprolol succinate 25 mg PO QPM 04/16/20 09/26/20 History polyethylene glycol 3350 [Miralax] 8.5 g PO DAILY PRN 04/16/20 09/26/20 History sennosides [senna] 8.6 mg PO DAILY PRN 04/16/20 09/26/20 History tramadol 50 mg PO BID PRN 04/16/20 09/26/20 History warfarin 5 mg PO QPM 04/16/20 09/26/20 History Allergies Allergy/AdvReac Type Severity Reaction Status Date / Time clopidogrel Allergy Intermediate RASH Verified 09/26/20 10:07 Sulfa (Sulfonamide Allergy Intermediate RASH Verified 09/26/20 10:07 Antibiotics) sulfamethoxazole Allergy Intermediate RASH Verified 09/26/20 10:07 trimethoprim Allergy Mild RASH Verified 09/26/20 10:07 niacin Allergy Unknown UNKNOWN Verified 09/26/20 10:07 Past Med/Surg History Medical History (Updated 12/26/20 @ 06:45 by Marianna Dow DO) Chronic anticoagulation CKD (chronic kidney disease), stage III Coronary artery disease per outpt cardio note: Long standing coronary artery disease with myocardial infarction times six, 1994, 1995, 1996, 2002, 2011, May 2013, and 09/2015 (BMS x2 to RCA). He is status post stenting to the LAD in 1994. Status post PTCA and stenting of the left anterior descending artery and circumflex followed by PTCA of the right coronary artery in 1998. 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 December 2011, stenting of the LAD. May of 2013, RCA stenting. A left carotid endarterectomy was performed August of 2013. Postop CVA reported. Hospitalization 09/[address]-elevation [place]. S/p BMS to right coronary artery x2. 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 Surgical History H/O inguinal hernia repair History of cataract surgery History of total left hip replacement S/P carotid endarterectomy (08/25/13) BL Family History Mother Heart disease Brother Cancer Father Cancer Sister Cancer Other No pertinent family history Social History Smoking Status: Never smoker Second Hand Exposure: No; Hx Alcohol Use: No Hx Substance Use: No Preferred Language: Maldivian Communication Ability: Effective Visual Impairment: No Limitations Hearing Ability: Normal [place] Attendant Required: No Beliefs That Will Affect Care: None marital status: Current Living Situation: Spouse current occupational status: retired Other Information That Helps Us Care for You: No Feels Safe at Home: Yes Safety Concerns: Feels Safe At This Time Assistive Devices: None Review of Systems See HPI for pertinent positives & negatives. All systems reviewed & are unremarkable except as noted in HPI & below Physical Exam Vital Signs Vital Signs - 24 hr 12/25/20 03:10 12/25/20 03:32 Temperature 36.4 C L Temperature Source Oral Pulse Rate 112 H 127 H Respiratory Rate 28 H 32 H Respiratory Effort / Characteristics Spontaneous Short of Breath Spontaneous Accessory Muscle Use Respiratory Depth Normal Respiratory Pattern Tachypnea Regular Blood Pressure 140/94 Blood Pressure Mean 109 Pulse Oximetry 93 95 Oxygen Delivery Method BiPAP Fraction of Inspired Oxygen 40 40 SaO2/FiO2 Ratio 237 Sepsis Recent Fever Within 48 Hours No Sepsis New/Unexplained Change in Mental Status No Sepsis Action Taken by Nursing No Action Required GENERAL: alert, unwell appearing, well nourished, moderate distress, non-toxic EYE EXAM: normal conjunctiva, PERRL and EOM's grossly intact OROPHARYNX: no exudate, no erythema, lips, buccal mucosa, and tongue normal and mucous membranes are moist NECK: supple, no nuchal rigidity, no adenopathy, non-tender LUNGS: Normal chest wall mechanics, audible rales. b/l rales on auscultation. Tachypnea, increased WOB HEART: no murmurs, S1 normal and S2 normal ABDOMEN: abdomen soft, non-tender, normo-active bowel sounds, no masses, no rebound or guarding. BACK: Back is symmetrical on inspection and there is no deformity, no midline tenderness, no CVA tenderness. SKIN: no rashes and no bruising UPPER EXTREMITIES: upper extremities are grossly normal. FROM, nml pulses b/l. LOWER EXTREMITIES: No pitting edema. FROM, nml pulses b/l. NEURO EXAM: Normal sensorium, cranial nerves II-XII grossly intact, normal speech, no gross weakness of arms, no gross weakness of legs. Gross sensation intact. Course Course 0400: Patient appears improved on BiPAP. Still tachypneic however. 0420: Patient's now bedside. She states she had noticed increased cough over the last several days prior to him becoming acutely short of breath 6 hours ago which prompted the call to EMS. Patient states they both have completed their Covid vaccination series. She states he has had a chronic indwelling Castellanos now for several years, it is changed monthly. Denies any blood or clots or dysfunction of the catheter recently. She did notice that he has not been putting out as much urine as typical. She states she does weigh the patient daily due to his history of congestive heart failure. States yesterday he weighed 162 pounds, and today he weighed 165. She states he does follow with Dr. Nickerson due to chronic kidney problems. States he is still taking furosemide daily. She states he does wear oxygen daily. States when shortness of breath began worsening they tried his inhaler at home as well as turning up his oxygen which did not help. 0437: Discussed with Dr. Landrum. Administered Medications Albuterol (Albut/Ipratrop 3mg/0.5mg Neb 3 Ml Vial) 3 ml INH QIDR [facility] Stop: 01/24/21 06:59 Last Admin: 12/25/20 19:22 Dose: 3 ml Documented by: [id number] Admin: 12/25/20 15:26 Dose: Not Given Documented by: [id number] Admin: 12/25/20 12:20 Dose: Not Given Documented by: [id number] Admin: 12/25/20 08:18 Dose: Not Given Documented by: [id number] Amlodipine Besylate (Amlodipine Besylate 5 Mg Tab) 2.5 mg PO DAILY [facility] Stop: 01/24/21 08:59 Last Admin: 12/25/20 09:30 Dose: 2.5 mg Documented by: [id number] Aspirin (Aspirin 81 Mg Ectab) 81 mg PO DAILY [facility] Stop: 01/24/21 08:59 Last Admin: 12/25/20 09:27 Dose: 81 mg Documented by: [id number] Atorvastatin Calcium (Atorvastatin 40 Mg Tab) 40 mg PO DAILY [facility] Stop: 01/24/21 08:59 Last Admin: 12/25/20 09:30 Dose: 40 mg Documented by: [id number] Docusate Sodium (Docusate Sodium 100 Mg Cap) 100 mg PO BID [facility] Stop: 01/24/21 08:59 Last Admin: 12/25/20 21:40 Dose: Not Given Documented by: [id number] Admin: 12/25/20 09:27 Dose: 100 mg Documented by: [id number] Doxycycline Hyclate (Doxycycline Hyclate 100 Mg Cap) 100 mg PO BID@1000,2200 [facility]; Protocol Stop: 01/01/21 09:59 Last Admin: 12/25/20 21:39 Dose: 100 mg Documented by: [id number] Admin: 12/25/20 09:31 Dose: 100 mg Documented by: [id number] Ferrous Sulfate (Ferrous Sulfate 325 Mg Tab) 325 mg PO [facility] Stop: 01/24/21 08:59 Last Admin: 12/25/20 09:28 Dose: 325 mg Documented by: [id number] Finasteride (Finasteride 5 Mg Tab) [facility] [place]: 01/24/21 08:59 Last Admin: 12/25/20 09:31 Dose: 5 mg Documented by: [id number] Furosemide 40 mg/ Syringe 4 mls @ 4 mls/min IV [id number] [facility] Stop: 01/24/21 08:59 Last Admin: 12/25/20 17:56 Dose: 4 mls/min Documented by: [id number] Admin: 12/25/20 09:28 Dose: 4 mls/min Documented by: [id number] Insulin Aspart (Insulin Aspart 100 Units/Ml 3 Ml Pen) 0 units SC ACHS [facility] Stop: 01/24/21 07:29 Last Admin: 12/25/20 21:56 Dose: Not Given Documented by: [id number] Cosigned by: [id number] Admin: 12/25/20 17:42 Dose: Not Given Documented by: [id number] Cosigned by: [id number] Admin: 12/25/20 11:57 Dose: Not Given Documented by: [id number] Cosigned by: [id number] Admin: 12/25/20 07:42 Dose: Not Given Documented by: [id number] Lactobacillus Acidoph/Casei/Rhamnos (Advanced Probiotic 1250 Mg Capsule) 2 cap PO DAILY [facility] Stop: 01/24/21 08:59 Last Admin: 12/25/20 09:31 Dose: 2 cap Documented by: [id number] Levothyroxine Sodium (Levothyroxine Sodium 88 Mcg Tablet) 88 mcg PO DAILYBB [facility] Stop: 01/24/21 06:43 Last Admin: 12/26/20 05:17 Dose: 88 mcg Documented by: [id number] Admin: 12/25/20 07:31 Dose: 88 mcg Documented by: [id number] Metoprolol Succinate (Metoprolol Succ 25mg Ext Rel Tab) 25 mg PO QPM [facility] Stop: 01/24/21 20:59 Last Admin: 12/25/20 21:39 Dose: 25 mg Documented by: [id number] Metoprolol Succinate (Metoprolol Succ 50mg Ext Rel Tab) 50 mg PO DAILYBB [facility] Stop: 01/24/21 06:43 Last Admin: 12/26/20 05:18 Dose: 50 mg Documented by: [id number] Admin: 12/25/20 07:32 Dose: 50 mg Documented by: [id number] Nystatin (Nystatin Powder 15gm Btl) 1 appln EXT TID [facility] Stop: 01/24/21 08:59 Last Admin: 12/25/20 21:40 Dose: 1 appln Documented by: [id number] Admin: 12/25/20 13:33 Dose: Not Given Documented by: [id number] Admin: 12/25/20 09:30 Dose: 1 appln Documented by: [id number] Pantoprazole Sodium (Pantoprazole 40 Mg Tab) 40 mg PO DAILY [facility] Stop: 01/24/21 08:59 Last Admin: 12/25/20 09:31 Dose: 40 mg Documented by: [id number] Potassium Chloride (Potassium Chloride 10 Meq Tabcr) 10 meq PO QAM [facility] Stop: 01/24/21 08:59 Last Admin: 12/25/20 09:28 Dose: 10 meq Documented by: [id number] Vitamin D (Cholecalciferol 1,000 Units 25 Mcg Tab) 1,000 units PO DAILY [facility] Stop: 01/24/21 08:59 Last Admin: 12/25/20 09:31 Dose: 1,000 units Documented by: [id number] Discontinued Medications Furosemide (Furosemide 40 Mg/4 Ml Vial) 40 mg IV NOW STA Stop: 12/25/20 03:28 Last Admin: 12/25/20 03:34 Dose: 40 mg Documented by: [id number] Metoprolol Tartrate (Metoprolol Tartrate 1 Mg/Ml Vial) 5 mg IV NOW STA Stop: 12/26/20 00:18 Last Admin: 12/26/20 00:48 Dose: 5 mg Documented by: [id number] Morphine Sulfate (Morphine Sulfate 2 Mg/Ml Carp) 2 mg IV NOW STA Stop: 12/25/20 03:57 Last Admin: 12/25/20 04:06 Dose: 2 mg Documented by: [id number] Nitroglycerin (Nitroglycerin Sl 0.4 Mg/Tab Tab) 0.4 mg SL NOW STA Stop: 12/25/20 03:57 Last Admin: 12/25/20 04:06 Dose: 0.4 mg Documented by: [id number] Critical Care Time Critical Care Time: Yes Total Critical Care Time: 48 Critical care of 48 min performed to assess and manage high likelihood of life- threatening respiratory failure, involving labs and imaging performed with assessment to evaluate respiratory failure diagnosis with frequent reassessment. This time includes bedside time, treatment discussions with patient/family/consultants, documentation time and excludes procedure time. Medical Decision Making Differential Diagnosis Differential diagnoses includes but is not limited to pneumonia, bronchitis, COPD/Asthma exacerbation, pneumothorax, pulmonary embolism, congestive heart failure, acute coronary syndrome Medical Records Attestation: I reviewed the patient's medical records. Home Medications Current Medication List: was personally reviewed by me Laboratory Data Attestation: I reviewed the patient's lab results. Result diagrams: 12/26/20 05:32 12/25/20 03:25 Lab Results 12/25/20 12/25/20 12/25/20 Range/Units 03:25 03:25 03:25 WBC 12.05 H (4.8-10.8) K/uL RBC 2.86 L (4.7-6.1) M/uL Hgb 9.1 L (14.0-18.0) g/dL Hct 27.5 L (42-52) % MCV 96.2 (80-100) fL MCH 31.8 (25-34) pg MCHC 33.1 (32-36) g/dL RDW Std Deviation 52.5 H (36.4-46.3) fL RDW Coeff of Tyrel 14.9 H (11.5-14.5) % Plt Count 235 (130-400) K/uL MPV 10.2 (7.4-10.4) fL Immature Gran % (Auto) 0.3 % Neut % (Auto) 66.6 % Lymph % (Auto) 19.5 % [place] % (Auto) 10.5 % Eos % (Auto) 2.9 % Baso % (Auto) 0.2 % Neut # (Auto) 8.01 H (1.4-6.5) K/uL Lymph # (Auto) 2.35 (1.2-3.4) K/uL [place] # (Auto) 1.27 H (0.11-0.59) K/uL Eos # (Auto) 0.35 (0-0.5) K/uL Baso # (Auto) 0.03 (0-0.2) K/uL Immature Gran # (Auto) 0.04 H (0.00-0.02) K/uL PT 33.5 H (9.0-12.0) Seconds INR 3.7 H (0.9-1.1) Sodium 139 (136-145) mmol/L Potassium 4.4 (3.5-5.1) mmol/L Chloride 104 (98-107) mmol/L Carbon Dioxide 26 (21-32) mmol/L Anion Gap 9.0 (3-11) BUN 63 H (7-18) mg/dl Creatinine 3.14 H (0.6-1.4) mg/dl Est Cr Clr Drug Dosing 14.6 ml/min Est GFR ( Amer) 19.4 Est GFR (Non-Af Amer) 16.8 BUN/Creatinine Ratio 20.1 H (10-20) Glucose 223 H (70-99) mg/dl Calcium 8.0 L (8.5-10.1) mg/dl Magnesium 2.3 (1.8-2.4) mg/dl Total Bilirubin 0.4 (0.2-1) mg/dl AST 15 (15-37) U/L ALT 15 (12-78) U/L Alkaline Phosphatase 106 (45-117) U/L Troponin I 0.034 (0-0.045) ng/ml NT-Pro-B Natriuret Pep 02041 H (0-1800) pg/ml Total Protein 8.3 H (6.4-8.2) gm/dl Albumin 3.0 L (3.4-5.0) gm/dl Globulin 5.3 H (2.5-4.0) gm/dl Albumin/Globulin Ratio 0.6 L (0.9-2) COVID-19 Eval Order SARS-CoV-2 (PCR) (Negative) Influenza Type A (PCR) (Neg) Influenza Type B (PCR) (Neg) RSV (RT-PCR) (Neg) 12/25/20 12/25/20 Range/Units 03:25 03:25 WBC (4.8-10.8) K/uL RBC (4.7-6.1) M/uL Hgb (14.0-18.0) g/dL Hct (42-52) % MCV (80-100) fL MCH (25-34) pg MCHC (32-36) g/dL RDW Std Deviation (36.4-46.3) fL RDW Coeff of Tyrel (11.5-14.5) % Plt Count (130-400) K/uL MPV (7.4-10.4) fL Immature Gran % (Auto) % Neut % (Auto) % Lymph % (Auto) % [place] % (Auto) % Eos % (Auto) % Baso % (Auto) % Neut # (Auto) (1.4-6.5) K/uL Lymph # (Auto) (1.2-3.4) K/uL [place] # (Auto) (0.11-0.59) K/uL Eos # (Auto) (0-0.5) K/uL Baso # (Auto) (0-0.2) K/uL Immature Gran # (Auto) (0.00-0.02) K/uL PT (9.0-12.0) Seconds INR (0.9-1.1) Sodium (136-145) mmol/L Potassium (3.5-5.1) mmol/L Chloride (98-107) mmol/L Carbon Dioxide (21-32) mmol/L Anion Gap (3-11) BUN (7-18) mg/dl Creatinine (0.6-1.4) mg/dl Est Cr Clr Drug Dosing ml/min Est GFR ( Amer) Est GFR (Non-Af Amer) BUN/Creatinine Ratio (10-20) Glucose (70-99) mg/dl Calcium (8.5-10.1) mg/dl Magnesium (1.8-2.4) mg/dl Total Bilirubin (0.2-1) mg/dl AST (15-37) U/L ALT (12-78) U/L Alkaline Phosphatase (45-117) U/L Troponin I (0-0.045) ng/ml NT-Pro-B Natriuret Pep (0-1800) pg/ml Total Protein (6.4-8.2) gm/dl Albumin (3.4-5.0) gm/dl Globulin (2.5-4.0) gm/dl Albumin/Globulin Ratio (0.9-2) COVID-19 Eval Order [facility]FluRsv at [facility] SARS-CoV-2 (PCR) NEGATIVE (Negative) Influenza Type A (PCR) Negative (Neg) Influenza Type B (PCR) Negative (Neg) RSV (RT-PCR) Negative (Neg) Imaging Data My Impression: X-ray: I interpreted the following studies. Chest: A single view study of the chest was reviewed and was negative for cardiomegaly, focal infiltrate, effusion, or wide mediastinum. Bilateral pulmonary edema. Generous mediastinum noted, unchanged compared to prior. Radiologist's Impression: Chest X-Ray 12/25/20 03:28 XR chest 1V portable CLINICAL HISTORY: Shortness of breath COMPARISON STUDY: 04/17/2020 FINDINGS: The heart is enlarged. There is pulmonary vascular congestion. There are small bilateral pleural effusions. There are associated basilar parenchymal opacities. There is an airspace opacity within the right midlung zone laterally, focal edema versus pneumonia. Clinical and radiographic follow-up is r ecommended. IMPRESSION: 1. Radiographic evidence of congestive failure with cardiac enlargement, bilateral pleural effusions, and mild interstitial edema. 2. Right mid-upper lung zone airspace opacity, focal edema versus pneumonia. 3. Clinical and radiographic follow-up is recommended ACT 112: Negative or not required by law. Electronically signed by: Parish Jack M.D. 12/25/2020 7:00 AM ECG Data Attestation: I personally reviewed and interpreted this ECG as follows: Indication: + SOB/dyspnea Rate (beats per minute): 85 Rhythm: + atrial fibrillation ECG Intervals/blocks: + Left bundle branch block and + Prolonged QT ECG [place]: + Normal ECG ST segments: + Nonspecific ST abnormalities MDM Narrative ConditionThis is an ill-appearing 89-year-old male who presents via EMS on CPAP and was immediately placed on our BiPAP due to significant respiratory distress, increased work of breathing, and audible rales. Patient given additional Lasix, nitro, and morphine and maintained on BiPAP here. Patient rechecked multiple times due to critical condition and high risk of deterioration. Patient slowly did improve. When came to bedside, we discussed his recent and plan. Patient with significant past medical history including congestive heart failure. She states they both have had the coronavirus vaccines and denies any known sick contact. Patient is anticoagulated on Coumadin due to history of atrial fibrillation and prior blood clot. Patient continued to improve here, was otherwise hemodynamically stable. Case discussed with hospitalist for additional evaluation and management. Patient creatinine was elevated here although he does have a history of chronic kidney disease. Patient's INR was supratherapeutic, in light of this I do not suspect PE. Patient was found to have anemia although this appears stable compared to prior. I did review EMR and found prior echo with EF of 20%. An order was placed for continuous cardiac monitoring. The monitor shows a rate of _103_ with _atrial fibrillation_ rhythm. Impression & Plan Acute and chronic respiratory failure with hypoxia, Acute renal failure superimposed on stage 4 chronic kidney disease, Acute on chronic heart failure with reduced ejection fraction and diastolic dysfunction, Anemia in chronic kidney disease, Supratherapeutic INR Discharge Plan Visit Data Chief Complaint: Respiratory Distress Stated Complaint: respiratory distress ED Provider: Marianna Dow Discharge Problem: Acute and chronic respiratory failure with hypoxia, Acute renal failure superimposed on stage 4 chronic kidney disease, Acute on chronic heart failure with reduced ejection fraction and diastolic dysfunction, Anemia in chronic kidney disease, Supratherapeutic INR Patient Disposition: Admitted As Inpatient Discharge Instructions Interventions: ED Discharge Assessment Last Done: 12/25/20 06:15 Discharge Problem: Acute renal failure superimposed on stage 4 chronic kidney disease Qualifiers: Acute renal failure type: unspecified Qualified Code(s): N17.9 - Acute kidney failure, unspecified Anemia in chronic kidney disease Qualifiers: Chronic kidney disease stage: unspecified stage Qualified Code(s): N18.9 - Chronic kidney disease, unspecified
[2020-12-25 04:41] LABS: Influenza A virus by PCR Negative (Neg); Influenza B virus by PCR Negative (Neg); RSV by PCR Negative (Neg); SARS CoV2 RNA(COVID-19) InHosp NEGATIVE (Negative)
[2020-12-25] MEDS ORDERED: ALBUT/IPRATROP 3MG/0.5MG NEB 3 ML VIAL NEB PRN (06:44)
[2020-12-25] MEDS ORDERED: SENNA 8.6 MG TAB PO PRN (06:44)
[2020-12-25] MEDS ORDERED: ONDANSETRON INJ 2 MG/ML 2 ML VIAL IV PRN (06:44)
[2020-12-25] MEDS ORDERED: ACETAMINOPHEN 325 MG TAB PO PRN (06:44)
[2020-12-25] MEDS ORDERED: POLYETHYLENE (MIRALAX) 17 GM PACK PO PRN (06:44)
[2020-12-25] MEDS ORDERED: NITROGLYCERIN SL 0.4 MG/TAB TAB SL PRN ×2 (06:44)
--- NOTE | 2020-12-25 07:02 | XRay Report ---
XR chest 1V portable CLINICAL HISTORY: Shortness of breath COMPARISON STUDY: 04/17/2020 FINDINGS: The heart is enlarged. There is pulmonary vascular congestion. There are small bilateral pl eural effusions. There are associated basilar parenchymal opacities. There is an airspace opacity wit hin the right midlung zone laterally, focal edema versus pneumonia. Clinical and radiographic follow- up is recommended. IMPRESSION: 1. Radiographic evidence of congestive failure with cardiac enlargement, bilateral pleural effusions, and mild interstitial edema. 2. Right mid-upper lung zone airspace opacity, focal edema versus pneumonia. 3. Clinical and radiographic follow-up is recommended ACT 112: Negative or not required by law. Electronically signed by: Parish Jack M.D. 12/25/2020 7:00 AM
[2020-12-25 07:19] LABS: Base Excess ABG 1.7 mEq/L (-9-1.8); HCO3 ABG 26 mmol/L (19-24); Oxygen Saturation ABG 97.5 % (90-95); PCO2 ABG 42 mmHg (35-46); PO2 ABG 97 mmHg (80-95); pH ABG 7.42 (7.35-7.45)
[2020-12-25 07:21] LABS: Allen Test Pos (Pos)
[2020-12-25] MEDS: LEVOTHYROXINE SODIUM 88 MCG TABLET PO SCH (07:31)
[2020-12-25] MEDS: METOPROLOL SUCC 50MG EXT REL TAB PO SCH (07:32)
[2020-12-25] MEDS: INSULIN ASPART 100 UNITS/ML 3 ML PEN SC SCH ×4 (07:42→21:56)
[2020-12-25] MEDS: ALBUT/IPRATROP 3MG/0.5MG NEB 3 ML VIAL INH SCH ×4 (08:18→19:22)
[2020-12-25] MEDS ORDERED: FUROSEMIDE 40 MG/4 ML VIAL IV SCH (09:00)
[2020-12-25] MEDS: ASPIRIN 81 MG ECTAB PO SCH (09:27)
[2020-12-25] MEDS: DOCUSATE SODIUM 100 MG CAP PO SCH ×2 (09:27→21:40)
[2020-12-25] MEDS: FUROSEMIDE 40 MG in SYRINGE 0 ML IV SCH ×2 (09:28→17:56)
[2020-12-25] MEDS: POTASSIUM CHLORIDE 10 MEQ TABCR PO SCH (09:28)
[2020-12-25] MEDS: FERROUS SULFATE 325 MG TAB PO SCH (09:28)
[2020-12-25] MEDS: amLODIPine BESYLATE 5 MG TAB PO SCH (09:30)
[2020-12-25] MEDS: ATORVASTATIN 40 MG TAB PO SCH (09:30)
[2020-12-25] MEDS: NYSTATIN POWDER 15GM BTL EXT SCH ×3 (09:30→21:40)
--- NOTE | 2020-12-25 09:30 | Electrocardiogram Report ---
Test Reason : Blood Pressure : / mmHG Vent. Rate : 127 BPM Atrial Rate : 125 BPM P-R Int : 092 ms QRS Dur : 148 ms QT Int : 364 ms P-R-T Axes : 245 001 090 degrees QTc Int : 529 ms Poor data quality, interpretation may be adversely affected Probable Sinus tachycardia with occasional Premature ventricular complexes Left bundle branch block Abnormal ECG When compared with ECG of 16-APR-2020 04:12, HR has increased by 39 bpm Otherwise no significant change Confirmed by Charles Lau ([id number]) on 12/25/2020 9:30:43 AM Referred By: REFERRED SELF Confirmed By:Charles Lau
[2020-12-25] MEDS: DOXYCYCLINE HYCLATE 100 MG CAP PO SCH ×2 (09:31→21:39)
[2020-12-25] MEDS: PANTOprazole 40 MG TAB PO SCH (09:31)
[2020-12-25] MEDS: FINASTERIDE 5 MG TAB PO SCH (09:31)
[2020-12-25] MEDS: ADVANCED PROBIOTIC 1250 MG CAPSULE PO SCH (09:31)
[2020-12-25] MEDS: CHOLECALCIFEROL 1,000 UNITS 25 MCG TAB PO SCH (09:31)
--- NOTE | 2020-12-25 09:34 | History and Physical Report ---
DATE OF ADMISSION: 12/25/2020 CHIEF COMPLAINT: Acute respiratory failure, history of respiratory distress. 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 Currently, the patient is wheelchair bound since last 3 years because of hip pain and poor candidate for surgery, status post b/l carotid endarterectomy, CAD status post stent, wheelchair dependent, history of chronic systolic congestive heart failure with EF of 25-30%, [id number] mitral regurgitation, moderate to severe secondary pulmonary hypertension, history of DVT and PE, on Coumadin, nonspecific intraventricular conduction block, iron deficiency anemia. The patient lives at home with his , wheelchair bound, supposed to be careful diet, but as per , he is eating regular food. For the last few weeks, he is having cough, but last night, the cough got worse and became more short of breath. He was in respiratory distress. When EMS arrived he seemed in severe respiratory distress and they placed him on CPAP and brought him here. In the ER, he was placed on BiPAP and he was tachypneic, tachycardic. The patient's given congestive heart failure was given Lasix, morphine, and nitroglycerin and currently seems comfortable, able to speak. was in the room who helped with most of the history. They had COVID shot, finished second dose of COVID shot on 12/08/2020. No fever, no chills. No complaint of any chest pain, no nausea, no vomiting. Appetite is okay. No headache, hard of hearing. Always has runny nose, no sore throat. Normal bowel movement yesterday morning. He is on Sales catheter since last 2-3 years. It seems that his urine output seemed to be decreased yesterday. With assistance he can go to bathroom. ALLERGIES: PLAVIX, SULFA, ANTIBIOTICS, NIACIN. PAST MEDICAL HISTORY: As mentioned above. PAST SURGICAL HISTORY: Cardiac catheterization, bladder irrigation, colonoscopies, EGDs, injection of eye drug, repair of inguinal hernia, left carotid endarterectomy, left total hip replacement. MEDICATIONS: The patient is on amlodipine 2.5 mg p.o. daily, aspirin 81 mg p.o. daily, atorvastatin 40 mg p.o. daily, vitamin D 1000 units p.o. daily, Colace 100 mg p.o. b.i.d., ferrous sulfate 325 mg p.o. a.m., finasteride 5 mg p.o. a.m., Lasix 40 mg p.o. daily, DuoNebs q.i.d., Lactinex 1 tablet p.o. daily, levothyroxine 88 mcg p.o. daily, metoprolol succinate 25 mg p.m. and 50 mg in the a.m., nitroglycerin 0.4 mg sublingual p.r.n., omeprazole 20 mg p.o. daily, MiraLax p.r.n., potassium chloride 10 mEq p.o. daily, Senokot p.r.n., and warfarin 5 mg p.o. p.m. FAMILY HISTORY: Significant for brother had lung cancer, hypertension, heart disorder. Father had skin cancer, heart attack. Mother has heart disorder, pacemaker. SOCIAL HISTORY: . Former smoker, quit in 1959. No alcohol use, no drug use. REVIEW OF SYMPTOMS: As per HPI. Rest of review of systems negative. PHYSICAL EXAMINATION: GENERAL: The patient is old and frail, on BiPAP. VITAL SIGNS: Temperature 36.4, pulse 102, respiratory rate 20, blood pressure 125/76, oxygen currently 97% on BiPAP 40% FIO2. HEENT: Right eye is blind. NECK: No JVD, no neck masses seen. CARDIOVASCULAR: S1, S2 heard, regular rate and rhythm, no murmur, no gallop. RESPIRATORY SYSTEM: Normal AP diameter. No accessory muscle use. Mild bilateral diminished breath sounds. Mild occasional rhonchi heard. No wheezing. ABDOMEN: Soft, bowel sounds present, nontender. No distention. CENTRAL NERVOUS SYSTEM: Alert and awake. Speech is clear, no facial droop. Moves extremities. Lower extremity, mild pedal edema present. LABORATORY DATA: WBC 12.05, hemoglobin 9.1, hematocrit 27.5, platelets 235. PT 33.5, INR 3.7. Sodium 139, potassium 4.4, chloride 104, bicarbonate 26, BUN 63, creatinine 3.13, serum glucose 223, calcium 8, magnesium 2.3, total bilirubin 0.4, AST 15, ALT 15, alkaline phosphatase 106. Troponin I 0.034, BNP 21,845. SARS-CoV-2 PCR negative. Influenza A and B PCR negative, RSV PCR negative. IMAGING: Chest x-ray, bilateral pulmonary congestion seen. No infiltrates seen. EKG: Poor quality rhythm, undetermined rhythm, left bundle branch block at a rate of 127. ASSESSMENT AND PLAN: This is an 89-year-old male who presents with acute respiratory distress. 1. Acute respiratory distress, mostly acute on chronic systolic and diastolic congestive heart failure, last echo with EF was around 20-30%, received a dose of IV Lasix 40 in the ER. We will continue with IV Lasix 40 b.i.d. Continue his Toprol-XL. Monitor I's and O's. Continue his BiPAP. We will get an ABG. Cardiac consult, echocardiogram, serial enzymes. Closely monitor in tele floor. 2. Acute kidney injury on chronic kidney disease stage III to IV, baseline creatinine is around 2.1, presently creatinine of 3.14. Could be cardiorenal, getting Lasix monitor response with diuretics. We will consult Nephrology. 3. Hyperglycemia. The patient has no history of diabetes. We will follow HbA1c levels. We will monitor the blood sugars. Placed on insulin sliding scale. 4. History of cerebrovascular accident, history of bilateral carotid endarterectomy, on aspirin and statin. 5. History of paroxysmal atrial fibrillation, rate controlled with beta preeti on Coumadin. INR supratherapeutic at 3.7, hold Coumadin. 6.history of deep venous thrombosis, pulmonary embolism on Coumadin. Follow the PT/INR. 7. History of hypertension. Continue on Toprol-XL and diuretics and amlodipine. We will monitor the blood pressure. 8. Anemia of chronic kidney disease, on iron supplements. We will monitor the labs. 9. History of vascular dementia with behavioral disturbance. Monitor for any delirium. 10. 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 Urinary retention, chronic indwelling Sales catheter, Sales care. 11. History of multiple myocardial infarctions, on aspirin, statin and beta-preeti. Currently, seems to be stable. Follow serial enzymes and echocardiogram. 12. Hyperlipidemia, on statin. 13. Hypothyroidism, on Synthroid. 14. The patient is wheelchair dependent. Ambulates with assistance to the bathrooms. PT and OT when stable. 15. Deep venous thrombosis prophylaxis. INR supratherapeutic. Follow PT/INR. DISPOSITION: Closely monitor. Admit to tele. PT and OT prior to discharge. Social service to help with discharge planning. CODE STATUS: DNR/DNI. DNR as per my discussion with the patient and the . JYOTI
[2020-12-25 10:31] LABS: Estimated Average Glucose 128 mg/dl; Hemoglobin A1C 6.1 % (4.5-5.6)
--- NOTE | 2020-12-25 11:09 | Cardiology Consultation ---
Date of Consultation December 25, 2020 Assessment & Plan (1) Acute on chronic heart failure with reduced ejection fraction and diastolic dysfunction: (2) PAF (paroxysmal atrial fibrillation): (3) Ischemic cardiomyopathy: (4) Acute renal failure superimposed on stage 4 chronic kidney disease: (5) Anemia in chronic kidney disease: Echocardiogram demonstrates decline in left ventricular systolic function. Patient with signs/symptoms of volume overload in the setting of acute renal insufficiency (cardiorenal syndrome). Continue IV furosemide 40 mg twice daily. Follow daily weight, GFR, and electrolytes. Appreciate nephrology input. Telemetry reveals atrial fibrillation with fair rate control at rest. Patient is not a strong candidate for amiodarone due to underlying respiratory insufficiency requiring oxygen supplementation. He is not a candidate for dofetilide or sotalol due to underlying renal insufficiency. I will pursue a rate control strategy currently with metoprolol 50 mg in the morning, 25mg in the evening. Monitor telemetry. Cardioversion may be considered during hospitalization if rate control proves difficult and respiratory/volume status does not improve. Continue oral anticoagulation with warfarin for goal INR of 2.0-3.0. History of Present Illness Reason for Consultation: Acute CHF Requesting Physician: Dr. Stan Landrum Attending Physician: Susana Hein MD History of Present Illness 89-year-old patient presented to the emergency department with respiratory distress and shortness of breath. Placed on CPAP by EMS in route due to increased work of breathing. Upon arrival to the ER he was noted to be tachypneic and hypoxic. Treated with intravenous diuretic therapy Lasix 40 mg in the ER. ECG and telemetry reveals atrial fibrillation with intermittent rapid ventricular response. Patient is chronically anticoagulated due to history of A. fib, CVA, and DVT. Patient seen and examined intensive care unit. He is alert with adequate oxygen saturation on 2 L nasal cannula. Fluid balance -500 cc. Preliminary review of bedside 2D transthoracic echocardiogram demonstrates severe left ventricular systolic function, severe pulmonary hypertension, and severe mitral regurgitation. Received a.m. dose of metoprolol 50 mg with fair rate control per telemetry. INR therapeutic, however, normocytic anemia noted with hemoglobin of 9.1 GM per DL. Denies signs/symptoms of GI/ blood loss. Patient unaware of atrial fibrillation. Denies palpitations, lightheadedness, dizziness, orthopnea, or paroxysmal nocturnal dyspnea. No significant pedal edema. He is immobile in the outpatient setting. Uses a wheelchair around the home. Complex cardiovascular history noted below. He has declined referral for electrophysiology to consider ICD in the past. Complex cardiovascular history [facility]: 1. 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 -Status post PTCA and stenting to the left anterior descending coronary artery and left circumflex coronary artery followed by PTCA and stenting of the right coronary artery. -Status post PTCA and stenting of the distal RCA stenosis. -Status post PCI of the LAD just distal to the prior stenting and PCI fo the LCX with mild in-stent stenosis of the RCA observed at that time, December 2011. -December 2011 course complicated by GI bleeding and subsequent hypercoagul able event with DVT and PE. -Status post PCI of the RCA with two bare metal stents in September 2015. 2. Paroxysmal atrial fibrillation 3. Chronic Coumadin anticoagulation secondary to history of CVA, PAF, and DVT 4. Asymptomatic PVC's. 5. Nonspecific interventricular conduction block 6. Three prior CVAs per documentation 7. Carotid artery stenosis status post right carotid endarterectomy in 2006 than left carotid endarterectomy in 2012 complicated by CVA, residual right- sided weakness. 8. Chronic kidney disease, stable IV. 9. JEFFREY-inhibitor intolerance. Per documentation, patient is not a candidate for Jeffrey inhibitor, Arb, Entresto, or Aldactone due to significant renal dysfunction. 10. Labile hypertension 11. Hyperlipidemia. 12. Hypothyroidism. 13. Iron deficiency anemia. 14. Prostate cancer metastatic to bone Allergies Allergy/AdvReac Type Severity Reaction Status Date / Time clopidogrel Allergy Intermediate RASH Verified 09/26/20 10:07 Sulfa (Sulfonamide Allergy Intermediate RASH Verified 09/26/20 10:07 Antibiotics) sulfamethoxazole Allergy Intermediate RASH Verified 09/26/20 10:07 trimethoprim Allergy Mild RASH Verified 09/26/20 10:07 niacin Allergy Unknown UNKNOWN Verified 09/26/20 10:07 Home Medications Medication Instructions Recorded Confirmed Type amlodipine 2.5 mg PO DAILY 02/15/19 09/26/20 History atorvastatin 40 mg PO DAILY 02/15/19 09/26/20 History ferrous sulfate 325 mg PO QAM 02/15/19 09/26/20 History finasteride 5 mg PO QAM 02/15/19 09/26/20 History levothyroxine 88 mcg PO DAILYBB 02/15/19 09/26/20 History nitroglycerin 0.4 mg SUBLINGUAL DIRECTED PRN 02/15/19 09/26/20 History omeprazole 20 mg PO DAILY 02/15/19 09/26/20 History cholecalciferol (vitamin D3) 1,000 unit PO DAILY 11/12/19 09/26/20 History [Vitamin D3] docusate sodium [Colace] 100 mg PO BID 11/12/19 09/26/20 History furosemide 40 mg PO DAILY 11/12/19 09/26/20 History ipratropium-albuterol 3 ml INHALATION QID 11/12/19 09/26/20 History potassium chloride 10 meq PO QAM 11/12/19 09/26/20 History metoprolol succinate 50 mg PO DAILYBB #0 tab 11/15/19 09/26/20 Rx nystatin 100,000 unit/gram topical 1 appln TOP TID #60 gm 02/23/20 09/26/20 Rx powder Lactinex 1 tab PO DAILY 04/16/20 09/26/20 History aspirin 81 mg PO DAILY 04/16/20 09/26/20 History metoprolol succinate 25 mg PO QPM 04/16/20 09/26/20 History polyethylene glycol 3350 [Miralax] 8.5 g PO DAILY PRN 04/16/20 09/26/20 History sennosides [senna] 8.6 mg PO DAILY PRN 04/16/20 09/26/20 History tramadol 50 mg PO BID PRN 04/16/20 09/26/20 History warfarin 5 mg PO QPM 04/16/20 09/26/20 History Patient History Medical History (Updated 12/26/20 @ 06:45 by Marianna Dow DO) Chronic anticoagulation CKD (chronic kidney disease), stage III Coronary artery disease per outpt cardio note: Long standing coronary artery disease with myocardial infarction times six, 1994, 1995, 1996, 2002, 2011, May 2013, and 09/2015 (BMS x2 to RCA). He is status post stenting to the LAD in 1994. Status post PTCA and stenting of the left anterior descending artery and circumflex followed by PTCA of the right coronary artery in 1998. 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 December 2011, stenting of the LAD. May of 2013, RCA stenting. A left carotid endarterectomy was performed August of 2013. Postop CVA reported. Hospitalization 09/[address]vation [place]. S/p BMS to right coronary artery x2. 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 Surgical History H/O inguinal hernia repair History of cataract surgery History of total left hip replacement S/P carotid endarterectomy (08/25/13) BL Family History Mother Heart disease Brother Cancer Father Cancer Sister Cancer Other No pertinent family history Social History Smoking Status: Never smoker Second Hand Exposure: No; Hx Alcohol Use: No Hx Substance Use: No Preferred Language: Yakut Communication Ability: Effective Visual Impairment: No Limitations Hearing Ability: Normal Manager Of Broadcast Content Required: No Beliefs That Will Affect Care: None marital status: Current Living Situation: Spouse current occupational status: retired Other Information That Helps Us Care for You: No Feels Safe at Home: Yes Safety Concerns: Feels Safe At This Time Assistive Devices: None Review of Systems Review of Systems: All systems reviewed & are unremarkable except as noted in HPI & below Physical Exam Constitutional: well nourished and + ill appearing Respiratory: no respiratory distress Auscultation: + diminished lung sounds (Bilateral) and + rales (Bilateral); no wheezes Cardiovascular: Rate/Rhythm: + irregularly irregular Heart Sounds: normal S1, normal S2 and + murmur (2/6 systolic murmur heard best at the apex without radiation.); no cardiac rub Vessels: + JVD and radial pulses present; no carotid bruit Extremities: + edema (Trace to mild bilateral pedal edema) Gastrointestinal (Abdomen): Inspection/Auscultation: abdomen not distended Percussion/Palpation: abdomen soft; abdomen nontender, no guarding and abdomen not rigid Neurologic: moves all extremities and awake; no focal motor deficits Motor/Sensory: no tremor Psychiatric: A+Ox3, euthymic affect Results & Data ([facility]) Vital Signs (Past 12 Hours) Vital Signs Temp Pulse Pulse Resp BP BP Pulse Ox 12/25/20 08:18 79 19 96 12/25/20 06:46 128 H 18 128/93 98 12/25/20 06:01 95 H 16 97 12/25/20 06:00 103 H 16 136/72 96 12/25/20 05:30 102 H 20 125/76 97 12/25/20 05:01 84 18 96 12/25/20 05:00 74 18 118/72 95 12/25/20 04:31 93 H 22 95 12/25/20 04:30 69 24 131/64 95 12/25/20 04:14 100 H 23 143/66 H 92 12/25/20 04:01 80 26 H 143/75 H 92 12/25/20 04:00 106 H 28 H 91 12/25/20 03:54 125 H 28 H 145/86 H 93 12/25/20 03:32 36.4 C L 127 H 32 H 140/94 95 12/25/20 03:31 125 H 32 H 92 12/25/20 03:30 125 H 29 H 140/94 93 12/25/20 03:23 126 H 29 H 96 12/25/20 03:19 118 H 28 H 153/99 H 99 12/25/20 03:10 112 H 28 H 93 (1) Anemia in chronic kidney disease Chronic kidney disease stage: stage 4 (severe) Qualified Code(s): N18.4 - Chronic kidney disease, stage 4 (severe); D63.1 - Anemia in chronic kidney disease
--- NOTE | 2020-12-25 12:31 | Consultation Report ---
DATE OF CONSULTATION: 12/25/2020 NEPHROLOGY CONSULTATION NOTE REASON FOR CONSULT: Acute respiratory failure with acute renal failure on background CKD. HISTORY OF PRESENT ILLNESS: The patient is an 89-year-old white male with significant history of CKD stage III to stage IV with a baseline creatinine lately in the low 2s as well as significant cardiac history, prostate cancer with chronic urinary retention and status post chronic indwelling Sales catheter as well as multiple other medical problems. He presented to the hospital last night with shortness of breath and respiratory failure with hypoxia. He was felt to be in congestive heart failure. He was put on BiPAP and was brought to the ICU. He is still in ICU. He has received IV Lasix. The patient has been seen by both pulmonary and critical care and cardiology. He is also in AFib with rapid ventricular response. Echocardiogram shows further decline in his left ventricular function. He has a Sales catheter and has been making urine, but it does not appear it is accurately charted. PAST MEDICAL AND SURGICAL HISTORY: Includes hyperlipidemia, hypothyroidism, history of multiple MIs, ischemic cardiomyopathy, paroxysmal atrial fibrillation, history of stroke, hypertension, chronic kidney disease stage III to stage IV with more recent baseline creatinine in the low 2s, chronic urinary retention with chronic indwelling Sales catheter, prostate cancer with metastasis to bone -- on Lupron injections, vascular dementia, history of DVT and PE, systolic congestive heart failure with an EF of 25%-30%, atrial fibrillation -- on chronic Coumadin, pulmonary hypertension, cardiac catheterization, bladder irrigation, left carotid endarterectomy, left total hip replacement. MEDICATIONS AT HOME: Reviewed in detail and are as per the reconciliation list and H and P. The patient is not a good historian and was not able to give me his medicine list. It does appear he takes Lasix 40 mg daily. FAMILY HISTORY: Significant for brother had lung cancer, hypertension, heart disease. No renal disease or dialysis in the family. SOCIAL HISTORY: Former smoker, quit in 1959. No alcohol, no drugs. He is and lives with his . REVIEW OF SYSTEMS: As detailed in the HPI, unless stated otherwise, 12 systems reviewed and negative. Positive review of system includes increasing shortness of breath. However, he did not have any chest pain, fever or productive cough. He has chronic Sales and did not report any problem with the Sales. Does not report any pain, nausea, vomiting or other symptoms. PHYSICAL EXAMINATION: GENERAL: The patient is an elderly white male who is currently on nasal cannula oxygen. VITAL SIGNS: Blood pressure is 128/93, pulse rate 79, temperature 36.4, 96% on 4 liter nasal cannula. HEENT: Mucous membrane is moist. NECK: Supple. Jugular venous distention is present. CHEST: Bilaterally decreased breath sounds, poor inspiratory effort limiting the quality of the exam. CARDIOVASCULAR: Irregularly irregular. Soft systolic murmur heard. No bruit or gallop heard. ABDOMEN: Soft, nontender. EXTREMITIES: Show trace to 1+ edema. NEUROLOGIC: Moving all 4 extremities. Normal speech. IMAGING: Chest x-ray shows congestive heart failure with cardiac enlargement, bilateral pleural effusion and mild interstitial edema. There is also possible pneumonia in the right mid-upper lung zone. LABORATORY TEST: BNP was more than 21,000. Baseline creatinine in the low 2s. Current creatinine is 3.14, BUN is 63. Sodium 139, potassium 4.4, albumin 3.0. ASSESSMENT AND PLAN: An 89-year-old male with very extensive medical problem list at baseline including chronic kidney disease stage IV with a baseline creatinine of low 2s, now admitted with respiratory failure, most likely related with combination of congestive heart failure, atrial fibrillation with rapid ventricular response as well as likely pulmonary infection. Renal failure is a reflection of the significant hemodynamic instability he had. Acute renal failure: The acute component is fairly minimal and is related with acute hemodynamic instability in the setting of congestive heart failure and likely infection. I would continue with antibiotic treatment as well as IV Lasix. He does have a Slaes catheter, so we should be able to monitor input/output pretty accurately. For the time being, continue with the Lasix 40 mg IV twice daily as ordered by cardiology. However, it is not clear that this will be enough and he might need more dose than this. Continue laboratories once daily. The patient is already feeling significantly better from breathing standpoint, which is very encouraging.
--- NOTE | 2020-12-25 14:30 | Electrocardiogram Report ---
Test Reason : Blood Pressure : / mmHG Vent. Rate : 085 BPM Atrial Rate : 094 BPM P-R Int : 000 ms QRS Dur : 148 ms QT Int : 426 ms P-R-T Axes : 000 041 172 degrees QTc Int : 506 ms Atrial fibrillation with premature ventricular or aberrantly conducted complexes Left bundle branch block Abnormal ECG When compared with ECG of 25-DEC-2020 03:21, Vent. rate has decreased BY 42 BPM Confirmed by Ravindra Auguste ([id number]) on 12/25/2020 2:30:16 PM Referred By: REFERRED SELF Confirmed By:Ravindra Auguste
--- NOTE | 2020-12-25 16:51 | Communication Note ---
Date of Service: December 25, 2020 pt admitted earlier with SOB , acute on chronic hypoxemic resp failure due to -(1) Acute on chronic heart failure with reduced ejection fraction and diastolic dysfunction: respiratory status improved after IV Lasix -diuresis cont on Lasix 40 mg IV BID off Bipap now on 2 L 02 via nasal canula which is his baseline pt reports improvement of symptoms (2) PAF (paroxysmal atrial fibrillation): appreciate cardiology input started on Metoprolol 50 mg in AM /25 mg in PM on Coumadin already , ordered to hold dose as INR 3.7 today (3) Ischemic cardiomyopathy:presented with decompensated CHF with pulm congestion , resp failure managements as outlined above (4) Acute renal failure superimposed on stage 4 chronic kidney disease: appreciate input from nephrology recommends to cont diuresis with Lasix 40 mg IV BID follow AM labs closely Susana Hein MD
[2020-12-25] MEDS ORDERED: WARFARIN SOD 5 MG TAB PO SCH ×2 (21:00)
[2020-12-25] MEDS ORDERED: METOPROLOL SUCC 25MG EXT REL TAB PO SCH (21:00)
[2020-12-26] MEDS ORDERED: METOPROLOL TARTRATE 1 MG/ML VIAL IV STA (00:17)
[2020-12-26] MEDS: LEVOTHYROXINE SODIUM 88 MCG TABLET PO SCH (05:17)
[2020-12-26] MEDS: METOPROLOL SUCC 50MG EXT REL TAB PO SCH ×2 (05:18→20:34)
[2020-12-26 06:10] LABS: Basophils # (auto) 0.02 K/uL (0-0.2); Basophils % (auto) 0.2 %; Eosinophils # (auto) 0.11 K/uL (0-0.5); Hemoglobin 8.5 g/dL (14.0-18.0); Immature Granulocytes # (auto) 0.02 K/uL (0.00-0.02); Immature Granulocytes % (auto) 0.2 %; Lymphocytes # (auto) 0.79 K/uL (1.2-3.4); Lymphocytes % (auto) 7.5 %; Mean Corpuscular Hemoglobin 31.1 pg (25-34); Mean Corpuscular Hgb Conc 32.7 g/dL (32-36); Mean Corpuscular Volume 95.2 fL (80-100); Mean Platelet Volume 9.8 fL (7.4-10.4); Monocytes # (auto) 1.51 K/uL (0.11-0.59); Monocytes % (auto) 14.3 %; Neutrophils # (auto) 8.13 K/uL (1.4-6.5); Neutrophils % (auto) 76.8 %; Platelet Count 207 K/uL (130-400); RDW Coefficient of Variation 15.1 % (11.5-14.5); Red Blood Count 2.73 M/uL (4.7-6.1); White Blood Count 10.58 K/uL (4.8-10.8)
[2020-12-26 06:38] LABS: INR 3.9 (0.9-1.1); Prothrombin Time 35.1 Seconds (9.0-12.0)
[2020-12-26 06:41] LABS: BUN Creatinine Ratio 19.6 (10-20); Calcium 8.2 mg/dl (8.5-10.1); Creatinine Clr Calc Pharmacy 13.5 ml/min; Est GFR (African American) 17.6; Est GFR (Non-African American) 15.2; Magnesium 2.5 mg/dl (1.8-2.4); Potassium 4.3 mmol/L (3.5-5.1)
[2020-12-26] MEDS: ALBUT/IPRATROP 3MG/0.5MG NEB 3 ML VIAL INH SCH ×2 (07:27→18:12)
[2020-12-26] MEDS: FERROUS SULFATE 325 MG TAB PO SCH (07:58)
[2020-12-26] MEDS: ATORVASTATIN 40 MG TAB PO SCH (07:58)
[2020-12-26] MEDS: ASPIRIN 81 MG ECTAB PO SCH (07:58)
[2020-12-26] MEDS: CHOLECALCIFEROL 1,000 UNITS 25 MCG TAB PO SCH (07:58)
[2020-12-26] MEDS: FUROSEMIDE 40 MG in SYRINGE 0 ML IV SCH ×2 (07:58→18:00)
[2020-12-26] MEDS: amLODIPine BESYLATE 5 MG TAB PO SCH (07:58)
[2020-12-26] MEDS: FINASTERIDE 5 MG TAB PO SCH (07:58)
[2020-12-26] MEDS: ADVANCED PROBIOTIC 1250 MG CAPSULE PO SCH (07:59)
[2020-12-26] MEDS: PANTOprazole 40 MG TAB PO SCH (07:59)
[2020-12-26] MEDS: POTASSIUM CHLORIDE 10 MEQ TABCR PO SCH (07:59)
[2020-12-26] MEDS: DOCUSATE SODIUM 100 MG CAP PO SCH ×2 (07:59→20:34)
[2020-12-26] MEDS: NYSTATIN POWDER 15GM BTL EXT SCH ×3 (08:00→20:32)
[2020-12-26] MEDS: INSULIN ASPART 100 UNITS/ML 3 ML PEN SC SCH ×4 (08:01→23:18)
--- NOTE | 2020-12-26 09:45 | Cardiology Progress Note ---
Date of Service December 26, 2020 Assessment & Plan (1) Acute on chronic heart failure with reduced ejection fraction and diastolic dysfunction: (2) PAF (paroxysmal atrial fibrillation): (3) Ischemic cardiomyopathy: (4) Acute renal failure superimposed on stage 4 chronic kidney disease: (5) Elevated troponin I level: (6) Anemia in chronic kidney disease: Respiratory status improved, however, creatinine trending upward. Continue to monitor daily weight, fluid balance, GFR, and electrolytes. Continue IV furosemide 40 mg twice daily. Appreciate nephrology input. Telemetry reveals atrial fibrillation with titrate metoprolol succinate to 100 mg twice daily. He is not a candidate for dofetilide or sotalol due to underlying renal insufficiency. Continue rate control strategy. Monitor telemetry. Oral anticoagulation with warfarin for goal INR of 2.0-3.0. Mildly elevated troponin related to demand ischemia in the setting of acute hypoxic respiratory failure, congestive heart failure, acute on chronic renal insufficiency, and anemia. Admission and Anticipated Discharge Date Admission Date: December 25, 2020 Subjective Patient seen and examined at the bedside. Feeling better from a cardiovascular perspective. Denies chest pain or shortness of breath today. Somewhat of a poor historian. No orthopnea or PND. Telemetry reveals atrial fibrillation with heart rate ranging from 80-100bpm. Review of Systems Review of Systems: All systems reviewed & are unremarkable except as noted in HPI & below Physical Exam Constitutional: well nourished and + ill appearing Respiratory: no respiratory distress Auscultation: + diminished lung sounds (Bilateral) and + rales (Bilateral); no wheezes Cardiovascular: Rate/Rhythm: + irregularly irregular Heart Sounds: normal S1, normal S2 and + murmur (2/6 systolic murmur heard best at the apex without radiation.); no cardiac rub Vessels: + JVD and radial pulses present; no carotid bruit Extremities: + edema (Trace to mild bilateral pedal edema) Gastrointestinal (Abdomen): Inspection/Auscultation: abdomen not distended Percussion/Palpation: abdomen soft; abdomen nontender, no guarding and abdomen not rigid Neurologic: moves all extremities and awake; no focal motor deficits Motor/Sensory: no tremor Psychiatric: A+Ox3, euthymic affect Results & Data ([facility]) Vital Signs (Past 12 Hours) Vital Signs Temp Pulse Pulse Pulse Resp BP BP 12/26/20 08:00 36.8 C 90 98 H 20 119/76 12/26/20 07:27 103 H 17 12/26/20 03:00 36.2 C L 116 H 20 136/79 12/26/20 01:46 116 H 12/26/20 00:48 119 H 133/82 12/26/20 00:00 121 H 12/25/20 23:00 36.4 C L 119 H 20 132/82 Pulse Ox 12/26/20 08:00 95 12/26/20 07:27 93 12/26/20 03:00 95 12/26/20 01:46 12/26/20 00:48 12/26/20 00:00 12/25/20 23:00 94 (1) Anemia in chronic kidney disease Chronic kidney disease stage: unspecified stage Qualified Code(s): N18.9 - Chronic kidney disease, unspecified; D63.1 - Anemia in chronic kidney disease (2) Acute renal failure superimposed on stage 4 chronic kidney disease Acute renal failure type: unspecified Qualified Code(s): N17.9 - Acute kidney failure, unspecified; N18.4 - Chronic kidney disease, stage 4 (severe)
[2020-12-26] MEDS: DOXYCYCLINE HYCLATE 100 MG CAP PO SCH ×2 (10:16→20:33)
--- NOTE | 2020-12-26 10:17 | Nephrology Progress Note ---
Date of Service December 26, 2020 Assessment & Plan Admission and Anticipated Discharge Date Admission Date: December 25, 2020 Subjective Feels better breathing akbar. Has castellanos. Lot of urine in bag. PHYSICAL EXAMINATION: GENERAL: The patient is an elderly white male who is currently on nasal cannula oxygen. HEENT: Mucous membrane is moist. NECK: Supple. Jugular venous distention is present. CHEST: Bilaterally decreased breath sounds, poor inspiratory effort limiting the quality of the exam. CARDIOVASCULAR: Irregularly irregular. Soft systolic murmur heard. No bruit or gallop heard. ABDOMEN: Soft, nontender. EXTREMITIES: Show trace to 1+ edema. NEUROLOGIC: Moving all 4 extremities. Normal speech. IMAGING: Chest x-ray shows congestive heart failure with cardiac enlargement, bilateral pleural effusion and mild interstitial edema. There is also possible pneumonia in the right mid-upper lung zone. LABORATORY TEST: Creat rising ASSESSMENT AND PLAN: An 89-year-old male with very extensive medical problem list at baseline including chronic kidney disease stage IV with a baseline creatinine of low 2s, now admitted with respiratory failure, most likely related with combination of congestive heart failure, atrial fibrillation with rapid ventricular response as well as likely pulmonary infection. Renal failure is a reflection of the significant hemodynamic instability he had. Acute renal failure: The acute component is fairly minimal and is related with acute hemodynamic instability in the setting of congestive heart failure and likely infection. I would continue with antibiotic treatment as well as IV Lasix. He does have a Castellanos catheter, so we should be able to monitor input/output pretty accurately. Rec: 1. For the time being, continue with the Lasix 40 mg IV twice daily as ordered by cardiology. Seems to be responding as lot of urine. The patient is already feeling significantly better from breathing standpoint, which is very encouraging. 2. Daily labs. 3 Dont remove castellanos yet Results & Data ([facility]) Vital Signs (Past 12 Hours) Vital Signs Temp Pulse Pulse Pulse Resp BP BP 12/26/20 08:00 36.8 C 90 98 H 20 119/76 12/26/20 07:27 103 H 17 12/26/20 03:00 36.2 C L 116 H 20 136/79 12/26/20 01:46 116 H 12/26/20 00:48 119 H 133/82 12/26/20 00:00 121 H 12/25/20 23:00 36.4 C L 119 H 20 132/82 Pulse Ox 12/26/20 08:00 95 12/26/20 07:27 93 12/26/20 03:00 95 12/26/20 01:46 12/26/20 00:48 12/26/20 00:00 12/25/20 23:00 94
--- NOTE | 2020-12-26 15:23 | Hospitalist Progress Note ---
Date of Service December 26, 2020 Assessment & Plan (1) Acute on chronic heart failure with reduced ejection fraction and diastolic dysfunction: presented with significant vol overload , pulmonary congestion -leading to hypoxia , resp failure ECHO shows EF 15-20 % acute on chronic hypoxemic resp failure ( on 2 L O2 at home ) required Bipap , resp status improved with diuresis cont IV Lasix BID , pt reports improvement of sob , orthopnea currently back to baseline on 2 L 02 cardiology following , appreciate input (2) Acute renal failure superimposed on stage 4 chronic kidney disease: baseline advanced CKD stage 4 , cr > 2 worsening of kidney function due to decompensated CHF , poor renal perfusion pt is continued with IV Lasix for diuresis with improvement of clinical symptoms nephrology following , appreciate input (3) Acute and chronic respiratory failure with hypoxia: (4) Elevated troponin I level: due to demand ischemia /type 2 NM in setting of decompensated CHF and worsening of renal failure , causing poor clearance no angina symptoms cont correction of volume status with diuresis cardiology following closely DNR/DNI Disposition : expected to be discharged home when medially stable Admission and Anticipated Discharge Date Admission Date: December 25, 2020 Subjective follow up visit for decompensated CHF with severe ischemic cardiomyopathy : on 2 L 02 via nasal canula ( his baseline ) pt reports feeling much better no complain of orthopnea, no sob , no cough or fever Review of Systems Review of Systems: All systems reviewed & are unremarkable except as noted in Subjective Physical Exam Constitutional: WD/WN, vitals as above Eyes: PERRL, conjunctivae normal, anicteric sclerae ENMT: external ear and nose normal, oropharynx normal Neck: trachea midline, no thyromegaly Respiratory: no cough Auscultation: + diminished lung sounds and + crackles Gastrointestinal (Abdomen): Percussion/Palpation: abdomen soft; abdomen nontender Musculoskeletal: no cyanosis or clubbing, extremities motor strength 5/5 Neurologic: PERRL, EOMI, accommodation nl, no face palsy, no dysarthria Psychiatric: A+Ox3, euthymic affect Results & Data Results & Data ([facility]) Vital Signs (Past 12 Hours) Vital Signs Temp Pulse Pulse Pulse Resp BP Pulse Ox 12/26/20 12:00 36.5 C 99 H 18 112/65 92 12/26/20 08:00 36.8 C 90 98 H 20 119/76 95 12/26/20 07:27 103 H 17 93 (1) Acute renal failure superimposed on stage 4 chronic kidney disease Acute renal failure type: unspecified Qualified Code(s): N17.9 - Acute kidney failure, unspecified; N18.4 - Chronic kidney disease, stage 4 (severe)
[2020-12-27] MEDS: ALBUT/IPRATROP 3MG/0.5MG NEB 3 ML VIAL INH SCH ×2 (07:27→20:02)
[2020-12-27 07:39] LABS: INR 3.9 (0.9-1.1); Prothrombin Time 35.3 Seconds (9.0-12.0)
[2020-12-27 07:46] LABS: BUN Creatinine Ratio 19.3 (10-20); Calcium 8.5 mg/dl (8.5-10.1); Creatinine Clr Calc Pharmacy 13.2 ml/min; Est GFR (African American) 16.3; Est GFR (Non-African American) 14.1; Magnesium 2.2 mg/dl (1.8-2.4)
[2020-12-27] MEDS: amLODIPine BESYLATE 5 MG TAB PO SCH (08:22)
[2020-12-27] MEDS: FINASTERIDE 5 MG TAB PO SCH (08:22)
[2020-12-27] MEDS: FUROSEMIDE 40 MG in SYRINGE 0 ML IV SCH (08:22)
[2020-12-27] MEDS: FERROUS SULFATE 325 MG TAB PO SCH (08:22)
[2020-12-27] MEDS: DOCUSATE SODIUM 100 MG CAP PO SCH ×2 (08:23→21:29)
[2020-12-27] MEDS: POTASSIUM CHLORIDE 10 MEQ TABCR PO SCH (08:26)
[2020-12-27] MEDS: LEVOTHYROXINE SODIUM 88 MCG TABLET PO SCH (08:26)
[2020-12-27] MEDS: ATORVASTATIN 40 MG TAB PO SCH (08:26)
[2020-12-27] MEDS: ASPIRIN 81 MG ECTAB PO SCH (08:26)
[2020-12-27] MEDS: ADVANCED PROBIOTIC 1250 MG CAPSULE PO SCH (08:26)
[2020-12-27] MEDS: PANTOprazole 40 MG TAB PO SCH (08:26)
[2020-12-27] MEDS: CHOLECALCIFEROL 1,000 UNITS 25 MCG TAB PO SCH (08:26)
[2020-12-27] MEDS: NYSTATIN POWDER 15GM BTL EXT SCH ×3 (08:27→21:28)
[2020-12-27] MEDS: METOPROLOL SUCC 50MG EXT REL TAB PO SCH (08:27)
[2020-12-27] MEDS: INSULIN ASPART 100 UNITS/ML 3 ML PEN SC SCH ×4 (08:27→21:30)
[2020-12-27] MEDS ORDERED: AMIODARONE IV BOLUS & DRIP IV STA (09:10)
[2020-12-27] MEDS ORDERED: STAT IV Infusion **Titration per Protocol STA (09:10)
[2020-12-27] MEDS ORDERED: AMIODARONE / D5W 150 MG/100 ML BAG IV STA (09:21)
[2020-12-27] MEDS ORDERED: 0.2 MICRON FILTER SET 1 EA IV ONE (09:30)
[2020-12-27] MEDS ORDERED: AMIODARONE / D5W 360 MG/200 ML BAG IV ONE (09:30)
--- NOTE | 2020-12-27 10:18 | Nephrology Progress Note ---
Date of Service December 27, 2020 Assessment & Plan Admission and Anticipated Discharge Date Admission Date: December 25, 2020 Subjective Feels better breathing akbar. Has castellanos. 1300 ml urine PHYSICAL EXAMINATION: GENERAL: The patient is an elderly white male who is currently on nasal cannula oxygen. HEENT: Mucous membrane is moist. NECK: Supple. Jugular venous distention is present. CHEST: Bilaterally decreased breath sounds, poor inspiratory effort limiting the quality of the exam. CARDIOVASCULAR: Irregularly irregular. Soft systolic murmur heard. No bruit or gallop heard. ABDOMEN: Soft, nontender. EXTREMITIES: NO edema. NEUROLOGIC: Moving all 4 extremities. Normal speech. IMAGING: Chest x-ray shows congestive heart failure with cardiac enlargement, bilateral pleural effusion and mild interstitial edema. There is also possible pneumonia in the right mid-upper lung zone. LABORATORY TEST: Creat rising ASSESSMENT AND PLAN: An 89-year-old male with very extensive medical problem list at baseline including chronic kidney disease stage IV with a baseline creatinine of low 2s, now admitted with respiratory failure, most likely related with combination of congestive heart failure, atrial fibrillation with rapid ventricular response as well as likely pulmonary infection. Renal failure is a reflection of the significant hemodynamic instability he had. Acute renal failure: The acute component is fairly minimal and is related with acute hemodynamic instability in the setting of congestive heart failure and likely infection. I would continue with antibiotic treatment as well as IV Lasix. He does have a Castellanos catheter, so we should be able to monitor input/output pretty accurately. Rec: 1. D/c Iv lasix. Change to lasix 80 daily in AM. The patient is already feeling significantly better from breathing standpoint, which is very encouraging. 2. Daily labs. 3 Dont remove castellanos yet 4 Like to see creat stable before discharge. Results & Data ([facility]) Vital Signs (Past 12 Hours) Vital Signs Temp Pulse Pulse Resp BP Pulse Ox Pulse Ox 12/27/20 07:30 36.6 C 62 139/68 98 12/27/20 07:28 64 18 94 12/27/20 06:00 93 12/27/20 03:00 36.6 C 88 20 127/57 L 93 12/26/20 23:00 37.0 C 76 19 125/52 L 92
[2020-12-27] MEDS: DOXYCYCLINE HYCLATE 100 MG CAP PO SCH ×2 (10:50→21:29)
--- NOTE | 2020-12-27 11:22 | Cardiology Progress Note ---
Date of Service December 27, 2020 Assessment & Plan (1) Atrial flutter with rapid ventricular response: (2) Acute on chronic heart failure with reduced ejection fraction and diastolic dysfunction: (3) PAF (paroxysmal atrial fibrillation): (4) Ischemic cardiomyopathy: (5) Acute renal failure superimposed on stage 4 chronic kidney disease: (6) Elevated troponin I level: (7) Anemia in chronic kidney disease: Patient converted to atrial flutter with rapid ventricular response and 2- 1 conduction this morning. Recommend addition of intravenous amiodarone. Continue beta-preeti therapy and oral anticoagulation as previously ordered. Respiratory status improved, however, creatinine trending upward. Continue to monitor daily weight, fluid balance, GFR, and electrolytes. Continue IV furosemide 40 mg twice daily. Appreciate nephrology input. Elevated troponin related to demand ischemia in the setting of acute hypoxic respiratory failure, congestive heart failure, acute on chronic renal insufficiency, and anemia. No role for IV heparin at this time. Admission and Anticipated Discharge Date Admission Date: December 25, 2020 Subjective Patient seen and examined at the bedside. Feeling well from a cardiovascular perspective. Fluid balance is negative. Serum creatinine trending upward. Telemetry reveals atrial flutter with 2-1 conduction and a ventricular rate of 126 bpm. Patient is unaware of his elevated heart rate. Currently resting comfortably. Review of Systems Review of Systems: All systems reviewed & are unremarkable except as noted in HPI & below Physical Exam Constitutional: well nourished and + ill appearing Respiratory: no respiratory distress Auscultation: + diminished lung sounds (Bilateral) and + rales (Bilateral); no wheezes Cardiovascular: Rate/Rhythm: regular rhythm and + tachycardic Heart Sounds: normal S1, normal S2 and + murmur (2/6 systolic murmur heard best at the apex without radiation.); no cardiac rub Vessels: + JVD and radial pulses present; no carotid bruit Extremities: + edema (Trace to mild bilateral pedal edema) Gastrointestinal (Abdomen): Inspection/Auscultation: abdomen not distended Percussion/Palpation: abdomen soft; abdomen nontender, no guarding and abdomen not rigid Neurologic: moves all extremities and awake; no focal motor deficits Motor/Sensory: no tremor Psychiatric: A+Ox3, euthymic affect Results & Data ([facility]) Vital Signs (Past 12 Hours) Vital Signs Temp Pulse Pulse Resp BP Pulse Ox Pulse Ox 12/27/20 07:30 36.6 C 62 139/68 98 12/27/20 07:28 64 18 94 12/27/20 06:00 93 12/27/20 03:00 36.6 C 88 20 127/57 L 93 (1) Anemia in chronic kidney disease Chronic kidney disease stage: unspecified stage Qualified Code(s): N18.9 - Chronic kidney disease, unspecified; D63.1 - Anemia in chronic kidney disease (2) Acute renal failure superimposed on stage 4 chronic kidney disease Acute renal failure type: unspecified Qualified Code(s): N17.9 - Acute kidney failure, unspecified; N18.4 - Chronic kidney disease, stage 4 (severe)
--- NOTE | 2020-12-27 14:23 | Electrocardiogram Report ---
Test Reason : Blood Pressure : / mmHG Vent. Rate : 123 BPM Atrial Rate : 123 BPM P-R Int : 128 ms QRS Dur : 126 ms QT Int : 352 ms P-R-T Axes : 101 032 176 degrees QTc Int : 503 ms Atrial flutter with 2 to 1 block Left bundle branch block Abnormal ECG When compared with ECG of 25-DEC-2020 11:09, HR has increased Confirmed by Ravindra Auguste ([id number]) on 12/27/2020 2:23:38 PM Referred By: REFERRED SELF Confirmed By:Ravindra Auguste
--- NOTE | 2020-12-27 16:05 | Electrocardiogram Report ---
Test Reason : Blood Pressure : / mmHG Vent. Rate : 058 BPM Atrial Rate : 234 BPM P-R Int : 000 ms QRS Dur : 146 ms QT Int : 460 ms P-R-T Axes : 063 003 137 degrees QTc Int : 451 ms Atrial flutter with 4:1 A-V conduction Left bundle branch block Abnormal ECG When compared with ECG of 27-DEC-2020 08:45, (unconfirmed) Vent. rate has decreased BY 65 BPM Nonspecific T wave abnormality now evident in Anterior leads Confirmed by Ravindra Auguste ([id number]) on 12/27/2020 4:05:34 PM Referred By: REFERRED SELF Confirmed By:Ravindra Auguste
[2020-12-27] MEDS: AMIODARONE / D5W 360 MG/200 ML BAG IV SCH (17:12)
--- NOTE | 2020-12-27 17:41 | Hospitalist Progress Note ---
Date of Service December 27, 2020 Assessment & Plan (1) Acute on chronic heart failure with reduced ejection fraction and diastolic dysfunction: presented with significant vol overload , pulmonary congestion -leading to hypoxia , resp failure ECHO shows EF 15-20 % acute on chronic hypoxemic resp failure ( on 2 L O2 at home ) required Bipap , resp status improved with diuresis cont IV Lasix BID , pt reports improvement of sob , orthopnea currently back to baseline on 2 L 02 cardiology following , appreciate input (2) Acute renal failure superimposed on stage 4 chronic kidney disease: baseline advanced CKD stage 4 , cr > 2 worsening of kidney function due to decompensated CHF , poor renal perfusion pt is continued with IV Lasix for diuresis with improvement of clinical symptoms creatinine noted to have increased slightly, still above his baseline nephrology following , appreciate input -->switching to PO Lasix in am. BMP daily (3) Acute and chronic respiratory failure with hypoxia: Improved to baseline after treatment with intravenous furosemide. Switching to oral LAsix per Nephro. (4) Atrial flutter: Atrial flutter rhythm overnight on telemetry with rate increased from 60bpm up to 140s. Amiodarone load started intravenously per cardiology. Cont beta preeti and warfarin. (5) Elevated troponin I level: due to demand ischemia /type 2 [facility] in setting of decompensated CHF and worsening of renal failure , causing poor clearance (6) DVT prophylaxis: warfarin DNR/DNI dispo-uncertain at this time. Latasha Curry DO [facility] Hospitalist Admission and Anticipated Discharge Date Admission Date: December 25, 2020 Subjective 89 yo M with poor EF 15% admitted with acute hypoxic respiratory failure today he reports his breathing is improved. he states he is on 2LPM continuous O2 which is where he is now. Denies pain Wheezing and crackles throughout lungs Tolerating PO Sales cathter in place. Review of Systems Review of Systems: All systems reviewed & are unremarkable except as noted in Subjective Physical Exam Physical Exam: CONSTITUTIONAL: WNWD, vitals as above, generally well- appearing EYES: normal conjunctivae, no scleral icterus ENT: external ear and nose normal, oropharynx clear, MMM RESPIRATORY: expiratory wheezes and rhonchi throughout, normal respiratory effort CARDIOVASCULAR: regular rate and rhythm, S1 and 2 heard without murmurs, gallops or rubs, no JVD, no peripheral edema GASTROINTESTINAL: soft, nontender, nondistended. MUSCULOSKELETAL: strength 5/5 throughout, head is normocephalic and atraumatic SKIN: warm and dry NEUROLOGIC: CN 2-12 grossly intact, normal cognition PSYCHIATRIC: alert cooperative and oriented to person, place and time. Results & Data Results & Data ([facility]) Vital Signs (Past 12 Hours) Vital Signs Temp Pulse Pulse Pulse Resp BP Pulse Ox 12/27/20 16:14 36.4 C L 83 18 101/93 93 12/27/20 12:07 36.6 C 59 L 22 95/56 L 91 12/27/20 08:00 90 12/27/20 07:30 36.6 C 62 139/68 98 12/27/20 07:28 64 18 94 12/27/20 06:00 Pulse Ox 12/27/20 16:14 12/27/20 12:07 12/27/20 08:00 12/27/20 07:30 12/27/20 07:28 12/27/20 06:00 93 Laboratory Results [facility] 12/27/20 06:21 Sodium 134 L Potassium 4.0 Chloride 100 Carbon Dioxide 25 BUN 70 H Creatinine 3.63 H Glucose 110 H Calcium 8.5 Medications Administered Current Inpatient Medications Acetaminophen (Acetaminophen 325 Mg Tab) 650 mg PO Q4H PRN PRN Reason: Pain or Fever Stop: 01/24/21 06:43 Albuterol (Albut/Ipratrop 3mg/0.5mg Neb 3 Ml Vial) 3 ml NEB Q2H PRN PRN Reason: Shortness Of Breath Or Wheezing Stop: 01/24/21 06:43 Albuterol (Albut/Ipratrop 3mg/0.5mg Neb 3 Ml Vial) 3 ml INH BIDR SILVINO Stop: 01/25/21 18:59 Last Admin: 12/27/20 07:27 Dose: 3 ml Documented by: Amlodipine Besylate (Amlodipine Besylate 5 Mg Tab) 2.5 mg PO DAILY SILVINO Stop: 01/24/21 08:59 Last Admin: 12/27/20 08:22 Dose: 2.5 mg Documented by: Aspirin (Aspirin 81 Mg Ectab) 81 mg PO DAILY SILVINO Stop: 01/24/21 08:59 Last Admin: 12/27/20 08:26 Dose: 81 mg Documented by: Atorvastatin Calcium (Atorvastatin 40 Mg Tab) 40 mg PO DAILY SILVINO Stop: 01/24/21 08:59 Last Admin: 12/27/20 08:26 Dose: 40 mg Documented by: Docusate Sodium (Docusate Sodium 100 Mg Cap) 100 mg PO BID SILVINO Stop: 01/24/21 08:59 Last Admin: 12/27/20 08:23 Dose: 100 mg Documented by: Doxycycline Hyclate (Doxycycline Hyclate 100 Mg Cap) 100 mg PO BID@1000,2200 [facility]; Protocol Stop: 01/01/21 09:59 Last Admin: 12/27/20 10:50 Dose: 100 mg Documented by: Ferrous Sulfate (Ferrous Sulfate 325 Mg Tab) 325 mg PO QAM [facility] Stop: 01/24/21 08:59 Last Admin: 12/27/20 08:22 Dose: 325 mg Documented by: Finasteride (Finasteride 5 Mg Tab) 5 mg PO QAM [facility] Stop: 01/24/21 08:59 Last Admin: 12/27/20 08:22 Dose: 5 mg Documented by: Furosemide (Furosemide 80 Mg Tab) 80 mg PO QAM [facility] Stop: 01/27/21 08:59 Amiodarone HCl/Dextrose (Nexterone / D5w) 360 mg in 200 mls @ 16.667 mls/hr IV .Q12H [facility] Stop: 01/26/21 15:29 Last Admin: 12/27/20 17:12 Dose: 0.5 mg/min, 16.7 mls/hr Documented by: Insulin Aspart (Insulin Aspart 100 Units/Ml 3 Ml Pen) 0 units SC ACHS [facility] Stop: 01/24/21 07:29 Last Admin: 12/27/20 17:12 Dose: Not Given Documented by: Lactobacillus Acidoph/Casei/Rhamnos (Advanced Probiotic 1250 Mg Capsule) 2 cap PO DAILY SILVINO Stop: 01/24/21 08:59 Last Admin: 12/27/20 08:26 Dose: 2 cap Documented by: Levothyroxine Sodium (Levothyroxine Sodium 88 Mcg Tablet) 88 mcg PO DAILYBB [facility] Stop: 01/24/21 06:43 Last Admin: 12/27/20 08:26 Dose: 88 mcg Documented by: Metoprolol Succinate (Metoprolol Succ 50mg Ext Rel Tab) 50 mg PO DAILY [facility] Stop: 01/27/21 08:59 Nitroglycerin (Nitroglycerin Sl 0.4 Mg/Tab Tab) 0.4 mg SL UD PRN PRN Reason: Chest Pain Stop: 01/24/21 06:43 Nystatin (Nystatin Powder 15gm Btl) 1 appln EXT TID [facility] Stop: 01/24/21 08:59 Last Admin: 12/27/20 15:00 Dose: 1 appln Documented by: Ondansetron HCl (Ondansetron Inj 2 Mg/Ml 2 Ml Vial) 4 mg IV Q6H PRN PRN Reason: Nausea Stop: 01/24/21 06:43 Pantoprazole Sodium (Pantoprazole 40 Mg Tab) 40 mg PO DAILY [facility] Stop: 01/24/21 08:59 Last Admin: 12/27/20 08:26 Dose: 40 mg Documented by: Polyethylene Glycol (Polyethylene (Miralax) 17 Gm Pack) 17 gm PO DAILY PRN PRN Reason: Constipation Stop: 01/24/21 06:43 Potassium Chloride (Potassium Chloride 10 Meq Tabcr) 10 meq PO QAM [facility] Stop: 01/24/21 08:59 Last Admin: 12/27/20 08:26 Dose: 10 meq Documented by: Sennosides (Senna 8.6 Mg Tab) 8.6 mg PO DAILY PRN PRN Reason: Constipation Stop: 01/24/21 06:43 Vitamin D (Cholecalciferol 1,000 Units 25 Mcg Tab) 1,000 units PO DAILY [facility] Stop: 01/24/21 08:59 Last Admin: 12/27/20 08:26 Dose: 1,000 units Documented by: Warfarin Sodium (Warfarin Sod 5 Mg Tab) 5 mg PO DAILY@1600 [facility] Stop: 01/25/21 15:59 (1) Acute renal failure superimposed on stage 4 chronic kidney disease Acute renal failure type: unspecified Qualified Code(s): N17.9 - Acute kidney failure, unspecified; N18.4 - Chronic kidney disease, stage 4 (severe)
[2020-12-28] MEDS ORDERED: bisacodyL 10 MG SUPP PR PRN (01:57)
[2020-12-28] MEDS: AMIODARONE / D5W 360 MG/200 ML BAG IV SCH (04:28)
[2020-12-28] MEDS: LEVOTHYROXINE SODIUM 88 MCG TABLET PO SCH (04:29)
[2020-12-28 07:03] LABS: INR 3.5 (0.9-1.1); Prothrombin Time 31.8 Seconds (9.0-12.0)
[2020-12-28] MEDS: ALBUT/IPRATROP 3MG/0.5MG NEB 3 ML VIAL INH SCH ×2 (07:24→19:25)
[2020-12-28 07:34] LABS: BUN Creatinine Ratio 19.6 (10-20); Calcium 8.2 mg/dl (8.5-10.1); Creatinine Clr Calc Pharmacy 10.7 ml/min; Est GFR (African American) 12.5; Est GFR (Non-African American) 10.8; Magnesium 2.2 mg/dl (1.8-2.4); Phosphorus 5.1 mg/dl (2.5-4.9); Potassium 4.5 mmol/L (3.5-5.1)
[2020-12-28] MEDS: CHOLECALCIFEROL 1,000 UNITS 25 MCG TAB PO SCH (08:34)
[2020-12-28] MEDS: ATORVASTATIN 40 MG TAB PO SCH (08:35)
[2020-12-28] MEDS: DOCUSATE SODIUM 100 MG CAP PO SCH ×2 (08:35→20:43)
[2020-12-28] MEDS: amLODIPine BESYLATE 5 MG TAB PO SCH (08:35)
[2020-12-28] MEDS: FINASTERIDE 5 MG TAB PO SCH (08:36)
[2020-12-28] MEDS: FERROUS SULFATE 325 MG TAB PO SCH (08:36)
[2020-12-28] MEDS: METOPROLOL SUCC 50MG EXT REL TAB PO SCH (08:37)
[2020-12-28] MEDS: PANTOprazole 40 MG TAB PO SCH (08:38)
[2020-12-28] MEDS: ADVANCED PROBIOTIC 1250 MG CAPSULE PO SCH (08:38)
[2020-12-28] MEDS: ASPIRIN 81 MG ECTAB PO SCH (08:38)
[2020-12-28] MEDS: DOXYCYCLINE HYCLATE 100 MG CAP PO SCH ×2 (08:39→20:43)
[2020-12-28] MEDS: NYSTATIN POWDER 15GM BTL EXT SCH ×3 (08:39→20:43)
[2020-12-28] MEDS: INSULIN ASPART 100 UNITS/ML 3 ML PEN SC SCH ×4 (08:42→21:42)
[2020-12-28] MEDS ORDERED: FUROSEMIDE 80 MG TAB PO SCH (09:00)
--- NOTE | 2020-12-28 09:35 | Nephrology Progress Note ---
Date of Service December 28, 2020 Assessment & Plan Admission and Anticipated Discharge Date Admission Date: December 25, 2020 Subjective He says he Feels better breathing akbar. However he does not look better. Has castellanos. PHYSICAL EXAMINATION: GENERAL: The patient is an elderly white male who is currently on nasal cannula oxygen. HEENT: Mucous membrane is moist. NECK: Supple. Jugular venous distention is present. CHEST: Bilaterally decreased breath sounds, poor inspiratory effort limiting the quality of the exam. b/l crackles CARDIOVASCULAR: Irregularly irregular. Soft systolic murmur heard. No bruit or gallop heard. ABDOMEN: Soft, nontender. EXTREMITIES: NO edema. NEUROLOGIC: Moving all 4 extremities. Normal speech. IMAGING: Chest x-ray shows congestive heart failure with cardiac enlargement, bilateral pleural effusion and mild interstitial edema. There is also possible pneumonia in the right mid-upper lung zone. LABORATORY TEST: Creat rising 4.5 now ASSESSMENT AND PLAN: An 89-year-old male with very extensive medical problem list at baseline including chronic kidney disease stage IV with a baseline creatinine of low 2s, now admitted with respiratory failure, most likely related with combination of congestive heart failure, atrial fibrillation with rapid ventricular response as well as likely pulmonary infection. Renal failure is a reflection of the significant hemodynamic instability he had. Acute renal failure: The acute component is fairly minimal and is related with acute hemodynamic instability in the setting of congestive heart failure and likely infection. I would continue with antibiotic treatment as well as IV Lasix. He does have a Castellanos catheter, so we should be able to monitor input/output pretty accurately. Rec: 1. CXr x 2 today. 2 Will decide about lasix after that. He still appears to be in CHF. 3. Daily labs. 3 Dont remove castellanos yet 4 Creat rising again. Not handling Cardiac changes too well given age and pre existing CKD. Asked about dialysis but did not really get any answer today. Results & Data ([facility]) Vital Signs (Past 12 Hours) Vital Signs Temp Pulse Resp BP Pulse Ox 12/28/20 07:24 72 18 93 12/28/20 04:30 36.8 C 64 24 129/68 90 12/27/20 23:00 36.7 C 55 L 18 111/63 90
--- NOTE | 2020-12-28 10:32 | XRay Report ---
XR chest 2V PA/lateral HISTORY: 89 years-old Male CHF follow up acute shortness of breath. Follow-up study COMPARISON: Chest radiograph 12/25/2020 TECHNIQUE: AP and lateral views of the chest FINDINGS: Cardiac silhouette is enlarged. Pulmonary vascular congestion with mildly progressed interstitial coa rsening. Layering pleural effusions with bibasilar consolidation. Ill-defined 1.3 cm nodular opacity of the right upper lung degenerative changes of the shoulders and spine. IMPRESSION: 1. Cardiomegaly with mildly progressed pulmonary edema. 2. Layering pleural effusions with bibasilar opacities suggestive of atelectasis with pneumonia consi dered less likely. 3. 1.3 cm nodular density of the right upper lung suggestive of summation density versus pulmonary no dule. ACT 112: Negative or not required by law. The above report was generated using voice recognition software. It may contain grammatical, syntax o r spelling errors. Electronically signed by: Jesus Estrada M.D. 12/28/2020 10:31 AM
--- NOTE | 2020-12-28 11:56 | Cardiology Progress Note ---
Date of Service December 28, 2020 Assessment & Plan (1) Acute on chronic heart failure with reduced ejection fraction and diastolic dysfunction: (2) PAF (paroxysmal atrial fibrillation): (3) Ischemic cardiomyopathy: (4) Acute renal failure superimposed on stage 4 chronic kidney disease: (5) Elevated troponin I level: (6) Anemia in chronic kidney disease: Patient converted to atrial flutter with 2-1 conduction yesterday. Telemetry currently reveals atrial fibrillation/flutter with controlled ventricular response. Recommend discontinuation of IV amiodarone. Oral amiodarone, 200 mg twice daily ordered. Metoprolol reduced to 50 mg once daily. Continue to monitor telemetry. INR is supratherapeutic. Hold warfarin today. Repeat INR in a.m. Volume status has improved, however, renal function continues to decline. Lasix placed on hold by nephrology. Continue to monitor daily weight, fluid balance, and GFR. Poor prognosis. Admission and Anticipated Discharge Date Admission Date: December 25, 2020 Subjective Patient seen and examined at the bedside. Poor historian. Denies chest pain or shortness of breath. Creatinine continues to trend upward. Telemetry demonstrates atrial fibrillation/flutter with controlled ventricular response. Average heart rate 70s overnight. Tolerating diet medications. Intravenous amiodarone infusing. Offers no concerns/complaints this time. Review of Systems Review of Systems: All systems reviewed & are unremarkable except as noted in HPI & below Physical Exam Constitutional: well nourished and + ill appearing Respiratory: no respiratory distress Auscultation: + diminished lung sounds (Bilateral) and + rales (Right base); no wheezes Cardiovascular: Rate/Rhythm: regular rhythm and + tachycardic Heart Sounds: normal S1, normal S2 and + murmur (2/6 systolic murmur heard best at the apex without radiation.); no cardiac rub Vessels: + JVD and radial pulses present; no carotid bruit Extremities: + edema (Mild bilateral pedal edema) Gastrointestinal (Abdomen): Inspection/Auscultation: abdomen not distended Percussion/Palpation: abdomen soft; abdomen nontender, no guarding and abdomen not rigid Neurologic: moves all extremities and awake; no focal motor deficits Motor/Sensory: no tremor Psychiatric: A+Ox3, euthymic affect Results & Data ([facility]) Vital Signs (Past 12 Hours) Vital Signs Temp Pulse Pulse Resp BP Pulse Ox 12/28/20 11:05 36.6 C 70 20 119/75 91 12/28/20 09:58 60 12/28/20 07:24 72 18 93 12/28/20 04:30 36.8 C 64 24 129/68 90 (1) Anemia in chronic kidney disease Chronic kidney disease stage: unspecified stage Qualified Code(s): N18.9 - Chronic kidney disease, unspecified; D63.1 - Anemia in chronic kidney disease (2) Acute renal failure superimposed on stage 4 chronic kidney disease Acute renal failure type: unspecified Qualified Code(s): N17.9 - Acute kidney failure, unspecified; N18.4 - Chronic kidney disease, stage 4 (severe)
[2020-12-28] MEDS ORDERED: AMIODARONE 200 MG TAB PO ONE (12:00)
--- NOTE | 2020-12-28 12:47 | Electrocardiogram Report ---
Test Reason : Blood Pressure : / mmHG Vent. Rate : 058 BPM Atrial Rate : 227 BPM P-R Int : 000 ms QRS Dur : 148 ms QT Int : 452 ms P-R-T Axes : 000 002 139 degrees QTc Int : 443 ms Atrial flutter Left bundle branch block Abnormal ECG When compared with ECG of 27-DEC-2020 11:40, No significant change Confirmed by Ravindra Auguste ([id number]) on 12/28/2020 12:46:25 PM Referred By: REFERRED SELF Confirmed By:Ravindra Auguste
[2020-12-28] MEDS: FUROSEMIDE 80 MG in SYRINGE 0 ML IV SCH ×2 (14:27→20:43)
--- NOTE | 2020-12-28 15:14 | Electrocardiogram Report ---
Test Reason : Blood Pressure : / mmHG Vent. Rate : 065 BPM Atrial Rate : 192 BPM P-R Int : 000 ms QRS Dur : 170 ms QT Int : 460 ms P-R-T Axes : 000 000 132 degrees QTc Int : 478 ms Atrial fibrillation Left bundle branch block Abnormal ECG When compared with ECG of 27-DEC-2020 12:32, (unconfirmed) No significant change Confirmed by Ravindra Auguste ([id number]) on 12/28/2020 3:14:00 PM Referred By: REFERRED SELF Confirmed By:Ravindra Auguste
[2020-12-28] MEDS: AMIODARONE 200 MG TAB PO SCH (17:39)
--- NOTE | 2020-12-28 18:59 | Hospitalist Progress Note ---
Date of Service December 28, 2020 Assessment & Plan (1) Acute on chronic heart failure with reduced ejection fraction and diastolic dysfunction: presented with significant vol overload with pulmonary congestion. Improved somewhat with Lasix during his hospital stay and doxycycline. No h/o lung disease per records and no bronchodilators or steroids given for wheezing. There is no evidence of pneumonia on CXR from today, however, patient continues to wheeze and exhibit evidence of hypervolemia with known heart failure. Oxygen needs are around baseline at this time. Nephrology restarted LAsix therapy and will cont to monitor kidney function. Poor prognosis overall. Cont to follow clinical progress and daily labwork. (2) Acute renal failure superimposed on stage 4 chronic kidney disease: baseline advanced CKD stage 4 , cr > 2 worsening of kidney function due to decompensated CHF, poor renal perfusion and intravenous diuretic therapy. Lasix initially held this morning with creat bump to 4.5, and renal ok with restarting this afternoon. Cont daily BMP, low K diet. (3) Acute and chronic respiratory failure with hypoxia: Improved to baseline after treatment with intravenous furosemide but not quite euvolemic at this time. Cont with diuresis and optimization per plan above. (4) Atrial flutter: Telemetry revealed persistent atrial fibrillation with heart rate around 60bpm overnight. Amio IV load completed and he continues on oral amiodarone with decreased beta preeti. INR therapeutic on the high end so continued to hold warfarin. Repeat INR in am. (5) Elevated troponin I level: due to demand ischemia /type 2 RI in setting of decompensated CHF and worsening of renal failure , causing poor clearance (6) DVT prophylaxis: warfarin DNR/DNI dispo-uncertain at this time. Latasha Curry DO [facility] Hospitalist Admission and Anticipated Discharge Date Admission Date: December 25, 2020 Subjective Patient seen and examined at the bedside. Patient reports his breathing is improved. He is bedbound at baseline per his report. Denies chest pain. Worsening renal function today. Discussed with nephrology. Telemtry review reveals atrial fibrillation with average heart rate 70s overnight. Review of Systems Review of Systems: All systems reviewed & are unremarkable except as noted in Subjective Physical Exam Physical Exam: CONSTITUTIONAL: WNWD, vitals as above, generally well- appearing EYES: normal conjunctivae, no scleral icterus ENT: external ear and nose normal, oropharynx clear, MMM RESPIRATORY: expiratory wheezes and rhonchi throughout, normal respiratory effort CARDIOVASCULAR: regular rate and rhythm, S1 and 2 heard without murmurs, gallops or rubs, no JVD, no peripheral edema GASTROINTESTINAL: soft, nontender, nondistended. MUSCULOSKELETAL: strength 5/5 throughout, head is normocephalic and atraumatic SKIN: warm and dry NEUROLOGIC: CN 2-12 grossly intact, normal cognition PSYCHIATRIC: alert cooperative and oriented to person, place and time. Results & Data Results & Data ([facility]) Vital Signs (Past 12 Hours) Vital Signs Temp Pulse Pulse Pulse Resp BP Pulse Ox 12/28/20 16:32 36.5 C 72 19 128/80 94 12/28/20 16:00 59 L 12/28/20 11:05 36.6 C 70 20 119/75 91 12/28/20 09:58 60 12/28/20 07:24 72 18 93 Laboratory Results [facility] 12/28/20 05:52 Sodium 129 L Potassium 4.5 Chloride 95 L Carbon Dioxide 24 BUN 87 H Creatinine 4.53 H* D Glucose 121 H Calcium 8.2 L Medications Administered Current Inpatient Medications Acetaminophen (Acetaminophen 325 Mg Tab) 650 mg PO Q4H PRN PRN Reason: Pain or Fever Stop: 01/24/21 06:43 Albuterol (Albut/Ipratrop 3mg/0.5mg Neb 3 Ml Vial) 3 ml NEB Q2H PRN PRN Reason: Shortness Of Breath Or Wheezing Stop: 01/24/21 06:43 Albuterol (Albut/Ipratrop 3mg/0.5mg Neb 3 Ml Vial) 3 ml INH BIDR [facility] Stop: 01/25/21 18:59 Last Admin: 12/28/20 07:24 Dose: 3 ml Documented by: Amiodarone HCl (Amiodarone 200 Mg Tab) 200 mg PO BIDM [facility]ILVINO Stop: 01/27/21 16:59 Last Admin: 12/28/20 17:39 Dose: 200 mg Documented by: Amlodipine Besylate (Amlodipine Besylate 5 Mg Tab) 2.5 mg PO DAILY [facility] Stop: 01/24/21 08:59 Last Admin: 12/28/20 08:35 Dose: 2.5 mg Documented by: Aspirin (Aspirin 81 Mg Ectab) 81 mg PO DAILY [facility] Stop: 01/24/21 08:59 Last Admin: 12/28/20 08:38 Dose: 81 mg Documented by: Atorvastatin Calcium (Atorvastatin 40 Mg Tab) 40 mg PO DAILY [facility] Stop: 01/24/21 08:59 Last Admin: 12/28/20 08:35 Dose: 40 mg Documented by: Bisacodyl (Bisacodyl 10 Mg Supp) 10 mg MI DAILY PRN PRN Reason: Constipation Stop: 01/27/21 01:56 Docusate Sodium (Docusate Sodium 100 Mg Cap) 100 mg PO BID [facility] Stop: 01/24/21 08:59 Last Admin: 12/28/20 08:35 Dose: 100 mg Documented by: Doxycycline Hyclate (Doxycycline Hyclate 100 Mg Cap) 100 mg PO BID@1000,2200 [facility]; Protocol Stop: 01/01/21 09:59 Last Admin: 12/28/20 08:39 Dose: 100 mg Documented by: Ferrous Sulfate (Ferrous Sulfate 325 Mg Tab) 325 mg PO QAM [facility] Stop: 01/24/21 08:59 Last Admin: 12/28/20 08:36 Dose: 325 mg Documented by: Finasteride (Finasteride 5 Mg Tab) 5 mg PO QAM [facility] Stop: 01/24/21 08:59 Last Admin: 12/28/20 08:36 Dose: 5 mg Documented by: Furosemide (Furosemide 80 Mg Tab) 80 mg PO QAM [facility] Stop: 01/27/21 08:59 Last Admin: 12/28/20 08:37 Dose: 80 mg Documented by: Furosemide 80 mg/ Syringe 8 mls @ 4 mls/min IV Q12 [facility] Stop: 01/27/21 13:59 Last Admin: 12/28/20 14:27 Dose: 4 mls/min Documented by: Insulin Aspart (Insulin Aspart 100 Units/Ml 3 Ml Pen) 0 units SC ACHS [facility] Stop: 01/24/21 07:29 Last Admin: 12/28/20 16:57 Dose: Not Given Documented by: Lactobacillus Acidoph/Casei/Rhamnos (Advanced Probiotic 1250 Mg Capsule) 2 cap PO DAILY [facility] Stop: 01/24/21 08:59 Last Admin: 12/28/20 08:38 Dose: 2 cap Documented by: Levothyroxine Sodium (Levothyroxine Sodium 88 Mcg Tablet) 88 mcg PO DAILYBB [facility] Stop: 01/24/21 06:43 Last Admin: 12/28/20 04:29 Dose: 88 mcg Documented by: Metoprolol Succinate (Metoprolol Succ 50mg Ext Rel Tab) 50 mg PO DAILY [facility] Stop: 01/27/21 08:59 Last Admin: 12/28/20 08:37 Dose: 50 mg Documented by: Nitroglycerin (Nitroglycerin Sl 0.4 Mg/Tab Tab) 0.4 mg SL UD PRN PRN Reason: Chest Pain Stop: 01/24/21 06:43 Nystatin (Nystatin Powder 15gm Btl) 1 appln EXT TID [facility] Stop: 01/24/21 08:59 Last Admin: 12/28/20 13:48 Dose: 1 appln Documented by: Ondansetron HCl (Ondansetron Inj 2 Mg/Ml 2 Ml Vial) 4 mg IV Q6H PRN PRN Reason: Nausea Stop: 01/24/21 06:43 Pantoprazole Sodium (Pantoprazole 40 Mg Tab) 40 mg PO DAILY [facility] Stop: 01/24/21 08:59 Last Admin: 12/28/20 08:38 Dose: 40 mg Documented by: Polyethylene Glycol (Polyethylene (Miralax) 17 Gm Pack) 17 gm PO DAILY PRN PRN Reason: Constipation Stop: 01/24/21 06:43 Potassium Chloride (Potassium Chloride 10 Meq Tabcr) 10 meq PO QAM [facility] Stop: 01/24/21 08:59 Last Admin: 12/27/20 08:26 Dose: 10 meq Documented by: Sennosides (Senna 8.6 Mg Tab) 8.6 mg PO DAILY PRN PRN Reason: Constipation Stop: 01/24/21 06:43 Vitamin D (Cholecalciferol 1,000 Units 25 Mcg Tab) 1,000 units PO DAILY [facility] Stop: 01/24/21 08:59 Last Admin: 12/28/20 08:34 Dose: 1,000 units Documented by: Warfarin Sodium (Warfarin Sod 5 Mg Tab) 5 mg PO DAILY@1600 [facility] Stop: 01/25/21 15:59 (1) Acute renal failure superimposed on stage 4 chronic kidney disease Acute renal failure type: unspecified Qualified Code(s): N17.9 - Acute kidney failure, unspecified; N18.4 - Chronic kidney disease, stage 4 (severe)
[2020-12-29] MEDS: LEVOTHYROXINE SODIUM 88 MCG TABLET PO SCH (05:21)
[2020-12-29 06:56] LABS: Hematocrit (blood only) 24.3 % (42-52); Hemoglobin 8.3 g/dL (14.0-18.0); Mean Corpuscular Hemoglobin 31.2 pg (25-34); Mean Corpuscular Hgb Conc 34.2 g/dL (32-36); Mean Corpuscular Volume 91.4 fL (80-100); Mean Platelet Volume 9.7 fL (7.4-10.4); Platelet Count 193 K/uL (130-400); RDW Coefficient of Variation 14.7 % (11.5-14.5); RDW Standard Deviation 48.7 fL (36.4-46.3); Red Blood Count 2.66 M/uL (4.7-6.1)
[2020-12-29 07:10] LABS: INR 2.3 (0.9-1.1); Prothrombin Time 21.9 Seconds (9.0-12.0)
[2020-12-29] MEDS: ALBUT/IPRATROP 3MG/0.5MG NEB 3 ML VIAL INH SCH ×2 (07:23→11:11)
[2020-12-29 07:40] LABS: BUN Creatinine Ratio 21.5 (10-20); Calcium 8.4 mg/dl (8.5-10.1); Creatinine Clr Calc Pharmacy 10.5 ml/min; Est GFR (African American) 12.2; Est GFR (Non-African American) 10.5; Magnesium 2.3 mg/dl (1.8-2.4); Phosphorus 5.5 mg/dl (2.5-4.9); Potassium 3.6 mmol/L (3.5-5.1)
[2020-12-29] MEDS: DOCUSATE SODIUM 100 MG CAP PO SCH ×2 (08:17→20:22)
[2020-12-29] MEDS: FINASTERIDE 5 MG TAB PO SCH (08:17)
[2020-12-29] MEDS: ADVANCED PROBIOTIC 1250 MG CAPSULE PO SCH (08:17)
[2020-12-29] MEDS: PANTOprazole 40 MG TAB PO SCH (08:17)
[2020-12-29] MEDS: FUROSEMIDE 80 MG in SYRINGE 0 ML IV SCH (08:17)
[2020-12-29] MEDS: amLODIPine BESYLATE 5 MG TAB PO SCH (08:17)
[2020-12-29] MEDS: AMIODARONE 200 MG TAB PO SCH ×2 (08:18→17:33)
[2020-12-29] MEDS: NYSTATIN POWDER 15GM BTL EXT SCH ×3 (08:18→20:22)
[2020-12-29] MEDS: ATORVASTATIN 40 MG TAB PO SCH (08:18)
[2020-12-29] MEDS: METOPROLOL SUCC 50MG EXT REL TAB PO SCH (08:18)
[2020-12-29] MEDS: FERROUS SULFATE 325 MG TAB PO SCH (08:18)
[2020-12-29] MEDS: CHOLECALCIFEROL 1,000 UNITS 25 MCG TAB PO SCH (08:18)
[2020-12-29] MEDS: ASPIRIN 81 MG ECTAB PO SCH (08:18)
[2020-12-29] MEDS: INSULIN ASPART 100 UNITS/ML 3 ML PEN SC SCH ×4 (08:19→21:59)
[2020-12-29] MEDS: DOXYCYCLINE HYCLATE 100 MG CAP PO SCH ×2 (10:50→20:22)
--- NOTE | 2020-12-29 12:07 | Nephrology Progress Note ---
Date of Service December 29, 2020 Assessment & Plan Admission and Anticipated Discharge Date Admission Date: December 25, 2020 Subjective He says he Feels better breathing akbar. Has castellanos. PHYSICAL EXAMINATION: GENERAL: The patient is an elderly white male who is currently on nasal cannula oxygen. HEENT: Mucous membrane is moist. NECK: Supple. Jugular venous distention is present. CHEST: Bilaterally decreased breath sounds, poor inspiratory effort limiting the quality of the exam. b/l crackles CARDIOVASCULAR: Irregularly irregular. Soft systolic murmur heard. No bruit or gallop heard. ABDOMEN: Soft, nontender. EXTREMITIES: NO edema. NEUROLOGIC: Moving all 4 extremities. Normal speech. IMAGING: Chest x-ray shows congestive heart failure with cardiac enlargement, bilateral pleural effusion and mild interstitial edema. There is also possible pneumonia in the right mid-upper lung zone. LABORATORY TEST: Creat rising 4.61 and BUN 99 now ASSESSMENT AND PLAN: An 89-year-old male with very extensive medical problem list at baseline including chronic kidney disease stage IV with a baseline creatinine of low 2s, now admitted with respiratory failure, most likely related with combination of congestive heart failure, atrial fibrillation with rapid ventricular response as well as likely pulmonary infection. Renal failure is a reflection of the significant hemodynamic instability he had. Acute renal failure: The acute component is fairly minimal and is related with acute hemodynamic instability in the setting of congestive heart failure and likely infection. I would continue with antibiotic treatment as well as IV Lasix. He does have a Castellanos catheter, so we should be able to monitor input/output pretty accurately. Rec: 1. Already got AM lasix. Will D/c Iv lasix. use demadex 100 daily from tomorrow after looking at the labs. 3. Daily labs. 3 Dont remove castellanos yet 4 Creat rising again. Not handling Cardiac changes too well given age and pre existing CKD. Asked about dialysis and says he wants to do dialysis if it is needed. Depending on how he does over the weekend will know about it. unlikely will need emergent dialysis in the weekend. He is responding to iv lasix if nee ded. I do not think he is really a good candidate for chronic dialysis. If we start dialysis very unlikely he will recover and most likely he will be end- stage renal disease. Given this difficult situation I think we should carefully evaluate over the next few days regarding dialysis. Results & Data ([facility]) Vital Signs (Past 12 Hours) Vital Signs Temp Pulse Pulse Resp BP BP Pulse Ox 12/29/20 11:14 66 16 94 12/29/20 10:41 66 12/29/20 08:00 66 12/29/20 07:40 36.6 C 82 19 144/82 H 94 12/29/20 07:23 60 16 93 12/29/20 04:00 36.6 C 72 18 129/66 95
[2020-12-29] MEDS: ALBUT/IPRATROP 3MG/0.5MG NEB 3 ML VIAL NEB SCH ×4 (12:10→19:20)
--- NOTE | 2020-12-29 14:43 | Palliative Care Consultation ---
Date of Consultation December 29, 2020 Assessment & Plan (1) Palliative care encounter: Mr. Shree Amato (Rudy) is an 89 year old male who presneted to the [facility] wit shortness of breath and hypoxia. He was diagnosed to be experiencing an acute exacerbation of his CHF. 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 He has been wheelchair bound for the past 6 years and his is his main caregiver at home. He does live with another daughter. Nephrology and Cardiology have been involved and based on the complexity and critical nature of this individual, palliative medicine was consulted to discuss goals of care, including dialysis and code status. Lengthy conversation with the patient regarding his life and current medical conditions. We discussed his code status and he was clear that he would not want to be resuscitated in the event of cardiac or respiratory arrest. Discussed care home goals regarding his health care. He indicated that he has been wheelchair bound for the last 6 years and his is his main caregiver. One of his daughters, also lives with him, named Lalit. 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 We discussed the 'life train' and the fork in the road with two end-stage illness without recovery, but possibility for life prolongation. We discussed the one fork being more focused on aggressive measures that include rehospitalization, hemodialysis, blood work, appts etc. vs the other fork, or more scenic route focusing on quality of life and symptom management without aggressive measures, but focusing on embracing good days, and providing relief during bad days; knowing this route could shorten his life expectancy. He indicated that he would want to be more conservative. I discussed hospice and its details and he indicated that sounded good to him and thinks his family would support this. I did reach out and talk to his daughter Hamida and her Van at [phone] for 24 minutes and we had a good conversation about the above and discussed that if family decided to trial hemodialysis that we would suggest following palliative medicine outpatient at least monthly so that we could evaluated if it was meeting his expectations and wanted to continue. In this scenario, home with home health/palliative care would be an option. They are in agreement wit home with hospice but would like to discuss with the patients , her mother. If this go this route, they would like to possibly have him discharged over the weekend or early next week. I discussed the above with the Hospitalist, RN and spring encaser. Continue current treatment while inpatient and transition to more hospice approach upon discharge. Palliative will follow early in the week if he remains admitted. Please advise if we can be of further assistance. (2) Acute renal failure superimposed on stage 4 chronic kidney disease: Acute renal failure type: unspecified Qualified Code(s): N17.9 - Acute kidney failure, unspecified; N18.4 - Chronic kidney disease, stage 4 (severe) (3) Weakness: (4) Hypoxia: During my encounter, the patient was short of breath at rest. He was able to communicate in full sentences. Will order Roxanol 2.5 mg Q8 hours PRN for dyspnea. History of Present Illness Reason for Consultation: Goals of Care Requesting Physician: Dr. Latasha Curry Attending Physician: Latasha Curry, DO History of Present Illness Mr. Shree Amato (Rudy) is an 89 year old male who presneted to the [facility] wit shortness of breath and hypoxia. He was diagnosed to be experiencing an acute exacerbation of his CHF. 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 He has been wheelchair bound for the past 6 years and his is his main caregiver at home. He does live with another daughter. Nephrology and Cardiology have been involved and based on the complexity and critical nature of this individual, palliative medicine was c onsulted to discuss goals of care, including dialysis and code status. Please see A?P for further details. Thanks for involving palliative medicine with this individual. Allergies Allergy/AdvReac Type Severity Reaction Status Date / Time clopidogrel Allergy Intermediate RASH Verified 09/26/20 10:07 Sulfa (Sulfonamide Allergy Intermediate RASH Verified 09/26/20 10:07 Antibiotics) sulfamethoxazole Allergy Intermediate RASH Verified 09/26/20 10:07 trimethoprim Allergy Mild RASH Verified 09/26/20 10:07 niacin Allergy Unknown UNKNOWN Verified 09/26/20 10:07 Home Medications Medication Instructions Recorded Confirmed Type amlodipine 2.5 mg PO DAILY 02/15/19 09/26/20 History atorvastatin 40 mg PO DAILY 02/15/19 09/26/20 History ferrous sulfate 325 mg PO QAM 02/15/19 09/26/20 History finasteride 5 mg PO QAM 02/15/19 09/26/20 History levothyroxine 88 mcg PO DAILYBB 02/15/19 09/26/20 History nitroglycerin 0.4 mg SUBLINGUAL DIRECTED PRN 02/15/19 09/26/20 History omeprazole 20 mg PO DAILY 02/15/19 09/26/20 History cholecalciferol (vitamin D3) 1,000 unit PO DAILY 11/12/19 09/26/20 History [Vitamin D3] docusate sodium [Colace] 100 mg PO BID 11/12/19 09/26/20 History furosemide 40 mg PO DAILY 11/12/19 09/26/20 History ipratropium-albuterol 3 ml INHALATION QID 11/12/19 09/26/20 History potassium chloride 10 meq PO QAM 11/12/19 09/26/20 History metoprolol succinate 50 mg PO DAILYBB #0 tab 11/15/19 09/26/20 Rx nystatin 100,000 unit/gram topical 1 appln TOP TID #60 gm 02/23/20 09/26/20 Rx powder Lactinex 1 tab PO DAILY 04/16/20 09/26/20 History aspirin 81 mg PO DAILY 04/16/20 09/26/20 History metoprolol succinate 25 mg PO QPM 04/16/20 09/26/20 History polyethylene glycol 3350 [Miralax] 8.5 g PO DAILY PRN 04/16/20 09/26/20 History sennosides [senna] 8.6 mg PO DAILY PRN 04/16/20 09/26/20 History tramadol 50 mg PO BID PRN 04/16/20 09/26/20 History warfarin 5 mg PO QPM 04/16/20 09/26/20 History Patient History Medical History (Updated 12/29/20 @ 15:08 by LASHELL Hairston) Chronic anticoagulation CKD (chronic kidney disease), stage III Coronary artery disease per outpt cardio note: Long standing coronary artery disease with myocardial infarction times six, 1994, 1995, 1996, 2002, 2011, May 2013, and 09/2015 (BMS x2 to RCA). He is status post stenting to the LAD in 1994. Status post PTCA and stenting of the left anterior descending artery and circumflex followed by PTCA of the right coronary artery in 1998. 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 December 2011, stenting of the LAD. May of 2013, RCA stenting. A left carotid endarterectomy was performed August of 2013. Postop CVA reported. Hospitalization 09/[address]-elevation NM. S/p BMS to right coronary artery x2. Dyslipidemia Dysphagia Hemiplegia following CVA (cerebrovascular accident) History of DVT (deep vein thrombosis) History of stroke Hypertension Hypothyroidism Ischemic cardiomyopathy PAF (paroxysmal atrial fibrillation) Palliative care encounter Prostate cancer metastatic to bone Urinary retention chronic castellanos Surgical History H/O inguinal hernia repair History of cataract surgery History of total left hip replacement S/P carotid endarterectomy (08/25/13) BL Family History Mother Heart disease Brother Cancer Father Cancer Sister Cancer Other No pertinent family history Social History Smoking Status: Never smoker Second Hand Exposure: No; Hx Alcohol Use: No Hx Substance Use: No Preferred Language: Togolese Communication Ability: Effective Visual Impairment: No Limitations Hearing Ability: Normal Core Piler Required: No Beliefs That Will Affect Care: None marital status: Current Living Situation: Spouse current occupational status: retired Other Information That Helps Us Care for You: No Feels Safe at Home: Yes Safety Concerns: Feels Safe At This Time Assistive Devices: Oxygen - Continuous, Walker and Wheelchair Review of Systems Review of Systems: [employer] System Assessment Scale: Pain: 0/3 Shortness of breath: 1/3 Anxiety: 0/3 Tiredness: 0/3 Palliative Performance Scale: 30% Physical Exam Constitutional: + acute distress (some ARMSTRONG), + frail appearing and cooperative Neck: trachea midline, no thyromegaly Respiratory: normal respiratory effort and + uses accessory muscles Cardiovascular: Heart Sounds: normal S1 and normal S2 Vessels: + JVD Gastrointestinal (Abdomen): Percussion/Palpation: + abdomen rigid Skin: no rashes, warm and dry + pallor Psychiatric: A+Ox3, euthymic affect Results & Data ([facility]) Vital Signs (Past 12 Hours) Vital Signs Temp Pulse Pulse Resp BP BP Pulse Ox 12/29/20 12:09 36.7 C 74 17 114/68 96 12/29/20 11:14 66 16 94 12/29/20 10:41 66 12/29/20 08:00 66 12/29/20 07:40 36.6 C 82 19 144/82 H 94 12/29/20 07:23 60 16 93 12/29/20 04:00 36.6 C 72 18 129/66 95 PG Care Time/CCT Total # of Minutes Spent Total Time Spent with Patient: Total time spent is greater than 50% in coordination of care (as documented) at patient's floor/unit and/or counseling patient: total time spent 70 minutes with > 50% of that time spent assessing the patient, discussing goals of care, providing symptom management and collaborating with IDT Coding Level of Care Code 12764 Inpt Consult Level 3 Diagnoses Palliative care encounter Z51.5 Acute renal failure superimposed on stage 4 chronic kidney disease N17.9; N18.4 Acute renal failure type: unspecified Weakness R53.1 Hypoxia R09.02 Time Spent (min) 70
[2020-12-29] MEDS ORDERED: MoRPHine SULFATE 5 MG/0.25 ML UDP PO PRN (15:17)
--- NOTE | 2020-12-29 15:48 | Cardiology Progress Note ---
Date of Service December 29, 2020 Assessment & Plan (1) Acute on chronic heart failure with reduced ejection fraction and diastolic dysfunction: (2) PAF (paroxysmal atrial fibrillation): (3) Ischemic cardiomyopathy: (4) Acute renal failure superimposed on stage 4 chronic kidney disease: (5) Elevated troponin I level: (6) Anemia in chronic kidney disease: Patient continues to improve clinically with diuretic therapy and rate control. Unfortunately, creatinine continues to trend upward. Appreciate Nephrology input. IV Lasix will be transition to oral torsemide in a.m.. Continue to monitor daily labs. Would recommend continuing amiodarone in addition to metoprolol as patient's rate is controlled with no further episodes of rapid, 2 to 1, atrial flutter. INR today has trended down to 2.3. Restart warfarin. Repeat INR daily. Poor prognosis. Admission and Anticipated Discharge Date Admission Date: December 25, 2020 Subjective Patient seen exam at the bedside. Poor historian. Denies chest pain or shortness of breath. Telemetry reveals rate controlled atrial fibrillation. Tolerating metoprolol plus amiodarone. Denies palpitations, lightheadedness or dizziness. No orthopnea or paroxysmal nocturnal dyspnea. Lower extremity edema unchanged. Fluid balance -2300 mL. Creatinine continues to trend upward. Review of Systems Review of Systems: Unobtainable due to cognitive status Physical Exam Constitutional: well nourished and + ill appearing Respiratory: no respiratory distress Auscultation: + diminished lung sounds (Bilateral) and + rales (Right base); no wheezes Cardiovascular: Rate/Rhythm: regular rhythm and + tachycardic Heart Sounds: normal S1, normal S2 and + murmur (2/6 systolic murmur heard best at the apex without radiation.); no cardiac rub Vessels: + JVD and radial pulses present; no carotid bruit Extremities: + edema (Mild bilateral pedal edema) Gastrointestinal (Abdomen): Inspection/Auscultation: abdomen not distended Percussion/Palpation: abdomen soft; abdomen nontender, no guarding and abdomen not rigid Neurologic: moves all extremities and awake; no focal motor deficits Motor/Sensory: no tremor Psychiatric: A+Ox3, euthymic affect Results & Data ([facility]) Vital Signs (Past 12 Hours) Vital Signs Temp Pulse Pulse Resp BP BP Pulse Ox 12/29/20 15:29 72 20 93 12/29/20 12:09 36.7 C 74 17 114/68 96 12/29/20 11:14 66 16 94 12/29/20 10:41 66 12/29/20 08:00 66 12/29/20 07:40 36.6 C 82 19 144/82 H 94 12/29/20 07:23 60 16 93 12/29/20 04:00 36.6 C 72 18 129/66 95 (1) Anemia in chronic kidney disease Chronic kidney disease stage: unspecified stage Qualified Code(s): N18.9 - Chronic kidney disease, unspecified; D63.1 - Anemia in chronic kidney disease (2) Acute renal failure superimposed on stage 4 chronic kidney disease Acute renal failure type: unspecified Qualified Code(s): N17.9 - Acute kidney failure, unspecified; N18.4 - Chronic kidney disease, stage 4 (severe)
--- NOTE | 2020-12-29 16:04 | Hospitalist Progress Note ---
Date of Service December 29, 2020 Assessment & Plan (1) Acute on chronic heart failure with reduced ejection fraction and diastolic dysfunction: presented with significant vol overload with pulmonary congestion. Improved somewhat with Lasix during his hospital stay. No h/o lung disease per records. There is no evidence of pneumonia on CXR. Wheezing resolved today on exam and he sounds improved after scheduling some bronchodilators overnight. Oxygen needs are around baseline at this time. Nephrology recommends continuing with Lasix therapy and will cont to monitor kidney function. Poor prognosis overall. Cont to follow clinical progress and daily labwork. Minimal options from a cardiac standpoint to improve cardiac output and he has refused an ICD last year. Possible transition to hospice closer to discharge to avoid recurrent hospitalizations with poor prognosis. (2) Acute renal failure superimposed on stage 4 chronic kidney disease: baseline advanced CKD stage 4 , cr > 2 worsening of kidney function due to decompensated CHF, poor renal perfusion and intravenous diuretic therapy. Slightly worsened creat to 4.6 with BUN 99. Cont daily BMP, low K diet. No plans for hemodialysis and no acute indications at this time. (3) Acute and chronic respiratory failure with hypoxia: Improved to baseline after treatment with intravenous furosemide but not quite euvolemic at this time. Cont with diuresis and optimization per plan above. Cont bronchodilator therapy for now. (4) Atrial flutter: Cont warfarin, oral amio and beta preeti. (5) Elevated troponin I level: due to demand ischemia/type 2 IN in setting of decompensated CHF and worsening of renal failure , causing poor clearance (6) Anemia in chronic kidney disease: declined but stable overall. Poor prognosis. Defer to outpatient PCP or Nephrology with worsening kidney function. (7) DVT prophylaxis: warfarin DNR/DNI dispo-uncertain at this time. Latasha Curry DO [facility] Hospitalist Admission and Anticipated Discharge Date Admission Date: December 25, 2020 Subjective 89-year-old man with known ejection fraction 15% presented with acute onset shortness of breath admitted for CHF exacerbation. Worsening creatinine with persistent hypervolemia Patient admits to improvement in breathing today and less shortness of breath Patient is bedbound at baseline and physically deconditioned overall Palliative care was involved to identify goals of care with family. Family was supportive of possible transition to hospice near discharge Review of Systems Review of Systems: All systems reviewed & are unremarkable except as noted in Subjective Physical Exam Physical Exam: CONSTITUTIONAL: WNWD, vitals as above, generally well- appearing EYES: normal conjunctivae, no scleral icterus ENT: external ear and nose normal, oropharynx clear, MMM RESPIRATORY: expiratory wheezes and rhonchi throughout, normal respiratory effort CARDIOVASCULAR: regular rate and rhythm, S1 and 2 heard without murmurs, gallops or rubs, no JVD, no peripheral edema GASTROINTESTINAL: soft, nontender, nondistended. MUSCULOSKELETAL: strength 5/5 throughout, head is normocephalic and atraumatic SKIN: warm and dry NEUROLOGIC: CN 2-12 grossly intact, normal cognition PSYCHIATRIC: alert cooperative and oriented to person, place and time. Results & Data Results & Data ([facility]) Vital Signs (Past 12 Hours) Vital Signs Temp Pulse Pulse Resp BP Pulse Ox 12/29/20 15:29 72 20 93 12/29/20 12:09 36.7 C 74 17 114/68 96 12/29/20 11:14 66 16 94 12/29/20 10:41 66 12/29/20 08:00 66 12/29/20 07:40 36.6 C 82 19 144/82 H 94 12/29/20 07:23 60 16 93 Laboratory Results Short CBC 12/29/20 Range/Units 06:32 WBC 10.70 (4.8-10.8) K/uL Hgb 8.3 L (14.0-18.0) g/dL Hct 24.3 L (42-52) % Plt Count 193 (130-400) K/uL BMP 12/29/20 06:32 Sodium 131 L Potassium 3.6 D Chloride 94 L Carbon Dioxide 26 BUN 99 H Creatinine 4.61 H* Glucose 113 H Calcium 8.4 L Medications Administered Current Inpatient Medications Acetaminophen (Acetaminophen 325 Mg Tab) 650 mg PO Q4H PRN PRN Reason: Pain or Fever Stop: 01/24/21 06:43 Albuterol (Albut/Ipratrop 3mg/0.5mg Neb 3 Ml Vial) 3 ml NEB Q2H PRN PRN Reason: Shortness Of Breath Or Wheezing Stop: 01/24/21 06:43 Last Admin: 12/29/20 11:11 Dose: 3 ml Documented by: Albuterol (Albut/Ipratrop 3mg/0.5mg Neb 3 Ml Vial) 3 ml NEB QIDR SILVINO Stop: 01/28/21 06:59 Last Admin: 12/29/20 15:25 Dose: 3 ml Documented by: Amiodarone HCl (Amiodarone 200 Mg Tab) 200 mg PO BIDM [facility] Stop: 01/27/21 16:59 Last Admin: 12/29/20 08:18 Dose: 200 mg Documented by: Amlodipine Besylate (Amlodipine Besylate 5 Mg Tab) 2.5 mg PO DAILY [facility] Stop: 01/24/21 08:59 Last Admin: 12/29/20 08:17 Dose: 2.5 mg Documented by: Aspirin (Aspirin 81 Mg Ectab) 81 mg PO DAILY [facility] Stop: 01/24/21 08:59 Last Admin: 12/29/20 08:18 Dose: 81 mg Documented by: Atorvastatin Calcium (Atorvastatin 40 Mg Tab) 40 mg PO DAILY [facility] Stop: 01/24/21 08:59 Last Admin: 12/29/20 08:18 Dose: 40 mg Documented by: Bisacodyl (Bisacodyl 10 Mg Supp) 10 mg TX DAILY PRN PRN Reason: Constipation Stop: 01/27/21 01:56 Docusate Sodium (Docusate Sodium 100 Mg Cap) 100 mg PO BID [facility] Stop: 01/24/21 08:59 Last Admin: 12/29/20 08:17 Dose: 100 mg Documented by: Doxycycline Hyclate (Doxycycline Hyclate 100 Mg Cap) 100 mg PO BID@1000,2200 [facility]; Protocol Stop: 01/01/21 09:59 Last Admin: 12/29/20 10:50 Dose: 100 mg Documented by: Ferrous Sulfate (Ferrous Sulfate 325 Mg Tab) 325 mg PO QAM [facility] Stop: 01/24/21 08:59 Last Admin: 12/29/20 08:18 Dose: 325 mg Documented by: Finasteride (Finasteride 5 Mg Tab) 5 mg PO QAM [facility] Stop: 01/24/21 08:59 Last Admin: 12/29/20 08:17 Dose: 5 mg Documented by: Furosemide (Furosemide 80 Mg Tab) 80 mg PO QAM [facility] Stop: 01/27/21 08:59 Last Admin: 12/28/20 08:37 Dose: 80 mg Documented by: Insulin Aspart (Insulin Aspart 100 Units/Ml 3 Ml Pen) 0 units SC [facility] Stop: 01/24/21 07:29 Last Admin: 12/29/20 12:09 Dose: 1 units Documented by: Lactobacillus Acidoph/Casei/Rhamnos (Advanced Probiotic 1250 Mg Capsule) 2 cap PO DAILY [facility] Stop: 01/24/21 08:59 Last Admin: 12/29/20 08:17 Dose: 2 cap Documented by: Levothyroxine Sodium (Levothyroxine Sodium 88 Mcg Tablet) 88 mcg PO DAILYBB [facility] Stop: 01/24/21 06:43 Last Admin: 12/29/20 05:21 Dose: 88 mcg Documented by: Metoprolol Succinate (Metoprolol Succ 50mg Ext Rel Tab) 50 mg PO DAILY [facility] Stop: 01/27/21 08:59 Last Admin: 12/29/20 08:18 Dose: 50 mg Documented by: Morphine Sulfate (Morphine Sulfate 5 Mg/0.25 Ml Udp) 2.5 mg PO Q6H PRN PRN Reason: Shortness Of Breath Stop: 01/12/21 15:16 Nitroglycerin (Nitroglycerin Sl 0.4 Mg/Tab Tab) 0.4 mg SL UD PRN PRN Reason: Chest Pain Stop: 01/24/21 06:43 Nystatin (Nystatin Powder 15gm Btl) 1 appln EXT TID [facility] Stop: 01/24/21 08:59 Last Admin: 12/29/20 13:51 Dose: Not Given Documented by: Ondansetron HCl (Ondansetron Inj 2 Mg/Ml 2 Ml Vial) 4 mg IV Q6H PRN PRN Reason: Nausea Stop: 01/24/21 06:43 Pantoprazole Sodium (Pantoprazole 40 Mg Tab) 40 mg PO DAILY [facility] Stop: 01/24/21 08:59 Last Admin: 12/29/20 08:17 Dose: 40 mg Documented by: Polyethylene Glycol (Polyethylene (Miralax) 17 Gm Pack) 17 gm PO DAILY PRN PRN Reason: Constipation Stop: 01/24/21 06:43 Potassium Chloride (Potassium Chloride 10 Meq Tabcr) 10 meq PO QAM [facility] Stop: 01/24/21 08:59 Last Admin: 12/27/20 08:26 Dose: 10 meq Documented by: Sennosides (Senna 8.6 Mg Tab) 8.6 mg PO DAILY PRN PRN Reason: Constipation Stop: 01/24/21 06:43 Vitamin D (Cholecalciferol 1,000 Units 25 Mcg Tab) 1,000 units PO DAILY [facility] Stop: 01/24/21 08:59 Last Admin: 12/29/20 08:18 Dose: 1,000 units Documented by: Warfarin Sodium (Warfarin Sod 5 Mg Tab) 5 mg PO DAILY@1600 [facility] Stop: 01/25/21 15:59 (1) Acute renal failure superimposed on stage 4 chronic kidney disease Acute renal failure type: unspecified Qualified Code(s): N17.9 - Acute kidney failure, unspecified; N18.4 - Chronic kidney disease, stage 4 (severe) (2) Anemia in chronic kidney disease Chronic kidney disease stage: unspecified stage Qualified Code(s): N18.9 - Chronic kidney disease, unspecified; D63.1 - Anemia in chronic kidney disease
[2020-12-29] MEDS: WARFARIN SOD 5 MG TAB PO SCH (17:33)
[2020-12-30] MEDS: LEVOTHYROXINE SODIUM 88 MCG TABLET PO SCH (05:53)
[2020-12-30 07:05] LABS: Prothrombin Time 18.8 Seconds (9.0-12.0)
--- NOTE | 2020-12-30 07:20 | Electrocardiogram Report ---
Test Reason : Blood Pressure : / mmHG Vent. Rate : 091 BPM Atrial Rate : 117 BPM P-R Int : 000 ms QRS Dur : 132 ms QT Int : 408 ms P-R-T Axes : 000 014 163 degrees QTc Int : 501 ms Atrial fibrillation Left bundle branch block Abnormal ECG When compared with ECG of 28-DEC-2020 05:11, No significant change Confirmed by Ravindra Auguste ([id number]) on 12/30/2020 7:19:58 AM Referred By: REFERRED SELF Confirmed By:Ravindra Auguste
[2020-12-30] MEDS: ALBUT/IPRATROP 3MG/0.5MG NEB 3 ML VIAL NEB SCH ×4 (07:29→20:42)
[2020-12-30] MEDS: ASPIRIN 81 MG ECTAB PO SCH (08:48)
[2020-12-30] MEDS: FINASTERIDE 5 MG TAB PO SCH (08:49)
[2020-12-30] MEDS: METOPROLOL SUCC 50MG EXT REL TAB PO SCH (08:49)
[2020-12-30] MEDS: ATORVASTATIN 40 MG TAB PO SCH (08:49)
[2020-12-30] MEDS: AMIODARONE 200 MG TAB PO SCH ×2 (08:49→16:06)
[2020-12-30] MEDS: FERROUS SULFATE 325 MG TAB PO SCH (08:49)
[2020-12-30] MEDS: ADVANCED PROBIOTIC 1250 MG CAPSULE PO SCH (08:49)
[2020-12-30] MEDS: DOCUSATE SODIUM 100 MG CAP PO SCH (08:49)
[2020-12-30] MEDS: amLODIPine BESYLATE 5 MG TAB PO SCH (08:49)
[2020-12-30] MEDS: CHOLECALCIFEROL 1,000 UNITS 25 MCG TAB PO SCH (08:49)
[2020-12-30] MEDS: NYSTATIN POWDER 15GM BTL EXT SCH ×3 (08:50→20:27)
[2020-12-30] MEDS: PANTOprazole 40 MG TAB PO SCH (08:50)
[2020-12-30] MEDS: INSULIN ASPART 100 UNITS/ML 3 ML PEN SC SCH ×4 (08:51→20:35)
[2020-12-30 09:23] LABS: Eosinophils # (auto) 0.07 K/uL (0-0.5); Eosinophils % (auto) 0.7 %; Hematocrit (blood only) 22.2 % (42-52); Hemoglobin 7.5 g/dL (14.0-18.0); Immature Granulocytes # (auto) 0.03 K/uL (0.00-0.02); Immature Granulocytes % (auto) 0.3 %; Lymphocytes # (auto) 0.73 K/uL (1.2-3.4); Lymphocytes % (auto) 7.1 %; Mean Corpuscular Hemoglobin 30.6 pg (25-34); Mean Corpuscular Volume 90.6 fL (80-100); Mean Platelet Volume 9.8 fL (7.4-10.4); Monocytes # (auto) 1.97 K/uL (0.11-0.59); Monocytes % (auto) 19.1 %; Neutrophils # (auto) 7.53 K/uL (1.4-6.5); Neutrophils % (auto) 72.8 %; Platelet Count 193 K/uL (130-400); RDW Coefficient of Variation 14.6 % (11.5-14.5); RDW Standard Deviation 48.3 fL (36.4-46.3); Red Blood Count 2.45 M/uL (4.7-6.1); White Blood Count 10.33 K/uL (4.8-10.8)
[2020-12-30 09:38] LABS: Mean Corpuscular Hgb Conc 33.8 g/dL (32-36)
[2020-12-30 09:42] LABS: BUN Creatinine Ratio 21.4 (10-20); Calcium 8.3 mg/dl (8.5-10.1); Creatinine Clr Calc Pharmacy 10.3 ml/min; Est GFR (African American) 11.9; Est GFR (Non-African American) 10.3; Potassium 3.4 mmol/L (3.5-5.1)
[2020-12-30 10:19] LABS: Acanthocytes 1+
--- NOTE | 2020-12-30 10:32 | Cardiology Progress Note ---
Date of Service December 30, 2020 Assessment & Plan (1) Acute on chronic heart failure with reduced ejection fraction and diastolic dysfunction: (2) PAF (paroxysmal atrial fibrillation): (3) Ischemic cardiomyopathy: (4) Acute renal failure superimposed on stage 4 chronic kidney disease: (5) Elevated troponin I level: (6) Anemia in chronic kidney disease: Diuretics on hold today as per nephrology. Consider adding Demadex pending discussion with nephrology. Respiratory status stable/adequate today at rest. Unfortunately, creatinine continues to trend upward. Continue to monitor daily labs. Would recommend continuing amiodarone in addition to metoprolol as patient's rate is controlled with no further episodes of rapid, 2 to 1, atrial flutter. Hemoglobin has trended down to 7.5 g/dL. Continue to monitor closely. Hesitant to transfuse patient currently due to risk of volume overload in setting of acute renal failure. Consider transfusion of packed red blood cells if family decides to proceed with short-term hemodialysis. INR today is 2.0. No overt signs of GI/ blood loss. Palliative care consultation appreciated. Poor prognosis. Admission and Anticipated Discharge Date Admission Date: December 25, 2020 Subjective Patient seen and examined at the bedside. More alert today. Hemoglobin has trended down to 7.5. Denies chest pain or unusual shortness of breath. Creatinine remains elevated at 4.7. Palliative care consultation obtained 12/29/2020. Patient and family considering hospice versus short-term dialysis. Fluid balance -1300 cc over the past 24 hours. Intravenous Lasix placed on hold by nephrology. Telemetry reveals atrial fibrillation heart rate in the 70s, left bundle branch block, and PVCs. Review of Systems Review of Systems: Unobtainable due to cognitive status Physical Exam Constitutional: well nourished and + ill appearing Respiratory: no respiratory distress Auscultation: + diminished lung sounds (Bilateral) and + rales (Right base); no wheezes Cardiovascular: Rate/Rhythm: regular rhythm and + tachycardic Heart Sounds: normal S1, normal S2 and + murmur (2/6 systolic murmur heard best at the apex without radiation.); no cardiac rub Vessels: radial pulses present; no JVD and no carotid bruit Extremities: + edema (Mild bilateral pedal edema) Gastrointestinal (Abdomen): Inspection/Auscultation: abdomen not distended Percussion/Palpation: abdomen soft; abdomen nontender, no guarding and abdomen not rigid Neurologic: moves all extremities and awake; no focal motor deficits Motor/Sensory: no tremor Psychiatric: A+Ox3, euthymic affect Results & Data ([facility]) Vital Signs (Past 12 Hours) Vital Signs Temp Pulse Pulse Pulse Resp BP Pulse Ox 12/30/20 08:17 36.6 C 71 19 127/68 96 12/30/20 08:00 66 12/30/20 07:30 95 H 18 95 12/30/20 03:47 36.7 C 73 18 146/75 H 96 12/29/20 23:26 37.1 C 73 18 118/62 95 (1) Anemia in chronic kidney disease Chronic kidney disease stage: unspecified stage Qualified Code(s): N18.9 - Chronic kidney disease, unspecified; D63.1 - Anemia in chronic kidney disease (2) Acute renal failure superimposed on stage 4 chronic kidney disease Acute renal failure type: unspecified Qualified Code(s): N17.9 - Acute kidney failure, unspecified; N18.4 - Chronic kidney disease, stage 4 (severe)
--- NOTE | 2020-12-30 11:08 | Nephrology Progress Note ---
Date of Service December 30, 2020 Assessment & Plan (1) Acute renal failure superimposed on stage 4 chronic kidney disease: Renal functions continue to decline, urine output has been reasonable and blood pressure steady Is not in overt respiratory distress. And his electrolytes are within normal range. I would recommend starting him on 100 of Demadex and watching him over the weekend. He will unlikely need an emergent dialysis over the weekend but, I do not think he is a good candidate for chronic dialysis, patient and family is contemplating palliative care. His dialysis issue can also be addressed when this final decision is made. (2) Acute on chronic heart failure with reduced ejection fraction and diastolic dysfunction: Start him on 100 of Demadex today, Poor prognosis with ongoing PAF. Cardiology on board. Continue with symptomatic management on his findings decision regarding palliative care is made, (3) Atrial flutter with rapid ventricular response: Admission and Anticipated Discharge Date Admission Date: December 25, 2020 Subjective Patient seen and examined at the bedside, comfortable with no shortness of breath Creatinine remains elevated at 4.7. Seen by palliative care team , patient and family considering hospice versus short-term dialysis. Review of Systems Review of Systems: All systems reviewed & are unremarkable except as noted in HPI & below No edema Physical Exam Physical Exam: GENERAL: The patient is an elderly white male who is currently on nasal cannula oxygen. HEENT: Mucous membrane is moist. NECK: Supple. Jugular venous distention is present. CHEST: Bilaterally decreased breath sounds, poor inspiratory effort limiting the quality of the exam. b/l crackles CARDIOVASCULAR: Irregularly irregular. Soft systolic murmur heard. No bruit or gallop heard. ABDOMEN: Soft, nontender. EXTREMITIES: NO edema. NEUROLOGIC: Moving all 4 extremities. Normal speech. Results & Data ([facility]) Vital Signs (Past 12 Hours) Vital Signs Temp Pulse Pulse Pulse Resp BP Pulse Ox 12/30/20 10:47 75 12/30/20 10:34 69 18 96 12/30/20 08:17 36.6 C 71 19 127/68 96 12/30/20 08:00 66 12/30/20 07:30 95 H 18 95 12/30/20 03:47 36.7 C 73 18 146/75 H 96 12/29/20 23:26 37.1 C 73 18 118/62 95 Laboratory Results 12/30/20 06:21 04/10/21 06:21 (1) Acute renal failure superimposed on stage 4 chronic kidney disease Acute renal failure type: unspecified Qualified Code(s): N17.9 - Acute kidney failure, unspecified; N18.4 - Chronic kidney disease, stage 4 (severe)
[2020-12-30] MEDS: TORSEMIDE 100 MG TAB PO SCH (13:50)
[2020-12-30] MEDS ORDERED: SODIUM CHLORIDE 0.9% 250 ML IV PRN (14:07)
[2020-12-30] MEDS ORDERED: diphenhydrAMINE Capsule 25 MG CAP PO ONE (14:07)
[2020-12-30] MEDS ORDERED: ACETAMINOPHEN 325 MG TAB PO ONE (14:07)
--- NOTE | 2020-12-30 14:07 | Hospitalist Progress Note ---
Date of Service December 30, 2020 Assessment & Plan (1) Acute on chronic heart failure with reduced ejection fraction and diastolic dysfunction: presented with significant vol overload with pulmonary congestion. Improved with continued diuresis. Oxygen needs are around baseline at this time. Nephrology recommends continuing with diuretic therapy while output is still good. Dialysis is not recommended chronically. No urgent need for acute dialysis at this time but may occur in next few days. Trend daily BMP. Minimal options from a cardiac standpoint to improve cardiac output and he has refused an ICD last year. Possible transition to hospice at discharge to avoid recurrent hospitalizations with poor prognosis. Family still discussing this. (2) Acute renal failure superimposed on stage 4 chronic kidney disease: plan as above. (3) Acute and chronic respiratory failure with hypoxia: Improved to baseline after treatment with intravenous furosemide but not quite euvolemic at this time. Cont with diuresis and optimization per plan above. Cont bronchodilator therapy for now. (4) Atrial flutter: Maintains in afib on telemetry, cont warfarin, oral amio and beta preeti. (5) Elevated troponin I level: due to demand ischemia/type 2 MD in setting of decompensated CHF and worsening of renal failure , causing poor clearance. No further workup at this time. (6) Anemia in chronic kidney disease: One unit of blood today. Multifactorial in etiology including continued daily phlebotomy, worsening renal function and multiple comorbidities. (7) Goals of care, counseling/discussion: Twenty minute discussion with daughter Hamida by phone discussing Hospice, goals of care, and what will be good for this particular situation. Family more inclined toward Hospice but will likely confirm tomorrow. (8) DVT prophylaxis: warfarin DNR/DNI dispo-uncertain at this time. Will likely move home with Hospice. DO Marco Nicolas Hospitalist Admission and Anticipated Discharge Date Admission Date: December 25, 2020 Subjective Patient seen and examined at the bedside, comfortable with no shortness of breath Feeling bloated reporting some constipation Feels worn out and with low energy We discussed symptomatic anemia and pros/cons of blood product administration I contacted his daughter Hamida, by phone and we spoke fro about 20 minutes She gave verbal consent for the blood via phone and we spoke about Hospice on discharge She agrees with this but needs to discuss with her mom later today. Nephro with diuretic change from Lasix to Demedex Review of Systems Review of Systems: All systems reviewed & are unremarkable except as noted in Subjective Physical Exam Physical Exam: CONSTITUTIONAL: WNWD, vitals as above, generally appears fatigued and drained, pale EYES: normal conjunctivae, no scleral icterus ENT: external ear and nose normal, oropharynx clear, MMM RESPIRATORY: crackles at lung bases bilaterally, no wheezing, normal respiratory effort CARDIOVASCULAR: regular rate and rhythm, S1 and 2 heard without murmurs, gallops or rubs, no JVD, no peripheral edema GASTROINTESTINAL: soft, nontender, nondistended. MUSCULOSKELETAL: strength 5/5 throughout, but very deconditioned with generalized weakness, bedbound and unable to ambulate independently, cannot maneuver in bed independently, head is normocephalic and atraumatic SKIN: warm and dry NEUROLOGIC: CN 2-12 grossly intact, normal cognition PSYCHIATRIC: alert cooperative and oriented to person, place and time. Results & Data Results & Data ([facility]) Vital Signs (Past 12 Hours) Vital Signs Temp Pulse Pulse Pulse Resp BP Pulse Ox 12/30/20 12:22 36.4 C L 73 18 118/62 96 12/30/20 10:47 75 12/30/20 10:34 69 18 96 12/30/20 08:17 36.6 C 71 19 127/68 96 12/30/20 08:00 66 12/30/20 07:30 95 H 18 95 12/30/20 03:47 36.7 C 73 18 146/75 H 96 Laboratory Results Short CBC 12/30/20 Range/Units 06:21 WBC 10.33 (4.8-10.8) K/uL Hgb 7.5 L (14.0-18.0) g/dL Hct 22.2 L (42-52) % Plt Count 193 (130-400) K/uL BMP 12/30/20 06:21 Sodium 131 L Potassium 3.4 L Chloride 92 L Carbon Dioxide 27 BUN 101 H Creatinine 4.70 H* Glucose 114 H Calcium 8.3 L Medications Administered Current Inpatient Medications Acetaminophen (Acetaminophen 325 Mg Tab) 650 mg PO Q4H PRN PRN Reason: Pain or Fever Stop: 01/24/21 06:43 Albuterol (Albut/Ipratrop 3mg/0.5mg Neb 3 Ml Vial) 3 ml NEB Q2H PRN PRN Reason: Shortness Of Breath Or Wheezing Stop: 01/24/21 06:43 Last Admin: 12/29/20 11:11 Dose: 3 ml Documented by: Albuterol (Albut/Ipratrop 3mg/0.5mg Neb 3 Ml Vial) 3 ml NEB QIDR [facility] Stop: 01/28/21 06:59 Last Admin: 12/30/20 10:33 Dose: 3 ml Documented by: Amiodarone HCl (Amiodarone 200 Mg Tab) 200 mg PO BIDM [facility] Stop: 01/27/21 16:59 Last Admin: 12/30/20 08:49 Dose: 200 mg Documented by: Amlodipine Besylate (Amlodipine Besylate 5 Mg Tab) 2.5 mg PO DAILY [facility] Stop: 01/24/21 08:59 Last Admin: 12/30/20 08:49 Dose: 2.5 mg Documented by: Aspirin (Aspirin 81 Mg Ectab) 81 mg PO DAILY [facility] Stop: 01/24/21 08:59 Last Admin: 12/30/20 08:48 Dose: 81 mg Documented by: Atorvastatin Calcium (Atorvastatin 40 Mg Tab) 40 mg PO DAILY [facility] Stop: 01/24/21 08:59 Last Admin: 12/30/20 08:49 Dose: 40 mg Documented by: Bisacodyl (Bisacodyl 10 Mg Supp) 10 mg [place] DAILY PRN PRN Reason: Constipation Stop: 01/27/21 01:56 Docusate Sodium (Docusate Sodium 100 Mg Cap) 100 mg PO BID [facility] Stop: 01/24/21 08:59 Last Admin: 12/30/20 08:49 Dose: 100 mg Documented by: Doxycycline Hyclate (Doxycycline Hyclate 100 Mg Cap) 100 mg PO BID@1000,2200 [facility]; Protocol Stop: 01/01/21 09:59 Last Admin: 12/29/20 20:22 Dose: 100 mg Documented by: Ferrous Sulfate (Ferrous Sulfate 325 Mg Tab) 325 mg PO QAM [facility] Stop: 01/24/21 08:59 Last Admin: 12/30/20 08:49 Dose: 325 mg Documented by: Finasteride (Finasteride 5 Mg Tab) 5 mg PO QAM [facility] Stop: 01/24/21 08:59 Last Admin: 12/30/20 08:49 Dose: 5 mg Documented by: Insulin Aspart (Insulin Aspart 100 Units/Ml 3 Ml Pen) 0 units SC [facility] Stop: 01/24/21 07:29 Last Admin: 12/30/20 12:19 Dose: Not Given Documented by: Lactobacillus Acidoph/Casei/Rhamnos (Advanced Probiotic 1250 Mg Capsule) 2 cap PO DAILY [facility] Stop: 01/24/21 08:59 Last Admin: 12/30/20 08:49 Dose: 2 cap Documented by: Levothyroxine Sodium (Levothyroxine Sodium 88 Mcg Tablet) 88 mcg PO DAILYBB [facility] Stop: 01/24/21 06:43 Last Admin: 12/30/20 05:53 Dose: 88 mcg Documented by: Metoprolol Succinate (Metoprolol Succ 50mg Ext Rel Tab) 50 mg PO DAILY [facility] Stop: 01/27/21 08:59 Last Admin: 12/30/20 08:49 Dose: 50 mg Documented by: Morphine Sulfate (Morphine Sulfate 5 Mg/0.25 Ml Udp) 2.5 mg PO Q6H PRN PRN Reason: Shortness Of Breath Stop: 01/12/21 15:16 Nitroglycerin (Nitroglycerin Sl 0.4 Mg/Tab Tab) 0.4 mg SL UD PRN PRN Reason: Chest Pain Stop: 01/24/21 06:43 Nystatin (Nystatin Powder 15gm Btl) 1 appln EXT TID [facility] Stop: 01/24/21 08:59 Last Admin: 12/30/20 13:50 Dose: Not Given Documented by: Ondansetron HCl (Ondansetron Inj 2 Mg/Ml 2 Ml Vial) 4 mg IV Q6H PRN PRN Reason: Nausea Stop: 01/24/21 06:43 Last Admin: 12/29/20 20:17 Dose: 4 mg Documented by: Pantoprazole Sodium (Pantoprazole 40 Mg Tab) 40 mg PO DAILY [facility] Stop: 01/24/21 08:59 Last Admin: 12/30/20 08:50 Dose: 40 mg Documented by: Polyethylene Glycol (Polyethylene (Miralax) 17 Gm Pack) 17 gm PO DAILY PRN PRN Reason: Constipation Stop: 01/24/21 06:43 Potassium Chloride (Potassium Chloride 10 Meq Tabcr) 10 meq PO QAM [facility] Stop: 01/24/21 08:59 Last Admin: 12/27/20 08:26 Dose: 10 meq Documented by: Sennosides (Senna 8.6 Mg Tab) 8.6 mg PO DAILY PRN PRN Reason: Constipation Stop: 01/24/21 06:43 Torsemide (Torsemide 100 Mg Tab) 100 mg PO DAILY [facility] Stop: 01/29/21 11:59 Last Admin: 12/30/20 13:50 Dose: 100 mg Documented by: Vitamin D (Cholecalciferol 1,000 Units 25 Mcg Tab) 1,000 units PO DAILY [facility] Stop: 01/24/21 08:59 Last Admin: 12/30/20 08:49 Dose: 1,000 units Documented by: Warfarin Sodium (Warfarin Sod 5 Mg Tab) 5 mg PO DAILY@1600 [facility] Stop: 01/25/21 15:59 Last Admin: 12/29/20 17:33 Dose: 5 mg Documented by: (1) Anemia in chronic kidney disease Chronic kidney disease stage: unspecified stage Qualified Code(s): N18.9 - Chronic kidney disease, unspecified; D63.1 - Anemia in chronic kidney disease (2) Acute renal failure superimposed on stage 4 chronic kidney disease Acute renal failure type: unspecified Qualified Code(s): N17.9 - Acute kidney failure, unspecified; N18.4 - Chronic kidney disease, stage 4 (severe)
[2020-12-30] MEDS ORDERED: GLYCERIN ADULT 12 SUPP/BOX SUPP PR PRN (15:35)
[2020-12-30] MEDS ORDERED: GLYCERIN ADULT 12 SUPP/BOX SUPP PR ONE (15:35)
[2020-12-30] MEDS ORDERED: diphenhydrAMINE HCl 12.5 MG/5 ML UDC PO ONE (15:45)
[2020-12-30] MEDS: WARFARIN SOD 5 MG TAB PO SCH (16:05)
[2020-12-30] MEDS ORDERED: ALBUMIN 25% 12.5 GM/50 ML VIAL IV ONE (22:30)
[2020-12-30] MEDS ORDERED: FUROSEMIDE 120 MG in SYRINGE 0 ML IV ONE (22:30)
[2020-12-31] MEDS: LEVOTHYROXINE SODIUM 88 MCG TABLET PO SCH (05:45)
[2020-12-31] MEDS: ALBUT/IPRATROP 3MG/0.5MG NEB 3 ML VIAL NEB SCH ×2 (07:00→11:08)
[2020-12-31] MEDS: ATORVASTATIN 40 MG TAB PO SCH (08:03)
[2020-12-31] MEDS: PANTOprazole 40 MG TAB PO SCH (08:03)
[2020-12-31] MEDS: ADVANCED PROBIOTIC 1250 MG CAPSULE PO SCH (08:04)
[2020-12-31] MEDS: TORSEMIDE 100 MG TAB PO SCH (08:04)
[2020-12-31] MEDS: ASPIRIN 81 MG ECTAB PO SCH (08:04)
[2020-12-31] MEDS: FINASTERIDE 5 MG TAB PO SCH (08:04)
[2020-12-31] MEDS: METOPROLOL SUCC 50MG EXT REL TAB PO SCH (08:05)
[2020-12-31] MEDS: AMIODARONE 200 MG TAB PO SCH (08:05)
[2020-12-31] MEDS: INSULIN ASPART 100 UNITS/ML 3 ML PEN SC SCH ×4 (08:06→20:50)
[2020-12-31] MEDS: NYSTATIN POWDER 15GM BTL EXT SCH ×3 (08:06→21:00)
--- NOTE | 2020-12-31 10:13 | XRay Report ---
XR chest 1V portable CLINICAL HISTORY: crackles COMPARISON STUDY: Chest radiograph December 28, 2020. FINDINGS: There is no pneumothorax. Small bilateral pleural effusions have slightly increased. There are bibasilar opacities. Mild pulmonary edema persists. IMPRESSION: 1. Persistent mild pulmonary edema. 2. Increase in small bilateral pleural effusions with associated bibasilar opacities. ACT 112: Negative or not required by law. Electronically signed by: Donell Amaral M.D. 12/31/2020 10:12 AM
[2020-12-31 10:31] LABS: Hematocrit (blood only) 24.5 % (42-52); Hemoglobin 8.4 g/dL (14.0-18.0); Mean Corpuscular Hemoglobin 31.2 pg (25-34); Mean Corpuscular Hgb Conc 34.3 g/dL (32-36); Mean Corpuscular Volume 91.1 fL (80-100); Mean Platelet Volume 9.6 fL (7.4-10.4); Platelet Count 185 K/uL (130-400); RDW Coefficient of Variation 15.2 % (11.5-14.5); RDW Standard Deviation 50.2 fL (36.4-46.3); Red Blood Count 2.69 M/uL (4.7-6.1); White Blood Count 9.63 K/uL (4.8-10.8)
[2020-12-31 11:12] LABS: BUN Creatinine Ratio 21.9 (10-20); Calcium 8.6 mg/dl (8.5-10.1); Creatinine Clr Calc Pharmacy 9.4 ml/min; Est GFR (African American) 10.9; Est GFR (Non-African American) 9.4
--- NOTE | 2020-12-31 11:15 | Nephrology Progress Note ---
Date of Service December 31, 2020 Assessment & Plan (1) Acute renal failure superimposed on stage 4 chronic kidney disease: Renal functions continue to decline, urine output has been reasonable and blood pressure steady Is not in overt respiratory distress. And his electrolytes are within normal range. Continue on 100 of Demadex ,his renal functions have gotten more worse it is somewhat expected. He will unlikely need an emergent dialysis over the weekend but, I do not think he is a good candidate for chronic dialysis, patient and family is contemplating palliative care. His dialysis issue can also be addressed when this final decision is made. (2) Acute on chronic heart failure with reduced ejection fraction and diastolic dysfunction: Continue 100 of Demadex Poor prognosis with ongoing PAF. Cardiology on board. Continue with symptomatic management on his findings decision regarding palliative care is made, (3) Atrial flutter with rapid ventricular response: Admission and Anticipated Discharge Date Admission Date: December 25, 2020 Subjective Comfortable , no shortness of breath Creatinine remains elevated. Review of Systems Review of Systems: No edema Physical Exam Physical Exam: GENERAL: Elderly white male, not in distress HEENT: Mucous membrane is moist. NECK: Supple. Jugular venous distention is present. CHEST: Bilaterally decreased breath sounds, poor inspiratory effort limiting the quality of the exam. b/l crackles CARDIOVASCULAR: Irregularly irregular. Soft systolic murmur heard. No bruit or gallop heard. ABDOMEN: Soft, nontender. EXTREMITIES: NO edema. NEUROLOGIC: Moving all 4 extremities. Normal speech. Results & Data ([facility]) Vital Signs (Past 12 Hours) Vital Signs Temp Pulse Pulse Pulse Resp BP Pulse Ox 12/31/20 11:08 57 L 16 96 12/31/20 08:04 36.6 C 71 18 115/71 96 12/31/20 08:00 72 12/31/20 07:00 72 16 95 12/31/20 03:24 36.6 C 72 18 127/69 95 12/30/20 23:39 36.8 C 77 18 119/67 95 Laboratory Results 12/31/20 10:17 12/31/20 10:17 (1) Acute renal failure superimposed on stage 4 chronic kidney disease Acute renal failure type: unspecified Qualified Code(s): N17.9 - Acute kidney failure, unspecified; N18.4 - Chronic kidney disease, stage 4 (severe)
--- NOTE | 2020-12-31 11:55 | Cardiology Progress Note ---
Date of Service December 31, 2020 Assessment & Plan (1) Acute on chronic heart failure with reduced ejection fraction and diastolic dysfunction: (2) PAF (paroxysmal atrial fibrillation): (3) Ischemic cardiomyopathy: (4) Acute renal failure superimposed on stage 4 chronic kidney disease: (5) Elevated troponin I level: (6) Anemia in chronic kidney disease: Volume overload associated with packed red blood cell transfusion improved with high-dose IV Lasix therapy. Torsemide 100 mg daily ordered by nephrology. Continue to monitor daily weight, fluid balance, GFR, and electrolytes. Unfortunately, creatinine continues to trend upward to 5.0. Reduce amiodarone to 200 mg once daily. Continue to monitor telemetry. Palliative care consultation appreciated. Poor prognosis. Case discussed with daughter, Hamida Freeman, via telephone. All questions answered to her satisfaction. Admission and Anticipated Discharge Date Admission Date: December 25, 2020 Subjective Patient seen and examined at the bedside. Received 1 unit packed red blood cells yesterday with resultant volume overload. Treated with 120 mg of IV furosemide. Overall, fluid balance -1 L over the past 24 hours. Creatinine trending upward to 5.0. Telemetry reveals atrial fibrillation with a left bundle branch block, PVCs, and occasional PVC runs. Patient denies palpitations, lightheadedness, or dizziness. No overt signs of GI/ blood loss. Notes nausea in the a.m. Review of Systems Review of Systems: All systems reviewed & are unremarkable except as noted in Subjective Physical Exam Constitutional: well nourished and + ill appearing Respiratory: no respiratory distress Auscultation: + diminished lung sounds (Bilateral) and + rales (Right base); no wheezes Cardiovascular: Rate/Rhythm: regular rhythm and + tachycardic Heart Sounds: normal S1, normal S2 and + murmur (2/6 systolic murmur heard best at the apex without radiation.); no cardiac rub Vessels: radial pulses present; no JVD and no carotid bruit Extremities: + edema (Mild bilateral pedal edema) Gastrointestinal (Abdomen): Inspection/Auscultation: abdomen not distended Percussion/Palpation: abdomen soft; abdomen nontender, no guarding and abdomen not rigid Neurologic: moves all extremities and awake; no focal motor deficits Motor/Sensory: no tremor Psychiatric: A+Ox3, euthymic affect Results & Data ([facility]) Vital Signs (Past 12 Hours) Vital Signs Temp Pulse Pulse Pulse Resp BP Pulse Ox 12/31/20 11:08 57 L 16 96 12/31/20 08:04 36.6 C 71 18 115/71 96 12/31/20 08:00 72 12/31/20 07:00 72 16 95 12/31/20 03:24 36.6 C 72 18 127/69 95 (1) Anemia in chronic kidney disease Chronic kidney disease stage: unspecified stage Qualified Code(s): N18.9 - Chronic kidney disease, unspecified; D63.1 - Anemia in chronic kidney disease (2) Acute renal failure superimposed on stage 4 chronic kidney disease Acute renal failure type: unspecified Qualified Code(s): N17.9 - Acute kidney failure, unspecified; N18.4 - Chronic kidney disease, stage 4 (severe)
[2020-12-31] MEDS: POTASSIUM CHLORIDE PWD 20 MEQ PACK PO SCH ×2 (13:41→17:14)
[2020-12-31] MEDS ORDERED: ALBUT/IPRATROP 3MG/0.5MG NEB 3 ML VIAL NEB PRN (14:40)
--- NOTE | 2020-12-31 14:50 | Hospitalist Progress Note ---
Date of Service December 31, 2020 Assessment & Plan (1) Acute on chronic heart failure with reduced ejection fraction and diastolic dysfunction: presented with significant vol overload with pulmonary congestion. Improved with continued diuresis. Oxygen needs are around baseline at this time. Nephrology recommends continuing with diuretic therapy while output is still good. Dialysis is not recommended chronically. No urgent need for acute dialysis at this time but may occur in next few days with worsening renal function on labwork. Trend daily BMP. Renal diet-supplemented potassium with ongoing diuretic but watch this closely. Minimal options from a cardiac standpoint to improve cardiac output and he has refused an ICD last year. After another discussion with Hamida by phone and with the patient today, the plan will be home with Hospice and no dialysis. Would discharge home in next 1-2 days or when ok to go from a kidney and heart standpoint. (2) Acute renal failure superimposed on stage 4 chronic kidney disease: plan as above. (3) Acute and chronic respiratory failure with hypoxia: Improved to baseline after treatment with intravenous furosemide but not quite euvolemic at this time. Cont with diuresis and optimization per plan above. Cont bronchodilator therapy for now. (4) Atrial flutter: Maintains in afib on telemetry, cont warfarin, oral amio and beta preeti. (5) Elevated troponin I level: due to demand ischemia/type 2 IL in setting of decompensated CHF and worsening of renal failure , causing poor clearance. No further workup at this time. (6) Anemia in chronic kidney disease: One unit of blood today. Multifactorial in etiology including continued daily phlebotomy, worsening renal function and multiple comorbidities. (7) Goals of care, counseling/discussion: Again went through [facility] discussion with daughter, Hamida, by phone and also discussed this with Mr. Amato at bedside. He reports having spoken with his about this last night and they are in agreement that starting Hospice at discharge would be the most appropriate thing for him. (8) DVT prophylaxis: warfarin DNR/DNI dispo-uncertain at this time. Will likely move home with Hospice. DO Marco Nicolas Hospitalist Admission and Anticipated Discharge Date Admission Date: December 25, 2020 Subjective 89-year-old man with known ejection fraction 15% presented with acute onset shortness of breath admitted for CHF exacerbation. feels better today from an energy standpoint reports had a BM and bloating has resolved feels his breathing has improved overall reports that he understands what Hospice is and he has spoke with his about it last night and will go with discharge home with Hospice when able. discussed with CM who will pass along to CM handling his case in am. Review of Systems Review of Systems: All systems reviewed & are unremarkable except as noted in Subjective Physical Exam Physical Exam: CONSTITUTIONAL: WNWD, vitals as above, generally appears slightly more energetic today, in good spirits. EYES: normal conjunctivae, no scleral icterus ENT: external ear and nose normal, oropharynx clear, MMM RESPIRATORY: crackles at lung bases on the right side, no wheezing, normal respiratory effort CARDIOVASCULAR: regular rate and rhythm, S1 and 2 heard without murmurs, gallops or rubs, no JVD, no peripheral edema GASTROINTESTINAL: soft, nontender, nondistended. MUSCULOSKELETAL: strength 5/5 throughout, but very deconditioned with generalized weakness, bedbound and unable to ambulate independently, cannot maneuver in bed independently, head is normocephalic and atraumatic SKIN: warm and dry NEUROLOGIC: CN 2-12 grossly intact, normal cognition PSYCHIATRIC: alert cooperative and oriented to person, place and time. Results & Data Results & Data ([facility]) Vital Signs (Past 12 Hours) Vital Signs Temp Pulse Pulse Pulse Resp BP Pulse Ox 12/31/20 12:02 36.8 C 77 18 128/77 96 12/31/20 11:08 57 L 16 96 12/31/20 08:04 36.6 C 71 18 115/71 96 12/31/20 08:00 72 12/31/20 07:00 72 16 95 12/31/20 03:24 36.6 C 72 18 127/69 95 Laboratory Results Short CBC 12/31/20 Range/Units 10:17 WBC 9.63 (4.8-10.8) K/uL Hgb 8.4 L (14.0-18.0) g/dL Hct 24.5 L (42-52) % Plt Count 185 (130-400) K/uL BMP 12/31/20 10:17 Sodium 132 L Potassium 3.0 L Chloride 92 L Carbon Dioxide 28 BUN 111 H Creatinine 5.05 H* D Glucose 157 H Calcium 8.6 Medications Administered Current Inpatient Medications Acetaminophen (Acetaminophen 325 Mg Tab) 650 mg PO Q4H PRN PRN Reason: Pain or Fever Stop: 01/24/21 06:43 Albuterol (Albut/Ipratrop 3mg/0.5mg Neb 3 Ml Vial) 3 ml NEB Q2H PRN PRN Reason: Shortness Of Breath Or Wheezing Stop: 01/24/21 06:43 Last Admin: 12/29/20 11:11 Dose: 3 ml Documented by: Albuterol (Albut/Ipratrop 3mg/0.5mg Neb 3 Ml Vial) 3 ml NEB QIDR PRN PRN Reason: sob/wheezing Stop: 01/28/21 06:59 Amiodarone HCl (Amiodarone 200 Mg Tab) 200 mg PO DAILY [facility] Stop: 01/31/21 08:59 Amlodipine Besylate (Amlodipine Besylate 5 Mg Tab) 2.5 mg PO DAILY [facility] Stop: 01/24/21 08:59 Last Admin: 12/30/20 08:49 Dose: 2.5 mg Documented by: Aspirin (Aspirin 81 Mg Ectab) 81 mg PO DAILY [facility] Stop: 01/24/21 08:59 Last Admin: 12/31/20 08:04 Dose: 81 mg Documented by: Atorvastatin Calcium (Atorvastatin 40 Mg Tab) 40 mg PO DAILY [facility] Stop: 01/24/21 08:59 Last Admin: 12/31/20 08:03 Dose: 40 mg Documented by: Bisacodyl (Bisacodyl 10 Mg Supp) 10 mg PA DAILY PRN PRN Reason: Constipation Stop: 01/27/21 01:56 Docusate Sodium (Docusate Sodium 100 Mg Cap) 100 mg PO BID [facility] Stop: 01/24/21 08:59 Last Admin: 12/30/20 08:49 Dose: 100 mg Documented by: Doxycycline Hyclate (Doxycycline Hyclate 100 Mg Cap) 100 mg PO BID@1000,2200 [facility]; Protocol Stop: 01/01/21 09:59 Last Admin: 12/29/20 20:22 Dose: 100 mg Documented by: Ferrous Sulfate (Ferrous Sulfate 325 Mg Tab) 325 mg PO QAM [facility] Stop: 01/24/21 08:59 Last Admin: 12/30/20 08:49 Dose: 325 mg Documented by: Finasteride (Finasteride 5 Mg Tab) 5 mg PO QAM [facility] Stop: 01/24/21 08:59 Last Admin: 12/31/20 08:04 Dose: 5 mg Documented by: Glycerin (Glycerin Adult 12 Supp/Box Supp) 1 supp PA DAILY PRN PRN Reason: Constipation Stop: 01/29/21 15:34 Insulin Aspart (Insulin Aspart 100 Units/Ml 3 Ml Pen) 0 units SC ACHS [facility] Stop: 01/24/21 07:29 Last Admin: 12/31/20 12:31 Dose: Not Given Documented by: Lactobacillus Acidoph/Casei/Rhamnos (Advanced Probiotic 1250 Mg Capsule) 2 cap PO DAILY [facility] Stop: 01/24/21 08:59 Last Admin: 12/31/20 08:04 Dose: 2 cap Documented by: Levothyroxine Sodium (Levothyroxine Sodium 88 Mcg Tablet) 88 mcg PO DAILYBB [facility] Stop: 01/24/21 06:43 Last Admin: 12/31/20 05:45 Dose: 88 mcg Documented by: Metoprolol Succinate (Metoprolol Succ 50mg Ext Rel Tab) 50 mg PO DAILY [facility] Stop: 01/27/21 08:59 Last Admin: 12/31/20 08:05 Dose: 50 mg Documented by: Morphine Sulfate (Morphine Sulfate 5 Mg/0.25 Ml Udp) 2.5 mg PO Q6H PRN PRN Reason: Shortness Of Breath Stop: 01/12/21 15:16 Nitroglycerin (Nitroglycerin Sl 0.4 Mg/Tab Tab) 0.4 mg SL UD PRN PRN Reason: Chest Pain Stop: 01/24/21 06:43 Nystatin (Nystatin Powder 15gm Btl) 1 appln EXT TID [facility] Stop: 01/24/21 08:59 Last Admin: 12/31/20 13:42 Dose: 1 appln Documented by: Ondansetron HCl (Ondansetron Inj 2 Mg/Ml 2 Ml Vial) 4 mg IV Q6H PRN PRN Reason: Nausea Stop: 01/24/21 06:43 Last Admin: 12/29/20 20:17 Dose: 4 mg Documented by: Pantoprazole Sodium (Pantoprazole 40 Mg Tab) 40 mg PO DAILY [facility] Stop: 01/24/21 08:59 Last Admin: 12/31/20 08:03 Dose: 40 mg Documented by: Polyethylene Glycol (Polyethylene (Miralax) 17 Gm Pack) 17 gm PO DAILY PRN PRN Reason: Constipation Stop: 01/24/21 06:43 Potassium Chloride (Potassium Chloride 10 Meq Tabcr) 10 meq PO QAM [facility] Stop: 01/24/21 08:59 Last Admin: 12/27/20 08:26 Dose: 10 meq Documented by: Potassium Chloride (Potassium Chloride Pwd 20 Meq Pack) 40 meq PO Q6H [facility] Stop: 12/31/20 18:31 Last Admin: 12/31/20 13:41 Dose: 40 meq Documented by: Sennosides (Senna 8.6 Mg Tab) 8.6 mg PO DAILY PRN PRN Reason: Constipation Stop: 01/24/21 06:43 Torsemide (Torsemide 100 Mg Tab) 100 mg PO DAILY [facility] Stop: 01/29/21 11:59 Last Admin: 12/31/20 08:04 Dose: 100 mg Documented by: Vitamin D (Cholecalciferol 1,000 Units 25 Mcg Tab) 1,000 units PO DAILY [facility] Stop: 01/24/21 08:59 Last Admin: 12/30/20 08:49 Dose: 1,000 units Documented by: Warfarin Sodium (Warfarin Sod 5 Mg Tab) 5 mg PO DAILY@1600 [facility] Stop: 01/25/21 15:59 Last Admin: 12/30/20 16:05 Dose: 5 mg Documented by: (1) Acute renal failure superimposed on stage 4 chronic kidney disease Acute renal failure type: unspecified Qualified Code(s): N17.9 - Acute kidney failure, unspecified; N18.4 - Chronic kidney disease, stage 4 (severe) (2) Anemia in chronic kidney disease Chronic kidney disease stage: unspecified stage Qualified Code(s): N18.9 - Chronic kidney disease, unspecified; D63.1 - Anemia in chronic kidney disease
[2020-12-31] MEDS: WARFARIN SOD 5 MG TAB PO SCH (17:13)
[2021-01-01] MEDS: LEVOTHYROXINE SODIUM 88 MCG TABLET PO SCH (06:08)
[2021-01-01 06:41] LABS: Hematocrit (blood only) 24.1 % (42-52); Hemoglobin 8.1 g/dL (14.0-18.0); Mean Corpuscular Hemoglobin 31.2 pg (25-34); Mean Corpuscular Hgb Conc 33.6 g/dL (32-36); Mean Corpuscular Volume 92.7 fL (80-100); Mean Platelet Volume 9.6 fL (7.4-10.4); Platelet Count 177 K/uL (130-400); RDW Coefficient of Variation 15.5 % (11.5-14.5); RDW Standard Deviation 51.8 fL (36.4-46.3); White Blood Count 9.97 K/uL (4.8-10.8)
[2021-01-01 06:53] LABS: INR 2.3 (0.9-1.1); Prothrombin Time 21.6 Seconds (9.0-12.0)
[2021-01-01 07:29] LABS: BUN Creatinine Ratio 23.5 (10-20); Calcium 8.4 mg/dl (8.5-10.1); Creatinine Clr Calc Pharmacy 9.2 ml/min; Est GFR (African American) 10.7; Est GFR (Non-African American) 9.2; Magnesium 2.5 mg/dl (1.8-2.4); Phosphorus 5.6 mg/dl (2.5-4.9); Potassium 3.7 mmol/L (3.5-5.1)
[2021-01-01] MEDS: AMIODARONE 200 MG TAB PO SCH (08:35)
[2021-01-01] MEDS: FINASTERIDE 5 MG TAB PO SCH (08:35)
[2021-01-01] MEDS: ASPIRIN 81 MG ECTAB PO SCH (08:35)
[2021-01-01] MEDS: TORSEMIDE 100 MG TAB PO SCH (08:35)
[2021-01-01] MEDS: ATORVASTATIN 40 MG TAB PO SCH (08:35)
[2021-01-01] MEDS: ADVANCED PROBIOTIC 1250 MG CAPSULE PO SCH (08:35)
[2021-01-01] MEDS: PANTOprazole 40 MG TAB PO SCH (08:35)
[2021-01-01] MEDS: METOPROLOL SUCC 50MG EXT REL TAB PO SCH (08:35)
[2021-01-01] MEDS: INSULIN ASPART 100 UNITS/ML 3 ML PEN SC SCH ×5 (08:37→21:30)
[2021-01-01] MEDS: NYSTATIN POWDER 15GM BTL EXT SCH ×3 (08:42→22:28)
[2021-01-01] MEDS ORDERED: oxyCODONE HCL IR 5 MG TAB (IMMEDIATE RELEASE) PO PRN (09:09)
--- NOTE | 2021-01-01 12:04 | Cardiology Progress Note ---
Date of Service January 01, 2021 Assessment & Plan (1) Acute on chronic heart failure with reduced ejection fraction and diastolic dysfunction: (2) PAF (paroxysmal atrial fibrillation): (3) Ischemic cardiomyopathy: (4) Acute renal failure superimposed on stage 4 chronic kidney disease: (5) Elevated troponin I level: (6) Anemia in chronic kidney disease: Compensated volume status Continue to monitor daily weight, fluid balance, GFR, and electrolytes. Continue metoprolol and low dose amiodarone for rate control Continue chronic Coumadin anticoagulation. Palliative care consultation appreciated. Poor prognosis. Admission and Anticipated Discharge Date Admission Date: December 25, 2020 Supervising Physician Co-Signing Physician Notes Patient seen and examined at the bedside. Fluid balance negative approximately 1 L. Telemetry reveals atrial fibrillation with PVCs. Rate controlled at this time. He is essentially asymptomatic at this time. No shortness of breath or chest discomfort. Previously reported nausea has improved with reduction of amiodarone dosing. PE: VSS. Gen: NAD, poor historian, oriented to person and place. Lungs: Rales at the bases bilateral. No rhonchi or wheeze. Heart: Irregular, normal S1-S2, 2/6 systolic ejection murmur. Extremities: Trace bilateral pedal and ankle edema. A/P: Agree with above PA-C history, physical exam, assessment and plan. Palliative care consultation appreciated. Continue current conservative medical management. Subjective Patient seen and examined. Chart, medications, and telemetry reviewed. Feeling a little sluggish this morning No chest pain, palpitations, or worsening dyspnea Telemetry: atrial fibrillation in the 60 to 80 bpm range with occasional PVC's Review of Systems Review of Systems: All systems reviewed & are unremarkable except as noted in HPI & below Physical Exam Physical Exam: General: A&O to person and place. NAD. HENT: Normocephalic. Atraumatic. Eyes: PER. Conjunctiva pink, sclera clear. Neck: + Bilateral carotid bruits. No JVD. Heart: Irregularly irregular in the 60's. Grade II/ systolic murmur. No diastolic murmur. PMI is displaced. Lungs: Left basilar rales. No wheeze. Abdomen: +BS. Soft. Nontender. No masses or organomegaly. Extremities: Minimal pretibial edema on the right. No edema on the left. No clubbing. No cyanosis. Sales catheter in place. Limited neurological examination is without focal deficits. Pulses: radial=2/4, posterior tibial=1/4. Results & Data ([facility]) Vital Signs (Past 12 Hours) Vital Signs Temp Pulse Resp BP Pulse Ox 01/01/21 07:50 36.7 C 77 18 126/67 98 01/01/21 03:31 36.4 C L 81 20 117/63 97 Laboratory Results Laboratory Results - last 24 hr 12/31/20 12/31/20 01/01/21 16:29 20:33 06:14 WBC 9.97 RBC 2.60 L Hgb 8.1 L Hct 24.1 L MCV 92.7 MCH 31.2 MCHC 33.6 RDW Std Deviation 51.8 H RDW Coeff of Tyrel 15.5 H Plt Count 177 MPV 9.6 PT INR Sodium Potassium Chloride Carbon Dioxide Anion Gap BUN Creatinine Est Cr Clr Drug Dosing Est GFR ( Amer) Est GFR (Non-Af Amer) BUN/Creatinine Ratio Glucose POC Glucose 137 H 143 H Calcium Phosphorus Magnesium 01/01/21 01/01/21 01/01/21 06:14 06:14 07:12 WBC RBC Hgb Hct MCV MCH MCHC RDW Std Deviation RDW Coeff of Tyrel Plt Count MPV PT 21.6 H INR 2.3 H Sodium 136 Potassium 3.7 D Chloride 99 Carbon Dioxide 28 Anion Gap 9.0 BUN 121 H Creatinine 5.14 H* Est Cr Clr Drug Dosing 9.2 Est GFR ( Amer) 10.7 Est GFR (Non-Af Amer) 9.2 BUN/Creatinine Ratio 23.5 H Glucose 111 H POC Glucose 127 H Calcium 8.4 L Phosphorus 5.6 H Magnesium 2.5 H 01/01/21 11:29 WBC RBC Hgb Hct MCV MCH MCHC RDW Std Deviation RDW Coeff of Tyrel Plt Count MPV PT INR Sodium Potassium Chloride Carbon Dioxide Anion Gap BUN Creatinine Est Cr Clr Drug Dosing Est GFR ( Amer) Est GFR (Non-Af Amer) BUN/Creatinine Ratio Glucose POC Glucose 137 H Calcium Phosphorus Magnesium (1) Anemia in chronic kidney disease Chronic kidney disease stage: unspecified stage Qualified Code(s): N18.9 - Chronic kidney disease, unspecified; D63.1 - Anemia in chronic kidney disease (2) Acute renal failure superimposed on stage 4 chronic kidney disease Acute renal failure type: unspecified Qualified Code(s): N17.9 - Acute kidney failure, unspecified; N18.4 - Chronic kidney disease, stage 4 (severe)
--- NOTE | 2021-01-01 12:44 | Palliative Care Progress Note ---
Date of Service January 01, 2021 Assessment & Plan (1) Palliative care encounter: I talked with Mr. Amato about his understanding of his health. He initially does not seem to have insight into the severity of his disease but then later said to me "I don't think I'm going to get better". We talked about that some more. He tells me that he is not afraid to and that he would like to be at home with is family. He understands that his heart and kidneys are failing. We talked about going home with focus on comfort rather than disease management so that he can enjoy time with family until his dying time. He tells me that is what he would like. This coincides with the discussion that I had with his daughter, Hamida, who called with questions about hospice. She tells me that the family is struggling with the idea that he is not going to get better since "he hasn't been in the hospital since last year". We reviewed his current status and prognosis. She had multiple questions about hospice. We reviewed hospice philosophy and care. We talked about what would be covered in hospice benefit. She had concerns about him being able to continue his medications and f/u with his doctor. I assured her that he could see his physician as an outpatient if he felt up to it but that with nursing assessment and communication with his physician, that may not be necessary. We talked about reviewing medications and adjusting for those that are helping to improve his quality of life at this time. He has been on lupron for prostate cancer but she is uncertain about when his last injection was. We discussed that by the time next injection is due, he may not benefit from shot but they can decide that at the time. She confirms that the family would like to take him home with hospice care. Case management is arranging. (2) Acute renal failure superimposed on stage 4 chronic kidney disease: (3) Acute on chronic heart failure with reduced ejection fraction and diastolic dysfunction: (4) Prostate cancer: (5) Atrial flutter with rapid ventricular response: Admission and Anticipated Discharge Date Admission Date: December 25, 2020 Subjective Awake, resting in bed. Mild confusion. Denies discomfort. Review of Systems Review of Systems: Canon Symptom Assessment Scale Pain 0/3 Dyspnea 0/3 Anxiety 0/3 Drowsiness 0/3 Anxiety 0/3 Palliative Performance Score 30% Physical Exam Constitutional: no acute distress Respiratory: no labored breathing Gastrointestinal (Abdomen): Inspection/Auscultation: abdomen not distended Percussion/Palpation: abdomen nontender Neurologic: + confused (mild); no focal motor deficits Psychiatric: Affect: euthymic affect Genitourinary: Sales catheter Results & Data ([facility]) Vital Signs (Past 12 Hours) Vital Signs Temp Pulse Resp BP BP Pulse Ox 01/01/21 12:13 98.4 F 107 H 18 123/64 96 01/01/21 07:50 98.1 F 77 18 126/67 98 01/01/21 03:31 97.5 F L 81 20 117/63 97 PG Care Time/CCT Total # of Minutes Spent Total Time Spent with Patient: Total time spent is greater than 50% in coordination of care (as documented) at patient's floor/unit and/or counseling patient: total time 45 min with more than 50% of time spent on goals of care, hospice, family support and education Coding Level of Care Code 34524 Subseq Hosp Care Lvl 3 Diagnoses Palliative care encounter Z51.5 Acute renal failure superimposed on stage 4 chronic kidney disease N17.9; N18.4 Acute renal failure type: unspecified Acute on chronic heart failure with reduced ejection fraction and diastolic dysfunction I50.43 Prostate cancer C61 Atrial flutter with rapid ventricular response I48.92 (1) Acute renal failure superimposed on stage 4 chronic kidney disease Acute renal failure type: unspecified Qualified Code(s): N17.9 - Acute kidney failure, unspecified; N18.4 - Chronic kidney disease, stage 4 (severe)
--- NOTE | 2021-01-01 13:34 | Hospitalist Progress Note ---
Date of Service January 01, 2021 Assessment & Plan (1) Acute on chronic heart failure with reduced ejection fraction and diastolic dysfunction: Patient presented with volume overload. Patient was diuresed during his hospitalization. Currently remains on 2 L of nasal cannula. Patient denies being short of breath. Nephrology is on board. No indication for emergent dialysis. Continue to trend daily BMP and continues to rise. Currently remains on 100 mg of Demadex. Palliative medicine is on board. Plan is to discharge patient home on home hospice. (2) Acute renal failure superimposed on stage 4 chronic kidney disease: plan as above. (3) Acute and chronic respiratory failure with hypoxia: Does not appear hypervolemic continue diuresis with medics. Continue monitor ins and outs. Continue bronchodilator therapy. (4) Atrial flutter: Maintains in afib on telemetry, cont warfarin, oral amio and beta preeti. (5) Elevated troponin I level: due to demand ischemia/type 2 PR in setting of decompensated CHF and worsening of renal failure , causing poor clearance. No further workup at this time. (6) Anemia in chronic kidney disease: One unit of blood on 12/31. Multifactorial in etiology including continued daily phlebotomy, worsening renal function and multiple comorbidities. (7) Goals of care, counseling/discussion: Dr. Curry spoke with the patient and the family prior to me taking over the service. Plan is to discharge patient on home hospice tomorrow. (8) DVT prophylaxis: warfarin DNR/DNI Home hospice tomorrow. Admission and Anticipated Discharge Date Admission Date: December 25, 2020 Subjective Patient was awake and alert. He was oriented to place and person but not time. Currently on 2 L of nasal cannula. Review of system is mainly negative. Review of Systems Review of Systems: All systems reviewed & are unremarkable except as noted in HPI & below Physical Exam Physical Exam: General: awake and alert HENT: NCAT, MMM, EOMI Eyes: PERRLA Neck: Supple, normal range of motion CVS: normal rate and rhythm Resp: b/l decrease breath sounds Abdomen: Soft, ND/NT Extremities: 1+ edema Neuro: face symmetric, s no focal deficit Skin: warm and dry, no rashes/lesions/errythema MSK: normal ROM, no joint swelling/erythema Results & Data Results & Data ([facility]) Vital Signs (Past 12 Hours) Vital Signs Temp Pulse Resp BP BP Pulse Ox 01/01/21 12:13 36.9 C 107 H 18 123/64 96 01/01/21 07:50 36.7 C 77 18 126/67 98 01/01/21 03:31 36.4 C L 81 20 117/63 97 (1) Anemia in chronic kidney disease Chronic kidney disease stage: unspecified stage Qualified Code(s): N18.9 - Chronic kidney disease, unspecified; D63.1 - Anemia in chronic kidney disease (2) Acute renal failure superimposed on stage 4 chronic kidney disease Acute renal failure type: unspecified Qualified Code(s): N17.9 - Acute kidney failure, unspecified; N18.4 - Chronic kidney disease, stage 4 (severe)
[2021-01-01] MEDS: WARFARIN SOD 5 MG TAB PO SCH (17:02)
--- NOTE | 2021-01-01 19:52 | Nephrology Progress Note ---
Date of Service January 01, 2021 Assessment & Plan (1) Acute renal failure superimposed on stage 4 chronic kidney disease: Renal function overal declining, unchanged essentially from yesterday, urine output > 1L daily nearly 1L negative; normotensive Is not in overt respiratory distress. And his electrolytes are acceptable though BUN climbing rapidly >Continue on 100 of Demadex and low dose K >poor candidate for chronic dialysis Pt and family opting at this point for home hospice; with his arrrhythmias, complex HF, advancing renal disease, overall poor prx, this is a meaningful/reasonable choice (2) Acute on chronic heart failure with reduced ejection fraction and diastolic dysfunction: Continue 100 of Demadex Poor prognosis with ongoing PAF. Cardiology on board. (3) Atrial flutter with rapid ventricular response: Admission and Anticipated Discharge Date Admission Date: December 25, 2020 Results & Data ([facility]) Vital Signs (Past 12 Hours) Vital Signs Temp Pulse Resp BP BP Pulse Ox 01/01/21 19:19 36.3 C L 70 20 147/64 H 96 01/01/21 16:01 36.5 C 59 L 18 126/66 94 01/01/21 12:13 36.9 C 107 H 18 123/64 96 01/01/21 07:50 36.7 C 77 18 126/67 98 Laboratory Results 01/01/21 06:14 01/01/21 06:14 (1) Acute renal failure superimposed on stage 4 chronic kidney disease Acute renal failure type: unspecified Qualified Code(s): N17.9 - Acute kidney failure, unspecified; N18.4 - Chronic kidney disease, stage 4 (severe)
[2021-01-02] MEDS: LEVOTHYROXINE SODIUM 88 MCG TABLET PO SCH (05:45)
[2021-01-02 06:10] LABS: Basophils # (auto) 0.02 K/uL (0-0.2); Basophils % (auto) 0.2 %; Eosinophils # (auto) 0.24 K/uL (0-0.5); Eosinophils % (auto) 2.1 %; Hematocrit (blood only) 23.6 % (42-52); Hemoglobin 7.9 g/dL (14.0-18.0); Immature Granulocytes # (auto) 0.01 K/uL (0.00-0.02); Immature Granulocytes % (auto) 0.1 %; Lymphocytes # (auto) 1.87 K/uL (1.2-3.4); Lymphocytes % (auto) 16.2 %; Mean Corpuscular Hgb Conc 33.5 g/dL (32-36); Mean Corpuscular Volume 92.5 fL (80-100); Mean Platelet Volume 9.4 fL (7.4-10.4); Monocytes # (auto) 0.87 K/uL (0.11-0.59); Monocytes % (auto) 7.5 %; Neutrophils # (auto) 8.52 K/uL (1.4-6.5); Neutrophils % (auto) 73.9 %; Platelet Count 192 K/uL (130-400); RDW Coefficient of Variation 15.2 % (11.5-14.5); RDW Standard Deviation 51.7 fL (36.4-46.3); Red Blood Count 2.55 M/uL (4.7-6.1); White Blood Count 11.53 K/uL (4.8-10.8)
[2021-01-02 06:27] LABS: Polychromasia 1+
[2021-01-02 06:55] LABS: Creatinine Clr Calc Pharmacy 9.7 ml/min; Est GFR (African American) 11.4; Est GFR (Non-African American) 9.8
[2021-01-02] MEDS: INSULIN ASPART 100 UNITS/ML 3 ML PEN SC SCH ×2 (07:55→11:48)
[2021-01-02] MEDS: ASPIRIN 81 MG ECTAB PO SCH (07:56)
[2021-01-02] MEDS: PANTOprazole 40 MG TAB PO SCH (07:56)
[2021-01-02] MEDS: TORSEMIDE 100 MG TAB PO SCH (07:56)
[2021-01-02] MEDS: ATORVASTATIN 40 MG TAB PO SCH (07:56)
[2021-01-02] MEDS: METOPROLOL SUCC 50MG EXT REL TAB PO SCH (07:56)
[2021-01-02] MEDS: ADVANCED PROBIOTIC 1250 MG CAPSULE PO SCH (07:57)
[2021-01-02] MEDS: AMIODARONE 200 MG TAB PO SCH (07:57)
[2021-01-02] MEDS: NYSTATIN POWDER 15GM BTL EXT SCH (07:57)
[2021-01-02] MEDS: FINASTERIDE 5 MG TAB PO SCH (07:57)
--- NOTE | 2021-01-02 09:27 | Nephrology Progress Note ---
Date of Service January 02, 2021 Assessment & Plan (1) Acute renal failure superimposed on stage 4 chronic kidney disease: Renal function overal declining, unchanged essentially from yesterday, urine output > 1L daily nearly 1L negative; normotensive Is not in overt respiratory distress. And his electrolytes are acceptable though BUN climbing rapidly >Continue on 100 of Demadex and low dose K >> K supplemented today and demadex dose lowered >poor candidate for chronic dialysis Pt and family opting at this point for home hospice; with his arrrhythmias, complex HF, advancing renal disease, overall poor prx, this is a meaningful/reasonable choice (2) Acute on chronic heart failure with reduced ejection fraction and diastolic dysfunction: lower Demadex as above Poor prognosis with ongoing PAF. Cardiology on board. (3) Atrial flutter with rapid ventricular response: Admission and Anticipated Discharge Date Admission Date: December 25, 2020 Subjective L ankle pain yesterday whcih was severe. does note some N giles w/ food no complaints today; tired; eager for d/c home Review of Systems Review of Systems: All systems reviewed & are unremarkable except as noted in Subjective Physical Exam Constitutional: well developed, well nourished, + frail appearing and andre ative; no acute distress Eyes: EOM intact bilaterally ENMT: Ears: no external ear abnormality Nose: no external nose abnormality Mouth: + dry oral mucous membranes Neck: no nuchal rigidity Respiratory: normal respiratory effort Auscultation: + diminished lung sounds Cardiovascular: Rate/Rhythm: + irregularly irregular Extremities: no edema Gastrointestinal (Abdomen): Inspection/Auscultation: normal bowel sounds Percussion/Palpation: abdomen soft; abdomen nontender Musculoskeletal: Extremities: + abnormal strength Skin: no rashes, warm and dry Neurologic: delgadillo, fluent speech, no tremor, [place] Psychiatric: Orientation: alert and oriented x 3 Genitourinary: castellanos Results & Data ([facility]) Vital Signs (Past 12 Hours) Vital Signs Temp Pulse Pulse Pulse Resp BP BP 01/02/21 08:00 37.0 C 78 72 18 133/64 01/02/21 03:46 36.8 C 88 16 121/63 01/02/21 00:00 78 01/01/21 23:47 36.9 C 72 16 121/62 Pulse Ox 01/02/21 08:00 95 01/02/21 03:46 97 01/02/21 00:00 01/01/21 23:47 97 Laboratory Results 01/02/21 05:46 01/02/21 05:46 (1) Acute renal failure superimposed on stage 4 chronic kidney disease Acute renal failure type: unspecified Qualified Code(s): N17.9 - Acute kidney failure, unspecified; N18.4 - Chronic kidney disease, stage 4 (severe)
[2021-01-02] MEDS ORDERED: POTASSIUM CHLORIDE 10 MEQ TABCR PO ONE (11:00)
--- NOTE | 2021-01-02 12:33 | Discharge Summary ---
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 Currently, the patient is wheelchair bound since last 3 years because of hip pain and poor candidate for surgery, status post b/l carotid endarterectomy, CAD status post stent, wheelchair dependent, history of chronic systolic congestive heart failure with EF of 25-30%, [id number] mitral regurgitation, moderate to severe secondary pulmonary hypertension, history of DVT and PE, on Coumadin, nonspecific intraventricular conduction block, iron deficiency anemia. The patient lives at home with his , wheelchair bound, supposed to be careful diet, but as per , he is eating regular food. For the last few weeks, he is having cough, but last night, the cough got worse and became more short of breath. He was in respiratory distress. When EMS arrived he seemed in severe respiratory distress and they placed him on CPAP and brought him here. In the ER, he was placed on BiPAP and he was tachypneic, tachycardic. The patient's given congestive heart failure was given Lasix, morphine, and nitroglycerin and currently seems comfortable, able to speak. was in the room who helped with most of the history. They had COVID shot, finished second dose of COVID shot on 12/08/2020. No fever, no chills. No complaint of any chest pain, no nausea, no vomiting. Appetite is okay. No headache, hard of hearing. Always has runny nose, no sore throat. Normal bowel movement yesterday morning. He is on Sales catheter since last 2-3 years. It seems that his urine output seemed to be decreased yesterday. With assistance he can go to bathroom. Admission Exam Per Admitting Provider PHYSICAL EXAMINATION: GENERAL: The patient is old and frail, on BiPAP. VITAL SIGNS: Temperature 36.4, pulse 102, respiratory rate 20, blood pressure 125/76, oxygen currently 97% on BiPAP 40% FIO2. HEENT: Right eye is blind. NECK: No JVD, no neck masses seen. CARDIOVASCULAR: S1, S2 heard, regular rate and rhythm, no murmur, no gallop. RESPIRATORY SYSTEM: Normal AP diameter. No accessory muscle use. Mild bilateral diminished breath sounds. Mild occasional rhonchi heard. No wheezing. ABDOMEN: Soft, bowel sounds present, nontender. No distention. CENTRAL NERVOUS SYSTEM: Alert and awake. Speech is clear, no facial droop. Moves extremities. Lower extremity, mild pedal edema present. Principal Diagnosis Acute on chronic heart failure with reduced ejection fraction and diastolic dysfunction Discharge Exam General: awake and alert HENT: NCAT, MMM, EOMI Eyes: PERRLA Neck: Supple, normal range of motion CVS: normal rate and rhythm Resp: b/l decrease breath sounds Abdomen: Soft, ND/NT Extremities: 1+ edema Neuro: face symmetric, s no focal deficit Skin: warm and dry, no rashes/lesions/errythema MSK: normal ROM, no joint swelling/erythema Discharge Data Allergies Allergy/AdvReac Type Severity Reaction Status Date / Time clopidogrel Allergy Intermediate RASH Verified 09/26/20 10:07 Sulfa (Sulfonamide Allergy Intermediate RASH Verified 09/26/20 10:07 Antibiotics) sulfamethoxazole Allergy Intermediate RASH Verified 09/26/20 10:07 trimethoprim Allergy Mild RASH Verified 09/26/20 10:07 niacin Allergy Unknown UNKNOWN Verified 09/26/20 10:07 Consultations 12/25/20 08:00 Consult Cardiology Routine Consult Nephrology Routine 12/29/20 12:01 Consult Palliative Care Routine Hospital Course (1) Acute on chronic heart failure with reduced ejection fraction and diastolic dysfunction: Patient presented with volume overload. Patient was diuresed during his hospitalization. Cardiology and nephrology were consulted. Patient was requiring 2 L of nasal cannula during this hospitalization. On the day of discharge patient did not appear to be significantly fluid overloaded. Patient was discharged on 100 mg of Demadex. (2) Acute renal failure superimposed on stage 4 chronic kidney disease: Nephrology was consulted. His renal function continued to decline. Patient was not any significant respiratory distress at the time of discharge. Given his overall poor prognosis, nephrology believed he would be a poor candidate for chronic dialysis. Patient was discharged on home hospice services. (3) Acute and chronic respiratory failure with hypoxia: Does not appear hypervolemic continue diuresis with medics. Continue monitor ins and outs. Continue bronchodilator therapy. (4) Atrial flutter: Maintains in afib on telemetry, cont warfarin, oral amio and beta preeti. (5) Elevated troponin I level: due to demand ischemia/type 2 NE in setting of decompensated CHF and worsening of renal failure , causing poor clearance. No further workup at this time. (6) Anemia in chronic kidney disease: One unit of blood on 12/31. Multifactorial in etiology including continued daily phlebotomy, worsening renal function and multiple comorbidities. (7) Goals of care, counseling/discussion: Dr. Curry spoke with the patient and the family prior to me taking over the service. Plan is to discharge patient on home hospice tomorrow. Total Time Total Time Spent Total Time Spent (In Minutes): 35 Discharge Plan Discharge Items Patient Disposition: Hospice - Home Reason For Visit: respiratory distress Discharge Diagnosis: Acute on chronic heart failure with reduced ejection fraction and diastolic dysfunction: Activity: Resume your previous activity Non-emergency contact: Primary Care Provider Call non-emergency contact if: your symptoms worsen Follow-up/Referrals: Venkat Gilman DO [Primary Care Provider] - (Date & Time 01/04/2021 11:20 AM Provider Venkat Gilman DO Department General Internal Medicine [facility] Date & Time 01/04/2021 3:45 PM Provider Dasha Vora [facility] Department [facility] ) Diet: Heart Healthy Addtl Attending Provider Instructions: You are being discharged on hospice services. Pending Studies at Discharge: No Medications and DC Order Prescriptions: New morphine concentrate 100 mg/5 mL (20 mg/mL) Solution 5 mg PO Q6H PRN (Reason: dyspnea or pain) Qty: 15 RF: 0 lorazepam [Ativan] 0.5 mg tablet 0.5 mg PO Q12H PRN (Reason: anxiety) Qty: 10 RF: 0 amiodarone 200 mg Tablet 200 mg PO DAILY Qty: 30 RF: 0 torsemide 100 mg Tablet 100 mg PO DAILY Qty: 30 RF: 0 haloperidol 0.5 mg tablet 0.5 mg PO Q6H PRN (Reason: nausea and vomiting) Qty: 10 RF: 0 hyoscyamine sulfate 0.125 mg tablet, sublingual 0.125 mg PO Q8H PRN (Reason: dyspepsia) Qty: 10 RF: 0 Continued nystatin 100,000 unit/gram powder 1 appln TOP TID Qty: 60 RF: 11 atorvastatin 40 mg tablet 40 mg PO DAILY RF: 0 amlodipine 2.5 mg Tablet 2.5 mg PO DAILY RF: 0 levothyroxine 88 mcg Tablet 88 mcg PO DAILYBB RF: 0 ferrous sulfate 325 mg (65 mg iron) Tablet 325 mg PO QAM RF: 0 nitroglycerin 0.4 mg Tablet, Sublingual 0.4 mg sublingual DIRECTED PRN (Reason: Chest Pain) RF: 0 omeprazole 20 mg capsule,delayed release(DR/EC) 20 mg PO DAILY RF: 0 finasteride 5 mg tablet 5 mg PO QAM RF: 0 metoprolol succinate 50 mg tablet extended release 24 hr 25 mg PO QPM RF: 0 warfarin 5 mg tablet 5 mg PO QPM RF: 0 aspirin 81 mg Tablet,Chewable 81 mg PO DAILY RF: 0 Lactinex 1 million cell tablet,chewable 1 tab PO DAILY RF: 0 tramadol 50 mg Tablet 50 mg PO BID PRN (Reason: Pain, Severe) RF: 0 polyethylene glycol 3350 [Miralax] 17 gram/dose Powder 8.5 g PO DAILY PRN (Reason: Constipation) RF: 0 sennosides [senna] 8.6 mg Tablet 8.6 mg PO DAILY PRN (Reason: Constipation) RF: 0 docusate sodium [Colace] 100 mg Capsule 100 mg PO BID RF: 0 potassium chloride 10 mEq tablet extended release 10 meq PO QAM RF: 0 ipratropium-albuterol 0.5 mg-3 mg(2.5 mg base)/3 mL solution for nebulization 3 ml INHALATION QID RF: 0 cholecalciferol (vitamin D3) [Vitamin D3] 25 mcg (1,000 unit) Capsule 1,000 unit PO DAILY RF: 0 metoprolol succinate 50 mg Tablet Extended Release 24 Hr 50 mg PO DAILYBB Qty: 0 RF: 0 Discontinued furosemide 40 mg tablet 40 mg PO DAILY RF: 0 Discharge Orders: Discharge Order (Routine); Ordered 01/02/21 Ordered By: Wiliam Keating/Other Patient Handouts: A1C Admission Data Admit Date/Time: 12/25/20 05:27 Attending Provider: Wiliam Flynn Admit Provider: Dilan Landrum Primary Care Provider: Venkat Gilman Other Providers: Mike Caba ; Bertha Chiu ; [facility] ; Marianna Barger
== END 2021-01-02 14:12 | disposition hospice, home (50) | DRG 291 ==
LOC: ED 03:13 → 1E 05:27 → SUATTDRO 05:27 → 1E 06:15 → 2S 16:27